=== PATIENT | male | born 1970 | race Caucasian/White ===

== ENCOUNTER 2020-03-28 20:44 | Inpatient (IN) | payer OTHER ==
--- OUTSIDE RECORDS SUMMARY | 2020-03-28 21:00 | XMS REPORT | Continuity of Care Document ---
:1970 Author Organization [facility] t Address [address] [place] [address] Care Team Providers Name Role Phone UNKNOWN Primary Care Physician Unavailable Advance Directives Directive Decision Effective Date Termination Date Comments Sour ce Yes N/A [facility] - [place] Problems Condition Condition Condition Status Onset Resolution Last Treating Co mments Source Name Details Category Date Date Treatment Clinician Date Type 1 Problem [facility]U diabetes S - St. mellitus Elizabe with th ketoacidos is Pyelonephr Problem VANNESA itis S - [facility] th Diabetic Problem CH[facility]STU ketoacidos S - St . is [place]abe th Uncontroll Problem VANNESA ed insulin S - St . dependent Elizabe diabetes th mellitus Hypomagnes Problem VANNESA emia S - [facility]. [place] th Hypophosph Problem VANNESA BRASHER atemia S - [facility] th Dehydratio Problem VANNESA BRASHER n S - [facility] [place] th Hepatitis Problem [facility] U C virus S - St. infection [place] th Tobacco Problem [facility] abuse S - [facility] [place] th Nausea and Problem VANNESA BRASHER vomiting S - [facility] [place] th Leukocytos Problem VANNESA BRASHER is S - [facility]. [place] th Chronic Problem [facility]RISTU pancreatit S - St . is Elizabe th History of Problem VANNESA BRASHER alcohol S - St. abuse [place] th Lesion of Problem [facility]AN U lip S - [facility]. [place] th Noncomplia Problem VANNESA BRASHER nce S - [facility] [place] th Peripheral Problem VANNESA BRASHER neuropathy S - St . [place] th Major Problem [facility] depressive S - St . disorder [place] th Cannabis Problem [facility]U abuse S - [facility] [place] th Cellulitis Problem VANNESA BRASHER S - [facility] [place] th Lip ulcer Problem [facility]AN U S - [facility] [place] th Hyperglyce Problem VANNESA BRASHER david S - [facility] [place] th Oral Problem [facility] lesion S - [facility] [place] th Gastropare Problem VANNESA BRASHER sis S - [facility] [place] th Essential Problem ADRIAN U hypertensi S - St . on Elizabe th Abdominal Problem [facility]AN U pain S - [facility]. [place] th Acute Problem [facility] kidney S - St. injury [place]abe th Abscess of Problem VANNESA BRASHER neck S - [facility] [place] th Septic Problem [facility] shock S - [facility] El[facility] th Acute Problem [facility]STU renal S - St. failure [place] th Bacteremia Problem VANNESA S - [facility]. [place] th Intravenou Problem VANNESA BRASHER s drug S - St. abuse [place] th Hypocapnia Problem VANNESA BRASHER S - [facility] [place] th Hyponatrem Problem VANNESA BRASHER ia S - [facility] [place] th Renal Problem [facility]RISTU insufficie S - St . ncy Elizabe th Bandemia Problem [facility]RISTU S - [facility]. [facility] th General Problem [facility] patient S - St. noncomplia Elizab e nce th Hypocalcem Problem VANNESA BRASHER ia S - [facility]. [place] th Demand Problem [facility]U ischemia S - St. of Elizabe myocardium th Colitis Problem CHRISTU due to S - St. Clostridio Elizab e ides th difficile Pressure Problem CHRISTU injury of S - St. skin of Elizabe sacral th region Anemia due Problem VANNESA BRASHER to acute S - St. blood loss Elizab e th Gastrointe Problem VANNESA BRASHER stinal S - St. hemorrhage Elizab e th Thrombocyt Problem VANNESA BRASHER openia S - [facility]. El[facility] th Non-ST Problem [facility]RISTU elevation S - St. myocardial Elizab e infarction th (NSTEMI) Hypotensio Problem VANNESA BRASHER n S - [facility]. [place] th Weakness Problem CHRISTU S - [facility]. 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 Type 1 Problem [facility] mellitus Elizabe with th ketoacidos is Severe Problem CHRISTCee anemia S - St. Elizabe th Uncontroll Problem VANNESA BRASHER ed S - St. hypertensi Elizab e on th Elevated Problem CHRISTCee alanine S - St. aminotrans Elizab e ferase th (ALT) level Elevated Problem JAMES aspartate S - St. aminotrans Elizab e ferase th level High Problem JAMES alkaline S - St. phosphatas Elizab e e th Atrophy of Problem VANNESA BRASHER pancreas S - St. Eliz[place] th Osteoarthr Problem VANNESA BRASHER itis of S - St. 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 substanc 00:00: Elizabe e 00 th Social History Social Habit Start Date Stop Date Quantity Comments Source Sex Assigned At [birth year] Male [facility] 00:00:00 00:00:00 [facility] Smoking Status Start Date Stop Date Source Smokes tobacco daily (finding) 2020-03-21 00:36:00 [facility] Medications Ordered Filled Start Stop Current Ordering Indication Dosage Frequency Signature Comments Components Source Medication Medication Date Date Medication? Clinician (SIG) Name Name Acetaminoph No 1 ADRIAN U en/Codeine 03-21 S - St. Phosphate 03:51: Elizabe (Tylenol 00 th #4) 1 Each TAB Dicyclomine 2020-0 No 10mg ADRIAN U Hcl 8-21 S - St. (Bentyl) 10 02:21: Elizab e Mg CAP 00 th Omeprazole 2020-0 No 20mg CHRISTU (Prilosec) 8-21 S - St. 20 Mg CPDR 02:21: Elizabe 00 th Ondansetron 2020-0 No 4mg ADRIAN U Hcl 8-21 S - St. (Zofran) 4 02:21: Elizabe Mg TAB 00 th Insulin 2020-0 No 20 CHRISTU Glargine 4-20 S - St. (Lantus 07:34: Elizabe U-100) 100 00 th Unit/1 Ml SOLN Pantoprazol 2020-0 No 40mg ADRIAN U e 4-20 S - St. (Protonix) 07:34: Elizabe 40 Mg TABEC 00 th Insulin 2020-0 No 20 CHRISTU Glargine 4-20 S - St. (Lantus 07:34: Elizabe U-100) 100 00 th Unit/1 Ml SOLN Pantoprazol 2020-0 No 40mg ADRIAN U e 4-20 S - St. (Protonix) 07:34: Elizabe 40 Mg TABEC 00 th Insulin 2020-0 No 20 [facility]U Glargine 4-20 S - St. (Lantus 07:34: Elizabe U-100) 100 00 th Unit/1 Ml SOLN Pantoprazol 2020-0 No 40mg ADRIAN U e 4-20 S - St. (Protonix) 07:34: Elizabe 40 Mg TABEC 00 th Acetaminoph 2020-0 No 1 ADRIAN U en/Hydrocod 4-04 S - St. one Bitart 09:57: Elizabe (Ocotillo ) 1 Tab TAB Acetaminoph 2020-0 No 1 ADRIAN U en/Hydrocod 4-04 S - St. one Bitart 09:57: Elizabe ([place] ) 1 Tab TAB Acetaminoph 2020-0 No 1 ADRIAN U en/Hydrocod 4-04 S - St. one Bitart 09:57: Elizabe ([place] ) 1 Tab TAB Acetaminoph 2020-0 No 1 AD[facility]AN U en/Hydrocod 4-04 S - St. one Bitart 09:57: Elizabe ([place] 00 th 5/325) 1 Tab TAB Aspirin 2020-0 No 81mg CHRISTU (Aspirin 4-04 S - St. Chewable) 09:56: Elizabe 81 Mg CHEW 00 th Clopidogrel 2020-0 No 75mg ADRIAN U Bisulfate 4-04 S - St. (Plavix) 75 09:56: Elizab e Mg TAB 00 th Metoprolol 2020-0 No 25mg CHRISTU Succinate 4-04 S - St. (Toprol Xl) 09:56: Elizab e 25 Mg TABSR 00 th Saccharomyc 2020-0 No 250mg VANNESA TU es 4-04 S - St. Boulardii 09:56: Elizabe (Florastor) 00 th 250 Mg CAPSULE Vancomycin 2020-0 No 125mg ADRIAN U Hcl 4-04 S - St. (Vancocin) 09:56: Elizabe 125 Mg 00 th CAPSULE Aspirin 2020-0 No 81mg CHRISTU (Aspirin 4-04 S - St. Chewable) 09:56: Elizabe 81 Mg CHEW 00 th Clopidogrel 2020-0 No 75mg ADRIAN U Bisulfate 4-04 S - St. (Plavix) 75 09:56: Elizab e Mg TAB 00 th Metoprolol 2020-0 No 25mg CH[facility]U Succinate 4-04 S - St. (Toprol Xl) 09:56: Elizab e 25 Mg TABSR 00 th Saccharomyc 2020-0 No 250mg VANNESA TU es 4-04 S - St. Boulardii 09:56: Elizabe (Florastor) 00 th 250 Mg CAPSULE Aspirin 2020-0 No 81mg CHRISTU (Aspirin 4-04 S - St. Chewable) 09:56: Elizabe 81 Mg CHEW 00 th Clopidogrel 2020-0 No 75mg ADRIAN U Bisulfate 4-04 S - St. (Plavix) 75 09:56: Elizab e Mg TAB 00 th Metoprolol 2020-0 No 25mg CH[facility]U Succinate 4-04 S - St. (Toprol Xl) 09:56: Elizab e 25 Mg TABSR 00 th Saccharomyc 2020-0 No 250mg VANNESA TU es 4-04 S - St. Boulardii 09:56: Elizabe (Florastor) 00 th 250 Mg CAPSULE Aspirin 2020-0 No 81mg CHRISTU (Aspirin -04 S - St. Chewable) 09:56: Elizabe 81 Mg CHEW 00 th Clopidogrel 2019-0 No 75mg ADRIAN U Bisulfate -04 S - St. (Plavix) 75 09:56: Elizab e Mg TAB 00 th Metoprolol 2019-0 No 25mg CHRI[facility]U Succinate 4-04 S - St. (Toprol Xl) 09:56: Elizab e 25 Mg TABSR th Saccharomyc 2019-0 No 250mg VANNESA TU es 4-04 S - St. Boulardii 09:56: Elizabe (Florastor) 250 Mg CAPSULE Acetaminoph 2019-0 No 1 ADRIAN U en/Codeine 2-05 S - St. Phosphate 10:40: Elizabe (Tylenol #3) 1 Tab TAB Fluoxetine 2019-0 No 40mg CHRISTU Hcl 1-17 S - St. (Prozac) 20 08:56: Elizab e Mg CAP 00 Fluoxetine 2019-0 No 40mg CH[facility]U Hcl 1-17 S - St. (Prozac) 20 08:56: Elizab e Mg CAP 00 Fluoxetine 2019-0 No 40mg CHRISTU Hcl 1-17 S - St. (Prozac) 20 08:56: Elizab e Mg CAP 00 th Fluoxetine 2019-0 No 40mg CHRISTU Hcl 1-17 S - St. (Prozac) 20 08:56: Elizab e Mg CAP Fluoxetine 2019-0 No 40mg CHRISTU Hcl 1-17 S - St. (Prozac) 20 08:56: Elizab e Mg CAP 00 Fluoxetine 2019-0 No 40mg CHRISTU Hcl 1-17 S - St. (Prozac) 20 08:56: Elizab e Mg CAP 00 Fluoxetine 2019-0 No 40mg CHRISTU Hcl 1-17 S - St. (Prozac) 20 08:56: Elizab e Mg CAP 00 th Amoxicillin 2018-08 No 875mg VANNESA TU /Clavulanat 2-02 S - St. e Potassium 11:29: Elizab e (Augmentin 875 Mg) 1 Each TABLET Insulin 2018-08 No 30 CHRI[facility]U Glargine 2-02 S - St. (Lantus 11:14: Elizabe U-100) 100 00 th Unit/1 Ml SOLN Insulin 2019- No 5 CHRISTU Human 2-02 S - St. Lispro 11:14: Elizabe (Humalog 00 th Inj (3ML Vial)) 100 Unit/1 Ml INJ Insulin 2019- No 30 CH[facility]U Glargine 2-02 S - St. (Lantus 11:14: Elizabe U-100) 100 00 th Unit/1 Ml SOLN Insulin 2019- No 5 CHRI[facility]U Human 2-02 S - St. Lispro 11:14: Elizabe (Humalog 00 th Inj (3ML Vial)) 100 Unit/1 Ml INJ Insulin 2019- No 30 CH[facility] Glargine 2-02 S - St. (Lantus 11:14: Elizabe U-100) 100 00 th Unit/1 Ml SOLN Insulin 2018- No 5 [facility] Human 2-02 S - St. Lispro 11:14: Elizabe (Humalog 00 th Inj (3ML Vial)) 100 Unit/1 Ml INJ Insulin 2019- No 30 CH[facility]U Glargine 2-02 S - St. (Lantus 11:14: Elizabe U-100) 100 00 th Unit/1 Ml SOLN Insulin 2019- No 5 CHRI[facility]U Human 2-02 S - St. Lispro 11:14: Elizabe (Humalog 00 th Inj (3ML Vial)) 100 Unit/1 Ml INJ Insulin 2018- No 30 CH[facility] Glargine 2-02 S - St. (Lantus 11:14: Elizabe U-100) 100 00 th Unit/1 Ml SOLN Insulin 2019- No 5 CHRI[facility] Human 2-02 S - St. Lispro 11:14: Elizabe (Humalog 00 th Inj (3ML Vial)) 100 Unit/1 Ml INJ Insulin 2019- No 5 CHRI[facility]U Human 2-02 S - St. Lispro 11:14: Elizabe (Humalog 00 th Inj (3ML Vial)) 100 Unit/1 Ml INJ Insulin 2018- No 5 CHRI[facility] Human 2-02 S - St. Lispro 11:14: Elizabe (Humalog 00 th Inj (3ML Vial)) 100 Unit/1 Ml INJ Insulin 2019- No 5 CHRI[facility] Human 2-02 S - St. Lispro 11:14: Elizabe (Humalog Inj (3ML Vial)) 100 Unit/1 Ml INJ Ondansetron 2013-0 No 4mg ADRIAN U Hcl 8-20 S - St. (Zofran) 4 19:17: Elizabe Mg TAB 00 th Ondansetron 2013-0 No 4mg ADRIAN U Hcl 8-20 S - St. (Zofran) 4 19:17: Elizabe Mg TAB th Ondansetron 2013-0 No 4mg ADRIAN U Hcl 8-20 S - St. (Zofran) 4 19:17: Elizabe Mg TAB Ondansetron 2013-0 No 4mg ADRIAN U Hcl 8-20 S - St. (Zofran) 4 19:17: Elizabe Mg TAB th Ondansetron 2013-0 No 4mg ADRIAN U Hcl 8-20 S - St. (Zofran) 4 19:17: Elizabe Mg TAB Ondansetron 2013-0 No 4mg ADRIAN U Hcl 8-20 S - St. (Zofran) 4 19:17: Elizabe Mg TAB Ondansetron 2013-0 No 4mg ADRIAN U Hcl 8-20 S - St. (Zofran) 4 19:17: Elizabe Mg TAB Ondansetron 2013-0 No 4mg ADRIAN U Hcl 8-20 S - St. (Zofran) 4 19:17: Elizabe Mg TAB Acetaminoph 2012-0 No 1 ADRIAN U en/Hydrocod 3-25 S - St. one Bitart 16:02: Elizabe ([place]cot[place] ) 1 Tab TAB Acetaminoph 2012-0 No 1 ADRIAN U en/Hydrocod 3-25 S - St. one Bitart 16:02: Elizabe ([place] ) 1 Tab TAB Acetaminoph 2012-0 No 1 ADRIAN U en/Hydrocod 3-25 S - St. one Bitart 16:02: Elizabe ([place] ) 1 Tab TAB Acetaminoph 2012-0 No 1 ADRIAN U en/Hydrocod 3-25 S - St. one Bitart 16:02: Elizabe ([place] ) 1 Tab TAB Amlodipine No 10mg [facility]U Besylate S - St. (Norvasc) Elizabe 10 Mg TAB th Fluoxetine No 20mg CH[facility]STU Hcl S - St. (Prozac) 20 Elizabe Mg CAP th Gabapentin No 600mg CHRISTU (Neurontin) S - St. 600 Mg TAB Elizabe th Hydroxychlo No 200mg [facility]U roquine S - St. Sulfate Elizabe (Plaquenil) th 200 Mg TAB Lisinopril No 40mg CHRISTU (Zestril) S - St. 40 Mg TAB Elizabe th Meloxicam No 15mg CH[facility]STU (Mobic) 15 S - St. Mg TAB Elizabe th Simvastatin No 40mg [facility]U (Zocor) 40 S - St. Mg TAB Elizabe th Trazodone No 50mg [facility]U Hcl S - St. (Desyrel) Elizabe 50 Mg TAB th Amlodipine No 10mg [facility]U Besylate S - St. (Norvasc) Elizabe 10 Mg TAB th Gabapentin No 600mg [facility]U (Neurontin) S - St. 600 Mg TAB Elizabe th Hydroxychlo No 200mg [facility]U roquine S - St. Sulfate Elizabe (Plaquenil) th 200 Mg TAB Lisinopril No 40mg [facility]U (Zestril) S - St. 40 Mg TAB Elizabe th Simvastatin No 40mg [facility]U (Zocor) 40 S - St. Mg TAB Elizabe th Trazodone No 50mg [facility]U Hcl S - St. (Desyrel) Elizabe 50 Mg TAB th Amlodipine No 10mg [facility]U Besylate S - St. (Norvasc) Elizabe 10 Mg TAB th Gabapentin No 600mg [facility]U (Neurontin) S - St. 600 Mg TAB Elizabe th Hydroxychlo No 200mg [facility]U roquine S - St. Sulfate Elizabe (Plaquenil) th 200 Mg TAB Lisinopril No 40mg [facility]U (Zestril) S - St. 40 Mg TAB Elizabe th Simvastatin No 40mg [facility] (Zocor) 40 S - St. Mg TAB Elizabe th Trazodone No 50mg [facility] Hcl S - St. (Desyrel) Elizabe 50 Mg TAB th Amlodipine No 10mg [facility] Besylate S - St. (Norvasc) Elizabe 10 Mg TAB th Gabapentin No 600mg [facility]U (Neurontin) S - St. 600 Mg TAB Elizabe th Hydroxychlo No 200mg [facility] roquine S - St. Sulfate Elizabe (Plaquenil) th 200 Mg TAB Lisinopril No 40mg [facility]U (Zestril) S - St. 40 Mg TAB Elizabe th Simvastatin No 40mg [facility] (Zocor) 40 S - St. Mg TAB Elizabe th Trazodone No 50mg [facility] Hcl S - St. (Desyrel) Elizabe 50 Mg TAB th Amlodipine No 10mg [facility] Besylate S - St. (Norvasc) Elizabe 10 Mg TAB th Gabapentin No 600mg [facility] (Neurontin) S - St. 600 Mg TAB Elizabe th Hydroxychlo No 200mg [facility]U roquine S - St. Sulfate Elizabe (Plaquenil) th 200 Mg TAB Simvastatin No 40mg [facility]U (Zocor) 40 S - St. Mg TAB Elizabe th Trazodone No 50mg [facility] Hcl S - St. (Desyrel) Elizabe 50 Mg TAB th Amlodipine No 10mg [facility]U Besylate S - St. (Norvasc) Elizabe 10 Mg TAB th Gabapentin No 600mg [facility] (Neurontin) S - St. 600 Mg TAB Elizabe th Hydroxychlo No 200mg [facility] roquine S - St. Sulfate Elizabe (Plaquenil) th 200 Mg TAB Simvastatin No 40mg [facility] (Zocor) 40 S - St. Mg TAB Elizabe th Trazodone No 50mg [facility] Hcl S - St. (Desyrel) Elizabe 50 Mg TAB th Amlodipine No 10mg [facility] Besylate S - St. (Norvasc) Elizabe 10 Mg TAB th Gabapentin No 600mg [facility] (Neurontin) S - St. 600 Mg TAB Elizabe th Hydroxychlo No 200mg [facility]U roquine S - St. Sulfate Elizabe (Plaquenil) th 200 Mg TAB Meloxicam No 15mg [facility] (Mobic) 15 S - St. Mg TAB Elizabe th Simvastatin No 40mg [facility] (Zocor) 40 S - St. Mg TAB Elizabe th Trazodone No 50mg [facility] Hcl S - St. (Desyrel) Elizabe 50 Mg TAB th Vancomycin No 125mg [facility] Hcl S - St. (Vancocin) Elizabe 125 Mg th CAPSULE Amlodipine No 10mg [facility]U Besylate S - St. (Norvasc) Elizabe 10 Mg TAB th Gabapentin No 600mg [facility] (Neurontin) S - St. 600 Mg TAB Elizabe th Hydroxychlo No 200mg [facility] roquine S - St. Sulfate Elizabe (Plaquenil) th 200 Mg TAB Meloxicam No 15mg [facility] (Mobic) 15 S - St. Mg TAB Elizabe th Simvastatin No 40mg [facility] (Zocor) 40 S - St. Mg TAB Elizabe th Trazodone No 50mg [facility] Hcl S - St. (Desyrel) Elizabe 50 Mg TAB th Vancomycin No 125mg [facility] Hcl S - St. (Vancocin) Elizabe 125 Mg th CAPSULE Vital Signs Vital Name Observation Time Observation Value Comments Source Body Temperature 2020-03-21 04:54:00 98.1 [degF] [facility] - [place] Heart Rate 2020-03-21 04:54:00 76 /min [facility] [place] Respiratory rate 2020-03-21 04:54:00 19 /min [facility] - [place] Weight 2020-03-20 22:12:00 107.25 [lb_av] [facility] BMI (Body Mass 2020-03-20 22:12:00 17.8 kg/m2 [facility] Index) [facility] Heart Rate 2020-03-20 21:53:00 68 /min [facility] - [place] Respiratory rate 2020-03-20 21:36:00 14 /min [facility] - [place] Body Temperature 2019-12-01 16:00:00 98.5 [degF] [facility] - [place] Heart Rate 2019-12-01 16:00:00 80 /min [facility] - [place] Respiratory rate 2019-12-01 16:00:00 19 /min [facility] - [place] BP Systolic 2019-12-01 16:00:00 147 mm[Hg] [facility] - [place] BP Diastolic 2019-12-01 16:00:00 88 mm[Hg] [facility] - [place] Respiratory rate 2019-11-29 03:00:00 18 /min [facility] - [place] Weight 2019-11-28 04:00:00 112.50 [lb_av] [facility] - [place] BMI (Body Mass 2019-11-28 04:00:00 18.7 kg/m2 [facility] - St. Index) [facility] BP Systolic 2019-11-27 08:52:00 118 mm[Hg] [facility] - [place] BP Diastolic 2019-11-27 08:52:00 71 mm[Hg] [facility] - [place] Heart Rate 2019-11-26 01:32:00 76 /min [facility] - [place] BP Systolic 2019-11-26 01:32:00 105 mm[Hg] [facility] - [place] BP Diastolic 2019-11-26 01:32:00 64 mm[Hg] [facility] - [place] Body Temperature 2019-11-19 07:45:00 98.4 [degF] [facility] - [place] Heart Rate 2019-11-19 07:45:00 90 /min [facility] - [place] Respiratory rate 2019-11-19 07:45:00 18 /min [facility] - [place] BP Systolic 2019-11-19 07:45:00 123 mm[Hg] [facility] - [place] BP Diastolic 2019-11-19 07:45:00 81 mm[Hg] [facility] - [place] Respiratory rate 2019-11-17 14:00:00 18 /min [facility] - [place] Weight 2019-11-17 04:00:00 122 [lb_av] [facility] - [place] BMI (Body Mass 2019-11-17 04:00:00 20.3 kg/m2 [facility] St. Index) [facility] Heart Rate 2019-11-15 01:57:00 81 /min [facility] - [place] BP Systolic 2019-11-15 01:57:00 144 mm[Hg] [facility] - [place] BP Diastolic 2019-11-15 01:57:00 75 mm[Hg] [facility] - [place] Body Temperature 2019-11-03 08:00:00 97.4 [degF] [facility] - [place] Heart Rate 2019-11-03 08:00:00 70 /min [facility] - [place] Respiratory rate 2019-11-03 08:00:00 18 /min [facility] - [place] BP Systolic 2019-11-03 08:00:00 95 mm[Hg] [facility] [place] BP Diastolic 2019-11-03 08:00:00 58 mm[Hg] [facility] [place] Respiratory rate 2019-11-01 22:00:00 15 /min [facility] - [place] Weight 2019-11-01 04:00:00 110.31 [lb_av] [facility] - [place] BMI (Body Mass 2019-11-01 04:00:00 18.4 kg/m2 [facility] - St. Index) [facility] Heart Rate 2019-10-29 00:05:00 98 /min [facility] - [place] BP Systolic 2019-10-29 00:05:00 103 mm[Hg] [facility] [place] BP Diastolic 2019-10-29 00:05:00 60 mm[Hg] [facility] [place] Body Temperature 2019-10-17 15:17:00 99.2 [degF] [facility] - [place] Heart Rate 2019-10-17 15:17:00 92 /min [facility] - [place] BP Systolic 2019-10-17 15:17:00 132 mm[Hg] [facility] [place] BP Diastolic 2019-10-17 15:17:00 66 mm[Hg] [facility] - [place] Respiratory rate 2019-10-17 00:00:00 18 /min [facility] - [place] Respiratory rate 2019-10-07 16:00:00 16 /min [facility] - [place] Weight 2019-10-07 04:00:00 125.56 [lb_av] [facility] - [place] BMI (Body Mass 2019-10-07 04:00:00 20.3 kg/m2 [facility] - St. Index) [facility] Heart Rate 2019-10-05 21:35:00 67 /min [facility] - [place] BP Systolic 2019-10-05 21:35:00 108 mm[Hg] [facility] [place] BP Diastolic 2019-10-05 21:35:00 79 mm[Hg] [facility] [place] Body Temperature 2019-09-05 07:58:00 98.1 [degF] [facility] - [place] Heart Rate 2019-09-05 07:58:00 68 /min [facility] - [place] Respiratory rate 2019-09-05 07:58:00 18 /min [facility] - [place] BP Systolic 2019-09-05 07:58:00 181 mm[Hg] [facility] [place] BP Diastolic 2019-09-05 07:58:00 98 mm[Hg] [facility] [place] Respiratory rate 2019-08-31 20:00:00 13 /min [facility] - [place] BMI (Body Mass 2019-08-31 04:00:00 19.2 kg/m2 [facility] - St. Index) [facility] Weight 2019-08-31 00:35:00 115.31 [lb_av] [facility] - [place] Heart Rate 2019-08-31 00:01:00 108 /min [facility] - [place] BP Systolic 2019-08-31 00:01:00 188 mm[Hg] [facility] [place] BP Diastolic 2019-08-31 00:01:00 84 mm[Hg] [facility] [place] Heart Rate 2019-08-17 10:13:00 86 /min [facility] - [place] Respiratory rate 2019-08-17 10:13:00 18 /min [facility] - [place] BP Systolic 2019-08-17 10:13:00 157 mm[Hg] [facility] [place] BP Diastolic 2019-08-17 10:13:00 89 mm[Hg] [facility] [place] Body Temperature 2019-08-17 08:21:00 97.5 [degF] [facility] - [place] Respiratory rate 2019-08-15 15:00:00 13 /min [facility] - [place] BMI (Body Mass 2019-08-15 04:00:00 20.2 kg/m2 [facility] US - St. Index) [facility] Weight 2019-08-14 22:30:00 121.25 [lb_av] [facility] - [place] Heart Rate 2019-08-14 22:16:00 90 /min [facility] [place] BP Systolic 2019-08-14 22:16:00 142 mm[Hg] [facility] [place] BP Diastolic 2019-08-14 22:16:00 92 mm[Hg] [facility] [place] Body Temperature 2019-07-02 08:00:00 98.7 [degF] [facility] - [place] Heart Rate 2019-07-02 08:00:00 64 /min [facility] - [place] Respiratory rate 2019-07-02 08:00:00 16 /min [facility] - [place] BP Systolic 2019-07-02 08:00:00 111 mm[Hg] [facility] [place] BP Diastolic 2019-07-02 08:00:00 73 mm[Hg] [facility] [place] Respiratory rate 2019-06-28 14:00:00 17 /min [facility] - [place] BMI (Body Mass 2019-06-28 04:00:00 21.6 kg/m2 [facility] - St. Index) [facility] Weight 2019-06-26 20:15:00 130 [lb_av] [facility] [place] Heart Rate 2019-06-26 20:00:00 83 /min [facility] [place] BP Systolic 2019-06-26 20:00:00 141 mm[Hg] [facility] [place] BP Diastolic 2019-06-26 20:00:00 94 mm[Hg] [facility] [place] Procedures Procedure Date / Time Performing Source Performed Clinician Computed tomography of abdomen and 2020-03-21 [facility] pelvis with contrast 00:00:00 [facility] V[facility] access with ultrasound 2019-12-01 [facility] guidance 00:00:00 [facility] Venipuncture requiring physician 2019-12-01 [facility] or skilled healthcare provider in 00:00:00 [facility] patient 3 years of age or older Vascular access with ultrasound 2019-11-30 [facility] guidance 00:00:00 [facility] Venipuncture requiring physician 2019-11-30 [facility] or skilled healthcare provider in 00:00:00 [facility] patient 3 years of age or older Venipuncture requiring physician 2019-11-29 [facility] or skilled healthcare provider in 00:00:00 [facility] patient 3 years of age or older Vascular access with ultrasound 2019-11-29 [facility] guidance 00:00:00 [facility] Colonoscopy with biopsy 2019-11-27 [facility] 00:00:00 [facility] Esophagogastroduodenoscopy with 2019-11-27 [facility] closed biopsy 00:00:00 [facility] Diagnostic 2019-11-27 [facility] esophagogastroduodenoscopy (EGD) 00:00:00 [facility] with specimen collection Colonoscopy, diagnostic 2019-11-27 [facility] 00:00:00 [facility] Blood transfusion 2019-11-26 [facility] 00:[facility]:00 [facility] ECG (electrocardiogram) 2019-11-25 [facility] 00:[facility]:00 [facility] X-ray of chest, single view 2019-11-25 [facility] 00:00:00 [facility] Vascular access with ultrasound 2019-11-19 [facility] guidance 00:00:00 [facility] Venipuncture requiring physician 2019-11-19 [facility] or skilled healthcare provider in 00:00:00 Princess patient 3 years of age or older Computed tomography of abdomen and 2019-11-14 [facility] pelvis with contrast 00:00:00 [facility] Physical therapy evaluation and 2019-11-01 [facility] treatment 00:00:00 [facility] X-ray of chest, single view 2019-10-31 [facility] 00:[facility]:00 [facility] Diagnostic 2019-10-29 [facility] esophagogastroduodenoscopy (EGD) 00:00:00 [facility] with specimen collection INSPECTION OF UPPER INTESTINAL 2019-10-29 [facility] TRACT, ENDO 00:00:00 [facility] ECG (electrocardiogram) 2019-10-28 [facility] 00:[facility]:00 [facility] X-ray of chest, single view 2019-10-28 [facility] 00:00:00 [facility] Computed tomography of head or 2019-10-28 [facility] brain without contrast 00:00:00 [facility] Computed tomography of cervical 2019-10-28 [facility] spine without contrast 00:00:00 [facility] TRANSFUSE NONAUT FROZEN PLASMA IN 2019-10-28 [facility] PERIPH VEIN, PERC 00:00:00 [facility] TRANSFUSE NONAUT RED BLOOD CELLS 2019-10-28 [facility] IN PERIPH VEIN, PERC 00:00:00 [facility] TRANSFUSE NONAUT PLATELETS IN 2019-10-28 [facility] PERIPH VEIN, PERC 00:00:00 [facility] INSERTION OF INFUSION DEV INTO SUP 2019-10-28 [facility] VENA CAVA, PERC APPROACH 00:00:00 Elizabe th Mod sed same phys/qhp initial 15 2019-10-15 [facility] mins 5/> yrs 00:00:00 [facility] Echo transesophag r-t 2d w/PRB img 2019-10-15 [facility] acquisj i&r 00:00:00 [facility] Doppler echocard pulse wave 2019-10-15 [facility] w/spectral display 00:00:00 [facility] Doppler color flow mapping 2019-10-15 [facility] 00:00:00 [facility] Request For Service 2019-10-15 [facility]. 00:00:00 Princess No Charge Celestino 2019-10-15 [facility] 00:00:00 Princess Dup-scan xtr veins complete 2019-10-12 [facility] bilateral study 00:00:00 Princess Assessment of wound 2019-10-11 [facility]. 00:00:00 Princess Transthoracic two dimensional 2019-10-09 [facility] echocardiography with color 00:00:00 Shahla sanchez Doppler imaging and contrast Assessment of wound 2019-10-08 [facility]. 00:00:00 Princess Encounter Stat Only Clinic 2019-10-08 [facility] - [facility]. 00:00:00 Princess Incision and drainage, extremity 2019-10-06 [facility] 00:00:00 Princess ECG (electrocardiogram) 2019-10-06 [facility] 00:00:00 Princess Ultrasound of kidney and bladder 2019-10-06 [facility] 00:00:00 Princess X-ray of chest, single view 2019-10-05 [facility] 00:00:00 Princess ECG (electrocardiogram) 2019-10-05 [facility] 00:00:00 Princess Computed tomography of soft 2019-10-05 [facility] tissues of [facility] of abdomen and 2019-09-04 [facility] pelvis without contrast 00:00:00 Catherine h ECG (electrocardiogram) 2019-08-30 [facility] 00:00:00 Princess X-ray of chest, single view 2019-08-30 [facility] 00:00:00 Princess Encounter Stat Only Clinic 2019-08-16 [facility] - [facility] 00:00:00 Princess ECG (electrocardiogram) 2019-08-14 [facility] 00:00:00 Princess Assessment of wound 2019-07-01 [facility]. 00:00:00 Princess Encounter Stat Only Clinic 2019-06-27 [facility] 00:00:00 Princess Plan of Care Planned Activity Planned Date Details Comments Source Future Scheduled Test Venous blood hemoglobin [facility] (mass[facility] [code = 13257-6] Future Scheduled Test Venous blood hemoglobin [facility] measurement (mass/volume) [place] [code = 43830-4] Future Scheduled Test Venous blood hemoglobin [facility] measurement (mass/volume) [place] [code = 30556-1] Future Scheduled Test Venous blood hemoglobin [facility] measurement (mass/volume) [place] [code = 18352-3] Future Scheduled Test Venous blood hemoglobin [facility] measurement (mass/volume) [place] [code = 51100-9] Future Scheduled Test Venous blood hemoglobin [facility] measurement (mass/volume) [place] [code = 46831-7] Future Scheduled Test Venous blood hemoglobin [facility] measurement (mass/volume) [place] [code = 48651-8] Future Scheduled Test Venous blood hemoglobin [facility] measurement (mass/volume) [place] [code = 77467-6] Goal Patient referral [code = [facility] - [facility]. [id number] ] Princess Goal Patient referral [code = [facility] [id number] ] Princess Goal Patient referral [code = [facility]. [id number] ] Princess Goal Patient referral [code = [facility] [id number] ] Princess Goal Patient referral [code = [facility] - [facility] [id number] ] Princess Goal Patient referral [code = [facility] - [facility] [id number] ] Princess Instructions Diabetes Type 2 (DC) [facility] - [place] Instructions Diabetic Ketoacidosis [facility] US - St. (DC) Princess Instructions Diabetes and Infections [facility] - [place] Instructions Diabetic Ketoacidosis [facility] US - [place] Instructions Acute Pain, Adult (DC) [facility] - [place] Instructions Abscess Incision and [facility] - St. Drainage Princess Instructions Diabetic Ketoacidosis [facility] US - St. (DC) Princess Instructions Gastrointestinal Bleeding [facility] - St. (DC) Princess Instructions Diabetes Type 2 (DC) [facility] - [place] Instructions Clostridioides difficile [facility] - St. (DC) Princess Instructions Acute Abdomen (Belly [facility] S - St[facility] Pain), Adult (DC) Princess Instructions Gastroparesis (Delayed [facility] Gastric Emptying) (DC) Flaca cyndee Instructions Diabetes Exchange Diet [facility] [place] Instructions Diabetes and Infections [facility] [place] Instructions Pancreatitis [facility] Instructions Dehydration, Adult (DC) [facility] Instructions High Blood Pressure (DC) [facility] [place] Instructions Severe Abdominal Pain, [facility] Adult (DC) Princess Instructions Nausea and Vomiting, [facility] Adult (MI) Princess Instructions Degenerative Disc Disease [facility] ([place]) Princess Instructions Alkaline Phosphatase Test [facility] Instructions Diabetic Meal Planning [facility] Encounters Start End Encounter Admission Attending Care Care Encounter Source Date/Time Date/Time Type Type Clinicians Facility Department ID 2020-03-20 2020-03-21 Departed LUANN WALKER [id number] [facility] 21:39:00 04:55:[address] [facility] e 2019-11-26 2019-12-01 Discharged LUANN CAMPBELLUS AE00 [id number] [facility] 01:08:00 18:47:[address] [facility] St[facility] 86 [facility] e 2019-11-15 2019-11-19 Discharged LUANN CAMPBELLUS AE00 [id number] [facility] 00:29:00 11:09:[address] [facility] St 99 [facility] e 2019-10-28 2019-11-03 Discharged CHRISTSONYA [facility] AE00 [id number] [facility] 22:33:00 15:09:[address] [facility] St[facility] 40 [facility] e 2019-10-05 2019-10-17 Discharged CHRISTSONYA [facility] AE00 [id number] [facility] 18:03:00 17:05:[address] [facility] e 2019-08-30 2019-09-05 Discharged CHRISTSONYA [facility] AE00 [id number] [facility] 22:11:00 17:42:[address] [facility] S - [place] Elizab e 2019-08-14 2019-08-17 Discharged LUANN WALKER AE00 [id number] [facility] 20:30:00 14:34:[address] S - [place] Elizab e 2019-06-26 2019-07-02 Discharged LUANN WALKER AE00 [id number] [facility] 16:18:00 13:06:[address] S - [place] Elizab e 2017-08-18 2017-08-18 Emergency E [facility] [id number] Medical 11:14:00 11:14:00 [facility] Results Test Description Test Time Test Comments Results Result Comments Source Capillary whole blood glucose measurement by glucometer 2019 02:58:00 (mass/volume) Test Item Value Reference Range Interpretation Comme [facility] Bedside Glucose (test code = 85657-3) 289 mg/dL [facility] ElizabethUrinalysis specimen collection [id number] 23:15:00 Test Item Value Reference Range Interpretation Comments Urine Source (test code = 46486-8) URINE [facility] - [facility] ElizabethColor of Urine by [id number] 23:15:00 Test Item Value Reference Range Interpretation Comments Urine Color (test code = 05303-1) Colorless [facility] ElizabethUrine clarity [id number] 23:15:00 Test Item Value Reference Range Interpretation Comments Urine Appearance (test code = 15661-3) Clear [facility] ElizabethUrine pH measurement by automated test [id number] 23:15:00 Test Item Value Reference Range Interpretation Comments Urine pH (test code = 72970-3) 6.5 [facility] ElizabethSpecific gravity of Urine by Automated test strip 2020-03-20 23:15:00 Test Item Value Reference Range Interpretation Comments Urine Specific [place] (test code = 1.027 52744-2) [facility] ElizabethUrine protein measurement by automated test strip (mass/volume)2020-03-20 23:15:00 Test Item Value Reference Range Interpretation Comments Urine Protein (test code = Negative mg/dL 68519-8) [facility] glucose measurement by automated test strip (mass/volume)2020-03-20 23:15:00 Test Item Value Reference Range Interpretation Comments Urine Glucose (UA) (test code = >1000 mg/dL 50129-0) [facility] ketones measurement by automated test strip (mass/volume)2020-03-20 23:15:00 Test Item Value Reference Range Interpretation Comments Urine Ketones (test code = 70392-4) 20 mg/dL [facility] erythrocytes count by automated test strip (number/volume)2020-03-20 23:15:00 Test Item Value Reference Range Interpretation Comments Urine Occult Blood (test code = 1+ 86646-0) [facility] nitrite detection by automated test strip 2020-03-20 23:15:00 Test Item Value Reference Range Interpretation Comments Urine Nitrite (test code = 38609-5) Negative [facility] total bilirubin measurement by automated test strip (mass/volume)2020-03-20 23:15:00 Test Item Value Reference Range Interpretation Comments Urine Bilirubin (test code = Negative mg/dL 48175-4) [facility] urobilinogen measurement by automated test strip (mass/volume)2020-03-20 23:15:00 Test Item Value Reference Range Interpretation Comments Urine Urobilinogen (test code Negative mg/dL = 43757-9) [facility] leukocytes count by automated test strip (number/volume)2020-03-20 23:15:00 Test Item Value Reference Range Interpretation Comments Urine Leukocyte Esterase Negative {Oliver}/uL (test code = 07962-0) [facility] [id number] 23:15:00 Test Item Value Reference Range Interpretation Comments Microscopic Urinalysis (T) (test code = ----- 18007-3) [facility] sediment erythrocyte count by microscopy (number/high power field)2020-03-20 23:15:00 Test Item Value Reference Range Interpretation Comments Urine RBC (test code = 74200-1) 3-10 /[HPF] [facility] ElizabethUrine sediment leukocyte count by microscopy (number/high power field)2020-03-20 23:15:00 Test Item Value Reference Range Interpretation Comments Urine WBC (test code = 5821-4) 0-5 /[HPF] [facility] ElizabethUrine sediment epithelial cell count by microscopy (number/high power field)2020-03-20 23:15:00 Test Item Value Reference Range Interpretation Comments Urine Epithelial Cells (test None Seen /[HPF] code = 5787-7) [facility] ElizabethUrine sediment crystal count by microscopy (number/high power field)2020-03-20 23:15:00 Test Item Value Reference Range Interpretation Comments Urine Crystals (test code = None Seen /[HPF] 84770-0) [facility] ElizabeUrine sediment bacteria count by microscopy (number/high power field)2020-03-20 23:15:00 Test Item Value Reference Range Interpretation Comments Urine Bacteria (test code = None Seen /[HPF] 5769-5) [facility] ElizabeUrine sediment casts count by microscopy (number/low power field)2020-03-20 23:15:00 Test Item Value Reference Range Interpretation Comments Urine Casts (test code = None Seen /[LPF] 9842-6) [facility] ElizabeUrine sediment hyaline cast count by microscopy (number/low power field)2020-03-20 23:15:00 Test Item Value Reference Range Interpretation Comments Urine Hyaline Casts (test None Seen /[LPF] code = 5796-8) [facility] - [facility] ElizabethYeast detection in urine sediment by light microscopy 2020-03-20 23:15:00 Test Item Value Reference Range Interpretation Comments Urine Yeast (test code = None Seen /[HPF] 41165-3) [facility] ElizabethService comment 23:15:00 Test Item Value Reference Range Interpretation Comments Urinalysis Comment (test code = 8262-8) * [facility] ElizabethService comment 23:15:00 Test Item Value Reference Range Interpretation Comments Urine Culture Indicated (test code = Not Ind 8264-4) [facility] ElizabethVenous whole blood sodium measurement (moles/volume) 2020-03-20 21:56:00 Test Item Value Reference Range Interpretation Comments Bedside Sodium (test code = 133 mmol/L 64710-3) [facility] blood potassium measurement (moles/volume) 2020-03-20 21:56:00 Test Item Value Reference Range Interpretation Comments Bedside Potassium (test code = 5.0 mmol/L 66330-3) [facility] ElizabeVenous whole blood chloride measurement (moles/volume) 2020-03-20 21:56:00 Test Item Value Reference Range Interpretation Comments Bedside Chloride (test code = 92 mmol/L 30155-9) [facility] blood total carbon dioxide measurement (moles/volume)2020-03-20 21:56:00 Test Item Value Reference Range Interpretation Comments Bedside Total CO2 (test code = 25.0 mmol/L 2026-1) [facility] LakebeVenous whole blood urea nitrogen (BUN) measurement (mass/volume)2020-03-20 21:56:00 Test Item Value Reference Range Interpretation Comments Bedside Blood Urea Nitrogen (test 11 mg/dL code = 13681-9) [facility]beBlood creatinine measurement (mass/volume)2020-03-20 21:56:00 Test Item Value Reference Range Interpretation Comments Bedside Creatinine (test code = 0.7 mg/dL 08940-4) [facility] LakebeVenous whole blood glucose measurement (mass/volume) 2020-03-20 21:56:00 Test Item Value Reference Range Interpretation Comments Bedside Glucose (test code = 490 mg/dL 96293-0) [facility] ElibeWhole blood ionized calcium measurement (moles/volume) 2020-03-20 21:56:00 Test Item Value Reference Range Interpretation Comments Bedside Whole Blood Ionized 1.19 mmol/L Calcium (test code = 1994-3) [facility] LakebeBlood anion [id number] 21:56:00 Test Item Value Reference Range Interpretation Comments Bedside Anion Gap (test code = 06787-9) 22 [facility] LakebeGFR estimate [id number] 21:56:00 Test Item Value Reference Range Interpretation Comments Estimat Glomerular Filtration Rate 127 (test code = 95221-5) [facility]. ElizabethVenous blood hemoglobin measurement (mass/volume) 2020-03-20 21:56:00 Test Item Value Reference Range Interpretation Comments Bedside Hemoglobin (test code = 12.2 g/dL 13685-1) [facility] ElizabethVenous blood hematocrit (volume fraction)2020-03-20 21:56:00 Test Item Value Reference Range Interpretation Comments Bedside Hematocrit (test code = 36.0 % 45062-9) [facility] - [facility] ElizabethAutomated blood leukocyte count (number/volume) 2020-03-20 21:55:00 Test Item Value Reference Range Interpretation Comments White Blood Count (test code = 4.9 10*3/uL 6690-2) [facility] - [facility] ElizabethBlood erythrocytes automated count (number/volume) 2020-03-20 21:55:00 Test Item Value Reference Range Interpretation Comments Red Blood Count (test code = 3.92 10*6/uL 789-8) [facility] - [facility] ElizabethBlood hemoglobin measurement (mass/volume)2020-03-20 21:55:00 Test Item Value Reference Range Interpretation Comments Hemoglobin (test code = 718-7) 12.0 g/dL [facility]. ElizabethAutomated blood hematocrit (volume fraction)2020-03-20 21:55:00 Test Item Value Reference Range Interpretation Comments Hematocrit (test code = 4544-3) 35.0 % [facility] ElizabethAutomated erythrocyte mean corpuscular volume (MCV) [id number] 21:55:00 Test Item Value Reference Range Interpretation Comments Mean Corpuscular Volume (test code = 89 fL 787-2) [facility] ElizabethAutomated erythrocyte mean corpuscular hemoglobin (mass per erythrocyte)2020-03-20 21:55:00 Test Item Value Reference Range Interpretation Comments Mean Corpuscular Hemoglobin (test 30.6 pg code = 785-6) [facility] ElizabethAutomated erythrocyte mean corpuscular hemoglobin concentration measurement (mass/[id number] 21:55:00 Test Item Value Reference Range Interpretation Comments Mean Corpuscular Hemoglobin Concent 34.3 g/dL (test code = 786-4) [facility]. ElizabethAutomated erythrocyte distribution width [id number] 21:55:00 Test Item Value Reference Range Interpretation Comments Red Cell Distribution Width (test code 14.7 % = 788-0) [facility]. ElizabethAutomated blood platelet count (count/volume)2020-03-20 21:55:00 Test Item Value Reference Range Interpretation Comments Platelet Count (test code = 278 10*3/uL 777-3) [facility]. ElizabethAutomated blood platelet mean volume measurement 2020-03-20 21:55:00 Test Item Value Reference Range Interpretation Comments Mean Platelet Volume (test code = 9.7 77500-0) [facility]. ElizabethAutomated blood neutrophil count as percentage of total [id number] 21:55:00 Test Item Value Reference Range Interpretation Comments Neutrophils (%) (Auto) (test code = 75 % 770-8) [facility]. ElizabethAutomated blood immature granulocyte count as percentage of total [id number] 21:55:00 Test Item Value Reference Range Interpretation Comments Immature Granulocyte % (Auto) (test 0 % code = 64491-5) [facility]. ElizabethAutomated blood lymphocyte count as percentage of total [id number] 21:55:00 Test Item Value Reference Range Interpretation Comments Lymphocytes (%) (Auto) (test code = 19 % 736-9) [facility]. ElizabethAutomated blood monocyte count as percentage of total [id number] 21:55:00 Test Item Value Reference Range Interpretation Comments Monocytes (%) (Auto) (test code = 6 % 5905-5) [facility]. ElizabethAutomated blood eosinophil count as percentage of total [id number] 21:55:00 Test Item Value Reference Range Interpretation Comments Eosinophils (%) (Auto) (test code = 0 % 713-8) [facility]. ElizabethAutomated blood basophil count as percentage of total [id number] 21:55:00 Test Item Value Reference Range Interpretation Comments Basophils (%) (Auto) (test code = 0 % 706-2) [facility] ElibethAutomated blood nucleated erythrocyte count as percentage of total [id number] 21:55:00 Test Item Value Reference Range Interpretation Comments Nucleated Red Blood Cells % (test code 0.0 % = 00555-0) [facility] ElibethAutomated blood neutrophil count (number/volume) 2020-03-20 21:55:00 Test Item Value Reference Range Interpretation Comments Neutrophils # (Auto) (test code = 3.7 10*3/uL 751-8) [facility] ElibethAutomated blood immature granulocyte count as percentage of total [id number] 21:55:00 Test Item Value Reference Range Interpretation Comments Immature Granulocyte # (Auto) 0.0 10*3/uL (test code = 12956-0) [facility] ElibethAutomated blood lymphocyte count (number/volume) 2020-03-20 21:55:00 Test Item Value Reference Range Interpretation Comments Lymphocytes # (Auto) (test code = 0.9 10*3/uL 731-0) [facility] monocytes automated count (number/volume) 2020-03-20 21:55:00 Test Item Value Reference Range Interpretation Comments Monocytes # (Auto) (test code = 0.3 10*3/uL 742-7) [facility] eosinophil [id number] 21:55:00 Test Item Value Reference Range Interpretation Comments Eosinophils # (Auto) (test code = 0.0 10*3/uL 711-2) [facility] basophil count (number/volume)2020-03-20 21:55:00 Test Item Value Reference Range Interpretation Comments Basophils # (Auto) (test code = 0.0 10*3/uL 704-7) [facility] ElizabethAutomated blood nucleated erythrocyte count (count/volume)2020-03-20 21:55:00 Test Item Value Reference Range Interpretation Comments Nucleated Red Blood Cells # 0.00 10*3/uL (test code = 771-6) [facility]. [facility] [id number] 21:55:00 Test Item Value Reference Range Interpretation Comments Manual Differential (test code = Not Ind 8265-1) [facility] ElizabethSerum or plasma sodium measurement (moles/volume) 2020-03-20 21:55:00 Test Item Value Reference Range Interpretation Comments Sodium Level (test code = 2951-2) 133 mmol/L [facility] ElizabethSerum or plasma potassium measurement (moles/volume) 2020-03-20 21:55:00 Test Item Value Reference Range Interpretation Comments Potassium Level (test code = 5.0 mmol/L 2823-3) [facility] ElizabethSerum or plasma chloride measurement (moles/volume) 2020-03-20 21:55:00 Test Item Value Reference Range Interpretation Comments Chloride Level (test code = 2075-0) 96 mmol/L [facility] ElizabethSerum or plasma total carbon dioxide measurement (moles/volume)2020-03-20 21:55:00 Test Item Value Reference Range Interpretation Comments Carbon Dioxide Level (test code = 22 mmol/L 2027-9) [facility] ElizabethSerum or plasma anion gap determination (moles/volume) 2020-03-20 21:55:00 Test Item Value Reference Range Interpretation Comments Anion Gap (test code = 34085-1) 20 [facility] ElizabethSerum or plasma urea nitrogen measurement (mass/volume) 2020-03-20 21:55:00 Test Item Value Reference Range Interpretation Comments Blood Urea Nitrogen (test code = 11 mg/dL 3094-0) [facility] ElizabethSerum or plasma creatinine measurement (mass/volume) 2020-03-20 21:55:00 Test Item Value Reference Range Interpretation Comments Creatinine (test code = 2160-0) 1.0 mg/dL [facility] - [facility]. ElizabethGFR estimate [id number] 21:55:00 Test Item Value Reference Range Interpretation Comments Estimat Glomerular Filtration Rate 84 (test code = 61373-0) [facility] ElizabethSerum or plasma glucose measurement (mass/volume) 2020-03-20 21:55:00 Test Item Value Reference Range Interpretation Comments Glucose Level (test code = 2345-7) 545 mg/dL [facility] ElizabethSerum or plasma calcium measurement (mass/volume) 2020-03-20 21:55:00 Test Item Value Reference Range Interpretation Comments Calcium Level (test code = 76613-2) 8.2 mg/dL [facility]. ElizabethSerum or plasma total bilirubin measurement (mass/volume)2020-03-20 21:55:00 Test Item Value Reference Range Interpretation Comments Total Bilirubin (test code = 0.5 mg/dL 1975-2) [facility]. [facility]abeNaval Hospitalerum or plasma aspartate aminotransferase measurement (enzymatic activity/volume)2020-03-20 21:55:00 Test Item Value Reference Range Interpretation Comments Aspartate Amino Transf (AST/SGOT) 47 U/L (test code = 1920-8) [facility]. [facility]abeNaval Hospitalerum or plasma alanine aminotransferase measurement (enzymatic activity/volume)2020-03-20 21:55:00 Test Item Value Reference Range Interpretation Comments Alanine Aminotransferase (ALT/SGPT) 66 U/L (test code = 1742-6) [facility]. [facility]ibeNaval Hospitalerum or plasma protein measurement (mass/volume) 2020-03-20 21:55:00 Test Item Value Reference Range Interpretation Comments Total Protein (test code = 2885-2) 5.7 g/dL [facility]. [facility]ibeNaval Hospitalerum or plasma albumin measurement (mass/volume) 2020-03-20 21:55:00 Test Item Value Reference Range Interpretation Comments Albumin (test code = 1751-7) 3.3 g/dL [facility]. [facility] or plasma alkaline phosphatase measurement (enzymatic activity/volume)2020-03-20 21:55:00 Test Item Value Reference Range Interpretation Comments Alkaline Phosphatase (test code = 548 U/L 6768-6) [facility] blood glucose measurement by glucometer (mass/volume)2019-12-01 17:06:00 Test Item Value Reference Range Interpretation Comments Bedside Glucose (test code = 139 mg/dL 90092-6) [facility]Autom[facility] leukocyte count (number/volume) 2019-12-01 10:20:00 Test Item Value Reference Range Interpretation Comments White Blood Count (test code = 4.4 10*3/uL 6690-2) [facility] HospitalBlood erythrocytes automated count (number/volume) 2019-12-01 10:20:00 Test Item Value Reference Range Interpretation Comments Red Blood Count (test code = 2.72 10*6/uL 789-8) [facility] ElizabethBlood hemoglobin measurement (mass/volume)2019-12-01 10:20:00 Test Item Value Reference Range Interpretation Comments Hemoglobin (test code = 718-7) 8.7 g/dL [facility] ElizabethAutomated blood hematocrit (volume fraction)2019-12-01 10:20:00 Test Item Value Reference Range Interpretation Comments Hematocrit (test code = 4544-3) 27.4 % [facility] ElizabethAutomated erythrocyte mean corpuscular volume (MCV) [id number] 10:20:00 Test Item Value Reference Range Interpretation Comments Mean Corpuscular Volume (test code = 101 fL 787-2) [facility] ElizabethAutomated erythrocyte mean corpuscular hemoglobin (mass per erythrocyte)2019-12-01 10:20:00 Test Item Value Reference Range Interpretation Comments Mean Corpuscular Hemoglobin (test 32.0 pg code = 785-6) [facility] ElizabethAutomated erythrocyte mean corpuscular hemoglobin concentration measurement (mass/goe8555-26-36 10:20:00 Test Item Value Reference Range Interpretation Comments Mean Corpuscular Hemoglobin Concent 31.8 g/dL (test code = 786-4) [facility] ElizabethAutomated erythrocyte distribution width [id number] 10:20:00 Test Item Value Reference Range Interpretation Comments Red Cell Distribution Width (test code 18.1 % = 788-0) [facility] ElizabethAutomated blood platelet count (count/volume)2019-12-01 10:20:00 Test Item Value Reference Range Interpretation Comments Platelet Count (test code = 221 10*3/uL 777-3) [facility] ElizabethAutomated blood platelet mean volume measurement 2019-12-01 10:20:00 Test Item Value Reference Range Interpretation Comments Mean Platelet Volume (test code = 9.5 36627-7) [facility] ElizabethAutomated blood neutrophil count as percentage of total glygvyfobu3388-11-66 10:20:00 Test Item Value Reference Range Interpretation Comments Neutrophils (%) (Auto) (test code = 60 % 770-8) [facility]. ElizabethAutomated blood immature granulocyte count as percentage of total nmdaybzvel3032-10-07 10:20:00 Test Item Value Reference Range Interpretation Comments Immature Granulocyte % (Auto) (test 1 % code = 74211-1) [facility]. ElizabethAutomated blood lymphocyte count as percentage of total hnpzpyhzto2988-54-61 10:20:00 Test Item Value Reference Range Interpretation Comments Lymphocytes (%) (Auto) (test code = 25 % 736-9) [facility]. ElizabethAutomated blood monocyte count as percentage of total cqlawrbnwl3993-47-66 10:20:00 Test Item Value Reference Range Interpretation Comments Monocytes (%) (Auto) (test code = 13 % 5905-5) [facility]. ElizabethAutomated blood eosinophil count as percentage of total wycycsdagr8435-62-44 10:20:00 Test Item Value Reference Range Interpretation Comments Eosinophils (%) (Auto) (test code = 1 % 713-8) [facility]. ElizabethAutomated blood basophil count as percentage of total yzhdgzddeu1458-92-66 10:20:00 Test Item Value Reference Range Interpretation Comments Basophils (%) (Auto) (test code = 1 % 706-2) [facility]. ElizabethAutomated blood nucleated erythrocyte count as percentage of total wggbhesquj4617-72-15 10:20:00 Test Item Value Reference Range Interpretation Comments Nucleated Red Blood Cells % (test code 0.0 % = 97063-4) [facility]. ElizabethAutomated blood neutrophil count (number/volume) 2019-12-01 10:20:00 Test Item Value Reference Range Interpretation Comments Neutrophils # (Auto) (test code = 2.6 10*3/uL 751-8) [facility]. ElizabethAutomated blood immature granulocyte count as percentage of total qdpodgakwt3567-12-14 10:20:00 Test Item Value Reference Range Interpretation Comments Immature Granulocyte # (Auto) 0.0 10*3/uL (test code = 32258-5) [facility] . ElizabethAutomated blood lymphocyte count (number/volume) 2019-12-01 10:20:00 Test Item Value Reference Range Interpretation Comments Lymphocytes # (Auto) (test code = 1.1 10*3/uL 731-0) [facility] ElizabethBlood monocytes automated count (number/volume) 2019-12-01 10:20:00 Test Item Value Reference Range Interpretation Comments Monocytes # (Auto) (test code = 0.6 10*3/uL 742-7) [facility] ElizabethAutomated blood eosinophil bqkss8510-40-89 10:20:00 Test Item Value Reference Range Interpretation Comments Eosinophils # (Auto) (test code = 0.0 10*3/uL 711-2) [facility] ElizabethAutomated blood basophil count (number/volume)2019-12-01 10:20:00 Test Item Value Reference Range Interpretation Comments Basophils # (Auto) (test code = 0.0 10*3/uL 704-7) [facility] ElizabethAutomated blood nucleated erythrocyte count (count/volume)2019-12-01 10:20:00 Test Item Value Reference Range Interpretation Comments Nucleated Red Blood Cells # 0.00 10*3/uL (test code = 771-6) [facility]. ElizabethService comment 10:20:00 Test Item Value Reference Range Interpretation Comments Manual Differential (test code = Not Ind 8265-1) [facility]. ElizabethSerum or plasma sodium measurement (moles/volume) 2019-12-01 10:20:00 Test Item Value Reference Range Interpretation Comments Sodium Level (test code = 2951-2) 136 mmol/L [facility]. ElizabethSerum or plasma potassium measurement (moles/volume) 2019-12-01 10:20:00 Test Item Value Reference Range Interpretation Comments Potassium Level (test code = 4.1 mmol/L 2823-3) [facility] ElizabethSerum or plasma chloride measurement (moles/volume) 2019-12-01 10:20:00 Test Item Value Reference Range Interpretation Comments Chloride Level (test code = 108 mmol/L 2075-0) [facility]. ElizabethSerum or plasma total carbon dioxide measurement (moles/volume)2019-12-01 10:20:00 Test Item Value Reference Range Interpretation Comments Carbon Dioxide Level (test code = 21 mmol/L 2028-04) [facility] ElizabethSerum or plasma anion gap determination (moles/volume) 2019-12-01 10:20:00 Test Item Value Reference Range Interpretation Comments Anion Gap (test code = 65135-8) 11 [facility] ElizabethSerum or plasma urea nitrogen measurement (mass/volume) 2019-12-01 10:20:00 Test Item Value Reference Range Interpretation Comments Blood Urea Nitrogen (test code = 11 mg/dL 3094-0) [facility] ElizabethSerum or plasma creatinine measurement (mass/volume) 2019-12-01 10:20:00 Test Item Value Reference Range Interpretation Comments Creatinine (test code = 2160-0) 0.8 mg/dL [facility] - . ElizabethGFR estimate [id number] 10:20:00 Test Item Value Reference Range Interpretation Comments Estimat Glomerular Filtration Rate 109 (test code = 05717-9) [facility] ElizabethSerum or plasma glucose measurement (mass/volume) 2019-12-01 10:20:00 Test Item Value Reference Range Interpretation Comments Glucose Level (test code = 2345-7) 236 mg/dL [facility] ElizabethSerum or plasma calcium measurement (mass/volume) 2019-12-01 10:20:00 Test Item Value Reference Range Interpretation Comments Calcium Level (test code = 40378-7) 7.5 mg/dL [facility] blood segmented neutrophils/100 leukocytes 2019-11-27 05:08:00 Test Item Value Reference Range Interpretation Comments Neutrophils % (Manual) (test code = 83 % 769-0) [facility]. ElizabethManual blood lymphocytes/100 ryaskfkkin9266-34-67 05:08:00 Test Item Value Reference Range Interpretation Comments Lymphocytes % (Manual) (test code = 16 % 737-7) [facility]. ElizabethManual blood monocytes/100 yoskqivqmi8546-37-15 05:08:00 Test Item Value Reference Range Interpretation Comments Monocytes % (Manual) (test code = 1 % 744-3) [facility] ElizabethBlood platelet detection by light dytmhwyfms6379-38-70 05:08:00 Test Item Value Reference Range Interpretation Comments Platelet Estimate (test code = Adequate 9317-9) [facility] ElizabethBlood erythrocyte morphology finding identification 2019-11-27 05:08:00 Test Item Value Reference Range Interpretation Comments Red Blood Cell Morphology (test code = Normal 6742-1) [facility] ElizabethManual blood eosinophil count as percentage of total yjdaupbpjp8871-39-13 09:09:00 Test Item Value Reference Range Interpretation Comments Eosinophils % (Manual) (test code = 1 % 714-6) [facility] ElizabethBlood anisocytosis detection by light microscopy 2019-11-26 09:09:00 Test Item Value Reference Range Interpretation Comments Anisocytosis (test code = 702-1) 1+ [facility] ElizabethBlood basophilic stippling detection by light microscopy 2019-11-26 09:09:00 Test Item Value Reference Range Interpretation Comments Basophilic Stippling (test code = 1+ 703-9) [facility] ElizabethDetermination of inhaled oxygen concentration (volume fraction)2019-11-26 04:17:00 Test Item Value Reference Range Interpretation Comments FiO2 (test code = 3150-0) 100 % [facility] ElizabethArterial blood pH fjyikslpoyv2302-03-63 04:17:00 Test Item Value Reference Range Interpretation Comments Arterial Blood pH (test code = 2744-1) 7.338 [facility] ElizabethArterial blood partial pressure of carbon dioxide 2019-11-26 04:17:00 Test Item Value Reference Range Interpretation Comments Arterial Blood Partial Pressure 30.6 mm[Hg] CO2 (test code = 2019-8) [facility] ElizabethArterial blood partial pressure of oxygen measurement 2019-11-26 04:17:00 Test Item Value Reference Range Interpretation Comments Arterial Blood Partial Pressure 102.2 mm[Hg] O2 (test code = 2703-7) [facility] ElizabethArterial blood bicarbonate measurement (moles/volume) 2019-11-26 04:17:00 Test Item Value Reference Range Interpretation Comments Arterial Blood HCO3 (test code = 16.1 mmol/L 1959-10) [facility] excess determination by calculation (moles/volume)2019-11-26 04:17:00 Test Item Value Reference Range Interpretation Comments Arterial Blood Base Excess (test -8.9 mmol/L code = 1925-7) [facility] ElibeArterial blood hemoglobin measurement by oximetry (mass/volume)2019-11-26 04:17:00 Test Item Value Reference Range Interpretation Comments Arterial Blood Hemoglobin (test code 5.8 g/dL = 27922-4) [facility] saturation puhzlltqvdn2735-71-37 04:17:00 Test Item Value Reference Range Interpretation Comments Arterial Blood Oxygen Saturation (test 96.7 % code = 2708-6) [facility]Ar[facility] blood carboxyhemoglobin/total hemoglobin ratio (mass fraction)2019-11-26 04:17:00 Test Item Value Reference Range Interpretation Comments Arterial Blood Carboxyhemoglobin (test 1.6 % code = 2030-5) [facility] methemoglobin/total hemoglobin ratio (mass fraction)2019-11-26 04:17:00 Test Item Value Reference Range Interpretation Comments Arterial Blood Methemoglobin (test code 0.3 % = 2615-3) [facility] oxyhemoglobin/total hemoglobin ratio (mass fraction)2019-11-26 04:17:00 Test Item Value Reference Range Interpretation Comments Arterial Blood Oxyhemoglobin (test 94.9 % code = 2714-4) [facility] deoxyhemoglobin/total hemoglobin mass [id number] 04:17:00 Test Item Value Reference Range Interpretation Comments Reduced Hemoglobin (test code = 3.2 % 00945-9) [facility] content by ghadtcjzgpi2832-35-05 04:17:00 Test Item Value Reference Range Interpretation Comments Arterial Blood Oxygen Content (test 8.0 mL/dL code = 84711-1) [facility] deliv source Upazawwvjuq3306-05-76 04:17:00 Test Item Value Reference Range Interpretation Comments Oxygen Delivery Device (test code = ROOM AIR 61243-5) [facility] ElizabethSpecimen drawn from Mzkpkyu9304-09-36 04:17:00 Test Item Value Reference Range Interpretation Comments Blood Gas Puncture Site (test Left Radial code = 51931-6) [facility] ElizabethAssessment of wrist artery patency prior to arterial [id number] 04:17:00 Test Item Value Reference Range Interpretation Comments Luther Test (test code = 40845-3) Pass [facility] ElizabethUrinalysis specimen collection [id number] 01:13:00 Test Item Value Reference Range Interpretation Comments Urine Source (test code = 89351-9) URINE [facility] ElizabeColor of Urine by [id number] 01:13:00 Test Item Value Reference Range Interpretation Comments Urine Color (test code = 59537-3) Colorless [facility] ElizabethUrine clarity alrgaxxgdcyoy1072-60-38 01:13:00 Test Item Value Reference Range Interpretation Comments Urine Appearance (test code = 20415-9) Clear [facility] ElizabethUrine pH measurement by automated test [id number] 01:13:00 Test Item Value Reference Range Interpretation Comments Urine pH (test code = 50717-0) 5.5 [facility] ElizabethSpecific gravity of Urine by Automated test strip 2019-11-26 01:13:00 Test Item Value Reference Range Interpretation Comments Urine Specific [place] (test code = 1.023 02311-8) [facility] ElizabethUrine protein measurement by automated test strip (mass/volume)2019-11-26 01:13:00 Test Item Value Reference Range Interpretation Comments Urine Protein (test code = Negative mg/dL 44923-2) [facility] ElizabethUrine glucose measurement by automated test strip (mass/volume)2019-11-26 01:13:00 Test Item Value Reference Range Interpretation Comments Urine Glucose (UA) (test code = >1000 mg/dL 48983-4) [facility] ElizabethUrine ketones measurement by automated test strip (mass/volume)2019-11-26 01:13:00 Test Item Value Reference Range Interpretation Comments Urine Ketones (test code = 66735-6) 20 mg/dL [facility] ElizabethUrine erythrocytes count by automated test strip (number/volume)2019-11-26 01:13:00 Test Item Value Reference Range Interpretation Comments Urine Occult Blood (test code = 1+ 40628-1) [facility] ElizabethUrine nitrite detection by automated test strip 2019-11-26 01:13:00 Test Item Value Reference Range Interpretation Comments Urine Nitrite (test code = 37242-4) Negative [facility] ElizabethUrine total bilirubin measurement by automated test strip (mass/volume)2019-11-26 01:13:00 Test Item Value Reference Range Interpretation Comments Urine Bilirubin (test code = Negative mg/dL 26624-9) [facility] ElizabethUrine urobilinogen measurement by automated test strip (mass/volume)2019-11-26 01:13:00 Test Item Value Reference Range Interpretation Comments Urine Urobilinogen (test code Negative mg/dL = 26109-8) [facility]. ElizabethUrine leukocytes count by automated test strip (number/volume)2019-11-26 01:13:00 Test Item Value Reference Range Interpretation Comments Urine Leukocyte Esterase Negative {Oliver}/uL (test code = 36682-8) [facility]. ElizabethMicroscopic examination of [id number] 01:13:00 Test Item Value Reference Range Interpretation Comments Microscopic Urinalysis (T) (test code = ----- 75664-8) [facility] ElizabethUrine sediment erythrocyte count by microscopy (number/high power field)2019-11-26 01:13:00 Test Item Value Reference Range Interpretation Comments Urine RBC (test code = 35700-2) 3-10 /[HPF] [facility] ElizabethUrine sediment leukocyte count by microscopy (number/high power field)2019-11-26 01:13:00 Test Item Value Reference Range Interpretation Comments Urine WBC (test code = 5821-4) 0-5 /[HPF] [facility] ElizabethUrine sediment epithelial cell count by microscopy (number/high power field)2019-11-26 01:13:00 Test Item Value Reference Range Interpretation Comments Urine Epithelial Cells (test None Seen /[HPF] code = 5787-7) [facility] ElizabethUrine sediment crystal count by microscopy (number/high power field)2019-11-26 01:13:00 Test Item Value Reference Range Interpretation Comments Urine Crystals (test code = None Seen /[HPF] 08472-6) [facility] ElizabethUrine sediment bacteria count by microscopy (number/high power field)2019-11-26 01:13:00 Test Item Value Reference Range Interpretation Comments Urine Bacteria (test code = None Seen /[HPF] 5769-5) [facility] ElizabethUrine sediment casts count by microscopy (number/low power field)2019-11-26 01:13:00 Test Item Value Reference Range Interpretation Comments Urine Casts (test code = None Seen /[LPF] 9842-6) [facility] ElizabethUrine sediment hyaline cast count by microscopy (number/low power field)2019-11-26 01:13:00 Test Item Value Reference Range Interpretation Comments Urine Hyaline Casts (test None Seen /[LPF] code = 5796-8) [facility] ElizabethYeast detection in urine sediment by light microscopy 2019-11-26 01:13:00 Test Item Value Reference Range Interpretation Comments Urine Yeast (test code = None Seen /[HPF] 41810-0) [facility] ElizabethService comment 01:13:00 Test Item Value Reference Range Interpretation Comments Urinalysis Comment (test code = 8262-8) * [facility] ElizabethService comment 01:13:00 Test Item Value Reference Range Interpretation Comments Urine Culture Indicated (test code = Not Ind 8264-4) [facility] ElizabethOsmolality of [id number] 01:13:00 Test Item Value Reference Range Interpretation Comments Urine Osmolality (test code = 464 mosm/kg 2695-5) [facility] ElizabethManual blood band neutrophils form/100 leukocytes 2019-11-25 23:19:00 Test Item Value Reference Range Interpretation Comments Band Neutrophils % (Manual) (test code 2 % = 764-1) [facility] ElizabethBlood macrocytes detection by light [id number] 23:19:00 Test Item Value Reference Range Interpretation Comments Macrocytosis (test code = 738-5) 1+ [facility] ElizabethWhole blood hypochromia detection by light microscopy 2019-11-25 23:19:00 Test Item Value Reference Range Interpretation Comments Hypochromasia (test code = 728-6) 1+ [facility] ElizabethSerum or plasma phosphate measurement (mass/volume) 2019-11-25 23:19:00 Test Item Value Reference Range Interpretation Comments Phosphorus Level (test code = 6.9 mg/dL 2777-1) [facility] ElizabethSerum or plasma magnesium measurement (mass/volume) 2019-11-25 23:19:00 Test Item Value Reference Range Interpretation Comments Magnesium Level (test code = 1.97 mg/dL 50029-6) [facility]. ElizabeVenous whole blood pH [id number] 23:15:00 Test Item Value Reference Range Interpretation Comments Venous Blood pH (test code = 2746-6) 7.149 [facility] ElizabeMadison Healthous blood partial pressure of carbon dioxide mzlyxcvsmat3545-04-62 23:15:00 Test Item Value Reference Range Interpretation Comments Blood Gas PCO2 (test code = 28.7 mm[Hg] 2020-4) [facility] ElizabeMadison Healthous blood partial pressure of oxygen measurement 2019-11-25 23:15:00 Test Item Value Reference Range Interpretation Comments Blood Gas PO2 (test code = 36.1 mm[Hg] 2705-2) [facility] ElibeMadison Healthous blood bicarbonate measurement (moles/volume) 2019-11-25 23:15:00 Test Item Value Reference Range Interpretation Comments Venous Blood HCO3 (test code = 9.8 mmol/L 63489-4) [facility] ElizabeMadison Healthous whole blood base excess determination by calculation (moles/volume)2019-11-25 23:15:00 Test Item Value Reference Range Interpretation Comments Venous Blood Base Excess (test -17.5 mmol/L code = 1927-3) [facility]. [place]onybeBlood hemoglobin measurement by oximetry (mass/volume) 2019-11-25 23:15:00 Test Item Value Reference Range Interpretation Comments Venous Blood Hemoglobin (test code = 5.0 g/dL 39886-6) [facility] Healthous blood oxygen saturation (mass fraction)2019-11-25 23:15:00 Test Item Value Reference Range Interpretation Comments Venous Blood Oxygen Saturation (test 45.1 % code = 2711-0) [facility]total hemoglobin ratio 2019-11-25 23:15:00 Test Item Value Reference Range Interpretation Comments Venous Blood Carboxyhemoglobin (test 0.3 % code = 2032-1) [facility] whole blood methemoglobin/total hemoglobin (mass fraction)2019-11-25 23:15:00 Test Item Value Reference Range Interpretation Comments Venous Blood Methemoglobin (test code = 0.3 % 2617-9) [facility] carboxyhemoglobin/total hemoglobin ratio 2019-11-25 23:15:00 Test Item Value Reference Range Interpretation Comments Venous Blood Oxyhemoglobin (test code 44.8 % = 2032-1) [facility] blood deoxyhemoglobin/total hemoglobin mass ratio 2019-11-25 23:15:00 Test Item Value Reference Range Interpretation Comments Reduced Hemoglobin (test code = 54.6 % 88556-9) [facility] blood oxygen content by [id number] 23:15:00 Test Item Value Reference Range Interpretation Comments Venous Blood Oxygen Content (test 3.2 mL/dL code = 61955-9) [facility] deliv source [id number] 23:15:00 Test Item Value Reference Range Interpretation Comments Oxygen Delivery Device (test code = ROOM AIR 94180-1) [facility] [id number] 23:15:00 Test Item Value Reference Range Interpretation Comments Blood Gas Puncture Site (test code = Venous 36278-3) [facility] pat[facility] prior to arterial qwptpgvg5453-05-60 23:15:00 Test Item Value Reference Range Interpretation Comments Luther Test (test code = Not Applicable 71395-7) [facility] QNA-[id number] 23:15:00 Test Item Value Reference Range Interpretation Comments Blood Gas Critical Value Called Clement KOWALSKI MD To (test code = 8264-4) [facility] 04 [id number] 23:15:00 Test Item Value Reference Range Interpretation Comments Blood Gas Notified Time (test [id number] code = 8265-1) [facility] ElizabethWhole blood cardiac troponin I measurement (mass/volume) 2019-11-25 23:14:00 Test Item Value Reference Range Interpretation Comments Bedside Troponin I (test code = 0.01 ng/mL 87963-4) [facility]. ElizabethVenous whole blood sodium measurement (moles/volume) 2019-11-25 23:11:00 Test Item Value Reference Range Interpretation Comments Bedside Sodium (test code = 125 mmol/L 19922-6) [facility] ElizabethVenous whole blood potassium measurement (moles/volume) 2019-11-25 23:11:00 Test Item Value Reference Range Interpretation Comments Bedside Potassium (test code = 5.7 mmol/L 47840-9) [facility]. ElizabeVenous whole blood chloride measurement (moles/volume) 2019-11-25 23:11:00 Test Item Value Reference Range Interpretation Comments Bedside Chloride (test code = 93 mmol/L 18014-2) [facility] ElizabethVenous whole blood total carbon dioxide measurement (moles/volume)2019-11-25 23:11:00 Test Item Value Reference Range Interpretation Comments Bedside Total CO2 (test code = 13.0 mmol/L 7-1) [facility]. ElizabethVenous whole blood urea nitrogen (BUN) measurement (mass/volume)2019-11-25 23:11:00 Test Item Value Reference Range Interpretation Comments Bedside Blood Urea Nitrogen (test 39 mg/dL code = 51154-7) [facility]. ElizabethBlood creatinine measurement (mass/volume)2019-11-25 23:11:00 Test Item Value Reference Range Interpretation Comments Bedside Creatinine (test code = 0.9 mg/dL 76199-5) [facility] ElizabethVenous whole blood glucose measurement (mass/volume) 2019-11-25 23:11:00 Test Item Value Reference Range Interpretation Comments Bedside Glucose (test code = > 600 mg/dL 08174-8) [facility]. ElizabeWhole blood ionized calcium measurement (moles/volume) 2019-11-25 23:11:00 Test Item Value Reference Range Interpretation Comments Bedside Whole Blood Ionized 1.12 mmol/L Calcium (test code = 1994-3) [facility]. ElizabeBlood anion [id number] 23:11:00 Test Item Value Reference Range Interpretation Comments Bedside Anion Gap (test code = 69025-5) 26 [facility]. ElibethGFR estimate [id number] 23:11:00 Test Item Value Reference Range Interpretation Comments Estimat Glomerular Filtration Rate 95 (test code = 86270-9) [facility] ElibeVenous blood hematocrit (volume fraction)2019-11-25 23:11:00 Test Item Value Reference Range Interpretation Comments Bedside Hematocrit (test code = < 15.0 % 33783-9) [facility] ElibeCapillary whole blood glucose measurement by glucometer (mass/volume)2019-11-19 05:33:00 Test Item Value Reference Range Interpretation Comments Bedside Glucose (test code = 152 mg/dL 24289-0) [facility] lafayetteAutomated blood leukocyte count (number/volume) 2019-11-19 03:55:00 Test Item Value Reference Range Interpretation Comments White Blood Count (test code = 4.0 10*3/uL 6690-2) [facility] (number/volume) 2019-11-19 03:55:00 Test Item Value Reference Range Interpretation Comments Red Blood Count (test code = 3.07 10*6/uL 789-8) [facility]. ElizabeBlood hemoglobin measurement (mass/volume)2019-11-19 03:55:00 Test Item Value Reference Range Interpretation Comments Hemoglobin (test code = 718-7) 9.5 g/dL [facility] Lake[facility]Autom[facility] blood hematocrit (volume fraction)2019-11-19 03:55:00 Test Item Value Reference Range Interpretation Comments Hematocrit (test code = 4544-3) 29.2 % [facility] ElizabeAutomated erythrocyte mean corpuscular volume (MCV) [id number] 03:55:00 Test Item Value Reference Range Interpretation Comments Mean Corpuscular Volume (test code = 95 fL 787-2) [facility] - . ElizabethAutomated erythrocyte mean corpuscular hemoglobin (mass per erythrocyte)2019-11-19 03:55:00 Test Item Value Reference Range Interpretation Comments Mean Corpuscular Hemoglobin (test 30.9 pg code = 785-6) [facility] ElizabethAutomated erythrocyte mean corpuscular hemoglobin concentration measurement (mass/[id number] 03:55:00 Test Item Value Reference Range Interpretation Comments Mean Corpuscular Hemoglobin Concent 32.5 g/dL (test code = 786-4) [facility]. ElizabethAutomated erythrocyte distribution width [id number] 03:55:00 Test Item Value Reference Range Interpretation Comments Red Cell Distribution Width (test code 14.1 % = 788-0) [facility]. ElizabethAutomated blood platelet count (count/volume)2019-11-19 03:55:00 Test Item Value Reference Range Interpretation Comments Platelet Count (test code = 346 10*3/uL 777-3) [facility]. ElizabethAutomated blood platelet mean volume measurement 2019-11-19 03:55:00 Test Item Value Reference Range Interpretation Comments Mean Platelet Volume (test code = 9.1 66161-6) [facility]. ElizabethAutomated blood neutrophil count as percentage of total [id number] 03:55:00 Test Item Value Reference Range Interpretation Comments Neutrophils (%) (Auto) (test code = 38 % 770-8) [facility]. ElizabethAutomated blood immature granulocyte count as percentage of total pqgbmuiwja5485-29-80 03:55:00 Test Item Value Reference Range Interpretation Comments Immature Granulocyte % (Auto) (test 3 % code = 60355-0) [facility] - . ElizabethAutomated blood lymphocyte count as percentage of total aihtcskjch7613-96-83 03:55:00 Test Item Value Reference Range Interpretation Comments Lymphocytes (%) (Auto) (test code = 34 % 736-9) [facility]. ElizabethAutomated blood monocyte count as percentage of total utyoptwbqi1507-22-72 03:55:00 Test Item Value Reference Range Interpretation Comments Monocytes (%) (Auto) (test code = 23 % 5905-5) [facility]. ElizabethAutomated blood eosinophil count as percentage of total nsvmnrrzhl6848-81-82 03:55:00 Test Item Value Reference Range Interpretation Comments Eosinophils (%) (Auto) (test code = 2 % 713-8) [facility]. ElizabethAutomated blood basophil count as percentage of total gjzphgsjjp8597-20-88 03:55:00 Test Item Value Reference Range Interpretation Comments Basophils (%) (Auto) (test code = 1 % 706-2) [facility]. ElizabethAutomated blood nucleated erythrocyte count as percentage of total dftwrrylbg3260-68-89 03:55:00 Test Item Value Reference Range Interpretation Comments Nucleated Red Blood Cells % (test code 0.0 % = 32662-9) [facility]. ElizabethAutomated blood neutrophil count (number/volume) 2019-11-19 03:55:00 Test Item Value Reference Range Interpretation Comments Neutrophils # (Auto) (test code = 1.5 10*3/uL 751-8) [facility]. ElizabethAutomated blood immature granulocyte count as percentage of total nlolymohdr6295-49-25 03:55:00 Test Item Value Reference Range Interpretation Comments Immature Granulocyte # (Auto) 0.1 10*3/uL (test code = 65717-3) [facility]. ElizabethAutomated blood lymphocyte count (number/volume) 2019-11-19 03:55:00 Test Item Value Reference Range Interpretation Comments Lymphocytes # (Auto) (test code = 1.3 10*3/uL 731-0) [facility]. ElizabethBlood monocytes automated count (number/volume) 2019-11-19 03:55:00 Test Item Value Reference Range Interpretation Comments Monocytes # (Auto) (test code = 0.9 10*3/uL 742-7) [facility]. ElizabethAutomated blood eosinophil [id number] 03:55:00 Test Item Value Reference Range Interpretation Comments Eosinophils # (Auto) (test code = 0.1 10*3/uL 711-2) [facility]. ElizabethAutomated blood basophil count (number/volume)2019-11-19 03:55:00 Test Item Value Reference Range Interpretation Comments Basophils # (Auto) (test code = 0.0 10*3/uL 704-7) [facility]. ElizabethAutomated blood nucleated erythrocyte count (count/volume)2019-11-19 03:55:00 Test Item Value Reference Range Interpretation Comments Nucleated Red Blood Cells # 0.00 10*3/uL (test code = 771-6) [facility] ElizabethService comment [id number] 03:55:00 Test Item Value Reference Range Interpretation Comments Manual Differential (test code = Not Ind 8265-1) [facility] ElizabethSerum or plasma sodium measurement (moles/volume) 2019-11-19 03:55:00 Test Item Value Reference Range Interpretation Comments Sodium Level (test code = 2951-2) 133 mmol/L [facility] ElizabethSerum or plasma potassium measurement (moles/volume) 2019-11-19 03:55:00 Test Item Value Reference Range Interpretation Comments Potassium Level (test code = 4.8 mmol/L 2823-3) [facility] ElizabethSerum or plasma chloride measurement (moles/volume) 2019-11-19 03:55:00 Test Item Value Reference Range Interpretation Comments Chloride Level (test code = 105 mmol/L 5-0) [facility] ElizabethSerum or plasma total carbon dioxide measurement (moles/volume)2019-11-19 03:55:00 Test Item Value Reference Range Interpretation Comments Carbon Dioxide Level (test code = 21 mmol/L 2027-9) [facility] ElizabethSerum or plasma anion gap determination (moles/volume) 2019-11-19 03:55:00 Test Item Value Reference Range Interpretation Comments Anion Gap (test code = 48789-5) 12 [facility] ElizabethSerum or plasma urea nitrogen measurement (mass/volume) 2019-11-19 03:55:00 Test Item Value Reference Range Interpretation Comments Blood Urea Nitrogen (test code = 5 mg/dL 3094-0) [facility] ElizabethSerum or plasma creatinine measurement (mass/volume) 2019-11-19 03:55:00 Test Item Value Reference Range Interpretation Comments Creatinine (test code = 2160-0) 0.6 mg/dL [facility]. [facility] HospitalzabethGFR estimate [id number] 03:55:00 Test Item Value Reference Range Interpretation Comments Estimat Glomerular Filtration Rate 152 (test code = 39719-0) [facility] ElizabethSerum or plasma glucose measurement (mass/volume) 2019-11-19 03:55:00 Test Item Value Reference Range Interpretation Comments Glucose Level (test code = 2345-7) 189 mg/dL [facility] ElizabethSerum or plasma calcium measurement (mass/volume) 2019-11-19 03:55:00 Test Item Value Reference Range Interpretation Comments Calcium Level (test code = 56135-8) 7.8 mg/dL [facility] - [facility] ElizabethSerum or plasma phosphate measurement (mass/volume) 2019-11-19 03:55:00 Test Item Value Reference Range Interpretation Comments Phosphorus Level (test code = 3.4 mg/dL 2777-1) [facility] ElizabethSerum or plasma magnesium measurement (mass/volume) 2019-11-19 03:55:00 Test Item Value Reference Range Interpretation Comments Magnesium Level (test code = 1.24 mg/dL 59905-2) [facility] ElizabethSerum or plasma total bilirubin measurement (mass/volume)2019-11-19 03:55:00 Test Item Value Reference Range Interpretation Comments Total Bilirubin (test code = 0.2 mg/dL 1975-2) [facility] ElizabethSerum or plasma aspartate aminotransferase measurement (enzymatic activity/volume)2019-11-19 03:55:00 Test Item Value Reference Range Interpretation Comments Aspartate Amino Transf (AST/SGOT) 24 U/L (test code = 1920-8) [facility] ElizabethSerum or plasma alanine aminotransferase measurement (enzymatic activity/volume)2019-11-19 03:55:00 Test Item Value Reference Range Interpretation Comments Alanine Aminotransferase (ALT/SGPT) 18 U/L (test code = 1742-6) [facility] ElizabethSerum or plasma protein measurement (mass/volume) 2019-11-19 03:55:00 Test Item Value Reference Range Interpretation Comments Total Protein (test code = 2885-2) 5.1 g/dL [facility] ElizabethSerum or plasma albumin measurement (mass/volume) 2019-11-19 03:55:00 Test Item Value Reference Range Interpretation Comments Albumin (test code = 1751-7) 2.4 g/dL [facility]. ElizabethSerum or plasma alkaline phosphatase measurement (enzymatic activity/volume)2019-11-19 03:55:00 Test Item Value Reference Range Interpretation Comments Alkaline Phosphatase (test code = 271 U/L 6768-6) [facility]. ElizabeNaval Hospitalerum or plasma total bilirubin measurement (mass/volume)2019-11-19 03:55:00 Test Item Value Reference Range Interpretation Comments Total Bilirubin (test code = 0.2 mg/dL 1974-) [facility]. ElizabeNaval Hospitalerum or plasma aspartate aminotransferase measurement (enzymatic activity/volume)2019-11-19 03:55:00 Test Item Value Reference Range Interpretation Comments Aspartate Amino Transf (AST/SGOT) 24 U/L (test code = 1920-8) [facility]. ElizabeNaval Hospitalerum or plasma alanine aminotransferase measurement (enzymatic activity/volume)2019-11-19 03:55:00 Test Item Value Reference Range Interpretation Comments Alanine Aminotransferase (ALT/SGPT) 18 U/L (test code = 1742-6) [facility]. ElizabethSerum or plasma protein measurement (mass/volume) 2019-11-19 03:55:00 Test Item Value Reference Range Interpretation Comments Total Protein (test code = 2885-2) 5.1 g/dL [facility]. ElibeNaval Hospitalerum or plasma albumin measurement (mass/volume) 2019-11-19 03:55:00 Test Item Value Reference Range Interpretation Comments Albumin (test code = 1751-7) 2.4 g/dL [facility]. ElizabethSerum or plasma alkaline phosphatase measurement (enzymatic activity/volume)2019-11-19 03:55:00 Test Item Value Reference Range Interpretation Comments Alkaline Phosphatase (test code = 271 U/L 6768-6) [facility]. [facility] ColonybeNaval Hospitalpecimen source [id number] 13:49:00 Test Item Value Reference Range Interpretation Comments Respiratory Virus Source Nasopharyngeal Swab (test code = 52823-5) [facility]-CoV-2 RNA Resp Ql FRANCISCA+[id number] 13:49:00 Test Item Value Reference Range Interpretation Comments Coronavirus (COVID-19)(PCR) (test NEGATIVE code = 92900-7) [facility] [id number] 13:49:00 Test Item Value Reference Range Interpretation Comments Respiratory Virus Source Nasopharyngeal Swab (test code = 83768-1) [facility] EbdtlpvvfUQTC-TnM-5 RNA Resp Ql FRANCISCA+ljsav5212-13-34 13:49:00 Test Item Value Reference Range Interpretation Comments Coronavirus (COVID-19)(PCR) (test NEGATIVE code = 22727-8) [facility]. ElizabethSerum or plasma beta hydroxybutyrate measurement (moles/volume)2019-11-16 15:38:00 Test Item Value Reference Range Interpretation Comments Beta-Hydroxybutyric Acid (test 0.04 mmol/L code = 6873-4) [facility] ElizabethSerum or plasma beta hydroxybutyrate measurement (moles/volume)2019-11-16 15:38:00 Test Item Value Reference Range Interpretation Comments Beta-Hydroxybutyric Acid (test 0.04 mmol/L code = 6873-4) [facility] oxygen concentration (volume fraction)2019-11-15 03:36:00 Test Item Value Reference Range Interpretation Comments FiO2 (test code = 3150-0) 21 % [facility] HospitalAr[facility]ial blood pH [id number] 03:36:00 Test Item Value Reference Range Interpretation Comments Arterial Blood pH (test code = 2744-1) 7.365 [facility] LakebeArterial blood partial pressure of carbon dioxide 2019-11-15 03:36:00 Test Item Value Reference Range Interpretation Comments Arterial Blood Partial Pressure 28.3 mm[Hg] CO2 (test code = 2019-8) [facility]Ar[facility] partial pressure of oxygen measurement 2019-11-15 03:36:00 Test Item Value Reference Range Interpretation Comments Arterial Blood Partial Pressure 93.7 mm[Hg] O2 (test code = 2703-7) [facility] HospitalAr[facility] blood bicarbonate measurement (moles/volume) 2019-11-15 03:36:00 Test Item Value Reference Range Interpretation Comments Arterial Blood HCO3 (test code = 15.8 mmol/L 1959-4) [facility] HospitalAr[facility] blood base excess determination by calculation (moles/volume)2019-11-15 03:36:00 Test Item Value Reference Range Interpretation Comments Arterial Blood Base Excess (test -8.4 mmol/L code = 1925-7) [facility] HospitalAr[facility] blood hemoglobin measurement by oximetry (mass/volume)2019-11-15 03:36:00 Test Item Value Reference Range Interpretation Comments Arterial Blood Hemoglobin (test 10.4 g/dL code = 65167-2) [facility] [id number] 03:36:00 Test Item Value Reference Range Interpretation Comments Arterial Blood Oxygen Saturation (test 96.7 % code = 2708-6) [facility] Centerial blood carboxyhemoglobin/total hemoglobin ratio (mass fraction)2019-11-15 03:36:00 Test Item Value Reference Range Interpretation Comments Arterial Blood Carboxyhemoglobin (test 0.3 % code = 2030-5) [facility] Centerial [facility] methemoglobin/total hemoglobin ratio (mass fraction)2019-11-15 03:36:00 Test Item Value Reference Range Interpretation Comments Arterial Blood Methemoglobin (test code 0.3 % = 2615-3) [facility]Ar[facility] blood oxyhemoglobin/total hemoglobin ratio (mass fraction)2019-11-15 03:36:00 Test Item Value Reference Range Interpretation Comments Arterial Blood Oxyhemoglobin (test 96.1 % code = 2714-4) [facility] Center[facility] deoxyhemoglobin/total hemoglobin mass [id number] 03:36:00 Test Item Value Reference Range Interpretation Comments Reduced Hemoglobin (test code = 3.3 % 75938-2) [facility] Center[facility] oxygen content by gmiaqapuwqn1708-99-81 03:36:00 Test Item Value Reference Range Interpretation Comments Arterial Blood Oxygen Content 14.2 mL/dL (test code = 62041-4) [facility] HospitalGas deliv source [id number] 03:36:00 Test Item Value Reference Range Interpretation Comments Oxygen Delivery Device (test code = ROOM AIR 81570-1) [facility]. [facility] Centerpecimen drawn from [id number] 03:36:00 Test Item Value Reference Range Interpretation Comments Blood Gas Puncture Site (test Right Brachial code = 04032-4) [facility] HospitalAssessment of wrist artery patency prior to arterial woraknzo1949-68-52 03:36:00 Test Item Value Reference Range Interpretation Comments Luther Test (test code = Not Applicable 59675-3) [facility] HospitalAr[facility]ial blood oxygen saturation measurement by pulse [id number] 03:36:00 Test Item Value Reference Range Interpretation Comments Oxygen Saturation (Pulse Oximetry) 100 % (test code = 37272-4) [facility]thResp [id number] 03:36:00 Test Item Value Reference Range Interpretation Comments Blood Gas Respiration Rate (test code 12 /min = 9279-1) [facility] 06 [id number] 03:36:00 Test Item Value Reference Range Interpretation Comments Blood Gas Comments (test code = 8267-7) HR79 [facility] HospitalArterial blood oxygen saturation measurement by pulse aqyobrjc7184-41-91 03:36:00 Test Item Value Reference Range Interpretation Comments Oxygen Saturation (Pulse Oximetry) 100 % (test code = 66581-4) [facility] CenterthResp [id number] 03:36:00 Test Item Value Reference Range Interpretation Comments Blood Gas Respiration Rate (test code 12 /min = 9279-1) [facility] 06 [id number] 03:36:00 Test Item Value Reference Range Interpretation Comments Blood Gas Comments (test code = 8267-7) HR79 [facility] HospitalUrinalysis specimen collection [id number] 23:15:00 Test Item Value Reference Range Interpretation Comments Urine Source (test code = 60750-3) URINE [facility] HospitalColor of Urine by [id number] 23:15:00 Test Item Value Reference Range Interpretation Comments Urine Color (test code = 06866-2) Colorless [facility] ElizabethUrine clarity [id number] 23:15:00 Test Item Value Reference Range Interpretation Comments Urine Appearance (test code = 46047-1) Clear [facility] ElizabethUrine pH measurement by automated test [id number] 23:15:00 Test Item Value Reference Range Interpretation Comments Urine pH (test code = 55237-5) 5.5 [facility] ElizabethSpecific gravity of Urine by Automated test strip 2019-11-14 23:15:00 Test Item Value Reference Range Interpretation Comments Urine Specific [place] (test code = 1.023 18459-7) [facility] ElizabethUrine protein measurement by automated test strip (mass/volume)2019-11-14 23:15:00 Test Item Value Reference Range Interpretation Comments Urine Protein (test code = 11647-7) 10 mg/dL [facility] - . ElizabeUrine glucose measurement by automated test strip (mass/volume)2019-11-14 23:15:00 Test Item Value Reference Range Interpretation Comments Urine Glucose (UA) (test code = >1000 mg/dL 98854-9) [facility] ElizabethUrine ketones measurement by automated test strip (mass/volume)2019-11-14 23:15:00 Test Item Value Reference Range Interpretation Comments Urine Ketones (test code = >150 mg/dL 90174-8) [facility] - . ElizabethUrine erythrocytes count by automated test strip (number/volume)2019-11-14 23:15:00 Test Item Value Reference Range Interpretation Comments Urine Occult Blood (test code = 2+ 97327-9) [facility] ElizabethUrine nitrite detection by automated test strip 2019-11-14 23:15:00 Test Item Value Reference Range Interpretation Comments Urine Nitrite (test code = 88100-2) Negative [facility] ElizabethUrine total bilirubin measurement by automated test strip (mass/volume)2019-11-14 23:15:00 Test Item Value Reference Range Interpretation Comments Urine Bilirubin (test code = Negative mg/dL 31093-2) [facility] - . ElizabethUrine urobilinogen measurement by automated test strip (mass/volume)2019-11-14 23:15:00 Test Item Value Reference Range Interpretation Comments Urine Urobilinogen (test code Negative mg/dL = 56482-5) [facility] ElizabethUrine leukocytes count by automated test strip (number/volume)2019-11-14 23:15:00 Test Item Value Reference Range Interpretation Comments Urine Leukocyte Esterase Negative {Oliver}/uL (test code = 60008-4) [facility] ElizabethMicroscopic examination of [id number] 23:15:00 Test Item Value Reference Range Interpretation Comments Microscopic Urinalysis (T) (test code = ----- 23434-9) [facility] ElizabethUrine sediment erythrocyte count by microscopy (number/high power field)2019-11-14 23:15:00 Test Item Value Reference Range Interpretation Comments Urine RBC (test code = 17188-5) 11-30 /[HPF] [facility] ElizabethUrine sediment leukocyte count by microscopy (number/high power field)2019-11-14 23:15:00 Test Item Value Reference Range Interpretation Comments Urine WBC (test code = 5821-4) 0-5 /[HPF] [facility] ElizabethUrine sediment epithelial cell count by microscopy (number/high power field)2019-11-14 23:15:00 Test Item Value Reference Range Interpretation Comments Urine Epithelial Cells (test None Seen /[HPF] code = 5787-7) [facility] ElizabethUrine sediment crystal count by microscopy (number/high power field)2019-11-14 23:15:00 Test Item Value Reference Range Interpretation Comments Urine Crystals (test code = None Seen /[HPF] 75462-7) [facility] ElizabethUrine sediment bacteria count by microscopy (number/high power field)2019-11-14 23:15:00 Test Item Value Reference Range Interpretation Comments Urine Bacteria (test code = None Seen /[HPF] 5769-5) [facility] ElizabethUrine sediment casts count by microscopy (number/low power field)2019-11-14 23:15:00 Test Item Value Reference Range Interpretation Comments Urine Casts (test code = None Seen /[LPF] 9842-6) [facility] ElizabethUrine sediment hyaline cast count by microscopy (number/low power field)2019-11-14 23:15:00 Test Item Value Reference Range Interpretation Comments Urine Hyaline Casts (test None Seen /[LPF] code = 5796-8) [facility] ElizabethYeast detection in urine sediment by light microscopy 2019-11-14 23:15:00 Test Item Value Reference Range Interpretation Comments Urine Yeast (test code = None Seen /[HPF] 01198-3) [facility] ElizabethService comment 23:15:00 Test Item Value Reference Range Interpretation Comments Urinalysis Comment (test code = 8262-8) * [facility] ElizabethService comment 23:15:00 Test Item Value Reference Range Interpretation Comments Urine Culture Indicated (test code = Not Ind 8264-4) [facility] ElizabethUrine methamphetamine [id number] 23:15:00 Test Item Value Reference Range Interpretation Comments Urine Methamphetamines Screen Negative ng/mL (test code = 67069-8) [facility] ElizabethUrine propoxyphene screening [id number] 23:15:00 Test Item Value Reference Range Interpretation Comments Urine Propoxyphene Screen Negative ng/mL (test code = 44824-4) [facility] amphetamines detection by screening method 2019-11-14 23:15:00 Test Item Value Reference Range Interpretation Comments Urine Amphetamines Screen Negative ng/mL (test code = 21659-0) [facility] buprenorphine screen with reflex confirmation 2019-11-14 23:15:00 Test Item Value Reference Range Interpretation Comments Urine Buprenorphine (test code Negative ng/mL = 3414-0) [facility] barbiturates detection by screening method 2019-11-14 23:15:00 Test Item Value Reference Range Interpretation Comments Urine Barbiturates Screen Negative ng/mL (test code = 58353-4) [facility] benzodiazepines detection by screening method 2019-11-14 23:15:00 Test Item Value Reference Range Interpretation Comments Urine Benzodiazepines Screen Negative ng/mL (test code = 87981-5) [facility] benzoylecgonine detection by screening method 2019-11-14 23:15:00 Test Item Value Reference Range Interpretation Comments Urine Cocaine Screen (test Negative ng/mL code = 42942-6) [facility]Urine methadone [id number] 23:15:00 Test Item Value Reference Range Interpretation Comments Urine Methadone, Qualitative Negative ng/mL (test code = 28443-2) [facility] ElizabethUrine opiates screening [id number] 23:15:00 Test Item Value Reference Range Interpretation Comments Urine Opiates Screen (test Negative ng/mL code = 01642-5) [facility] - . ElizabethUrine phencyclidine detection by screening method 2019-11-14 23:15:00 Test Item Value Reference Range Interpretation Comments Urine Phencyclidine Screen Negative ng/mL (test code = 16726-6) [facility] - . ElizabethUrine cannabinoids detection by screening method 2019-11-14 23:15:00 Test Item Value Reference Range Interpretation Comments Urine Cannabinoids (test code Negative ng/mL = 32202-4) [facility] ElizabethScreening urine tricyclic antidepressants detection 2019-11-14 23:15:00 Test Item Value Reference Range Interpretation Comments Ur Tricyclic Antidepressants Negative ng/mL Screen (test code = 64828-2) [facility] - . ElizabethUrine oxycodone detection by screening [id number] 23:15:00 Test Item Value Reference Range Interpretation Comments Urine Oxycodone Screen (test Negative ng/mL code = 04632-1) [facility] ElizabethSpecific gravity of Urine by Automated test strip 2019-11-14 23:15:00 Test Item Value Reference Range Interpretation Comments Urine Specific [place] (test code = 1.023 61354-6) [facility] ElizabethUrine pH measurement by automated test [id number] 23:15:00 Test Item Value Reference Range Interpretation Comments Urine pH (test code = 38410-2) 5.5 [facility] ElizabethUrine drug screen comment [id number] 23:15:00 Test Item Value Reference Range Interpretation Comments Urine Drug Screen Comment (test code See Note = 84656-8) [facility] methamphetamine [id number] 23:15:00 Test Item Value Reference Range Interpretation Comments Urine Methamphetamines Screen Negative ng/mL (test code = 86008-3) [facility] ElizabethUrine propoxyphene screening [id number] 23:15:00 Test Item Value Reference Range Interpretation Comments Urine Propoxyphene Screen Negative ng/mL (test code = 53240-3) [facility] ElizabethUrine amphetamines detection by screening method 2019-11-14 23:15:00 Test Item Value Reference Range Interpretation Comments Urine Amphetamines Screen Negative ng/mL (test code = 03808-3) [facility] ElizabethUrine buprenorphine screen with reflex confirmation 2019-11-14 23:15:00 Test Item Value Reference Range Interpretation Comments Urine Buprenorphine (test code Negative ng/mL = 3414-0) [facility] ElizabethUrine barbiturates detection by screening method 2019-11-14 23:15:00 Test Item Value Reference Range Interpretation Comments Urine Barbiturates Screen Negative ng/mL (test code = 03317-1) [facility] ElizabethUrine benzodiazepines detection by screening method 2019-11-14 23:15:00 Test Item Value Reference Range Interpretation Comments Urine Benzodiazepines Screen Negative ng/mL (test code = 82074-0) [facility] ElizabethUrine benzoylecgonine detection by screening method 2019-11-14 23:15:00 Test Item Value Reference Range Interpretation Comments Urine Cocaine Screen (test Negative ng/mL code = 86745-0) [facility] ElizabethUrine methadone [id number] 23:15:00 Test Item Value Reference Range Interpretation Comments Urine Methadone, Qualitative Negative ng/mL (test code = 08351-0) [facility] ElizabethUrine opiates screening [id number] 23:15:00 Test Item Value Reference Range Interpretation Comments Urine Opiates Screen (test Negative ng/mL code = 62186-9) [facility] ElizabethUrine phencyclidine detection by screening method 2019-11-14 23:15:00 Test Item Value Reference Range Interpretation Comments Urine Phencyclidine Screen Negative ng/mL (test code = 49816-2) [facility] ElizabethUrine cannabinoids detection by screening method 2019-11-14 23:15:00 Test Item Value Reference Range Interpretation Comments Urine Cannabinoids (test code Negative ng/mL = 41620-4) [facility] ElizabethScreening urine tricyclic antidepressants detection 2019-11-14 23:15:00 Test Item Value Reference Range Interpretation Comments Ur Tricyclic Antidepressants Negative ng/mL Screen (test code = 23021-3) [facility] ElizabethUrine oxycodone detection by screening [id number] 23:15:00 Test Item Value Reference Range Interpretation Comments Urine Oxycodone Screen (test Negative ng/mL code = 60435-8) [facility] ElizabethSpecific gravity of Urine by Automated test strip 2019-11-14 23:15:00 Test Item Value Reference Range Interpretation Comments Urine Specific [place] (test code = 1.023 34175-7) [facility] test [id number] 23:15:00 Test Item Value Reference Range Interpretation Comments Urine pH (test code = 51264-1) 5.5 [facility] ElizabethUrine drug screen comment [id number] 23:15:00 Test Item Value Reference Range Interpretation Comments Urine Drug Screen Comment (test code See Note = 03416-3) [facility] pH [id number] 20:36:00 Test Item Value Reference Range Interpretation Comments Venous Blood pH (test code = 2746-6) 7.204 [facility]zabeMad[facility] Healthous blood partial pressure of carbon dioxide [id number] 20:36:00 Test Item Value Reference Range Interpretation Comments Blood Gas PCO2 (test code = 20.7 mm[Hg] 1-4) [facility]ous [facility] partial pressure of oxygen measurement 2019-11-14 20:36:00 Test Item Value Reference Range Interpretation Comments Blood Gas PO2 (test code = 37.1 mm[Hg] 5-2) [facility] b[facility]ate [facility] (moles/volume) 2019-11-14 20:36:00 Test Item Value Reference Range Interpretation Comments Venous Blood HCO3 (test code = 8.0 mmol/L 90068-9) [facility] whole blood base excess determination by calculation (moles/volume)2019-11-14 20:36:00 Test Item Value Reference Range Interpretation Comments Venous Blood Base Excess (test -18.0 mmol/L code = 1927-3) [facility] FlacabeBlood hemoglobin measurement by oximetry (mass/volume) 2019-11-14 20:36:00 Test Item Value Reference Range Interpretation Comments Venous Blood Hemoglobin (test code 12.2 g/dL = 69073-3) [facility] blood oxygen saturation (mass fraction)2019-11-14 20:36:00 Test Item Value Reference Range Interpretation Comments Venous Blood Oxygen Saturation (test 67.8 % code = 2711-0) [facility] blood carboxyhemoglobin/total hemoglobin ratio 2019-11-14 20:36:00 Test Item Value Reference Range Interpretation Comments Venous Blood Carboxyhemoglobin (test 0.7 % code = 2032-1) [facility] whole blood methemoglobin/total hemoglobin (mass fraction)2019-11-14 20:36:00 Test Item Value Reference Range Interpretation Comments Venous Blood Methemoglobin (test code = 0.3 % 2617-9) [facility] blood carboxyhemoglobin/total hemoglobin ratio 2019-11-14 20:36:00 Test Item Value Reference Range Interpretation Comments Venous Blood Oxyhemoglobin (test code 67.1 % = 2032-1) [facility] blood deoxyhemoglobin/total hemoglobin mass ratio 2019-11-14 20:36:00 Test Item Value Reference Range Interpretation Comments Reduced Hemoglobin (test code = 31.9 % 79908-5) [facility] content by [id number] 20:36:00 Test Item Value Reference Range Interpretation Comments Venous Blood Oxygen Content (test 11.5 mL/dL code = 23085-6) [facility] PrincessNes deliv source [id number] 20:36:00 Test Item Value Reference Range Interpretation Comments Oxygen Delivery Device (test code = NA 18851-4) [facility] ElizabethSpecimen drawn from [id number] 20:36:00 Test Item Value Reference Range Interpretation Comments Blood Gas Puncture Site (test code = Venous 39744-7) [facility] lafayetteAssessment of wrist artery patency prior to arterial [id number] 20:36:00 Test Item Value Reference Range Interpretation Comments Luther Test (test code = Not Applicable 44501-9) [facility] [id number] 20:36:00 Test Item Value Reference Range Interpretation Comments Blood Gas Critical Value Called Dr. Haider MD To (test code = 8264-4) [facility] [id number] 20:36:00 Test Item Value Reference Range Interpretation Comments Blood Gas Notified Time (test [id number] code = 8265-1) [facility] ElizabethSerum or plasma lipase measurement (enzymatic activity/volume)2019-11-14 20:34:00 Test Item Value Reference Range Interpretation Comments Lipase (test code = 3040-3) 17 U/L [facility] ElibethOsmolality ser/[id number] 20:34:00 Test Item Value Reference Range Interpretation Comments Serum Osmolality (test code = 324 mosm/kg 2692-2) [facility] ElizabethSerum or plasma lipase measurement (enzymatic activity/volume)2019-11-14 20:34:00 Test Item Value Reference Range Interpretation Comments Lipase (test code = 3040-3) 17 U/L [facility] ElizabethOsmolality ser/[id number] 20:34:00 Test Item Value Reference Range Interpretation Comments Serum Osmolality (test code = 324 mosm/kg 2692-2) [facility]. ElibeCapillary whole blood glucose measurement by glucometer (mass/volume)2019-11-03 11:25:00 Test Item Value Reference Range Interpretation Comments Bedside Glucose (test code = 198 mg/dL 83008-4) [facility] leukocyte count (number/volume) 2019-11-03 06:08:00 Test Item Value Reference Range Interpretation Comments White Blood Count (test code = 7.6 10*3/uL 6690-2) [facility] ElizabethBlood erythrocytes automated count (number/volume) 2019-11-03 06:08:00 Test Item Value Reference Range Interpretation Comments Red Blood Count (test code = 3.32 10*6/uL 789-8) [facility] ElizabethBlood hemoglobin measurement (mass/volume)2019-11-03 06:08:00 Test Item Value Reference Range Interpretation Comments Hemoglobin (test code = 718-7) 10.2 g/dL [facility] ElizabethAutomated blood hematocrit (volume fraction)2019-11-03 06:08:00 Test Item Value Reference Range Interpretation Comments Hematocrit (test code = 4544-3) 33.6 % [facility] ElizabethAutomated erythrocyte mean corpuscular volume (MCV) [id number] 06:08:00 Test Item Value Reference Range Interpretation Comments Mean Corpuscular Volume (test code = 101 fL 787-2) [facility] ElizabethAutomated erythrocyte mean corpuscular hemoglobin (mass per erythrocyte)2019-11-03 06:08:00 Test Item Value Reference Range Interpretation Comments Mean Corpuscular Hemoglobin (test 30.7 pg code = 785-6) [facility] ElizabethAutomated erythrocyte mean corpuscular hemoglobin concentration measurement (mass/[id number] 06:08:00 Test Item Value Reference Range Interpretation Comments Mean Corpuscular Hemoglobin Concent 30.4 g/dL (test code = 786-4) [facility] ElizabethAutomated erythrocyte distribution width [id number] 06:08:00 Test Item Value Reference Range Interpretation Comments Red Cell Distribution Width (test code 13.6 % = 788-0) [facility] ElizabethAutomated blood platelet count (count/volume)2019-11-03 06:08:00 Test Item Value Reference Range Interpretation Comments Platelet Count (test code = 125 10*3/uL 777-3) [facility] ElizabethAutomated blood platelet mean volume measurement 2019-11-03 06:08:00 Test Item Value Reference Range Interpretation Comments Mean Platelet Volume (test code = 11.8 30685-5) [facility] ElizabethAutomated blood neutrophil count as percentage of total qzzvailike8551-94-03 06:08:00 Test Item Value Reference Range Interpretation Comments Neutrophils (%) (Auto) (test code = 70 % 770-8) [facility] ElizabethAutomated blood immature granulocyte count as percentage of total [id number] 06:08:00 Test Item Value Reference Range Interpretation Comments Immature Granulocyte % (Auto) (test 2 % code = 50222-9) [facility] ElizabethAutomated blood lymphocyte count as percentage of total xjpilxrynv5467-35-95 06:08:00 Test Item Value Reference Range Interpretation Comments Lymphocytes (%) (Auto) (test code = 16 % 736-9) [facility] ElizabethAutomated blood monocyte count as percentage of total lnhqfgykxi2518-14-84 06:08:00 Test Item Value Reference Range Interpretation Comments Monocytes (%) (Auto) (test code = 12 % 5905-5) [facility] ElizabethAutomated blood eosinophil count as percentage of total hgxpmfgqam4533-33-06 06:08:00 Test Item Value Reference Range Interpretation Comments Eosinophils (%) (Auto) (test code = 0 % 713-8) [facility] ElizabethAutomated blood basophil count as percentage of total dncobbitav1236-10-99 06:08:00 Test Item Value Reference Range Interpretation Comments Basophils (%) (Auto) (test code = 0 % 706-2) [facility] ElizabethAutomated blood nucleated erythrocyte count as percentage of total rjyzfdtmzd9321-25-46 06:08:00 Test Item Value Reference Range Interpretation Comments Nucleated Red Blood Cells % (test code 0.0 % = 43619-8) [facility] ElizabethAutomated blood neutrophil count (number/volume) 2019-11-03 06:08:00 Test Item Value Reference Range Interpretation Comments Neutrophils # (Auto) (test code = 5.4 10*3/uL 751-8) [facility] ElizabethAutomated blood immature granulocyte count as percentage of total epeckuqfqp8441-34-41 06:08:00 Test Item Value Reference Range Interpretation Comments Immature Granulocyte # (Auto) 0.1 10*3/uL (test code = 79002-5) [facility] ElizabethAutomated blood lymphocyte count (number/volume) 2019-11-03 06:08:00 Test Item Value Reference Range Interpretation Comments Lymphocytes # (Auto) (test code = 1.2 10*3/uL 731-0) [facility] ElizabethBlood monocytes automated count (number/volume) 2019-11-03 06:08:00 Test Item Value Reference Range Interpretation Comments Monocytes # (Auto) (test code = 0.9 10*3/uL 742-7) [facility] ElizabethAutomated blood eosinophil [id number] 06:08:00 Test Item Value Reference Range Interpretation Comments Eosinophils # (Auto) (test code = 0.0 10*3/uL 711-2) [facility] ElizabethAutomated blood basophil count (number/volume)2019-11-03 06:08:00 Test Item Value Reference Range Interpretation Comments Basophils # (Auto) (test code = 0.0 10*3/uL 704-7) [facility] ElizabethAutomated blood nucleated erythrocyte count (count/volume)2019-11-03 06:08:00 Test Item Value Reference Range Interpretation Comments Nucleated Red Blood Cells # 0.00 10*3/uL (test code = 771-6) [facility] ElizabethService comment [id number] 06:08:00 Test Item Value Reference Range Interpretation Comments Manual Differential (test code = Not Ind 8265-1) [facility] ElizabethSerum or plasma sodium measurement (moles/volume) 2019-11-03 06:08:00 Test Item Value Reference Range Interpretation Comments Sodium Level (test code = 2951-2) 136 mmol/L [facility] ElizabethSerum or plasma potassium measurement (moles/volume) 2019-11-03 06:08:00 Test Item Value Reference Range Interpretation Comments Potassium Level (test code = 4.6 mmol/L 2823-3) [facility] ElizabethSerum or plasma chloride measurement (moles/volume) 2019-11-03 06:08:00 Test Item Value Reference Range Interpretation Comments Chloride Level (test code = 116 mmol/L 5-0) [facility] ElizabethSerum or plasma total carbon dioxide measurement (moles/volume)2019-11-03 06:08:00 Test Item Value Reference Range Interpretation Comments Carbon Dioxide Level (test code = 13 mmol/L 2028-04) [facility] ElizabethSerum or plasma anion gap determination (moles/volume) 2019-11-03 06:08:00 Test Item Value Reference Range Interpretation Comments Anion Gap (test code = 54496-3) 12 [facility] ElizabethSerum or plasma urea nitrogen measurement (mass/volume) 2019-11-03 06:08:00 Test Item Value Reference Range Interpretation Comments Blood Urea Nitrogen (test code = 26 mg/dL 3094-0) [facility] ElizabeNaval Hospitalerum or plasma creatinine measurement (mass/volume) 2019-11-03 06:08:00 Test Item Value Reference Range Interpretation Comments Creatinine (test code = 2160-0) 1.7 mg/dL [facility] [id number] 06:08:00 Test Item Value Reference Range Interpretation Comments Estimat Glomerular Filtration Rate 46 (test code = 25867-3) [facility] ElizabethSerum or plasma glucose measurement (mass/volume) 2019-11-03 06:08:00 Test Item Value Reference Range Interpretation Comments Glucose Level (test code = 2345-7) 353 mg/dL [facility] Hospitalerum or plasma calcium measurement (mass/volume) 2019-11-03 06:08:00 Test Item Value Reference Range Interpretation Comments Calcium Level (test code = 42700-0) 6.7 mg/dL [facility] LakebeBlood Sdkiqzf8536-34-12 18:01:48No growth at 5 days. Immature platelet hupysouu8609-70-08 05:15:00 Test Item Value Reference Range Interpretation Comments Immature Platelet Fraction (test code = 6.9 % 39648-4) [facility] blood segmented neutrophils/100 leukocytes 2019-11-01 05:15:00 Test Item Value Reference Range Interpretation Comments Neutrophils % (Manual) (test code = 56 % 769-0) [facility] ElizabethManual blood band neutrophils form/100 leukocytes 2019-11-01 05:15:00 Test Item Value Reference Range Interpretation Comments Band Neutrophils % (Manual) (test code 4 % = 764-1) [facility] ElizabethManual blood lymphocytes/100 [id number] 05:15:00 Test Item Value Reference Range Interpretation Comments Lymphocytes % (Manual) (test code = 18 % 737-7) [facility] ElizabethManual blood monocytes/100 [id number] 05:15:00 Test Item Value Reference Range Interpretation Comments Monocytes % (Manual) (test code = 20 % 744-3) [facility] ElizabethManual blood eosinophil count as percentage of total wovxunqtkp5807-46-43 05:15:00 Test Item Value Reference Range Interpretation Comments Eosinophils % (Manual) (test code = 2 % 714-6) [facility] ElizabethBlood platelet detection by light kgkauvshsd1273-88-01 05:15:00 Test Item Value Reference Range Interpretation Comments Platelet Estimate (test code = Decreased 9317-9) [facility] ElizabethBlood anisocytosis detection by light microscopy 2019-11-01 05:15:00 Test Item Value Reference Range Interpretation Comments Anisocytosis (test code = 702-1) 1+ [facility] ElizabethWhole blood hypochromia detection by light microscopy 2019-11-01 05:15:00 Test Item Value Reference Range Interpretation Comments Hypochromasia (test code = 728-6) 1+ [facility] ElizabethSerum or plasma phosphate measurement (mass/volume) 2019-11-01 05:15:00 Test Item Value Reference Range Interpretation Comments Phosphorus Level (test code = 2.3 mg/dL 2777-1) [facility] ElizabethSerum or plasma total bilirubin measurement (mass/volume)2019-11-01 05:15:00 Test Item Value Reference Range Interpretation Comments Total Bilirubin (test code = 0.4 mg/dL 1974-2) [facility] ElizabethSerum or plasma aspartate aminotransferase measurement (enzymatic activity/volume)2019-11-01 05:15:00 Test Item Value Reference Range Interpretation Comments Aspartate Amino Transf (AST/SGOT) 10 U/L (test code = 1920-8) [facility] ElizabethSerum or plasma alanine aminotransferase measurement (enzymatic activity/volume)2019-11-01 05:15:00 Test Item Value Reference Range Interpretation Comments Alanine Aminotransferase (ALT/SGPT) 21 U/L (test code = 1742-6) [facility] ElizabethSerum or plasma protein measurement (mass/volume) 2019-11-01 05:15:00 Test Item Value Reference Range Interpretation Comments Total Protein (test code = 2885-2) 4.4 g/dL [facility] ElizabethSerum or plasma albumin measurement (mass/volume) 2019-11-01 05:15:00 Test Item Value Reference Range Interpretation Comments Albumin (test code = 1751-7) 2.3 g/dL [facility] ElizabethSerum or plasma alkaline phosphatase measurement (enzymatic activity/volume)2019-11-01 05:15:00 Test Item Value Reference Range Interpretation Comments Alkaline Phosphatase (test code = 77 U/L 6768-6) [facility] ElizabethImmature platelet [id number] 05:15:00 Test Item Value Reference Range Interpretation Comments Immature Platelet Fraction (test code = 6.9 % 79669-6) [facility] neutrophils/100 leukocytes 2019-11-01 05:15:00 Test Item Value Reference Range Interpretation Comments Neutrophils % (Manual) (test code = 56 % 769-0) [facility] blood band neutrophils form/100 leukocytes 2019-11-01 05:15:00 Test Item Value Reference Range Interpretation Comments Band Neutrophils % (Manual) (test code 4 % = 764-1) [facility] ElizabethManual blood lymphocytes/100 injmswqurp6951-14-82 05:15:00 Test Item Value Reference Range Interpretation Comments Lymphocytes % (Manual) (test code = 18 % 737-7) [facility] ElizabethManual blood monocytes/100 qgutuyotlh1424-12-55 05:15:00 Test Item Value Reference Range Interpretation Comments Monocytes % (Manual) (test code = 20 % 744-3) [facility]. ElizabethManual blood eosinophil count as percentage of total [id number] 05:15:00 Test Item Value Reference Range Interpretation Comments Eosinophils % (Manual) (test code = 2 % 714-6) [facility] ElijairobethBlood platelet detection by light [id number] 05:15:00 Test Item Value Reference Range Interpretation Comments Platelet Estimate (test code = Decreased 9317-9) [facility] ElizabethBlood anisocytosis detection by light microscopy 2019-11-01 05:15:00 Test Item Value Reference Range Interpretation Comments Anisocytosis (test code = 702-1) 1+ [facility]. ElijairobethWhole blood hypochromia detection by light microscopy 2019-11-01 05:15:00 Test Item Value Reference Range Interpretation Comments Hypochromasia (test code = 728-6) 1+ [facility] CenterMarbin Hayespecimen source [id number] 17:30:00 Test Item Value Reference Range Interpretation Comments Respiratory Virus Source Nasopharyngeal Swab (test code = 39955-8) [facility] OmziprgksKGZM-ObQ-8 RNA Resp Ql FRANCISCA+[id number] 17:30:00 Test Item Value Reference Range Interpretation Comments Coronavirus (COVID-19)(PCR) (test NEGATIVE code = 69397-6) [facility] Nancynfluenza virus A RNA detection by probe and target amplification [id number] 15:30:00 Test Item Value Reference Range Interpretation Comments Influenza Virus Type A (PCR) (test NEGATIVE code = 74188-5) [facility] Nancynfluenza virus B RNA detection by probe and target amplification [id number] 15:30:00 Test Item Value Reference Range Interpretation Comments Influenza Virus Type B (PCR) (test NEGATIVE code = 98415-0) [facility] Abigailtreptococcus pyogenes throat [id number] 15:30:00 Test Item Value Reference Range Interpretation Comments Group A Streptococcus No Group A Strep Culture (test code = isolated 95962-2) [facility] Nancynfluenza virus A RNA detection by probe and target amplification [id number] 15:30:00 Test Item Value Reference Range Interpretation Comments Influenza Virus Type A (PCR) (test NEGATIVE code = 56153-9) [facility] Center[facility] Cruznfluenza virus B RNA detection by probe and target amplification [id number] 15:30:00 Test Item Value Reference Range Interpretation Comments Influenza Virus Type B (PCR) (test NEGATIVE code = 24219-2) [facility] Hayestreptococcus pyogenes throat [id number] 15:30:00 Test Item Value Reference Range Interpretation Comments Group A Streptococcus No Group A Strep Culture (test code = isolated 64984-6) [facility] CenterMarbin SánchezCrenated erythrocyte detection by light microscopy 2019-10-31 04:10:00 Test Item Value Reference Range Interpretation Comments Laura Cells/Echinocytes (test code = 1+ 7790-9) [facility]. ElizabethCrenated erythrocyte detection by light microscopy 2019-10-31 04:10:00 Test Item Value Reference Range Interpretation Comments [place] Cells/Echinocytes (test code = 1+ 7790-9) [facility] PrincessManual blood metamyelocytes/100 [id number] 05:20:00 Test Item Value Reference Range Interpretation Comments Metamyelocytes % (test code = 740-1) 1 % [facility]. ElijairobethBlood erythrocyte morphology finding identification 2019-10-30 05:20:00 Test Item Value Reference Range Interpretation Comments Red Blood Cell Morphology (test code = Normal 6742-1) [facility]airobealmaManket[facility] blood metamyelocytes/100 [id number] 05:20:00 Test Item Value Reference Range Interpretation Comments Metamyelocytes % (test code = 740-1) 1 % [facility]. ElijairobethBlood erythrocyte morphology finding identification 2019-10-30 05:20:00 Test Item Value Reference Range Interpretation Comments Red Blood Cell Morphology (test code = Normal 6742-1) [facility]. ElizabethVenous whole blood potassium measurement (moles/volume) 2019-10-29 20:00:00 Test Item Value Reference Range Interpretation Comments Bedside Potassium (test code = 3.5 mmol/L 90230-4) [facility]. ElizabethVenous whole blood potassium measurement (moles/volume) 2019-10-29 20:00:00 Test Item Value Reference Range Interpretation Comments Bedside Potassium (test code = 3.5 mmol/L 61355-5) [facility] [id number] 11:48:08 Test Item Value Reference Range Interpretation Comments Glucose POC (test >600 mg/dL 74-106 Result Not ConfirmedPOC code = Glucose POC) Glucose used on critically ill patients is considered " off-label use" and has no t been cleared or appr susan by the FDA. Altern ative testing methods should be considered i f the patient is crit ically ill. POC [id number] 11:48:07 Test Item Value Reference Range Interpretation Comments Glucose POC (test >600 mg/dL 74-106 Ordered La b DrawMD code = Glucose POC) Notified POC Glucose used on critica lly ill patients is con sidered "off-label use" and has not been cleare d or approved by the FDA. Alternative adwoa ting methods should be considered if t he patient is crit ically ill. POC [id number] 11:48:06 Test Item Value Reference Range Interpretation Comments Glucose POC (test >600 mg/dL 74-106 Ordered La b DrawPOC code = Glucose POC) Glucose used on critically ill patients is considered "off-label use" and has not been cleare d or approved by the FDA. Alternative adwoa ting methods should be considered if t he patient is crit ically ill. POC [id number] 11:48:05 Test Item Value Reference Range Interpretation Comments Glucose POC (test >600 mg/dL 74-106 Result Not ConfirmedPOC code = Glucose POC) Glucose used on critically ill patients is considered " off-label use" and has no t been cleared or appr susan by the FDA. Altern ative testing methods should be considered i f the patient is crit ically ill. POC [id number] 11:48:03 Test Item Value Reference Range Interpretation Comments Glucose POC (test >600 mg/dL 74-106 MD Notifie dPOC Glucose code = Glucose POC) used on critically ill patients is con sidered "off-label use" and has not been cleare d or approved by the FDA. Alternative adwoa ting methods should be considered if t he patient is crit ically ill. POC [id number] 11:48:03 Test Item Value Reference Range Interpretation Comments Glucose POC (test >600 mg/dL 74-106 MD Beal dPEDUARDO Glucose code = Glucose POC) used on critically ill patients is con sidered "off-label use" and has not been cleare d or approved by the FDA. Alternative adwoa ting methods should be considered if t he patient is crit ically ill. Serum or plasma magnesium measurement (mass/volume)2019-10-29 03:15:00 Test Item Value Reference Range Interpretation Comments Magnesium Level (test code = 2.03 mg/dL 28326-7) [facility] (moles/volume) 2019-10-29 01:47:00 Test Item Value Reference Range Interpretation Comments Bedside Lactic Acid Venous (test 1.50 mmol/L code = 2519-7) [facility]. ElizabethVenous blood lactic acid measurement (moles/volume) 2019-10-29 01:47:00 Test Item Value Reference Range Interpretation Comments Bedside Lactic Acid Venous (test 1.50 mmol/L code = 2519-7) [facility]. ElibeNaval Hospitalerum or plasma ethanol measurement (mass/volume) 2019-10-29 01:40:00 Test Item Value Reference Range Interpretation Comments Ethyl Alcohol Level (test code = < 10 mg/dL 5643-2) [facility]. ElizabethSerum or plasma ethanol measurement (mass/volume) 2019-10-29 01:40:00 Test Item Value Reference Range Interpretation Comments Ethyl Alcohol Level (test code = < 10 mg/dL 5643-2) [facility]as qual by [id number] 21:33:00 Test Item Value Reference Range Interpretation Comments Lactic Acid Comment (test code Reprint/Called = Lactic Acid Comment) [facility]/plas qual by [id number] 21:33:00 Test Item Value Reference Range Interpretation Comments Lactic Acid Comment (test code Reprint/Called = Lactic Acid Comment) [facility] [id number] 20:42:26 Test Item Value Reference Range Interpretation Comments Glucose POC (test 88 mg/dL 74-106 POC Glucos e used on code = Glucose POC) critical ly ill patients is considered " off-label use" and has no t been cleared or appr susan by the FDA. Altern ative testing methods should be considered i f the patient is crit ically ill. Venous whole blood pH [id number] 20:24:00 Test Item Value Reference Range Interpretation Comments Venous Blood pH (test code = 2746-6) 7.305 [facility] ElizabethBeverly Hospitalous blood partial pressure of carbon dioxide [id number] 20:24:00 Test Item Value Reference Range Interpretation Comments Blood Gas PCO2 (test code = 29.6 mm[Hg] 2020-4) [facility]. ElizabethVenous blood partial pressure of oxygen measurement 2019-10-28 20:24:00 Test Item Value Reference Range Interpretation Comments Blood Gas PO2 (test code = 32.9 mm[Hg] 5-2) [facility]. ElizabeMadison Healthous blood bicarbonate measurement (moles/volume) 2019-10-28 20:24:00 Test Item Value Reference Range Interpretation Comments Venous Blood HCO3 (test code = 14.4 mmol/L 60711-5) [facility] ElizabeMadison Healthous whole blood base excess determination by calculation (moles/volume)2019-10-28 20:24:00 Test Item Value Reference Range Interpretation Comments Venous Blood Base Excess (test -10.6 mmol/L code = 1927-3) [facility]. ElibethBlood hemoglobin measurement by oximetry (mass/volume) 2019-10-28 20:24:00 Test Item Value Reference Range Interpretation Comments Venous Blood Hemoglobin (test code 12.2 g/dL = 00996-2) [facility]. ElizabethVenous blood oxygen saturation (mass fraction)2019-10-28 20:24:00 Test Item Value Reference Range Interpretation Comments Venous Blood Oxygen Saturation (test 55.1 % code = 2711-0) [facility]. ElizabethVenous blood carboxyhemoglobin/total hemoglobin ratio 2019-10-28 20:24:00 Test Item Value Reference Range Interpretation Comments Venous Blood Carboxyhemoglobin (test 0.3 % code = 2032-1) [facility] ElizabethVenous whole blood methemoglobin/total hemoglobin (mass fraction)2019-10-28 20:24:00 Test Item Value Reference Range Interpretation Comments Venous Blood Methemoglobin (test code = 0.3 % 2617-9) [facility] blood carboxyhemoglobin/total hemoglobin ratio 2019-10-28 20:24:00 Test Item Value Reference Range Interpretation Comments Venous Blood Oxyhemoglobin (test code 54.8 % = 2032-1) [facility] blood deoxyhemoglobin/total hemoglobin mass ratio 2019-10-28 20:24:00 Test Item Value Reference Range Interpretation Comments Reduced Hemoglobin (test code = 44.6 % 66197-3) [facility] blood oxygen content by [id number] 20:24:00 Test Item Value Reference Range Interpretation Comments Venous Blood Oxygen Content (test 9.4 mL/dL code = 47429-1) [facility] deliv source [id number] 20:24:00 Test Item Value Reference Range Interpretation Comments Oxygen Delivery Device (test code = ROOM AIR 73186-3) [facility] from [id number] 20:24:00 Test Item Value Reference Range Interpretation Comments Blood Gas Puncture Site (test code = Venous 54060-1) [facility] artery patency prior to arterial [id number] 20:24:00 Test Item Value Reference Range Interpretation Comments Luther Test (test code = Not Applicable 56592-5) [facility] [id number] 20:24:00 Test Item Value Reference Range Interpretation Comments Blood Gas Critical Value Called Hardy BANKS MD To (test code = 8264-4) [facility] [id number] 20:24:00 Test Item Value Reference Range Interpretation Comments Blood Gas Notified Time (test [id number] code = 8265-1) [facility] toxic granules detection by light microscopy 2019-10-28 20:15:00 Test Item Value Reference Range Interpretation Comments Toxic Granulation (test code = 803-7) 1+ [facility]Blood leukocyte toxic vacuoles detection by light [id number] 20:15:00 Test Item Value Reference Range Interpretation Comments Toxic Vacuolation (test code = 19873-0) 1+ [facility] ElizabethBlood dohle body detection by light [id number] 20:15:00 Test Item Value Reference Range Interpretation Comments Dohle Bodies (test code = 7792-5) 3+ [facility] ElizabethProthrombin time (PT) in platelet poor [id number] 20:15:00 Test Item Value Reference Range Interpretation Comments Prothrombin Time (test code = 5902-2) 15.4 s [facility] ElizabethINR in Platelet poor plasma by Coagulation assay 2019-10-28 20:15:00 Test Item Value Reference Range Interpretation Comments Prothromb Time International 1.6 {ratio} Ratio (test code = 6301-6) [facility] ElizabethPlasma partial thromboplastin time (PTT)2019-10-28 20:15:00 Test Item Value Reference Range Interpretation Comments Activated Partial Thromboplast Time 33.2 s (test code = 26980-9) [facility] ElizabethSerum or plasma lipase measurement (enzymatic activity/volume)2019-10-28 20:15:00 Test Item Value Reference Range Interpretation Comments Lipase (test code = 3040-3) 35 U/L [facility] ElizabethSerum or plasma beta hydroxybutyrate measurement (moles/volume)2019-10-28 20:15:00 Test Item Value Reference Range Interpretation Comments Beta-Hydroxybutyric Acid (test 7.58 mmol/L code = 6873-4) [facility] ElizabethSerum or plasma cardiac troponin I measurement (mass/volume)2019-10-28 20:15:00 Test Item Value Reference Range Interpretation Comments Troponin I (test code = 56732-7) 8.52 ng/mL [facility] ElizabethBacterial blood [id number] 20:15:00 Test Item Value Reference Range Interpretation Comments Blood Culture (test code No growth in 5 days = 600-7) [facility] ElizabethBlood toxic granules detection by light microscopy 2019-10-28 20:15:00 Test Item Value Reference Range Interpretation Comments Toxic Granulation (test code = 803-7) 1+ [facility] ElizabethBlood leukocyte toxic vacuoles detection by light [id number] 20:15:00 Test Item Value Reference Range Interpretation Comments Toxic Vacuolation (test code = 67383-9) 1+ [facility] ElizabethBlood dohle body detection by light [id number] 20:15:00 Test Item Value Reference Range Interpretation Comments Dohle Bodies (test code = 7792-5) 3+ [facility] ElizabethProthrombin time (PT) in platelet poor [id number] 20:15:00 Test Item Value Reference Range Interpretation Comments Prothrombin Time (test code = 5902-2) 15.4 s [facility] ElizabethINR in Platelet poor plasma by Coagulation assay 2019-10-28 20:15:00 Test Item Value Reference Range Interpretation Comments Prothromb Time International 1.6 {ratio} Ratio (test code = 6301-6) [facility] ElizabethPlasma partial thromboplastin time (PTT)2019-10-28 20:15:00 Test Item Value Reference Range Interpretation Comments Activated Partial Thromboplast Time 33.2 s (test code = 06315-9) [facility] ElizabethSerum or plasma cardiac troponin I measurement (mass/volume)2019-10-28 20:15:00 Test Item Value Reference Range Interpretation Comments Troponin I (test code = 66839-9) 8.52 ng/mL [facility] ElizabethBacterial blood [id number] 20:15:00 Test Item Value Reference Range Interpretation Comments Blood Culture (test code No growth in 5 days = 600-7) [facility] ElizabethUrinalysis specimen collection [id number] 19:47:00 Test Item Value Reference Range Interpretation Comments Urine Source (test code = 45893-7) URCATH [facility] ElizabethColor of Urine by [id number] 19:47:00 Test Item Value Reference Range Interpretation Comments Urine Color (test code = 70426-8) Lt Yellow [facility] ElizabethUrine clarity [id number] 19:47:00 Test Item Value Reference Range Interpretation Comments Urine Appearance (test code = 66251-1) Clear [facility]. MiraUrine pH measurement by automated test [id number] 19:47:00 Test Item Value Reference Range Interpretation Comments Urine pH (test code = 29099-3) 5.5 [facility] - . ElijairobethSpecific gravity of Urine by Automated test strip 2019-10-28 19:47:00 Test Item Value Reference Range Interpretation Comments Urine Specific [place] (test code = 1.014 19907-9) [facility] protein measurement by automated test strip (mass/volume)2019-10-28 19:47:00 Test Item Value Reference Range Interpretation Comments Urine Protein (test code = 54508-8) 70 mg/dL [facility] glucose measurement by automated test strip (mass/volume)2019-10-28 19:47:00 Test Item Value Reference Range Interpretation Comments Urine Glucose (UA) (test code = >1000 mg/dL 36108-5) [facility] ketones measurement by automated test strip (mass/volume)2019-10-28 19:47:00 Test Item Value Reference Range Interpretation Comments Urine Ketones (test code = 50469-3) 10 mg/dL [facility] erythrocytes count by automated test strip (number/volume)2019-10-28 19:47:00 Test Item Value Reference Range Interpretation Comments Urine Occult Blood (test code = 2+ 96732-5) [facility] [place] [facility] nitrite detection by automated test strip 2019-10-28 19:47:00 Test Item Value Reference Range Interpretation Comments Urine Nitrite (test code = 81843-6) Negative [facility]. [place] ColonybethUrine total bilirubin measurement by automated test strip (mass/volume)2019-10-28 19:47:00 Test Item Value Reference Range Interpretation Comments Urine Bilirubin (test code = Negative mg/dL 06200-0) [facility]. ElizabethUrine urobilinogen measurement by automated test strip (mass/volume)2019-10-28 19:47:00 Test Item Value Reference Range Interpretation Comments Urine Urobilinogen (test code Negative mg/dL = 33533-1) [facility] leukocytes count by automated test strip (number/volume)2019-10-28 19:47:00 Test Item Value Reference Range Interpretation Comments Urine Leukocyte Esterase Negative {Oliver}/uL (test code = 00635-5) [facility] CenterMarbin ThayerthMicroscopic examination of [id number] 19:47:00 Test Item Value Reference Range Interpretation Comments Microscopic Urinalysis (T) (test code = ----- 13131-1) [facility] sediment erythrocyte count by microscopy (number/high power field)2019-10-28 19:47:00 Test Item Value Reference Range Interpretation Comments Urine RBC (test code = 69703-2) 11-30 /[HPF] [facility] sediment leukocyte count by microscopy (number/high power field)2019-10-28 19:47:00 Test Item Value Reference Range Interpretation Comments Urine WBC (test code = 5821-4) 0-5 /[HPF] [facility] sediment epithelial cell count by microscopy (number/high power field)2019-10-28 19:47:00 Test Item Value Reference Range Interpretation Comments Urine Epithelial Cells (test None Seen /[HPF] code = 5787-7) [facility] sediment crystal count by microscopy (number/high power field)2019-10-28 19:47:00 Test Item Value Reference Range Interpretation Comments Urine Crystals (test code = None Seen /[HPF] 76822-1) [facility] sediment bacteria count by microscopy (number/high power field)2019-10-28 19:47:00 Test Item Value Reference Range Interpretation Comments Urine Bacteria (test code = None Seen /[HPF] 5769-5) [facility] sediment casts count by microscopy (number/low power field)2019-10-28 19:47:00 Test Item Value Reference Range Interpretation Comments Urine Casts (test code = Present /[LPF] 9842-6) [facility]. [facility] sediment hyaline cast count by microscopy (number/low power field)2019-10-28 19:47:00 Test Item Value Reference Range Interpretation Comments Urine Hyaline Casts (test code = 2-5 /[LPF] 5796-8) [facility] ElizabethYeast detection in urine sediment by light microscopy 2019-10-28 19:47:00 Test Item Value Reference Range Interpretation Comments Urine Yeast (test code = None Seen /[HPF] 05913-7) [facility] ElizabethService comment 19:47:00 Test Item Value Reference Range Interpretation Comments Urinalysis Comment (test code = 8262-8) * [facility] ElizabethService comment 19:47:00 Test Item Value Reference Range Interpretation Comments Urine Culture Indicated (test code = Not Ind 8264-4) [facility] ElizabethUrine methamphetamine [id number] 19:47:00 Test Item Value Reference Range Interpretation Comments Urine Methamphetamines Screen Positive ng/mL (test code = 31921-5) [facility] ElizabethUrine propoxyphene screening [id number] 19:47:00 Test Item Value Reference Range Interpretation Comments Urine Propoxyphene Screen Negative ng/mL (test code = 33022-3) [facility] ElizabethUrine amphetamines detection by screening method 2019-10-28 19:47:00 Test Item Value Reference Range Interpretation Comments Urine Amphetamines Screen Positive ng/mL (test code = 27477-2) [facility] ElizabethUrine buprenorphine screen with reflex confirmation 2019-10-28 19:47:00 Test Item Value Reference Range Interpretation Comments Urine Buprenorphine (test code Negative ng/mL = 3414-0) [facility] ElizabethUrine barbiturates detection by screening method 2019-10-28 19:47:00 Test Item Value Reference Range Interpretation Comments Urine Barbiturates Screen Negative ng/mL (test code = 32053-2) [facility] ElizabethUrine benzodiazepines detection by screening method 2019-10-28 19:47:00 Test Item Value Reference Range Interpretation Comments Urine Benzodiazepines Screen Negative ng/mL (test code = 34637-9) [facility] ElizabethUrine benzoylecgonine detection by screening method 2019-10-28 19:47:00 Test Item Value Reference Range Interpretation Comments Urine Cocaine Screen (test Negative ng/mL code = 67679-4) [facility] ElizabethUrine methadone [id number] 19:47:00 Test Item Value Reference Range Interpretation Comments Urine Methadone, Qualitative Negative ng/mL (test code = 48984-0) [facility]. ElizabethUrine opiates screening [id number] 19:47:00 Test Item Value Reference Range Interpretation Comments Urine Opiates Screen (test Negative ng/mL code = 45910-6) [facility]. ElizabethUrine phencyclidine detection by screening method 2019-10-28 19:47:00 Test Item Value Reference Range Interpretation Comments Urine Phencyclidine Screen Negative ng/mL (test code = 34412-9) [facility]. ElizabethUrine cannabinoids detection by screening method 2019-10-28 19:47:00 Test Item Value Reference Range Interpretation Comments Urine Cannabinoids (test code Negative ng/mL = 46821-5) [facility]. ElizabethScreening urine tricyclic antidepressants detection 2019-10-28 19:47:00 Test Item Value Reference Range Interpretation Comments Ur Tricyclic Antidepressants Negative ng/mL Screen (test code = 52939-0) [facility]. ElizabethUrine oxycodone detection by screening [id number] 19:47:00 Test Item Value Reference Range Interpretation Comments Urine Oxycodone Screen (test Negative ng/mL code = 93721-1) [facility]. ElizabethSpecific gravity of Urine by Automated test strip 2019-10-28 19:47:00 Test Item Value Reference Range Interpretation Comments Urine Specific [place] (test code = 1.014 83467-2) [facility]. ElizabethUrine pH measurement by automated test [id number] 19:47:00 Test Item Value Reference Range Interpretation Comments Urine pH (test code = 21926-1) 5.5 [facility] - . ElizabethUrine drug screen comment [id number] 19:47:00 Test Item Value Reference Range Interpretation Comments Urine Drug Screen Comment (test code See Note = 31385-4) [facility]. ElizabethUrine amphetamine measurement (mass/volume)2019-10-28 19:47:00 Test Item Value Reference Range Interpretation Comments Urine Amphetamine Level (test code 428 ng/mL = 45490-8) [facility] 2019-10-28 19:47:00 Test Item Value Reference Range Interpretation Comments Urine Methamphetamines Level (test 1412 ng/mL code = 3780-4) [facility] methylenedioxyamphetamine measurement (mass/volume)2019-10-28 19:47:00 Test Item Value Reference Range Interpretation Comments Ur Methylenedioxyamphetamine (MDA) <200 ng/mL (test code = 95861-1) [facility] methylenedioxymethamphetamine measurement (mass/volume)2019-10-28 19:47:00 Test Item Value Reference Range Interpretation Comments Urine Methylenedioxymethamphetamine <200 ng/mL (test code = 07008-6) [facility] methylenedioxyethylamphetamine measurement (mass/volume)2019-10-28 19:47:00 Test Item Value Reference Range Interpretation Comments Urine MDE-amphetamine (MDEA) (test <200 ng/mL code = 13319-5) [facility] phentermine measurement by confirmatory method (mass/volume)2019-10-28 19:47:00 Test Item Value Reference Range Interpretation Comments Urine Phentermine (LC/MS/MS) (test <200 ng/mL code = 43412-0) [facility] drug screen comment [id number] 19:47:00 Test Item Value Reference Range Interpretation Comments Urine Drug Screen Comment (test code See Note = 51335-9) [facility] (mass/volume)2019-10-28 19:47:00 Test Item Value Reference Range Interpretation Comments Urine Amphetamine Level (test code 428 ng/mL = 96678-8) [facility] (mass/volume) 2019-10-28 19:47:00 Test Item Value Reference Range Interpretation Comments Urine Methamphetamines Level (test 1412 ng/mL code = 3780-4) [facility] methylenedioxyamphetamine measurement (mass/volume)2019-10-28 19:47:00 Test Item Value Reference Range Interpretation Comments Ur Methylenedioxyamphetamine (MDA) <200 ng/mL (test code = 19737-6) [facility] MirathUrine methylenedioxymethamphetamine measurement (mass/volume)2019-10-28 19:47:00 Test Item Value Reference Range Interpretation Comments Urine Methylenedioxymethamphetamine <200 ng/mL (test code = 59198-7) [facility] FlacabethUrine methylenedioxyethylamphetamine measurement (mass/volume)2019-10-28 19:47:00 Test Item Value Reference Range Interpretation Comments Urine MDE-amphetamine (MDEA) (test <200 ng/mL code = 18952-8) [facility] MiraUrine phentermine measurement by confirmatory method (mass/volume)2019-10-28 19:47:00 Test Item Value Reference Range Interpretation Comments Urine Phentermine (LC/MS/MS) (test <200 ng/mL code = 18258-5) [facility] PrincessBlood [id number] 18:02:22No growth at 5 days. Magnesium [id number] 13:05:08 Test Item Value Reference Range Interpretation Comments Magnesium Level (test code = 2.4 mg/dL 1.6-2.6 Magnesium Level) Phosphorus [id number] 13:05:08 Test Item Value Reference Range Interpretation Comments Phosphorus Level (test code = 8.2 mg/dL 2.5-4.9 H Phosphorus Level) Clostridium difficile [id number] 11:57:01 Test Item Value Reference Range Interpretation Comments CDIFF PCR (test code POSITIVE Negative CTRB BR AND MCZZAGHEA = CDIFF PCR) RN10/28/2019 11: 56:48 CDT/PN Comprehensive Metabolic [id number] 07:22:35 Test Item Value Reference Range Interpretation Comments Sodium Level (test 133 mmol/L 136-145 L code = Sodium Level) Potassium Level (test 4.1 mmol/L 3.5-5.1 code = Potassium Level) Chloride Level (test 82 mmol/L 98-107 L code = Chloride Level) CO2 (test code = CO2) 35 mmol/L 21-32 H Anion Gap (test code 16 mmol/L 7-16 = Anion Gap) BUN (test code = BUN) 125 mg/dL 7-18 CTRB/S . CHIP RN 10/28/2019 07:22 :25 CDT/RSM Creatinine Level 5.3 mg/dL 0.7-1.3 H (test code = Creatinine Level) Glucose Level (test 207 mg/dL 74-106 H code = Glucose Level) Calcium Level (test 6.1 mg/dL 8.5-10.1 L code = Calcium Level) Alk Phos (test code = 120 IntlUnit/L 45-122 Alk Phos) Bilirubin Total (test 0.4 mg/dL 0.2-1.0 code = Bilirubin Total) Albumin Level (test 2.1 g/dL 3.4-5.0 L code = Albumin Level) Protein Total (test 5.3 g/dL 6.4-8.2 L code = Protein Total) ALT (test code = ALT) 43 IntlUnit/L 12-78 AST (test code = AST) 106 IntlUnit/L 10-34 H Comprehensive Metabolic [id number] 07:22:35 Test Item Value Reference Range Interpretation Comments Sodium Level (test 133 mmol/L 136-145 L code = Sodium Level) Potassium Level (test 4.1 mmol/L 3.5-5.1 code = Potassium Level) Chloride Level (test 82 mmol/L 98-107 L code = Chloride Level) CO2 (test code = CO2) 35 mmol/L 21-32 H Anion Gap (test code 16 mmol/L 7-16 = Anion Gap) BUN (test code = BUN) 125 mg/dL 7-18 CTRB/S Marbin SAUNDERS RN 10/28/2019 07:22 :25 CDT/RSM Creatinine Level 5.3 mg/dL 0.7-1.3 H (test code = Creatinine Level) Glucose Level (test 207 mg/dL 74-106 H code = Glucose Level) Calcium Level (test 6.1 mg/dL 8.5-10.1 L code = Calcium Level) Alk Phos (test code = 120 IntlUnit/L 45-122 Alk Phos) Bilirubin Total (test 0.4 mg/dL 0.2-1.0 code = Bilirubin Total) Albumin Level (test 2.1 g/dL 3.4-5.0 L code = Albumin Level) Protein Total (test 5.3 g/dL 6.4-8.2 L code = Protein Total) ALT (test code = ALT) 43 IntlUnit/L 12-78 AST (test code = AST) 106 IntlUnit/L 10-34 H eGFR AA (test code = 14 mL/min/1.73 N eGFR AA) m2 Comprehensive Metabolic [id number] 07:22:35 Test Item Value Reference Range Interpretation Comments Sodium Level (test 133 mmol/L 136-145 L code = Sodium Level) Potassium Level (test 4.1 mmol/L 3.5-5.1 code = Potassium Level) Chloride Level (test 82 mmol/L 98-107 L code = Chloride Level) CO2 (test code = CO2) 35 mmol/L 21-32 H Anion Gap (test code 16 mmol/L 7-16 = Anion Gap) BUN (test code = BUN) 125 mg/dL 7-18 CTRB/Jose SAUNDERS RN 10/28/2019 07:22 :25 CDT/RSM Creatinine Level 5.3 mg/dL 0.7-1.3 H (test code = Creatinine Level) Glucose Level (test 207 mg/dL 74-106 H code = Glucose Level) Calcium Level (test 6.1 mg/dL 8.5-10.1 L code = Calcium Level) Alk Phos (test code = 120 IntlUnit/L 45-122 Alk Phos) Bilirubin Total (test 0.4 mg/dL 0.2-1.0 code = Bilirubin Total) Albumin Level (test 2.1 g/dL 3.4-5.0 L code = Albumin Level) Protein Total (test 5.3 g/dL 6.4-8.2 L code = Protein Total) ALT (test code = ALT) 43 IntlUnit/L 12-78 AST (test code = AST) 106 IntlUnit/L 10-34 H eGFR AA (test code = 14 mL/min/1.73 N eGFR AA) m2 eGFR Non-AA (test 12 mL/min/1.73 N code = eGFR Non-AA) m2 Manual [id number] 07:12:36 Test Item Value Reference Range Interpretation Comments Segs Man (test code = Segs Man) 67 % N Band Man (test code = Band Man) 13 % N Lymph Man (test code = Lymph 15 % N Man) Monocyte Man (test code = 5 % N Monocyte Man) Eos Man (test code = Eos Man) 0 % N Basophil Man (test code = 0 % N Basophil Man) Neut Man Abs (test code = Neut 4.6 2.7-7.3 Man Abs) Lymph Man Abs (test code = Lymph 0.9 0.8-3.5 Man Abs) [place] Man Abs (test code = [place] 0.3 0.3-0.9 Man Abs) Eos Man Abs (test code = Eos Man 0.0 0.0-0.3 Abs) Baso Man Abs (test code = Baso 0.0 0.0-0.1 Man Abs) NRBC Man (test code = NRBC Man) 2 /100(WBCs) N RBC Morph (test code = RBC As Indicated Normal A Morph) Hypochromia (test code = 1+ A Hypochromia) Anisocyte (test code = 1+ A Anisocyte) Plt Estimation (test code = Plt Normal Normal Estimation) Complete Blood Count with [id number] 06:45:38 Test Item Value Reference Range Interpretation Comments WBC (test code = WBC) 5.8 x10 4.8-10.8 RBC (test code = RBC) 3.46 x10 4.60-6.20 L Hgb (test code = Hgb) 11.4 g/dL 14.0-18.0 L Hct (test code = Hct) 31.4 % 38.0-52.0 L MCV (test code = MCV) 90.6 fL 80.0-95.0 MCHC (test code = MCHC) 36.4 g/dL 31.0-36.0 H RDW (test code = RDW) 14.0 % 11.5-14.5 MCH (test code = MCH) 32.9 pg 26.0-32.0 H Platelets (test code = Platelets) 194 x10 140-440 MPV (test code = MPV) 9.3 fL 7.5-11.2 Slide Review (test code = Slide Manual Review) POC [id number] 06:21:36 Test Item Value Reference Range Interpretation Comments Glucose POC (test 197 mg/dL 74-106 H POC Glucos e used on code = Glucose POC) critical ly ill patients is considered " off-label use" and has no t been cleared or appr susan by the FDA. Altern ative testing methods should be considered i f the patient is crit ically ill. POC [id number] 06:21:35 Test Item Value Reference Range Interpretation Comments Glucose POC (test 225 mg/dL 74-106 H POC Glucos e used on code = Glucose POC) critical ly ill patients is considered " off-label use" and has no t been cleared or appr susan by the FDA. Altern ative testing methods should be considered i f the patient is crit ically ill. POC [id number] 04:25:05 Test Item Value Reference Range Interpretation Comments Glucose POC (test 190 mg/dL 74-106 H POC Glucos e used on code = Glucose POC) critical ly ill patients is considered " off-label use" and has no t been cleared or appr susan by the FDA. Altern ative testing methods should be considered i f the patient is crit ically ill. POC [id number] 02:40:25 Test Item Value Reference Range Interpretation Comments Glucose POC (test 279 mg/dL 74-106 H POC Glucos e used on code = Glucose POC) critical ly ill patients is considered " off-label use" and has no t been cleared or appr susan by the FDA. Altern ative testing methods should be considered i f the patient is crit ically ill. POC [id number] 01:47:13 Test Item Value Reference Range Interpretation Comments Glucose POC (test 384 mg/dL 74-106 H POC Glucos e used on code = Glucose POC) critical ly ill patients is considered " off-label use" and has no t been cleared or appr susan by the FDA. Altern ative testing methods should be considered i f the patient is crit ically ill. Basic Metabolic [id number] 01:47:00 Test Item Value Reference Range Interpretation Comments Sodium Level (test 131 mmol/L 136-145 L code = Sodium Level) Potassium Level (test 5.2 mmol/L 3.5-5.1 H code = Potassium Level) Chloride Level (test 80 mmol/L 98-107 L code = Chloride Level) CO2 (test code = CO2) 33 mmol/L 21-32 H Anion Gap (test code 18 mmol/L 7-16 H = Anion Gap) BUN (test code = BUN) 123 mg/dL 7-18 ctrb/ d bellettiere / rn / li 10/28/19 01:46:56 CDT Creatinine Level 5.6 mg/dL 0.7-1.3 H (test code = Creatinine Level) Glucose Level (test 337 mg/dL 74-106 H code = Glucose Level) Calcium Level (test 6.7 mg/dL 8.5-10.1 L code = Calcium Level) Basic Metabolic [id number] 01:47:00 Test Item Value Reference Range Interpretation Comments Sodium Level (test 131 mmol/L 136-145 L code = Sodium Level) Potassium Level 5.2 mmol/L 3.5-5.1 H (test code = Potassium Level) Chloride Level (test 80 mmol/L 98-107 L code = Chloride Level) CO2 (test code = 33 mmol/L 21-32 H CO2) Anion Gap (test code 18 mmol/L 7-16 H = Anion Gap) BUN (test code = 123 mg/dL 7-18 ctrb/ d bel lettiere BUN) / rn / li 2019 01:46:56 CDT Creatinine Level 5.6 mg/dL 0.7-1.3 H (test code = Creatinine Level) Glucose Level (test 337 mg/dL 74-106 H code = Glucose Level) Calcium Level (test 6.7 mg/dL 8.5-10.1 L code = Calcium Level) eGFR AA (test code = 13 mL/min/1.73 N eGFR AA) m2 Basic Metabolic [id number] 01:47:00 Test Item Value Reference Range Interpretation Comments Sodium Level (test 131 mmol/L 136-145 L code = Sodium Level) Potassium Level 5.2 mmol/L 3.5-5.1 H (test code = Potassium Level) Chloride Level (test 80 mmol/L 98-107 L code = Chloride Level) CO2 (test code = 33 mmol/L 21-32 H CO2) Anion Gap (test code 18 mmol/L 7-16 H = Anion Gap) BUN (test code = 123 mg/dL 7-18 ctrb/ d bel lettiere BUN) / rn / li 2019 01:46:56 CDT Creatinine Level 5.6 mg/dL 0.7-1.3 H (test code = Creatinine Level) Glucose Level (test 337 mg/dL 74-106 H code = Glucose Level) Calcium Level (test 6.7 mg/dL 8.5-10.1 L code = Calcium Level) eGFR AA (test code = 13 mL/min/1.73 N eGFR AA) m2 eGFR Non-AA (test 11 mL/min/1.73 N code = eGFR Non-AA) m2 [id number] 01:39:52 Test Item Value Reference Range Interpretation Comments Acetone (Ketones) (test code = Negative Negative Acetone (Ketones)) POC [id number] 00:50:55 Test Item Value Reference Range Interpretation Comments Glucose POC (test 423 mg/dL 74-106 Ordered La b DrawPOC code = Glucose POC) Glucose used on critically ill patients is considered " off-label use" and has no t been cleared or appr susan by the FDA. Altern ative testing methods should be considered i f the patient is crit ically ill. POC [id number] 22:52:44 Test Item Value Reference Range Interpretation Comments Glucose POC (test 574 mg/dL 74-106 MD Lian Starkey Glucose code = Glucose POC) used on critically ill patients is con sidered "off-label use" and has not been cleare d or approved by the FDA. Alternative adwoa ting methods should be considered if t he patient is crit ically ill. Glucose [id number] 21:22:30 Test Item Value Reference Range Interpretation Comments Glucose Level (test 593 mg/dL 74-106 ctrb/ clement donaldson / carrol / code = Glucose Level) 09/30 21:22:26 CDT Basic Metabolic [id number] 20:42:16 Test Item Value Reference Range Interpretation Comments Sodium Level (test code 125 mmol/L 136-145 L = Sodium Level) Potassium Level (test 5.0 mmol/L 3.5-5.1 code = Potassium Level) Chloride Level (test 70 mmol/L 98-107 clarice branham 10/27/2019 code = Chloride Level) 20:41 :54 CDT pbh CO2 (test code = CO2) 36 mmol/L 21-32 H Anion Gap (test code = 19 mmol/L 7-16 H Anion Gap) BUN (test code = BUN) 121 mg/dL 7-18 clarice nails 10/27/2019 20:41:08 CDT pb h Creatinine Level (test 5.7 mg/dL 0.7-1.3 H code = Creatinine Level) Glucose Level (test 625 mg/dL 74-106 ctrb sherice t rn code = Glucose Level) 20:40:51 CDT pbh Calcium Level (test 6.3 mg/dL 8.5-10.1 L code = Calcium Level) Basic Metabolic [id number] 20:42:16 Test Item Value Reference Range Interpretation Comments Sodium Level (test 125 mmol/L 136-145 L code = Sodium Level) Potassium Level (test 5.0 mmol/L 3.5-5.1 code = Potassium Level) Chloride Level (test 70 mmol/L 98-107 oneil rn 10/27/2019 code = Chloride 20:41:54 CDT pbh Level) CO2 (test code = CO2) 36 mmol/L 21-32 H Anion Gap (test code 19 mmol/L 7-16 H = Anion Gap) BUN (test code = BUN) 121 mg/dL 7-18 oneil r n 10/27/2019 20:41:08 CDT pb h Creatinine Level 5.7 mg/dL 0.7-1.3 H (test code = Creatinine Level) Glucose Level (test 625 mg/dL 74-106 ctrb sherice t rn code = Glucose Level) 20:40:51 CDT pbh Calcium Level (test 6.3 mg/dL 8.5-10.1 L code = Calcium Level) eGFR AA (test code = 13 mL/min/1.73 N eGFR AA) m2 eGFR Non-AA (test 11 mL/min/1.73 N code = eGFR Non-AA) m2 Basic Metabolic [id number] 20:42:16 Test Item Value Reference Range Interpretation Comments Sodium Level (test 125 mmol/L 136-145 L code = Sodium Level) Potassium Level (test 5.0 mmol/L 3.5-5.1 code = Potassium Level) Chloride Level (test 70 mmol/L 98-107 oniel rn 10/27/2019 code = Chloride 20:41:54 CDT pbh Level) CO2 (test code = CO2) 36 mmol/L 21-32 H Anion Gap (test code 19 mmol/L 7-16 H = Anion Gap) BUN (test code = BUN) 121 mg/dL 7-18 oneil r n 10/27/2019 20:41:08 CDT pb h Creatinine Level 5.7 mg/dL 0.7-1.3 H (test code = Creatinine Level) Glucose Level (test 625 mg/dL 74-106 ctrb sherice shalonda rn code = Glucose Level) 20:40:51 CDT pbh Calcium Level (test 6.3 mg/dL 8.5-10.1 L code = Calcium Level) eGFR AA (test code = 13 mL/min/1.73 N eGFR AA) m2 eGFR Non-AA (test 11 mL/min/1.73 N code = eGFR Non-AA) m2 Glucose [id number] 20:21:04 Test Item Value Reference Range Interpretation Comments Glucose Level (test 650 mg/dL 74-106 ctrb 09/30 code = Glucose Level) 20:20: 49 CDT wilder alonso rn pb Troponin [id number] 18:21:22 Test Item Value Reference Range Interpretation Comments Troponin-I (test 18.600 ng/mL 0.010-0.040 ctrb code = Troponin-I) 18:20:24 CDT Phuc rn pbh Glucose [id number] 17:36:22 Test Item Value Reference Range Interpretation Comments Glucose Level (test 811 mg/dL 74-106 ctrb C F ord 10/27/2019 code = Glucose Level) 17:35: 31 CDT pbh Lactic Acid, Plasma (Venous)2019-10-27 17:34:28 Test Item Value Reference Range Interpretation Comments Lactic Acid, Plasma 4.1 mmol/L 0.4-2.0 ctrb C F ord 10/27/2019 (Venous) (test code = 17:34: 08 CDT pbh Lactic Acid, Plasma (Venous)) Basic Metabolic [id number] 17:01:48 Test Item Value Reference Range Interpretation Comments Sodium Level (test 123 mmol/L 136-145 L code = Sodium Level) Potassium Level (test 4.5 mmol/L 3.5-5.1 code = Potassium Level) Chloride Level (test 66 mmol/L 98-107 ctrb Ni volodymyr Givens code = Chloride RN 10/27/2019 Level) 16:57:54 CDT PB H CO2 (test code = CO2) 34 mmol/L 21-32 H Anion Gap (test code 23 mmol/L 7-16 H = Anion Gap) BUN (test code = BUN) 119 mg/dL 7-18 ctrb n daniel givens 10/27/2019 17:01 :25 CDT pbh Creatinine Level 5.4 mg/dL 0.7-1.3 H (test code = Creatinine Level) Glucose Level (test 913 mg/dL 74-106 CTRB ENE MCCABE code = Glucose Level) RN10/26 16:32:09 CDT/PN Calcium Level (test 6.0 mg/dL 8.5-10.1 L code = Calcium Level) eGFR AA (test code = 14 mL/min/1.73 N eGFR AA) m2 eGFR Non-AA (test 11 mL/min/1.73 N code = eGFR Non-AA) m2 CT Abdomen and Pelvis w/o [id number] 16:27:27Patient: STEPHANIE CAMPO Date/Time10/27/2019 16:06 CDTReason for ExamAbdominal painReportCT ABDOMEN AND CT PELVIS WITHOUT CONTRAST: MULTIPLANAR REFORMATSREASON FOR STUDY: Hepatitis C. Diabetes. Hypertension. Tobacco use. Pancreatitis.Radiation dose lowering techniques were used with automated exposure control, adjusting the mA according to patient's size.COMPARISON: June 27, 2017.Multiple transverse images were obtained through the upper abdomen and the pelvis. Images were reconstructed in coronal and in sagittal planes. No intravenous ororal contrast material was administered, as ordered. Infiltrates are present within the medial aspect of the left lower lobe. Lungs are mildly hyperexpanded suspect for degree of COPD. Hiatal hernia isnoted. Reflux of fluid is seen into the distal esophagus. The right lobe the liver within the mid axillary line measures 20 cm. Spleen measures 6.1 cm in length. No calcified gallstones are identified.Numerous calcifications are seen within the body and head of the pancreas consistent with chronic pancreatitis. There is poor separation of soft tissue planes without the use of IV or oral contrast. There is also a paucity of intra-abdominal fat. The pancreas is poorly from unopacified loopsof small bowel. There is no hydronephrosis. A tiny 1 mm calculus is seen within superior pole of theleft kidney. There is also an additional 1 to 2 mm calculus within the inferior pole of the right kidney. Abdominal aorta is normal in caliber. No focal adrenal nodules are identified. Images were extended inferiorly below the pubic symphysis. Almeida catheter balloon is seen within the urinary bladder.No focal masses or adenopathy is identified however examination quality is compromised without the use of oral contrast. Patient has abnormal renal functions and no IV contrast could be utilized. A degenerative vacuum disc with disc space narrowing is seen at the L5-S1 level with broad-based disc protrusion at L5-S1. Spondyloarthritic changes are seen throughout the lumbar spine and partially visualized lower dorsal spine.IMPRESSION:1. Infiltrates within the medial aspect of the left lower lobe suspect for pneumonia. COPD.2. Hiatal hernia with reflux of fluid into the distal esophagus.3. Hepatomegaly with liver measuring 20 cm in length.4. Chronic pancreatitis.5. Small bilateral intrarenal calculi.Exam quality is compromised and limited. Patient has abnormal renal functions and no IV contrast canbe utilized. No oral contrast was administered as per order. There is poor separation of the pancreas from adjacent nonopacified bowel loops without oral opacification and also secondary to paucity of intra-abdominal fat. Final Dictated by: MD Marte Arthur LDictated DT/TM: 10/27/2019 4:19 pmSigned by: MD Marte Arthur LSigned (Electronic Signature): 10/27/2019 4:27 pmCT Brain/Head w/o [id number] 16:18:50Patient: STEPHANIE CAMPO Date/Time10/27/2019 16:06 CDTReason for ExamConfusionReportCT BRAIN WITHOUT CONTRAST: MULTIPLANAR REFORMATSCOMPARISON: NoneCLINICAL INFORMATION: Confusion. Altered mental status. Hepatitis C. Hypertension. Tobacco use.Radiation dose lowering techniques were used according to ALARA principal.Serial axial images were madewithout IV contrast media. Images are reconstructed in coronal and in sagittal planes. No mass lesion is detected. Ventricular system is in the midline. There is no evidence of effacement of the ventricular system. No areas of abnormal attenuation are detected. Bony structures appear normal where adequately visualized. The visualized paranasal sinuses are clear. There is symmetric pneumatizationof mastoid air cells.IMPRESSION:1. No acute intracranial abnormality. Final Dictated by: MD Marte Arthur LDictated DT/TM: 10/27/2019 4:17 pmSigned by: MD Marte Arthur LSigned (Electronic Signature): 10/27/2019 4:18 pmTroponin [id number] 16:16:30 Test Item Value Reference Range Interpretation Comments Troponin-I (test 10.900 ng/mL 0.010-0.040 CTRB JORGE LAMA code = Troponin-I) RN10/27/19 20 16:16:24 CDT/PN [id number] 16:14:58 Test Item Value Reference Range Interpretation Comments Acetone (Ketones) (test code = Positive Negative A Acetone (Ketones)) Glucose [id number] 15:43:21 Test Item Value Reference Range Interpretation Comments Glucose Level (test 913 mg/dL 74-106 CTRB ENE MCCABE code = Glucose Level) RN10/26 15:43:14 CDT/PN Phosphorus [id number] 13:57:47 Test Item Value Reference Range Interpretation Comments Phosphorus Level (test 12.8 mg/dL 2.5-4.9 ctrb Wilder Davis RN code = Phosphorus 10/27/2019 13:57:40 Level) CDT Magnesium [id number] 13:51:13 Test Item Value Reference Range Interpretation Comments Magnesium Level (test code = 3.2 mg/dL 1.6-2.6 H Magnesium Level) XR Chest 1 View [id number] 13:42:48Patient: STEPHANIE CAMPO Date/Time10/27/2019 13:19 CDTReason for Exampost CVC [;acement;Other (please specify)ReportPORTABLE AP CHEST: 1319 HOURS.CLINICAL HISTORY: Central line placement.COMPARISON: October 27 2019 examination timed at 1120 hours.Since the previous examination there has been the insertion of a right IJ catheter with catheter tip at the junction of superior vena cava and right atrium. There is no pneumothorax. Lung sharma are clear of focal infiltrates and there are no pleural effusions. There is bibasilar atelectasis. Cardiomediastinal silhouette and pulmonary vasculature are normal. Arthritic changes are seen within both shoulders.IMPRESSION:1. Interval placement of a right IJ catheter with catheter tip within the expected location of the junction of superior vena cava and right atrium. Final Dictated by: MD Marte Arthur LDictated DT/TM: 10/27/2019 1:40 pmSigned by: MD Marte Arthur LSigned (Electronic Signature): 10/27/2019 1:42 pm Lactic Acid, Plasma (Venous)2019-10-27 12:53:08 Test Item Value Reference Range Interpretation Comments Lactic Acid, Plasma 5.7 mmol/L 0.4-2.0 SONIA/Nilo MCCABE RN (Venous) (test code = 12:52:52 Lactic Acid, Plasma CDT/RSM (Venous)) Comprehensive Metabolic [id number] 12:28:51 Test Item Value Reference Range Interpretation Comments Sodium Level (test 118 mmol/L 136-145 SONIA/Nilo PIRES RN code = Sodium Level) 10/27/19 12:28:39 CDT/RSM Potassium Level (test 5.0 mmol/L 3.5-5.1 code = Potassium Level) Chloride Level (test 54 mmol/L 98-107 SONIA/Nilo MCCABE RN code = Chloride 10/27/2019 12 :28:39 Level) CDT/RSM CO2 (test code = CO2) 32 mmol/L 21-32 Anion Gap (test code 32 mmol/L 7-16 H = Anion Gap) BUN (test code = BUN) 119 mg/dL 7-18 SONIA/James MCCABE RN 10/27/2019 12:28 :39 CDT/RSM Creatinine Level 5.9 mg/dL 0.7-1.3 H (test code = Creatinine Level) Glucose Level (test 1085 mg/dL 74-106 SONIA/Nilo MCCABE RN code = Glucose Level) 12:28:39 CDT/RSM Calcium Level (test 6.9 mg/dL 8.5-10.1 L code = Calcium Level) Alk Phos (test code = 179 IntlUnit/L 45-122 H Alk Phos) Bilirubin Total (test 0.6 mg/dL 0.2-1.0 code = Bilirubin Total) Albumin Level (test 2.7 g/dL 3.4-5.0 L code = Albumin Level) Protein Total (test 6.2 g/dL 6.4-8.2 L code = Protein Total) ALT (test code = ALT) 51 IntlUnit/L 12-78 AST (test code = AST) 81 IntlUnit/L 10-34 H Troponin [id number] 12:28:51 Test Item Value Reference Range Interpretation Comments Troponin-I (test 5.490 ng/mL 0.010-0.040 SONIA/Nilo MONTES RN code = Troponin-I) 10/27/2019 12:28:39 CDT/RSM Comprehensive Metabolic [id number] 12:28:51 Test Item Value Reference Range Interpretation Comments Sodium Level (test 118 mmol/L 136-145 SONIA/Nilo PIRES RN code = Sodium Level) 10/27/19 20 12:28:39 CDT/RSM Potassium Level (test 5.0 mmol/L 3.5-5.1 code = Potassium Level) Chloride Level (test 54 mmol/L 98-107 SONIA/Nilo MCCABE RN code = Chloride 10/27/2019 12 :28:39 Level) CDT/RSM CO2 (test code = CO2) 32 mmol/L 21-32 Anion Gap (test code 32 mmol/L 7-16 H = Anion Gap) BUN (test code = BUN) 119 mg/dL 7-18 SONIA/James MCCABE RN 10/27/2019 12:28 :39 CDT/RSM Creatinine Level 5.9 mg/dL 0.7-1.3 H (test code = Creatinine Level) Glucose Level (test 1085 mg/dL 74-106 SONIA/Nilo MCCABE RN code = Glucose Level) 020 12:28:39 CDT/RSM Calcium Level (test 6.9 mg/dL 8.5-10.1 L code = Calcium Level) Alk Phos (test code = 179 IntlUnit/L 45-122 H Alk Phos) Bilirubin Total (test 0.6 mg/dL 0.2-1.0 code = Bilirubin Total) Albumin Level (test 2.7 g/dL 3.4-5.0 L code = Albumin Level) Protein Total (test 6.2 g/dL 6.4-8.2 L code = Protein Total) ALT (test code = ALT) 51 IntlUnit/L 12-78 AST (test code = AST) 81 IntlUnit/L 10-34 H eGFR AA (test code = 12 mL/min/1.73 N eGFR AA) m2 Comprehensive Metabolic [id number] 12:28:51 Test Item Value Reference Range Interpretation Comments Sodium Level (test 118 mmol/L 136-145 CTRB/Nilo PIRES RN code = Sodium Level) 10/27/19 12:28:39 CDT/RSM Potassium Level (test 5.0 mmol/L 3.5-5.1 code = Potassium Level) Chloride Level (test 54 mmol/L 98-107 SONIA/Nilo MCCABE RN code = Chloride 10/27/2019 12 :28:39 Level) CDT/RSM CO2 (test code = CO2) 32 mmol/L 21-32 Anion Gap (test code 32 mmol/L 7-16 H = Anion Gap) BUN (test code = BUN) 119 mg/dL 7-18 SONIA/James MCCABE RN 10/27/2019 12:28 :39 CDT/RSM Creatinine Level 5.9 mg/dL 0.7-1.3 H (test code = Creatinine Level) Glucose Level (test 1085 mg/dL 74-106 SONIA/Nilo MCCABE RN code = Glucose Level) 020 12:28:39 CDT/RSM Calcium Level (test 6.9 mg/dL 8.5-10.1 L code = Calcium Level) Alk Phos (test code = 179 IntlUnit/L 45-122 H Alk Phos) Bilirubin Total (test 0.6 mg/dL 0.2-1.0 code = Bilirubin Total) Albumin Level (test 2.7 g/dL 3.4-5.0 L code = Albumin Level) Protein Total (test 6.2 g/dL 6.4-8.2 L code = Protein Total) ALT (test code = ALT) 51 IntlUnit/L 12-78 AST (test code = AST) 81 IntlUnit/L 10-34 H eGFR AA (test code = 12 mL/min/1.73 N eGFR AA) m2 eGFR Non-AA (test 10 mL/min/1.73 N code = eGFR Non-AA) m2 Creatine [id number] 12:23:18 Test Item Value Reference Range Interpretation Comments CK (test code = CK) 1231 IntlUnit/L 39-308 H Creatine Kinase MB [id number] 12:23:18 Test Item Value Reference Range Interpretation Comments CKMB (test code = CKMB) 51.0 ng/mL 0.5-3.6 H CKMB % (test code = CKMB %) 4.1 % 0.0-5.0 [id number] 12:07:05 Test Item Value Reference Range Interpretation Comments Acetone (Ketones) (test code = Positive Negative A Acetone (Ketones)) Drugs of Abuse Screen [id number] 12:03:06 Test Item Value Reference Range Interpretation Comments Amphetamine Screen Ur Positive Negative A (test code = Amphetamine Screen Ur) Barbiturate Screen Ur Negative Negative (test code = Barbiturate Screen Ur) Benzodiazepines Ur Negative Negative (test code = Benzodiazepines Ur) Cocaine Screen Ur Negative Negative (test code = Cocaine Screen Ur) Opiate Screen Ur (test Negative Negative code = Opiate Screen Ur) U PCP Scrn (test code Negative N = U PCP Scrn) Cannabinoid Screen Ur Negative Negative This a ssay provides a (test code = preliminary mindy lytical Cannabinoid Screen Ur) test result intended for medical purpose s only. Confirmation wi ll be sent to a Refer ence Lab only upon addit ional physician reque st.The cutoff levels u sed for this assay are as followsAmphetam ine 1000 ng/mlBarbi tuates 300 ng/mlBenzodiaze pine 300 ng.ml Cocaine 300 ng/mlOpia adwoa 300 ng/ mlPCP 25 ng/mlTHC 50 ng/ml pH Ur (test code = pH 5.0 5.0-9.0 Ur) Alcohol [id number] 12:02:17 Test Item Value Reference Range Interpretation Comments Ethanol Level (test code = Ethanol 4 mg/dL 0-13 Level) Ammonia [id number] 11:58:20 Test Item Value Reference Range Interpretation Comments Ammonia Level (test code = Ammonia <5 mmol/L 19-54 L Level) XR Chest 1 View [id number] 11:44:17Patient: ALBER, STEPHANIE Date/Time10/27/2019 11:28 CDTReason for Examams, septic workup;Other (please specify)ReportCHEST SINGLE VIEW: 1120 hours.COMPARISON: June 27, 2017.CLINICAL INFORMATION: Diabetes. Hepatitis C. Hypertension. Tobacco use.Cardiomediastinal structures are within normal limits. No pleural fluid or pulmonary infiltrates are identified. The bony architecture appears intact, where adequately seen.IMPRESSION: No active car diopulmonary process is identified. Final Dictated by: MD Marte Arthur LDictated DT/TM: 10/27/2019 11:43 amSigned by: MD Marte Arthur LSigned (Electronic Signature): 10/27/2019 11:04vnGteqxvaciw1746-77-63 11:44:05 Test Item Value Reference Range Interpretation Comments RBC Morph (test code = RBC As Indicated Normal A Morph) Anisocyte (test code = 2+ A Anisocyte) Hypochromia (test code = 1+ A Hypochromia) Microcyte (test code = 1+ A Microcyte) Differential Comment (test See Comment B ANDS: 10% code = Differential Comment) Plt Estimation (test code = Normal Normal Plt Estimation) Urinalysis [id number] 11:40:02 Test Item Value Reference Range Interpretation Comments UA WBC (test code = UA WBC) 0-5 /HPF 0-5 UA RBC (test code = UA RBC) 0-4 /HPF 0-4 UA Bacteria (test code = UA Negative /HPF Negative Bacteria) UA Squam Epithelial (test code 0-20 /LPF 0-20 = UA Squam Epithelial) UA Hyal Cast (test code = UA 1-6 /LPF 1-6 Hyal Cast) Urinalysis [id number] 11:40:02 Test Item Value Reference Range Interpretation Comments UA WBC (test code = UA WBC) 0-5 /HPF 0-5 UA RBC (test code = UA RBC) 0-4 /HPF 0-4 UA Bacteria (test code = UA Negative /HPF Negative Bacteria) UA Squam Epithelial (test code 0-20 /LPF 0-20 = UA Squam Epithelial) UA Hyal Cast (test code = UA 1-6 /LPF 1-6 Hyal Cast) UA Amorph Urate (test code = UA Moderate /HPF None A Amorph Urate) Urinalysis with Culture, if [id number] 11:40:01 Test Item Value Reference Range Interpretation Comments UA Color (test code = UA Yellow Yellow Color) UA Appear (test code = Cloudy Clear A UA Appear) UA pH (test code = UA 5.0 pH) UA Spec Grav (test code 1.023 SGU 1.005-1.030 = UA Spec Grav) UA Glucose (test code = 4+ Negative A UA Glucose) UA Bili (test code = UA Negative Negative Bili) UA Ketones (test code = 1+ Negative A UA Ketones) UA Blood (test code = UA 2+ Negative A Blood) UA Protein (test code = Trace Negative A UA Protein) UA Urobilinogen (test 0.2 EU/dL >0.2 code = UA Urobilinogen) UA Nitrite (test code = Negative Negative UA Nitrite) UA Leuk Est (test code = Negative Negative UA Leuk Est) UA Micro Ind? (test code Indicated Not Indicated A Re sult created by = UA Micro Ind?) rule [id number] _IND Prothrombin Time and [id number] 11:33:49 Test Item Value Reference Range Interpretation Comments Prothrombin Time (test code = 13.7 seconds 9.2-12.0 H Prothrombin Time) INR (test code = INR) 1.3 ratio 0.9-1.2 H Partial Thromboplastin [id number] 11:33:49 Test Item Value Reference Range Interpretation Comments Partial Thromboplastin 31.5 seconds 24.0-35.0 APTT Heparin Time (test code = Therapeuti c Range: Partial Thromboplastin 47.9- 80.4 seconds Time) Complete Blood Count with [id number] 11:28:57 Test Item Value Reference Range Interpretation Comments WBC (test code = WBC) 6.0 x10 4.8-10.8 RBC (test code = RBC) 3.60 x10 4.60-6.20 L Hgb (test code = Hgb) 11.8 g/dL 14.0-18.0 L MCV (test code = MCV) 94.3 fL 80.0-95.0 Hct (test code = Hct) 33.9 % 38.0-52.0 L RDW (test code = RDW) 14.1 % 11.5-14.5 MCHC (test code = MCHC) 34.7 g/dL 31.0-36.0 MCH (test code = MCH) 32.7 pg 26.0-32.0 H Platelets (test code = Platelets) 290 x10 140-440 MPV (test code = MPV) 9.2 fL 7.5-11.2 Slide Review (test code = Slide Smear Review) Automated [id number] 11:28:57 Test Item Value Reference Range Interpretation Comments Neutro Auto (test code = Neutro Auto) 89.0 % N Lymph Auto (test code = Lymph Auto) 4.7 % N [place] Auto (test code = [place] Auto) 5.8 % N Eos, Auto (test code = Eos, Auto) 0.2 % N Basophil Auto (test code = Basophil 0.3 % N Auto) Neutro Absolute (test code = Neutro 5.4 x10 2.7-7.3 Absolute) Lymph Absolute (test code = Lymph 0.3 x10 0.8-3.5 L Absolute) [place] Absolute (test code = [place] 0.3 x10 0.3-0.9 Absolute) Eos Absolute (test code = Eos 0.0 x10 0.0-0.3 Absolute) Baso Absolute (test code = Baso 0.0 x10 0.0-0.1 Absolute) POC G3+ [id number] 11:17:39 Test Item Value Reference Range Interpretation Comments pH Art (test code = pH Art) 7.48 pH units 7.35-7.45 H pCO2 Art (test code = pCO2 Art) 49.8 mmHg 35.0-45.0 H pO2 Art (test code = pO2 Art) 54.0 mmHg 85.0-100.0 O2 Sat Art (test code = O2 Sat 89.0 % 92.0-98.5 L Art) HCO3 Art (test code = HCO3 Art) 37.3 mmol/L 22.0-26.0 H FIO2% (test code = FIO2%) 21.0 % N Base Excess Arterial (test code 14 mmol/L -2-2 H = Base Excess Arterial) Luther's Test (test code = Pass Pass Luther's Test) Del Sys (test code = Del Sys) Room Air N Performing Site (test code = R Brachial N Performing Site) Capillary whole blood glucose measurement by glucometer (mass/volume)2019-10-17 11:33:00 Test Item Value Reference Range Interpretation Comments Bedside Glucose (test code = 173 mg/dL 47683-0) [facility] or plasma sodium measurement (moles/volume) 2019-10-17 05:00:00 Test Item Value Reference Range Interpretation Comments Sodium Level (test code = 2951-2) 136 mmol/L [facility] ElizabethSerum or plasma potassium measurement (moles/volume) 2019-10-17 05:00:00 Test Item Value Reference Range Interpretation Comments Potassium Level (test code = 4.8 mmol/L 2823-3) [facility] ElizabethSerum or plasma chloride measurement (moles/volume) 2019-10-17 05:00:00 Test Item Value Reference Range Interpretation Comments Chloride Level (test code = 105 mmol/L 5-0) [facility] ElizabethSerum or plasma total carbon dioxide measurement (moles/volume)2019-10-17 05:00:00 Test Item Value Reference Range Interpretation Comments Carbon Dioxide Level (test code = 22 mmol/L 8-9) [facility] ElizabethSerum or plasma anion gap determination (moles/volume) 2019-10-17 05:00:00 Test Item Value Reference Range Interpretation Comments Anion Gap (test code = 51398-0) 14 [facility] ElizabethSerum or plasma urea nitrogen measurement (mass/volume) 2019-10-17 05:00:00 Test Item Value Reference Range Interpretation Comments Blood Urea Nitrogen (test code = 17 mg/dL 3094-0) [facility] ElizabethSerum or plasma creatinine measurement (mass/volume) 2019-10-17 05:00:00 Test Item Value Reference Range Interpretation Comments Creatinine (test code = 2160-0) 1.2 mg/dL [facility] ElizabethGFR estimate [id number] 05:00:00 Test Item Value Reference Range Interpretation Comments Estimat Glomerular Filtration Rate 68 (test code = 43553-9) [facility] ElizabethSerum or plasma glucose measurement (mass/volume) 2019-10-17 05:00:00 Test Item Value Reference Range Interpretation Comments Glucose Level (test code = 2345-7) 149 mg/dL [facility] ElizabethSerum or plasma calcium measurement (mass/volume) 2019-10-17 05:00:00 Test Item Value Reference Range Interpretation Comments Calcium Level (test code = 25752-3) 8.2 mg/dL [facility] ElizabethAutomated blood leukocyte count (number/volume) 2019-10-16 05:00:00 Test Item Value Reference Range Interpretation Comments White Blood Count (test code = 10.4 10*3/uL 6690-2) [facility] ElizabethBlood erythrocytes automated count (number/volume) 2019-10-16 05:00:00 Test Item Value Reference Range Interpretation Comments Red Blood Count (test code = 3.11 10*6/uL 789-8) [facility] ElizabethBlood hemoglobin measurement (mass/volume)2019-10-16 05:00:00 Test Item Value Reference Range Interpretation Comments Hemoglobin (test code = 718-7) 9.9 g/dL [facility] ElizabethAutomated blood hematocrit (volume fraction)2019-10-16 05:00:00 Test Item Value Reference Range Interpretation Comments Hematocrit (test code = 4544-3) 30.2 % [facility] ElizabethAutomated erythrocyte mean corpuscular volume (MCV) [id number] 05:00:00 Test Item Value Reference Range Interpretation Comments Mean Corpuscular Volume (test code = 97 fL 787-2) [facility] ElizabethAutomated erythrocyte mean corpuscular hemoglobin (mass per erythrocyte)2019-10-16 05:00:00 Test Item Value Reference Range Interpretation Comments Mean Corpuscular Hemoglobin (test 31.8 pg code = 785-6) [facility] ElizabethAutomated erythrocyte mean corpuscular hemoglobin concentration measurement (mass/[id number] 05:00:00 Test Item Value Reference Range Interpretation Comments Mean Corpuscular Hemoglobin Concent 32.8 g/dL (test code = 786-4) [facility] ElizabethAutomated erythrocyte distribution width [id number] 05:00:00 Test Item Value Reference Range Interpretation Comments Red Cell Distribution Width (test code 13.2 % = 788-0) [facility] ElizabethAutomated blood platelet count (count/volume)2019-10-16 05:00:00 Test Item Value Reference Range Interpretation Comments Platelet Count (test code = 492 10*3/uL 777-3) [facility] ElizabethAutomated blood platelet mean volume measurement 2019-10-16 05:00:00 Test Item Value Reference Range Interpretation Comments Mean Platelet Volume (test code = 9.6 56358-2) [facility] ElizabethAutomated blood neutrophil count as percentage of total xbtcxclggi7274-09-94 05:00:00 Test Item Value Reference Range Interpretation Comments Neutrophils (%) (Auto) (test code = 71 % 770-8) [facility] ElizabethAutomated blood immature granulocyte count as percentage of total fpxdjakzlj0866-62-84 05:00:00 Test Item Value Reference Range Interpretation Comments Immature Granulocyte % (Auto) (test 1 % code = 17918-0) [facility] ElizabethAutomated blood lymphocyte count as percentage of total hawxnyhjte4993-60-04 05:00:00 Test Item Value Reference Range Interpretation Comments Lymphocytes (%) (Auto) (test code = 19 % 736-9) [facility] ElizabethAutomated blood monocyte count as percentage of total igaunjegxi2167-17-88 05:00:00 Test Item Value Reference Range Interpretation Comments Monocytes (%) (Auto) (test code = 8 % 5905-5) [facility] ElizabethAutomated blood eosinophil count as percentage of total [id number] 05:00:00 Test Item Value Reference Range Interpretation Comments Eosinophils (%) (Auto) (test code = 1 % 713-8) [facility] ElizabethAutomated blood basophil count as percentage of total bwfqcdvdpj0232-72-16 05:00:00 Test Item Value Reference Range Interpretation Comments Basophils (%) (Auto) (test code = 1 % 706-2) [facility] ElizabethAutomated blood nucleated erythrocyte count as percentage of total mizxvdrosx4907-56-85 05:00:00 Test Item Value Reference Range Interpretation Comments Nucleated Red Blood Cells % (test code 0.0 % = 40695-6) [facility] ElizabethAutomated blood neutrophil count (number/volume) 2019-10-16 05:00:00 Test Item Value Reference Range Interpretation Comments Neutrophils # (Auto) (test code = 7.4 10*3/uL 751-8) [facility] ElizabethAutomated blood immature granulocyte count as percentage of total mwqogjdmce3209-45-73 05:00:00 Test Item Value Reference Range Interpretation Comments Immature Granulocyte # (Auto) 0.1 10*3/uL (test code = 76403-2) [facility] ElizabethAutomated blood lymphocyte count (number/volume) 2019-10-16 05:00:00 Test Item Value Reference Range Interpretation Comments Lymphocytes # (Auto) (test code = 2.0 10*3/uL 731-0) [facility] monocytes automated count (number/volume) 2019-10-16 05:00:00 Test Item Value Reference Range Interpretation Comments Monocytes # (Auto) (test code = 0.8 10*3/uL 742-7) [facility] ElizabethAutomated blood eosinophil [id number] 05:00:00 Test Item Value Reference Range Interpretation Comments Eosinophils # (Auto) (test code = 0.1 10*3/uL 711-2) [facility] ElizabethAutomated blood basophil count (number/volume)2019-10-16 05:00:00 Test Item Value Reference Range Interpretation Comments Basophils # (Auto) (test code = 0.1 10*3/uL 704-7) [facility] ElizabethAutomated blood nucleated erythrocyte count (count/volume)2019-10-16 05:00:00 Test Item Value Reference Range Interpretation Comments Nucleated Red Blood Cells # 0.00 10*3/uL (test code = 771-6) [facility] ElizabethService comment [id number] 05:00:00 Test Item Value Reference Range Interpretation Comments Manual Differential (test code = Not Ind 8265-1) [facility] neutrophils/100 leukocytes 2019-10-14 05:30:00 Test Item Value Reference Range Interpretation Comments Neutrophils % (Manual) (test code = 54 % 769-0) [facility] ElizabethManual blood band neutrophils form/100 leukocytes 2019-10-14 05:30:00 Test Item Value Reference Range Interpretation Comments Band Neutrophils % (Manual) (test code 2 % = 764-1) [facility] ElizabethManual blood lymphocytes/100 [id number] 05:30:00 Test Item Value Reference Range Interpretation Comments Lymphocytes % (Manual) (test code = 34 % 737-7) [facility] ElizabethManual blood monocytes/100 [id number] 05:30:00 Test Item Value Reference Range Interpretation Comments Monocytes % (Manual) (test code = 7 % 744-3) [facility] ElizabethManual blood eosinophil count as percentage of total sqccenficf3459-93-57 05:30:00 Test Item Value Reference Range Interpretation Comments Eosinophils % (Manual) (test code = 1 % 714-6) [facility] ElizabethManual blood basophils/100 braeoevtry1060-04-78 05:30:00 Test Item Value Reference Range Interpretation Comments Basophils % (Manual) (test code = 1 % 707-0) [facility] ElizabethManual blood metamyelocytes/100 [id number] 05:30:00 Test Item Value Reference Range Interpretation Comments Metamyelocytes % (test code = 740-1) 1 % [facility] ElizabethBlood platelet detection by light ulmlyycfma7973-24-54 05:30:00 Test Item Value Reference Range Interpretation Comments Platelet Estimate (test code = Adequate 9317-9) [facility] ElizabethBlood erythrocyte morphology finding identification 2019-10-14 05:30:00 Test Item Value Reference Range Interpretation Comments Red Blood Cell Morphology (test code = Normal 6742-1) [facility] ElizabethSerum or plasma beta hydroxybutyrate measurement (moles/volume)2019-10-12 18:00:00 Test Item Value Reference Range Interpretation Comments Beta-Hydroxybutyric Acid (test 0.05 mmol/L code = 6873-4) [facility] ElizabethArterial blood pH [id number] 17:53:00 Test Item Value Reference Range Interpretation Comments Arterial Blood pH (test code = 2744-1) 7.455 [facility] ElizabethArterial blood partial pressure of carbon dioxide 2019-10-12 17:53:00 Test Item Value Reference Range Interpretation Comments Arterial Blood Partial Pressure 37.9 mm[Hg] CO2 (test code = 2019-8) [facility] ElizabethArterial blood partial pressure of oxygen measurement 2019-10-12 17:53:00 Test Item Value Reference Range Interpretation Comments Arterial Blood Partial Pressure 78.4 mm[Hg] O2 (test code = 2703-7) [facility] ElizabethArterial blood bicarbonate measurement (moles/volume) 2019-10-12 17:53:00 Test Item Value Reference Range Interpretation Comments Arterial Blood HCO3 (test code = 26.0 mmol/L 1959-4) [facility] ElizabethArterial blood base excess determination by calculation (moles/volume)2019-10-12 17:53:00 Test Item Value Reference Range Interpretation Comments Arterial Blood Base Excess (test 2.2 mmol/L code = 1925-7) [facility] ElizabeArterial blood hemoglobin measurement by oximetry (mass/volume)2019-10-12 17:53:00 Test Item Value Reference Range Interpretation Comments Arterial Blood Hemoglobin (test 11.6 g/dL code = 37077-4) [facility] ElizabethArterial blood oxygen saturation [id number] 17:53:00 Test Item Value Reference Range Interpretation Comments Arterial Blood Oxygen Saturation (test 96.0 % code = 2708-6) [facility] ElizabethArterial blood carboxyhemoglobin/total hemoglobin ratio (mass fraction)2019-10-12 17:53:00 Test Item Value Reference Range Interpretation Comments Arterial Blood Carboxyhemoglobin (test 1.9 % code = 2030-5) [facility] ElizabethArterial blood methemoglobin/total hemoglobin ratio (mass fraction)2019-10-12 17:53:00 Test Item Value Reference Range Interpretation Comments Arterial Blood Methemoglobin (test code 0.3 % = 2615-3) [facility] ElizabethArterial blood oxyhemoglobin/total hemoglobin ratio (mass fraction)2019-10-12 17:53:00 Test Item Value Reference Range Interpretation Comments Arterial Blood Oxyhemoglobin (test 93.9 % code = 2714-4) [facility]. ElizabeArterial blood deoxyhemoglobin/total hemoglobin mass [id number] 17:53:00 Test Item Value Reference Range Interpretation Comments Reduced Hemoglobin (test code = 3.9 % 75185-0) [facility] - . ElizabeArterial blood oxygen content by nhxuponauqz8461-66-83 17:53:00 Test Item Value Reference Range Interpretation Comments Arterial Blood Oxygen Content 15.4 mL/dL (test code = 39167-5) [facility] - . ElizabeGas deliv source [id number] 17:53:00 Test Item Value Reference Range Interpretation Comments Oxygen Delivery Device (test code = ROOM AIR 26559-6) [facility] ElibeNaval Hospitalpecimen drawn from Oejrgqi1935-32-29 17:53:00 Test Item Value Reference Range Interpretation Comments Blood Gas Puncture Site (test Left Radial code = 96959-6) [facility] ElizabeAssessment of wrist artery patency prior to arterial [id number] 17:53:00 Test Item Value Reference Range Interpretation Comments Luther Test (test code = 76038-5) Pass [facility] ElizabethSerum or plasma magnesium measurement (mass/volume) 2019-10-11 14:10:00 Test Item Value Reference Range Interpretation Comments Magnesium Level (test code = 1.67 mg/dL 14185-4) [facility] - . ElizabeVenous whole blood pH [id number] 14:04:00 Test Item Value Reference Range Interpretation Comments Venous Blood pH (test code = 2746-6) 7.448 [facility] - [facility] ElizabethVenous blood partial pressure of carbon dioxide [id number] 14:04:00 Test Item Value Reference Range Interpretation Comments Blood Gas PCO2 (test code = 31.4 mm[Hg] 2020-4) [facility] ElizabeMadison Healthous blood partial pressure of oxygen measurement 2019-10-11 14:04:00 Test Item Value Reference Range Interpretation Comments Blood Gas PO2 (test code = 37.2 mm[Hg] 5-2) [facility] - [facility] ElizabethVenous blood bicarbonate measurement (moles/volume) 2019-10-11 14:04:00 Test Item Value Reference Range Interpretation Comments Venous Blood HCO3 (test code = 21.2 mmol/L 75882-1) [facility] ElizabeVenous whole blood base excess determination by calculation (moles/volume)2019-10-11 14:04:00 Test Item Value Reference Range Interpretation Comments Venous Blood Base Excess (test -1.8 mmol/L code = 1927-3) [facility]. ElizabethBlood hemoglobin measurement by oximetry (mass/volume) 2019-10-11 14:04:00 Test Item Value Reference Range Interpretation Comments Venous Blood Hemoglobin (test code 13.9 g/dL = 91704-2) [facility]Sal[facility] Health Centerous blood oxygen saturation (mass fraction)2019-10-11 14:04:00 Test Item Value Reference Range Interpretation Comments Venous Blood Oxygen Saturation (test 76.3 % code = 2711-0) [facility] ElibeMadison Healthous blood carboxyhemoglobin/total hemoglobin ratio 2019-10-11 14:04:00 Test Item Value Reference Range Interpretation Comments Venous Blood Carboxyhemoglobin (test 3.8 % code = 2032-1) [facility] whole blood methemoglobin/total hemoglobin (mass fraction)2019-10-11 14:04:00 Test Item Value Reference Range Interpretation Comments Venous Blood Methemoglobin (test code = 0.3 % 2617-9) [facility] ElibeMadison Healthous blood carboxyhemoglobin/total hemoglobin ratio 2019-10-11 14:04:00 Test Item Value Reference Range Interpretation Comments Venous Blood Oxyhemoglobin (test code 73.2 % = 2032-1) [facility] ElibeMadison Healthous blood deoxyhemoglobin/total hemoglobin mass ratio 2019-10-11 14:04:00 Test Item Value Reference Range Interpretation Comments Reduced Hemoglobin (test code = 22.7 % 59098-7) [facility] ElizabeMadison Healthous blood oxygen content by [id number] 14:04:00 Test Item Value Reference Range Interpretation Comments Venous Blood Oxygen Content (test 14.3 mL/dL code = 36112-2) [facility] HospitalmeaganthGas deliv source [id number] 14:04:00 Test Item Value Reference Range Interpretation Comments Oxygen Delivery Device (test code = ROOM AIR 73169-3) [facility] FlacaDanyellepecimen drawn from [id number] 14:04:00 Test Item Value Reference Range Interpretation Comments Blood Gas Puncture Site (test code = Venous 38873-1) [facility] ElizabealmaAssessment of wrist artery patency prior to arterial [id number] 14:04:00 Test Item Value Reference Range Interpretation Comments Luther Test (test code = Not Applicable 57383-0) [facility] ElizabethSerum or plasma natriuretic peptide B measurement (mass/volume)2019-10-11 05:30:00 Test Item Value Reference Range Interpretation Comments B-Type Natriuretic Peptide (test 224 pg/mL code = 90032-1) [facility] ElizabethBacterial blood [id number] 17:10:00 Test Item Value Reference Range Interpretation Comments Blood Culture (test code No growth in 5 days = 600-7) [facility] ElizabethSerum or plasma vancomycin measurement (mass/volume) 2019-10-07 03:20:00 Test Item Value Reference Range Interpretation Comments Random Vancomycin Level (test code 26.4 ug/mL = 56493-3) [facility] ElizabethUrine sodium measurement (moles/volume)2019-10-06 14:50:00 Test Item Value Reference Range Interpretation Comments Urine Random Sodium (test code = 58 mmol/L 2955-3) [facility] ElizabealmaAerobic bacterial wound [id number] 09:35:00 Test Item Value Reference Range Interpretation Comments Wound Culture (test Streptococcus agalactiae code = 632-0) [facility] ElizabealmaBacterial anaerobic [id number] 09:35:00 Test Item Value Reference Range Interpretation Comments Anaerobic Culture (test No anaerobes isolated code = 635-3) in 48 hours [facility]ervice C[facility] 03 [id number] 06:05:00 Test Item Value Reference Range Interpretation Comments Blood Gas Critical Value RACHELLE DODSON RN Called To (test code = 8264-4) [facility] [id number] 06:05:00 Test Item Value Reference Range Interpretation Comments Blood Gas Notified Time (test [id number] code = 8265-1) [facility]healthsouth [facility] hospital of lafayetteUrinalysis specimen collection [id number] 03:45:00 Test Item Value Reference Range Interpretation Comments Urine Source (test code = 90541-1) [facility] CenterthColor of Urine by [id number] 03:45:00 Test Item Value Reference Range Interpretation Comments Urine Color (test code = 50141-4) Yellow [facility] abwbkjhejlzcn2206-71-74 03:45:00 Test Item Value Reference Range Interpretation Comments Urine Appearance (test code = Light Turbid 46466-2) [facility] pH measurement by automated test [id number] 03:45:00 Test Item Value Reference Range Interpretation Comments Urine pH (test code = 69665-1) 6.[address] [facility] [facility] Hospitalpecific gravity of Urine by Automated test strip 2019-10-06 03:45:00 Test Item Value Reference Range Interpretation Comments Urine Specific [place] (test code = 1.019 32993-7) [facility] protein measurement by automated test strip (mass/volume)2019-10-06 03:45:00 Test Item Value Reference Range Interpretation Comments Urine Protein (test code = 12647-8) 100 mg/dL [facility] glucose measurement by automated test strip (mass/volume)2019-10-06 03:45:00 Test Item Value Reference Range Interpretation Comments Urine Glucose (UA) (test code = >1000 mg/dL 39170-0) [facility] ketones measurement by automated test strip (mass/volume)2019-10-06 03:45:00 Test Item Value Reference Range Interpretation Comments Urine Ketones (test code = 01949-0) 80 mg/dL [facility] erythrocytes count by automated test strip (number/volume)2019-10-06 03:45:00 Test Item Value Reference Range Interpretation Comments Urine Occult Blood (test code = 2+ 43518-5) [facility] nitrite detection by automated test strip 2019-10-06 03:45:00 Test Item Value Reference Range Interpretation Comments Urine Nitrite (test code = 09263-5) Negative [facility] total bilirubin measurement by automated test strip (mass/volume)2019-10-06 03:45:00 Test Item Value Reference Range Interpretation Comments Urine Bilirubin (test code = Negative mg/dL 30712-4) [facility] urobilinogen measurement by automated test strip (mass/volume)2019-10-06 03:45:00 Test Item Value Reference Range Interpretation Comments Urine Urobilinogen (test code Negative mg/dL = 44938-2) [facility] leukocytes count by automated test strip (number/volume)2019-10-06 03:45:00 Test Item Value Reference Range Interpretation Comments Urine Leukocyte Esterase Negative {Oliver}/uL (test code = 05781-1) [facility] examination of [id number] 03:45:00 Test Item Value Reference Range Interpretation Comments Microscopic Urinalysis (T) (test code = ----- 48524-3) [facility] sediment erythrocyte count by microscopy (number/high power field)2019-10-06 03:45:00 Test Item Value Reference Range Interpretation Comments Urine RBC (test code = 17364-3) 3-10 /[HPF] [facility] sediment leukocyte count by microscopy (number/high power field)2019-10-06 03:45:00 Test Item Value Reference Range Interpretation Comments Urine WBC (test code = 5821-4) 6-20 /[HPF] [facility] sediment epithelial cell count by microscopy (number/high power field)2019-10-06 03:45:00 Test Item Value Reference Range Interpretation Comments Urine Epithelial Cells (test code Rare /[HPF] = 5787-7) [facility] sediment crystal count by microscopy (number/high power field)2019-10-06 03:45:00 Test Item Value Reference Range Interpretation Comments Urine Crystals (test code = None Seen /[HPF] 85808-6) [facility] EliedwinaUrine sediment bacteria count by microscopy (number/high power field)2019-10-06 03:45:00 Test Item Value Reference Range Interpretation Comments Urine Bacteria (test code = Few /[HPF] 5769-5) [facility] ElizabethUrine sediment casts count by microscopy (number/low power field)2019-10-06 03:45:00 Test Item Value Reference Range Interpretation Comments Urine Casts (test code = Present /[LPF] 9842-6) [facility] ElizabethUrine sediment hyaline cast count by microscopy (number/low power field)2019-10-06 03:45:00 Test Item Value Reference Range Interpretation Comments Urine Hyaline Casts (test code = 2-5 /[LPF] 5796-8) [facility] - . ElijairobethYeast detection in urine sediment by light microscopy 2019-10-06 03:45:00 Test Item Value Reference Range Interpretation Comments Urine Yeast (test code = None Seen /[HPF] 69513-9) [facility] MiklazabeDoyleervice comment 03:45:00 Test Item Value Reference Range Interpretation Comments Urinalysis Comment (test code = 8262-8) * [facility] ElizabeDoyleervice comment 03:45:00 Test Item Value Reference Range Interpretation Comments Urine Culture Indicated (test code To follow = 8264-4) [facility] ElizabethInfluenza virus A RNA detection by probe and target amplification [id number] 03:45:00 Test Item Value Reference Range Interpretation Comments Influenza Virus Type A (PCR) (test NEGATIVE code = 30171-8) [facility] ElizabethInfluenza virus B RNA detection by probe and target amplification [id number] 03:45:00 Test Item Value Reference Range Interpretation Comments Influenza Virus Type B (PCR) (test NEGATIVE code = 81653-5) [facility] ElizabethBacterial urine [id number] 03:45:00 Test Item Value Reference Range Interpretation Comments Urine Culture (test code = 630-4) No growth [facility] ElizabethSerum or plasma phosphate measurement (mass/volume) 2019-10-06 03:20:00 Test Item Value Reference Range Interpretation Comments Phosphorus Level (test code = 3.7 mg/dL 2777-1) [facility] HospitalAr[facility]ial blood oxygen saturation measurement by pulse [id number] 21:02:00 Test Item Value Reference Range Interpretation Comments Oxygen Saturation (Pulse Oximetry) 96 % (test code = 14095-1) [facility] CenterthResp [id number] 21:02:00 Test Item Value Reference Range Interpretation Comments Blood Gas Respiration Rate (test code 20 /min = 9279-1) [facility] [id number] 21:02:00 Test Item Value Reference Range Interpretation Comments N/A (test code = 8268-5) 1 [facility] ser/plas qual by [id number] 20:12:00 Test Item Value Reference Range Interpretation Comments Lactic Acid Comment (test code Reprint/Called = Lactic Acid Comment) [facility] HospitalDetermination of inhaled oxygen concentration (volume fraction)2019-10-05 18:28:00 Test Item Value Reference Range Interpretation Comments FiO2 (test code = 3150-0) 21 % [facility] methamphetamine [id number] 18:05:00 Test Item Value Reference Range Interpretation Comments Urine Methamphetamines Screen Positive ng/mL (test code = 09383-7) [facility] propoxyphene screening [id number] 18:05:00 Test Item Value Reference Range Interpretation Comments Urine Propoxyphene Screen Negative ng/mL (test code = 53309-1) [facility] HospitalU[facility] amphetamines detection by screening method 2019-10-05 18:05:00 Test Item Value Reference Range Interpretation Comments Urine Amphetamines Screen Positive ng/mL (test code = 94244-2) [facility] buprenorphine screen with reflex confirmation 2019-10-05 18:05:00 Test Item Value Reference Range Interpretation Comments Urine Buprenorphine (test code Negative ng/mL = 3414-0) [facility] barbiturates detection by screening method 2019-10-05 18:05:00 Test Item Value Reference Range Interpretation Comments Urine Barbiturates Screen Negative ng/mL (test code = 89571-0) [facility] ElizabethUrine benzodiazepines detection by screening method 2019-10-05 18:05:00 Test Item Value Reference Range Interpretation Comments Urine Benzodiazepines Screen Negative ng/mL (test code = 52477-1) [facility] - [facility] ElizabethUrine benzoylecgonine detection by screening method 2019-10-05 18:05:00 Test Item Value Reference Range Interpretation Comments Urine Cocaine Screen (test Negative ng/mL code = 27566-3) [facility] ElizabethUrine methadone [id number] 18:05:00 Test Item Value Reference Range Interpretation Comments Urine Methadone, Qualitative Negative ng/mL (test code = 46906-8) [facility] ElizabethUrine opiates screening [id number] 18:05:00 Test Item Value Reference Range Interpretation Comments Urine Opiates Screen (test Negative ng/mL code = 23719-6) [facility]. ElizabethUrine phencyclidine detection by screening method 2019-10-05 18:05:00 Test Item Value Reference Range Interpretation Comments Urine Phencyclidine Screen Negative ng/mL (test code = 34824-7) [facility]. ElizabethUrine cannabinoids detection by screening method 2019-10-05 18:05:00 Test Item Value Reference Range Interpretation Comments Urine Cannabinoids (test code Negative ng/mL = 04776-9) [facility] - . ElizabethScreening urine tricyclic antidepressants detection 2019-10-05 18:05:00 Test Item Value Reference Range Interpretation Comments Ur Tricyclic Antidepressants Negative ng/mL Screen (test code = 30900-9) [facility] - . ElizabethUrine oxycodone detection by screening [id number] 18:05:00 Test Item Value Reference Range Interpretation Comments Urine Oxycodone Screen (test Negative ng/mL code = 64574-7) [facility]. ElizabethSpecific gravity of Urine by Automated test strip 2019-10-05 18:05:00 Test Item Value Reference Range Interpretation Comments Urine Specific [place] (test code = 1.019 17270-0) [facility]. ElizabethUrine pH measurement by automated test [id number] 18:05:00 Test Item Value Reference Range Interpretation Comments Urine pH (test code = 93887-1) 5.5 [facility]. ElizabethUrine drug screen comment [id number] 18:05:00 Test Item Value Reference Range Interpretation Comments Urine Drug Screen Comment (test code See Note = 87160-0) [facility] ElizabethSerum or plasma lipase measurement (enzymatic activity/volume)2019-10-05 17:48:00 Test Item Value Reference Range Interpretation Comments Lipase (test code = 3040-3) 62 U/L [facility]. ElizabethOsmolality ser/[id number] 17:48:00 Test Item Value Reference Range Interpretation Comments Serum Osmolality (test code = 359 mosm/kg 2692-2) [facility] St[facility] ElizabethSerum or plasma acetaminophen measurement (mass/volume) 2019-10-05 17:48:00 Test Item Value Reference Range Interpretation Comments Acetaminophen Level (test code = < 0.6 ug/mL 3298-7) [facility]. ElizabethSalicylate ser/saia5931-15-02 17:48:00 Test Item Value Reference Range Interpretation Comments Salicylates Level (test code = < 5.0 mg/dL 4024-6) [facility] ElizabethSerum or plasma ethanol measurement (mass/volume) 2019-10-05 17:48:00 Test Item Value Reference Range Interpretation Comments Ethyl Alcohol Level (test code = 112 mg/dL 5643-2) [facility]. ElizabethWhole blood cardiac troponin I measurement (mass/volume) 2019-10-05 17:10:00 Test Item Value Reference Range Interpretation Comments Bedside Troponin I (test code = 0.01 ng/mL 62487-5) [facility]. ElizabethVenous whole blood glucose measurement (mass/volume) 2019-10-05 17:09:00 Test Item Value Reference Range Interpretation Comments Bedside Glucose (test code = 520 mg/dL 90087-7) [facility]. ElizabethVenous blood lactic acid measurement (moles/volume) 2019-10-05 17:05:00 Test Item Value Reference Range Interpretation Comments Bedside Lactic Acid Venous (test 12.08 mmol/L code = 2519-7) [facility] Elihealthsouth rehabilitation hospital of lafayetteProthrombin time (PT) in platelet poor [id number] 17:00:00 Test Item Value Reference Range Interpretation Comments Prothrombin Time (test code = 5902-2) 12.5 s [facility]. ElibethINR in Platelet poor plasma by Coagulation assay 2019-10-05 17:00:00 Test Item Value Reference Range Interpretation Comments Prothromb Time International 1.3 {ratio} Ratio (test code = 6301-6) [facility] ElizabeNaval Hospitalerum or plasma total bilirubin measurement (mass/volume)2019-10-05 16:05:00 Test Item Value Reference Range Interpretation Comments Total Bilirubin (test code = 0.3 mg/dL 1974-2) [facility] or plasma aspartate aminotransferase measurement (enzymatic activity/volume)2019-10-05 16:05:00 Test Item Value Reference Range Interpretation Comments Aspartate Amino Transf (AST/SGOT) 40 U/L (test code = 1920-8) [facility] or plasma alanine aminotransferase measurement (enzymatic activity/volume)2019-10-05 16:05:00 Test Item Value Reference Range Interpretation Comments Alanine Aminotransferase (ALT/SGPT) 52 U/L (test code = 1742-6) [facility] or plasma protein measurement (mass/volume) 2019-10-05 16:05:00 Test Item Value Reference Range Interpretation Comments Total Protein (test code = 2885-2) 6.7 g/dL [facility] or plasma albumin measurement (mass/volume) 2019-10-05 16:05:00 Test Item Value Reference Range Interpretation Comments Albumin (test code = 1751-7) 4.0 g/dL [facility] or plasma alkaline phosphatase measurement (enzymatic activity/volume)2019-10-05 16:05:00 Test Item Value Reference Range Interpretation Comments Alkaline Phosphatase (test code = 275 U/L 6768-6) [facility] HospitalDeterm[facility] inhaled oxygen concentration (volume fraction)2019-10-05 16:00:00 Test Item Value Reference Range Interpretation Comments FiO2 (test code = 3150-0) 21 % [facility] [id number] 16:00:00 Test Item Value Reference Range Interpretation Comments Blood Gas Critical Value Called Rhonda PERRY RN To (test code = 8264-4) [facility] [id number] 16:00:00 Test Item Value Reference Range Interpretation Comments Blood Gas Notified Time (test [id number] code = 8265-1) [facility] [id number] 16:00:00 Test Item Value Reference Range Interpretation Comments Blood Gas Comments (test PH,HCO3 OUT OF PRR code = 8267-7) [facility] whole blood sodium measurement (moles/volume) 2019-10-05 15:53:00 Test Item Value Reference Range Interpretation Comments Bedside Sodium (test code = 127 mmol/L 77897-5) [facility] whole blood potassium measurement (moles/volume) 2019-10-05 15:53:00 Test Item Value Reference Range Interpretation Comments Bedside Potassium (test code = 4.3 mmol/L 96878-3) [facility] whole blood chloride measurement (moles/volume) 2019-10-05 15:53:00 Test Item Value Reference Range Interpretation Comments Bedside Chloride (test code = 92 mmol/L 34044-5) [facility] whole blood total carbon dioxide measurement (moles/volume)2019-10-05 15:53:00 Test Item Value Reference Range Interpretation Comments Bedside Total CO2 (test code = 6.0 mmol/L 7-1) [facility] whole blood urea nitrogen (BUN) measurement (mass/volume)2019-10-05 15:53:00 Test Item Value Reference Range Interpretation Comments Bedside Blood Urea Nitrogen (test 36 mg/dL code = 17555-0) [facility] creatinine measurement (mass/volume)2019-10-05 15:53:00 Test Item Value Reference Range Interpretation Comments Bedside Creatinine (test code = 2.5 mg/dL 13049-6) [facility] ionized calcium measurement (moles/volume) 2019-10-05 15:53:00 Test Item Value Reference Range Interpretation Comments Bedside Whole Blood Ionized 1.07 mmol/L Calcium (test code = 1994-3) [facility] anion [id number] 15:53:00 Test Item Value Reference Range Interpretation Comments Bedside Anion Gap (test code = 83730-4) 34 [facility] CenterthGFR estimate [id number] 15:53:00 Test Item Value Reference Range Interpretation Comments Estimat Glomerular Filtration Rate 29 (test code = 31465-2) [facility] (mass/volume) 2019-10-05 15:53:00 Test Item Value Reference Range Interpretation Comments Bedside Hemoglobin (test code = 17.0 g/dL 10179-7) [facility] blood hematocrit (volume fraction)2019-10-05 15:53:00 Test Item Value Reference Range Interpretation Comments Bedside Hematocrit (test code = 50.0 % 96717-7) [facility] blood myelocyte count as percentage of leukocytes (number fraction)2019-10-05 15:50:00 Test Item Value Reference Range Interpretation Comments Myelocytes % (test code = 749-2) 7 % [facility]Hgb [facility] MFr [id number] 15:50:00 Test Item Value Reference Range Interpretation Comments Hemoglobin A1c (test code = 4548-4) 12.9 % [facility] whole blood glucose measurement by glucometer (mass/volume)2019-09-05 11:12:00 Test Item Value Reference Range Interpretation Comments Bedside Glucose (test code = 307 mg/dL 81743-7) [facility]Autom[facility] leukocyte count (number/volume) 2019-09-05 04:30:00 Test Item Value Reference Range Interpretation Comments White Blood Count (test code = 7.4 10*3/uL 6690-2) [facility] erythrocytes automated count (number/volume) 2019-09-05 04:30:00 Test Item Value Reference Range Interpretation Comments Red Blood Count (test code = 3.69 10*6/uL 789-8) [facility] - . ElizabethBlood hemoglobin measurement (mass/volume)2019-09-05 04:30:00 Test Item Value Reference Range Interpretation Comments Hemoglobin (test code = 718-7) 11.9 g/dL [facility]. ElizabethAutomated blood hematocrit (volume fraction)2019-09-05 04:30:00 Test Item Value Reference Range Interpretation Comments Hematocrit (test code = 4544-3) 36.5 % [facility] ElizabethAutomated erythrocyte mean corpuscular volume (MCV) [id number] 04:30:00 Test Item Value Reference Range Interpretation Comments Mean Corpuscular Volume (test code = 99 fL 787-2) [facility]. ElizabethAutomated erythrocyte mean corpuscular hemoglobin (mass per erythrocyte)2019-09-05 04:30:00 Test Item Value Reference Range Interpretation Comments Mean Corpuscular Hemoglobin (test 32.2 pg code = 785-6) [facility]. ElizabethAutomated erythrocyte mean corpuscular hemoglobin concentration measurement (mass/sxy2747-71-63 04:30:00 Test Item Value Reference Range Interpretation Comments Mean Corpuscular Hemoglobin Concent 32.6 g/dL (test code = 786-4) [facility] ElizabethAutomated erythrocyte distribution width [id number] 04:30:00 Test Item Value Reference Range Interpretation Comments Red Cell Distribution Width (test code 13.6 % = 788-0) [facility]. ElizabethAutomated blood platelet count (count/volume)2019-09-05 04:30:00 Test Item Value Reference Range Interpretation Comments Platelet Count (test code = 283 10*3/uL 777-3) [facility]. ElizabethAutomated blood platelet mean volume measurement 2019-09-05 04:30:00 Test Item Value Reference Range Interpretation Comments Mean Platelet Volume (test code = 10.4 28106-2) [facility]. ElizabethAutomated blood neutrophil count as percentage of total ilciykekqw4850-70-13 04:30:00 Test Item Value Reference Range Interpretation Comments Neutrophils (%) (Auto) (test code = 60 % 770-8) [facility]. ElizabethAutomated blood immature granulocyte count as percentage of total fnegzuakol1299-11-70 04:30:00 Test Item Value Reference Range Interpretation Comments Immature Granulocyte % (Auto) (test 1 % code = 61544-8) [facility] ElizabethAutomated blood lymphocyte count as percentage of total mkapzkmawu4223-14-13 04:30:00 Test Item Value Reference Range Interpretation Comments Lymphocytes (%) (Auto) (test code = 29 % 736-9) [facility]. ElizabethAutomated blood monocyte count as percentage of total uyserdgtzv3556-53-44 04:30:00 Test Item Value Reference Range Interpretation Comments Monocytes (%) (Auto) (test code = 9 % 5905-5) [facility]. ElizabethAutomated blood eosinophil count as percentage of total qtaimjoqkx7098-73-53 04:30:00 Test Item Value Reference Range Interpretation Comments Eosinophils (%) (Auto) (test code = 1 % 713-8) [facility]. ElizabethAutomated blood basophil count as percentage of total djxlvrdvgc0341-86-51 04:30:00 Test Item Value Reference Range Interpretation Comments Basophils (%) (Auto) (test code = 1 % 706-2) [facility]. ElizabethAutomated blood nucleated erythrocyte count as percentage of total igyorytnen0090-52-57 04:30:00 Test Item Value Reference Range Interpretation Comments Nucleated Red Blood Cells % (test code 0.0 % = 61161-3) [facility] ElizabethAutomated blood neutrophil count (number/volume) 2019-09-05 04:30:00 Test Item Value Reference Range Interpretation Comments Neutrophils # (Auto) (test code = 4.4 10*3/uL 751-8) [facility] ElizabethAutomated blood immature granulocyte count as percentage of total depanagatz0889-37-39 04:30:00 Test Item Value Reference Range Interpretation Comments Immature Granulocyte # (Auto) 0.1 10*3/uL (test code = 26380-4) [facility] ElizabethAutomated blood lymphocyte count (number/volume) 2019-09-05 04:30:00 Test Item Value Reference Range Interpretation Comments Lymphocytes # (Auto) (test code = 2.1 10*3/uL 731-0) [facility] ElizabethBlood monocytes automated count (number/volume) 2019-09-05 04:30:00 Test Item Value Reference Range Interpretation Comments Monocytes # (Auto) (test code = 0.6 10*3/uL 742-7) [facility]. ElizabethAutomated blood eosinophil [id number] 04:30:00 Test Item Value Reference Range Interpretation Comments Eosinophils # (Auto) (test code = 0.1 10*3/uL 711-2) [facility]. ElizabethAutomated blood basophil count (number/volume)2019-09-05 04:30:00 Test Item Value Reference Range Interpretation Comments Basophils # (Auto) (test code = 0.1 10*3/uL 704-7) [facility] ElizabethAutomated blood nucleated erythrocyte count (count/volume)2019-09-05 04:30:00 Test Item Value Reference Range Interpretation Comments Nucleated Red Blood Cells # 0.00 10*3/uL (test code = 771-6) [facility]. ElizabethService comment [id number] 04:30:00 Test Item Value Reference Range Interpretation Comments Manual Differential (test code = Not Ind 8265-1) [facility] ElizabethSerum or plasma sodium measurement (moles/volume) 2019-09-05 04:30:00 Test Item Value Reference Range Interpretation Comments Sodium Level (test code = 2951-2) 133 mmol/L [facility] ElizabethSerum or plasma potassium measurement (moles/volume) 2019-09-05 04:30:00 Test Item Value Reference Range Interpretation Comments Potassium Level (test code = 4.9 mmol/L 2823-3) [facility] ElizabethSerum or plasma chloride measurement (moles/volume) 2019-09-05 04:30:00 Test Item Value Reference Range Interpretation Comments Chloride Level (test code = 101 mmol/L 2075-0) [facility] ElizabethSerum or plasma total carbon dioxide measurement (moles/volume)2019-09-05 04:30:00 Test Item Value Reference Range Interpretation Comments Carbon Dioxide Level (test code = 24 mmol/L 2028-04) [facility]. ElizabethSerum or plasma anion gap determination (moles/volume) 2019-09-05 04:30:00 Test Item Value Reference Range Interpretation Comments Anion Gap (test code = 67783-3) 13 [facility] ElizabethSerum or plasma urea nitrogen measurement (mass/volume) 2019-09-05 04:30:00 Test Item Value Reference Range Interpretation Comments Blood Urea Nitrogen (test code = 10 mg/dL 3094-0) [facility] ElibeNaval Hospitalerum or plasma creatinine measurement (mass/volume) 2019-09-05 04:30:00 Test Item Value Reference Range Interpretation Comments Creatinine (test code = 2160-0) 0.8 mg/dL [facility] [id number] 04:30:00 Test Item Value Reference Range Interpretation Comments Estimat Glomerular Filtration Rate 109 (test code = 25692-7) [facility]. ElizabethSerum or plasma glucose measurement (mass/volume) 2019-09-05 04:30:00 Test Item Value Reference Range Interpretation Comments Glucose Level (test code = 2345-7) 349 mg/dL [facility] Hospitalerum or plasma calcium measurement (mass/volume) 2019-09-05 04:30:00 Test Item Value Reference Range Interpretation Comments Calcium Level (test code = 49401-8) 8.2 mg/dL [facility] ElibethSerum or plasma beta hydroxybutyrate measurement (moles/volume)2019-09-01 04:00:00 Test Item Value Reference Range Interpretation Comments Beta-Hydroxybutyric Acid (test 0.40 mmol/L code = 6873-4) [facility] HospitalDetermination of inhaled oxygen concentration (volume fraction)2019-08-31 04:03:00 Test Item Value Reference Range Interpretation Comments FiO2 (test code = 3150-0) 21 % [facility] HospitalArterial blood pH [id number] 04:03:00 Test Item Value Reference Range Interpretation Comments Arterial Blood pH (test code = 2744-1) 7.379 [facility] HospitalAr[facility]ial blood partial pressure of carbon dioxide 2019-08-31 04:03:00 Test Item Value Reference Range Interpretation Comments Arterial Blood Partial Pressure 32.1 mm[Hg] CO2 (test code = 2019-8) [facility] ElizabethArterial blood partial pressure of oxygen measurement 2019-08-31 04:03:00 Test Item Value Reference Range Interpretation Comments Arterial Blood Partial Pressure 86.6 mm[Hg] O2 (test code = 2703-7) [facility] ElizabethArterial blood bicarbonate measurement (moles/volume) 2019-08-31 04:03:00 Test Item Value Reference Range Interpretation Comments Arterial Blood HCO3 (test code = 18.5 mmol/L 1959-) [facility] ElizabethArterial blood base excess determination by calculation (moles/volume)2019-08-31 04:03:00 Test Item Value Reference Range Interpretation Comments Arterial Blood Base Excess (test -5.6 mmol/L code = 1925-7) [facility]health[facility] lafayetteArterial blood hemoglobin measurement by oximetry (mass/volume)2019-08-31 04:03:00 Test Item Value Reference Range Interpretation Comments Arterial Blood Hemoglobin (test 12.7 g/dL code = 84960-2) [facility] ElibethArterial blood oxygen saturation [id number] 04:03:00 Test Item Value Reference Range Interpretation Comments Arterial Blood Oxygen Saturation (test 96.5 % code = 2708-6) [facility] ElizabethArterial blood carboxyhemoglobin/total hemoglobin ratio (mass fraction)2019-08-31 04:03:00 Test Item Value Reference Range Interpretation Comments Arterial Blood Carboxyhemoglobin (test 1.2 % code = 2030-5) [facility] ElizabethArterial blood methemoglobin/total hemoglobin ratio (mass fraction)2019-08-31 04:03:00 Test Item Value Reference Range Interpretation Comments Arterial Blood Methemoglobin (test code 0.3 % = 2615-3) [facility] ElizabethArterial blood oxyhemoglobin/total hemoglobin ratio (mass fraction)2019-08-31 04:03:00 Test Item Value Reference Range Interpretation Comments Arterial Blood Oxyhemoglobin (test 95.1 % code = 2714-4) [facility] ElibethArterial blood deoxyhemoglobin/total hemoglobin mass [id number] 04:03:00 Test Item Value Reference Range Interpretation Comments Reduced Hemoglobin (test code = 3.4 % 01666-0) [facility] HospitalArterial blood oxygen content by kpzjangrxvl8063-80-32 04:03:00 Test Item Value Reference Range Interpretation Comments Arterial Blood Oxygen Content 17.1 mL/dL (test code = 36531-3) [facility] HospitalGas deliv source [id number] 04:03:00 Test Item Value Reference Range Interpretation Comments Oxygen Delivery Device (test code = ROOM AIR 48124-4) [facility] [id number] 04:03:00 Test Item Value Reference Range Interpretation Comments Blood Gas Puncture Site (test Right Radial code = 70256-9) [facility] HospitalAssessment of wrist artery patency prior to arterial samdeygc9108-47-24 04:03:00 Test Item Value Reference Range Interpretation Comments Luther Test (test code = 41374-7) Pass [facility] Hospitalerum or plasma magnesium measurement (mass/volume) 2019-08-31 03:31:00 Test Item Value Reference Range Interpretation Comments Magnesium Level (test code = 1.71 mg/dL 74203-7) [facility] HospitalHgb A1c r [id number] 03:30:00 Test Item Value Reference Range Interpretation Comments Hemoglobin A1c (test code = 4548-4) 12.3 % [facility] HospitalOsmolality ser/tvwy8994-30-25 00:23:00 Test Item Value Reference Range Interpretation Comments Serum Osmolality (test code = 313 mosm/kg 2692-2) [facility] l[facility] acid measurement (moles/volume) 2019-08-30 23:32:00 Test Item Value Reference Range Interpretation Comments Bedside Lactic Acid Venous (test 1.95 mmol/L code = 2519-7) [facility] HospitalUrinalysis specimen collection [id number] 21:50:00 Test Item Value Reference Range Interpretation Comments Urine Source (test code = 70822-9) URINE [facility] HospitalColor of Urine by [id number] 21:50:00 Test Item Value Reference Range Interpretation Comments Urine Color (test code = 18878-6) Colorless [facility] ElizabethUrine clarity [id number] 21:50:00 Test Item Value Reference Range Interpretation Comments Urine Appearance (test code = 60984-8) Clear [facility] ElizabethUrine pH measurement by automated test [id number] 21:50:00 Test Item Value Reference Range Interpretation Comments Urine pH (test code = 83024-6) 6.0 [facility] ElizabethSpecific gravity of Urine by Automated test strip 2019-08-30 21:50:00 Test Item Value Reference Range Interpretation Comments Urine Specific [place] (test code = 1.030 77417-0) [facility] ElizabethUrine protein measurement by automated test strip (mass/volume)2019-08-30 21:50:00 Test Item Value Reference Range Interpretation Comments Urine Protein (test code = 33918-4) 30 mg/dL [facility] glucose measurement by automated test strip (mass/volume)2019-08-30 21:50:00 Test Item Value Reference Range Interpretation Comments Urine Glucose (UA) (test code = >1000 mg/dL 81420-1) [facility] ketones measurement by automated test strip (mass/volume)2019-08-30 21:50:00 Test Item Value Reference Range Interpretation Comments Urine Ketones (test code = 91697-5) 60 mg/dL [facility] . [facility] erythrocytes count by automated test strip (number/volume)2019-08-30 21:50:00 Test Item Value Reference Range Interpretation Comments Urine Occult Blood (test code = 1+ 86668-7) [facility] ElizabethUrine nitrite detection by automated test strip 2019-08-30 21:50:00 Test Item Value Reference Range Interpretation Comments Urine Nitrite (test code = 82504-5) Negative [facility] ElizabethUrine total bilirubin measurement by automated test strip (mass/volume)2019-08-30 21:50:00 Test Item Value Reference Range Interpretation Comments Urine Bilirubin (test code = Negative mg/dL 06856-4) [facility] ElizabethUrine urobilinogen measurement by automated test strip (mass/volume)2019-08-30 21:50:00 Test Item Value Reference Range Interpretation Comments Urine Urobilinogen (test code Negative mg/dL = 71966-9) [facility]. ElimeaganUrine leukocytes count by automated test strip (number/volume)2019-08-30 21:50:00 Test Item Value Reference Range Interpretation Comments Urine Leukocyte Esterase Negative {Oliver}/uL (test code = 17214-3) [facility] - . ElibethMicroscopic examination of [id number] 21:50:00 Test Item Value Reference Range Interpretation Comments Microscopic Urinalysis (T) (test code = ----- 64441-1) [facility] sediment erythrocyte count by microscopy (number/high power field)2019-08-30 21:50:00 Test Item Value Reference Range Interpretation Comments Urine RBC (test code = 53520-9) 11-30 /[HPF] [facility] sediment leukocyte count by microscopy (number/high power field)2019-08-30 21:50:00 Test Item Value Reference Range Interpretation Comments Urine WBC (test code = 5821-4) 0-5 /[HPF] [facility] . [facility] sediment epithelial cell count by microscopy (number/high power field)2019-08-30 21:50:00 Test Item Value Reference Range Interpretation Comments Urine Epithelial Cells (test None Seen /[HPF] code = 5787-7) [facility] . [facility] sediment crystal count by microscopy (number/high power field)2019-08-30 21:50:00 Test Item Value Reference Range Interpretation Comments Urine Crystals (test code = None Seen /[HPF] 57038-8) [facility] . [facility] sediment bacteria count by microscopy (number/high power field)2019-08-30 21:50:00 Test Item Value Reference Range Interpretation Comments Urine Bacteria (test code = None Seen /[HPF] 5769-5) [facility] sediment casts count by microscopy (number/low power field)2019-08-30 21:50:00 Test Item Value Reference Range Interpretation Comments Urine Casts (test code = Present /[LPF] 9842-6) [facility] ElizabethUrine sediment hyaline cast count by microscopy (number/low power field)2019-08-30 21:50:00 Test Item Value Reference Range Interpretation Comments Urine Hyaline Casts (test code = 0-1 /[LPF] 5796-8) [facility] ElizabethYeast detection in urine sediment by light microscopy 2019-08-30 21:50:00 Test Item Value Reference Range Interpretation Comments Urine Yeast (test code = None Seen /[HPF] 23843-4) [facility] ElizabethService comment 21:50:00 Test Item Value Reference Range Interpretation Comments Urinalysis Comment (test code = 8262-8) * [facility] ElizabeDoyleervice comment 21:50:00 Test Item Value Reference Range Interpretation Comments Urine Culture Indicated (test code = Not Ind 8264-4) [facility] ElizabeMadison Healthous whole blood pH [id number] 21:31:00 Test Item Value Reference Range Interpretation Comments Venous Blood pH (test code = 2746-6) 7.326 [facility] ElizabeVenous blood partial pressure of carbon dioxide [id number] 21:31:00 Test Item Value Reference Range Interpretation Comments Blood Gas PCO2 (test code = 36.9 mm[Hg] 2020-4) [facility] ElizabeMadison Healthous blood partial pressure of oxygen measurement 2019-08-30 21:31:00 Test Item Value Reference Range Interpretation Comments Blood Gas PO2 (test code = 25.1 mm[Hg] 2705-2) [facility] ElizabeMadison Healthous blood bicarbonate measurement (moles/volume) 2019-08-30 21:31:00 Test Item Value Reference Range Interpretation Comments Venous Blood HCO3 (test code = 18.8 mmol/L 64772-4) [facility] ElizabeMadison Healthous whole blood base excess determination by calculation (moles/volume)2019-08-30 21:31:00 Test Item Value Reference Range Interpretation Comments Venous Blood Base Excess (test -6.4 mmol/L code = 1927-3) [facility]. [facility]abeM[facility] Hospitalood hemoglobin measurement by oximetry (mass/volume) 2019-08-30 21:31:00 Test Item Value Reference Range Interpretation Comments Venous Blood Hemoglobin (test code 14.6 g/dL = 59352-5) [facility] saturation (mass fraction)2019-08-30 21:31:00 Test Item Value Reference Range Interpretation Comments Venous Blood Oxygen Saturation (test 50.7 % code = 2711-0) [facility] blood carboxyhemoglobin/total hemoglobin ratio 2019-08-30 21:31:00 Test Item Value Reference Range Interpretation Comments Venous Blood Carboxyhemoglobin (test 2.5 % code = 2032-1) [facility] whole blood methemoglobin/total hemoglobin (mass fraction)2019-08-30 21:31:00 Test Item Value Reference Range Interpretation Comments Venous Blood Methemoglobin (test code = 0.3 % 2617-9) [facility] blood carboxyhemoglobin/total hemoglobin ratio 2019-08-30 21:31:00 Test Item Value Reference Range Interpretation Comments Venous Blood Oxyhemoglobin (test code 49.3 % = 2-1) [facility] blood deoxyhemoglobin/total hemoglobin mass ratio 2019-08-30 21:31:00 Test Item Value Reference Range Interpretation Comments Reduced Hemoglobin (test code = 47.9 % 73050-5) [facility] blood oxygen content by [id number] 21:31:00 Test Item Value Reference Range Interpretation Comments Venous Blood Oxygen Content (test 10.1 mL/dL code = 13891-5) [facility] deliv source [id number] 21:31:00 Test Item Value Reference Range Interpretation Comments Oxygen Delivery Device (test code = ROOM AIR 43184-7) [facility] [id number] 21:31:00 Test Item Value Reference Range Interpretation Comments Blood Gas Puncture Site (test code = Venous 93972-8) [facility]Ass[facility] artery patency prior to arterial [id number] 21:31:00 Test Item Value Reference Range Interpretation Comments Luther Test (test code = Not Applicable 65803-6) [facility] 03 [id number] 21:31:00 Test Item Value Reference Range Interpretation Comments Blood Gas Critical Value Called To dr murray (test code = 8264-4) [facility] 04 [id number] 21:31:00 Test Item Value Reference Range Interpretation Comments Blood Gas Notified Time (test [id number] code = 8265-1) [facility]. ElizabethSerum or plasma total bilirubin measurement (mass/volume)2019-08-30 20:35:00 Test Item Value Reference Range Interpretation Comments Total Bilirubin (test code = 0.5 mg/dL 1974-2) [facility] ElizabeNaval Hospitalerum or plasma aspartate aminotransferase measurement (enzymatic activity/volume)2019-08-30 20:35:00 Test Item Value Reference Range Interpretation Comments Aspartate Amino Transf (AST/SGOT) 14 U/L (test code = 1920-8) [facility] or plasma alanine aminotransferase measurement (enzymatic activity/volume)2019-08-30 20:35:00 Test Item Value Reference Range Interpretation Comments Alanine Aminotransferase (ALT/SGPT) 55 U/L (test code = 1742-6) [facility]. ElizabethSerum or plasma protein measurement (mass/volume) 2019-08-30 20:35:00 Test Item Value Reference Range Interpretation Comments Total Protein (test code = 2885-2) 6.6 g/dL [facility]. [facility] or plasma albumin measurement (mass/volume) 2019-08-30 20:35:00 Test Item Value Reference Range Interpretation Comments Albumin (test code = 1751-7) 4.0 g/dL [facility] or plasma alkaline phosphatase measurement (enzymatic activity/volume)2019-08-30 20:35:00 Test Item Value Reference Range Interpretation Comments Alkaline Phosphatase (test code = 257 U/L 6768-6) [facility] glucose measurement by glucometer (mass/volume)2019-08-17 11:40:00 Test Item Value Reference Range Interpretation Comments Bedside Glucose (test code = 368 mg/dL 79213-9) [facility] ElizabethSerum or plasma sodium measurement (moles/volume) 2019-08-16 05:00:00 Test Item Value Reference Range Interpretation Comments Sodium Level (test code = 2951-2) 127 mmol/L [facility] ElizabethSerum or plasma potassium measurement (moles/volume) 2019-08-16 05:00:00 Test Item Value Reference Range Interpretation Comments Potassium Level (test code = 4.2 mmol/L 2823-3) [facility] ElizabethSerum or plasma chloride measurement (moles/volume) 2019-08-16 05:00:00 Test Item Value Reference Range Interpretation Comments Chloride Level (test code = 2075-0) 98 mmol/L [facility] ElizabethSerum or plasma total carbon dioxide measurement (moles/volume)2019-08-16 05:00:00 Test Item Value Reference Range Interpretation Comments Carbon Dioxide Level (test code = 20 mmol/L 2027-9) [facility] ElizabethSerum or plasma anion gap determination (moles/volume) 2019-08-16 05:00:00 Test Item Value Reference Range Interpretation Comments Anion Gap (test code = 25133-2) 13 [facility] ElizabethSerum or plasma urea nitrogen measurement (mass/volume) 2019-08-16 05:00:00 Test Item Value Reference Range Interpretation Comments Blood Urea Nitrogen (test code = 9 mg/dL 3094-0) [facility] ElizabethSerum or plasma creatinine measurement (mass/volume) 2019-08-16 05:00:00 Test Item Value Reference Range Interpretation Comments Creatinine (test code = 2160-0) 0.7 mg/dL [facility]. ElizabethGFR estimate [id number] 05:00:00 Test Item Value Reference Range Interpretation Comments Estimat Glomerular Filtration Rate 127 (test code = 89134-8) [facility] ElizabethSerum or plasma glucose measurement (mass/volume) 2019-08-16 05:00:00 Test Item Value Reference Range Interpretation Comments Glucose Level (test code = 2345-7) 415 mg/dL [facility] ElizabethSerum or plasma calcium measurement (mass/volume) 2019-08-16 05:00:00 Test Item Value Reference Range Interpretation Comments Calcium Level (test code = 61322-6) 7.9 mg/dL [facility] ElizabethUrine methamphetamine [id number] 05:00:00 Test Item Value Reference Range Interpretation Comments Urine Methamphetamines Screen Negative ng/mL (test code = 66698-7) [facility]. ElizabethUrine propoxyphene screening [id number] 05:00:00 Test Item Value Reference Range Interpretation Comments Urine Propoxyphene Screen Negative ng/mL (test code = 44090-5) [facility]. ElizabethUrine amphetamines detection by screening method 2019-08-15 05:00:00 Test Item Value Reference Range Interpretation Comments Urine Amphetamines Screen Negative ng/mL (test code = 47632-4) [facility]. ElizabethUrine buprenorphine screen with reflex confirmation 2019-08-15 05:00:00 Test Item Value Reference Range Interpretation Comments Urine Buprenorphine (test code Negative ng/mL = 3414-0) [facility] ElizabethUrine barbiturates detection by screening method 2019-08-15 05:00:00 Test Item Value Reference Range Interpretation Comments Urine Barbiturates Screen Negative ng/mL (test code = 77447-9) [facility]. ElizabethUrine benzodiazepines detection by screening method 2019-08-15 05:00:00 Test Item Value Reference Range Interpretation Comments Urine Benzodiazepines Screen Negative ng/mL (test code = 80038-4) [facility] ElizabethUrine benzoylecgonine detection by screening method 2019-08-15 05:00:00 Test Item Value Reference Range Interpretation Comments Urine Cocaine Screen (test Negative ng/mL code = 06000-0) [facility]. ElizabethUrine methadone [id number] 05:00:00 Test Item Value Reference Range Interpretation Comments Urine Methadone, Qualitative Negative ng/mL (test code = 69421-1) [facility]. ElizabethUrine opiates screening [id number] 05:00:00 Test Item Value Reference Range Interpretation Comments Urine Opiates Screen (test Positive ng/mL code = 34864-7) [facility]. ElizabethUrine phencyclidine detection by screening method 2019-08-15 05:00:00 Test Item Value Reference Range Interpretation Comments Urine Phencyclidine Screen Negative ng/mL (test code = 41930-4) [facility] ElizabethUrine cannabinoids detection by screening method 2019-08-15 05:00:00 Test Item Value Reference Range Interpretation Comments Urine Cannabinoids (test code Positive ng/mL = 49237-7) [facility] ElizabethScreening urine tricyclic antidepressants detection 2019-08-15 05:00:00 Test Item Value Reference Range Interpretation Comments Ur Tricyclic Antidepressants Negative ng/mL Screen (test code = 31963-0) [facility] ElizabethUrine oxycodone detection by screening [id number] 05:00:00 Test Item Value Reference Range Interpretation Comments Urine Oxycodone Screen (test Negative ng/mL code = 93527-4) [facility] ElizabethSpecific gravity of Urine by Automated test strip 2019-08-15 05:00:00 Test Item Value Reference Range Interpretation Comments Urine Specific [place] (test code = 1.015 94515-6) [facility] ElizabethUrine pH measurement by automated test [id number] 05:00:00 Test Item Value Reference Range Interpretation Comments Urine pH (test code = 46678-3) 6.0 [facility] ElizabethUrine drug screen comment [id number] 05:00:00 Test Item Value Reference Range Interpretation Comments Urine Drug Screen Comment (test code See Note = 79254-4) [facility] ElizabethBacterial urine [id number] 05:00:00 Test Item Value Reference Range Interpretation Comments Urine Culture (test Enterococcus faecalis code = 630-4) [facility] ElizabethUrine methamphetamine [id number] 05:00:00 Test Item Value Reference Range Interpretation Comments Urine Methamphetamines Screen Negative ng/mL (test code = 00108-6) [facility] ElizabethUrine propoxyphene screening [id number] 05:00:00 Test Item Value Reference Range Interpretation Comments Urine Propoxyphene Screen Negative ng/mL (test code = 62641-3) [facility] ElizabethUrine amphetamines detection by screening method 2019-08-15 05:00:00 Test Item Value Reference Range Interpretation Comments Urine Amphetamines Screen Negative ng/mL (test code = 96492-5) [facility] buprenorphine screen with reflex confirmation 2019-08-15 05:00:00 Test Item Value Reference Range Interpretation Comments Urine Buprenorphine (test code Negative ng/mL = 3414-0) [facility]. ElizabeUrine barbiturates detection by screening method 2019-08-15 05:00:00 Test Item Value Reference Range Interpretation Comments Urine Barbiturates Screen Negative ng/mL (test code = 06796-3) [facility]. ElizabethUrine benzodiazepines detection by screening method 2019-08-15 05:00:00 Test Item Value Reference Range Interpretation Comments Urine Benzodiazepines Screen Negative ng/mL (test code = 78050-1) [facility] method 2019-08-15 05:00:00 Test Item Value Reference Range Interpretation Comments Urine Cocaine Screen (test Negative ng/mL code = 35445-4) [facility] methadone [id number] 05:00:00 Test Item Value Reference Range Interpretation Comments Urine Methadone, Qualitative Negative ng/mL (test code = 78891-1) [facility] [id number] 05:00:00 Test Item Value Reference Range Interpretation Comments Urine Opiates Screen (test Positive ng/mL code = 42180-6) [facility] by screening method 2019-08-15 05:00:00 Test Item Value Reference Range Interpretation Comments Urine Phencyclidine Screen Negative ng/mL (test code = 41192-8) [facility] cannabinoids detection by screening method 2019-08-15 05:00:00 Test Item Value Reference Range Interpretation Comments Urine Cannabinoids (test code Positive ng/mL = 62436-4) [facility]. ElizabethScreening urine tricyclic antidepressants detection 2019-08-15 05:00:00 Test Item Value Reference Range Interpretation Comments Ur Tricyclic Antidepressants Negative ng/mL Screen (test code = 96446-3) [facility]. ElizabethUrine oxycodone detection by screening [id number] 05:00:00 Test Item Value Reference Range Interpretation Comments Urine Oxycodone Screen (test Negative ng/mL code = 39806-1) [facility] ElizabethSpecific gravity of Urine by Automated test strip 2019-08-15 05:00:00 Test Item Value Reference Range Interpretation Comments Urine Specific [place] (test code = 1.015 59520-0) [facility] ElizabethUrine pH measurement by automated test [id number] 05:00:00 Test Item Value Reference Range Interpretation Comments Urine pH (test code = 55831-3) 6.0 [facility] ElizabethUrine drug screen comment [id number] 05:00:00 Test Item Value Reference Range Interpretation Comments Urine Drug Screen Comment (test code See Note = 77183-2) [facility] ElizabethBacterial urine [id number] 05:00:00 Test Item Value Reference Range Interpretation Comments Urine Culture (test Enterococcus faecalis code = 630-4) [facility]. ElizabethHgb A1c MFr [id number] 04:00:00 Test Item Value Reference Range Interpretation Comments Hemoglobin A1c (test code = 4548-4) 12.6 % [facility] ElizabethVenous blood lactic acid measurement (moles/volume) 2019-08-14 23:54:00 Test Item Value Reference Range Interpretation Comments Bedside Lactic Acid Venous (test 1.01 mmol/L code = 2519-7) [facility] ElizabethSerum or plasma phosphate measurement (mass/volume) 2019-08-14 22:24:00 Test Item Value Reference Range Interpretation Comments Phosphorus Level (test code = 2.1 mg/dL 2777-1) [facility] ElizabethSerum or plasma magnesium measurement (mass/volume) 2019-08-14 22:24:00 Test Item Value Reference Range Interpretation Comments Magnesium Level (test code = 1.59 mg/dL 38588-5) [facility] ElizabethSerum or plasma thyrotropin measurement with detection limit of 0.005 mIU/L or less (units/volume)2019-08-14 22:24:00 Test Item Value Reference Range Interpretation Comments Thyroid Stimulating Hormone 0.81 u[iU]/mL (TSH) (test code = 85697-8) [facility] ElizabethSerum or plasma phosphate measurement (mass/volume) 2019-08-14 22:24:00 Test Item Value Reference Range Interpretation Comments Phosphorus Level (test code = 2.1 mg/dL 2777-1) [facility]. ElizabethSerum or plasma thyrotropin measurement with detection limit of 0.005 mIU/L or less (units/volume)2019-08-14 22:24:00 Test Item Value Reference Range Interpretation Comments Thyroid Stimulating Hormone 0.81 u[iU]/mL (TSH) (test code = 77759-6) [facility]. FlacabeHepatitis B e ab ser/plas qual by [id number] 21:44:00 Test Item Value Reference Range Interpretation Comments Lactic Acid Comment (test code Reprint/Called = Lactic Acid Comment) [facility]. FlacabeHepatitis B e ab ser/plas qual by [id number] 21:44:00 Test Item Value Reference Range Interpretation Comments Lactic Acid Comment (test code Reprint/Called = Lactic Acid Comment) [facility] FlacabeAutomated blood leukocyte count (number/volume) 2019-08-14 19:34:00 Test Item Value Reference Range Interpretation Comments White Blood Count (test code = 6.0 10*3/uL 6690-2) [facility]. FlacabeBlood erythrocytes automated count (number/volume) 2019-08-14 19:34:00 Test Item Value Reference Range Interpretation Comments Red Blood Count (test code = 3.62 10*6/uL 789-8) [facility]. ElizabethBlood hemoglobin measurement (mass/volume)2019-08-14 19:34:00 Test Item Value Reference Range Interpretation Comments Hemoglobin (test code = 718-7) 11.7 g/dL [facility]. ElizabethAutomated blood hematocrit (volume fraction)2019-08-14 19:34:00 Test Item Value Reference Range Interpretation Comments Hematocrit (test code = 4544-3) 33.9 % [facility] - . ElizabethAutomated erythrocyte mean corpuscular volume (MCV) [id number] 19:34:00 Test Item Value Reference Range Interpretation Comments Mean Corpuscular Volume (test code = 94 fL 787-2) [facility] ElizabethAutomated erythrocyte mean corpuscular hemoglobin (mass per erythrocyte)2019-08-14 19:34:00 Test Item Value Reference Range Interpretation Comments Mean Corpuscular Hemoglobin (test 32.3 pg code = 785-6) [facility] ElizabethAutomated erythrocyte mean corpuscular hemoglobin concentration measurement (mass/[id number] 19:34:00 Test Item Value Reference Range Interpretation Comments Mean Corpuscular Hemoglobin Concent 34.5 g/dL (test code = 786-4) [facility] ElizabethAutomated erythrocyte distribution width [id number] 19:34:00 Test Item Value Reference Range Interpretation Comments Red Cell Distribution Width (test code 12.5 % = 788-0) [facility] ElizabethAutomated blood platelet count (count/volume)2019-08-14 19:34:00 Test Item Value Reference Range Interpretation Comments Platelet Count (test code = 298 10*3/uL 777-3) [facility]. ElizabethAutomated blood platelet mean volume measurement 2019-08-14 19:34:00 Test Item Value Reference Range Interpretation Comments Mean Platelet Volume (test code = 9.0 87580-4) [facility] ElizabethSerum or plasma total bilirubin measurement (mass/volume)2019-08-14 19:34:00 Test Item Value Reference Range Interpretation Comments Total Bilirubin (test code = 0.4 mg/dL 1975-2) [facility] ElizabethSerum or plasma aspartate aminotransferase measurement (enzymatic activity/volume)2019-08-14 19:34:00 Test Item Value Reference Range Interpretation Comments Aspartate Amino Transf (AST/SGOT) 33 U/L (test code = 1920-8) [facility] ElizabethSerum or plasma alanine aminotransferase measurement (enzymatic activity/volume)2019-08-14 19:34:00 Test Item Value Reference Range Interpretation Comments Alanine Aminotransferase (ALT/SGPT) 37 U/L (test code = 1742-6) [facility] ElizabethSerum or plasma protein measurement (mass/volume) 2019-08-14 19:34:00 Test Item Value Reference Range Interpretation Comments Total Protein (test code = 2885-2) 5.4 g/dL [facility] ElizabethSerum or plasma albumin measurement (mass/volume) 2019-08-14 19:34:00 Test Item Value Reference Range Interpretation Comments Albumin (test code = 1751-7) 3.2 g/dL [facility] ElizabethSerum or plasma alkaline phosphatase measurement (enzymatic activity/volume)2019-08-14 19:34:00 Test Item Value Reference Range Interpretation Comments Alkaline Phosphatase (test code = 124 U/L 6768-6) [facility] ElizabethSerum or plasma lipase measurement (enzymatic activity/volume)2019-08-14 19:34:00 Test Item Value Reference Range Interpretation Comments Lipase (test code = 3040-3) 19 U/L [facility] ElizabethSerum or plasma beta hydroxybutyrate measurement (moles/volume)2019-08-14 19:34:00 Test Item Value Reference Range Interpretation Comments Beta-Hydroxybutyric Acid (test 6.79 mmol/L code = 6873-4) [facility] ElizabethSerum or plasma ethanol measurement (mass/volume) 2019-08-14 19:34:00 Test Item Value Reference Range Interpretation Comments Ethyl Alcohol Level (test code = 111 mg/dL 5643-2) [facility] ElizabethSerum or plasma lipase measurement (enzymatic activity/volume)2019-08-14 19:34:00 Test Item Value Reference Range Interpretation Comments Lipase (test code = 3040-3) 19 U/L [facility]. ElizabethSerum or plasma ethanol measurement (mass/volume) 2019-08-14 19:34:00 Test Item Value Reference Range Interpretation Comments Ethyl Alcohol Level (test code = 111 mg/dL 5643-2) [facility]. [facility] blood cardiac troponin I measurement (mass/volume) 2019-08-14 19:30:00 Test Item Value Reference Range Interpretation Comments Bedside Troponin I (test code = 0.01 ng/mL 22532-4) [facility]burgole blood cardiac troponin I measurement (mass/volume) 2019-08-14 19:30:00 Test Item Value Reference Range Interpretation Comments Bedside Troponin I (test code = 0.01 ng/mL 61177-8) [facility] [id number] 19:24:00 Test Item Value Reference Range Interpretation Comments Venous Blood pH (test code = 2746-6) 7.295 [facility] ElizabethVenous blood partial pressure of carbon dioxide [id number] 19:24:00 Test Item Value Reference Range Interpretation Comments Blood Gas PCO2 (test code = 37.0 mm[Hg] 2020-4) [facility] ElizabethVenous blood partial pressure of oxygen measurement 2019-08-14 19:24:00 Test Item Value Reference Range Interpretation Comments Blood Gas PO2 (test code = 32.6 mm[Hg] 2705-2) [facility] ElizabethVenous blood bicarbonate measurement (moles/volume) 2019-08-14 19:24:00 Test Item Value Reference Range Interpretation Comments Venous Blood HCO3 (test code = 17.6 mmol/L 05944-3) [facility] - . ElizabethVenous whole blood base excess determination by calculation (moles/volume)2019-08-14 19:24:00 Test Item Value Reference Range Interpretation Comments Venous Blood Base Excess (test -8.2 mmol/L code = 1927-3) [facility]. ElizabethBlood hemoglobin measurement by oximetry (mass/volume) 2019-08-14 19:24:00 Test Item Value Reference Range Interpretation Comments Venous Blood Hemoglobin (test code 12.4 g/dL = 63431-2) [facility]. ElizabethVenous blood oxygen saturation (mass fraction)2019-08-14 19:24:00 Test Item Value Reference Range Interpretation Comments Venous Blood Oxygen Saturation (test 62.0 % code = 2711-0) [facility] ElizabethVenous blood carboxyhemoglobin/total hemoglobin ratio 2019-08-14 19:24:00 Test Item Value Reference Range Interpretation Comments Venous Blood Carboxyhemoglobin (test 3.3 % code = 2032-1) [facility] - . ElizabethVenous whole blood methemoglobin/total hemoglobin (mass fraction)2019-08-14 19:24:00 Test Item Value Reference Range Interpretation Comments Venous Blood Methemoglobin (test code = 0.3 % 2617-9) [facility]. ElizabethVenous blood carboxyhemoglobin/total hemoglobin ratio 2019-08-14 19:24:00 Test Item Value Reference Range Interpretation Comments Venous Blood Oxyhemoglobin (test code 59.8 % = 2-1) [facility] blood deoxyhemoglobin/total hemoglobin mass ratio 2019-08-14 19:24:00 Test Item Value Reference Range Interpretation Comments Reduced Hemoglobin (test code = 36.6 % 06891-6) [facility] blood oxygen content by [id number] 19:24:00 Test Item Value Reference Range Interpretation Comments Venous Blood Oxygen Content (test 10.4 mL/dL code = 70921-3) [facility] deliv source [id number] 19:24:00 Test Item Value Reference Range Interpretation Comments Oxygen Delivery Device (test code = ROOM AIR 14054-5) [facility] [id number] 19:24:00 Test Item Value Reference Range Interpretation Comments Blood Gas Puncture Site (test code = Venous 06946-3) [facility] patency prior to arterial [id number] 19:24:00 Test Item Value Reference Range Interpretation Comments Luther Test (test code = Not Applicable 62574-1) [facility] [id number] 19:24:00 Test Item Value Reference Range Interpretation Comments Blood Gas Critical Value Called To MD CHACHO (test code = 8264-4) [facility] 04 [id number] 19:24:00 Test Item Value Reference Range Interpretation Comments Blood Gas Notified Time (test [id number] code = 8265-1) [facility] [id number] 19:24:00 Test Item Value Reference Range Interpretation Comments N/A (test code = 8268-5) 1 [facility] [id number] 19:24:00 Test Item Value Reference Range Interpretation Comments N/A (test code = 8268-5) 1 [facility] ElizabethUrinalysis specimen collection [id number] 05:00:00 Test Item Value Reference Range Interpretation Comments Urine Source (test code = 28958-4) URINE [facility] ElizabethColor of Urine by [id number] 05:00:00 Test Item Value Reference Range Interpretation Comments Urine Color (test code = 01743-9) Lt Yellow [facility] ElizabethUrine clarity [id number] 05:00:00 Test Item Value Reference Range Interpretation Comments Urine Appearance (test code = 44821-0) Clear [facility] ElizabethUrine pH measurement by automated test [id number] 05:00:00 Test Item Value Reference Range Interpretation Comments Urine pH (test code = 66534-0) 6.0 [facility] ElizabethSpecific gravity of Urine by Automated test strip 2019-08-14 05:00:00 Test Item Value Reference Range Interpretation Comments Urine Specific [place] (test code = > 1.030 46331-9) [facility] ElizabethUrine protein measurement by automated test strip (mass/volume)2019-08-14 05:00:00 Test Item Value Reference Range Interpretation Comments Urine Protein (test code = 37091-6) 100 mg/dL [facility] - . ElizabethUrine glucose measurement by automated test strip (mass/volume)2019-08-14 05:00:00 Test Item Value Reference Range Interpretation Comments Urine Glucose (UA) (test code = >1000 mg/dL 04324-4) [facility] ElizabethUrine ketones measurement by automated test strip (mass/volume)2019-08-14 05:00:00 Test Item Value Reference Range Interpretation Comments Urine Ketones (test code = 92557-6) 60 mg/dL [facility] ElizabethUrine erythrocytes count by automated test strip (number/volume)2019-08-14 05:00:00 Test Item Value Reference Range Interpretation Comments Urine Occult Blood (test code = 2+ 88329-9) [facility] ElizabethUrine nitrite detection by automated test strip 2019-08-14 05:00:00 Test Item Value Reference Range Interpretation Comments Urine Nitrite (test code = 28279-4) Negative [facility] ElizabethUrine total bilirubin measurement by automated test strip (mass/volume)2019-08-14 05:00:00 Test Item Value Reference Range Interpretation Comments Urine Bilirubin (test code = Negative mg/dL 91273-5) [facility]health[facility] lafayetteUrine urobilinogen measurement by automated test strip (mass/volume)2019-08-14 05:00:00 Test Item Value Reference Range Interpretation Comments Urine Urobilinogen (test code Negative mg/dL = 37299-9) [facility]. ElibeUrine leukocytes count by automated test strip (number/volume)2019-08-14 05:00:00 Test Item Value Reference Range Interpretation Comments Urine Leukocyte Esterase Negative {Oliver}/uL (test code = 30299-7) [facility]health[facility] lafayetteMicroscopic examination of [id number] 05:00:00 Test Item Value Reference Range Interpretation Comments Microscopic Urinalysis (T) (test code = ----- 97470-7) [facility] erythrocyte count by microscopy (number/high power field)2019-08-14 05:00:00 Test Item Value Reference Range Interpretation Comments Urine RBC (test code = 10958-2) 11-30 /[HPF] [facility] sediment leukocyte count by microscopy (number/high power field)2019-08-14 05:00:00 Test Item Value Reference Range Interpretation Comments Urine WBC (test code = 5821-4) 0-5 /[HPF] [facility] sediment epithelial cell count by microscopy (number/high power field)2019-08-14 05:00:00 Test Item Value Reference Range Interpretation Comments Urine Epithelial Cells (test None Seen /[HPF] code = 5787-7) [facility] sediment crystal count by microscopy (number/high power field)2019-08-14 05:00:00 Test Item Value Reference Range Interpretation Comments Urine Crystals (test code = None Seen /[HPF] 15079-4) [facility] sediment bacteria count by microscopy (number/high power field)2019-08-14 05:00:00 Test Item Value Reference Range Interpretation Comments Urine Bacteria (test code = None Seen /[HPF] 5769-5) [facility]. ElizabethUrine sediment casts count by microscopy (number/low power field)2019-08-14 05:00:00 Test Item Value Reference Range Interpretation Comments Urine Casts (test code = None Seen /[LPF] 9842-6) [facility] ElizabethUrine sediment hyaline cast count by microscopy (number/low power field)2019-08-14 05:00:00 Test Item Value Reference Range Interpretation Comments Urine Hyaline Casts (test None Seen /[LPF] code = 5796-8) [facility] - . ElizabethYeast detection in urine sediment by light microscopy 2019-08-14 05:00:00 Test Item Value Reference Range Interpretation Comments Urine Yeast (test code = None Seen /[HPF] 87356-3) [facility] comment [facility]:00 Test Item Value Reference Range Interpretation Comments Urinalysis Comment (test code = 8262-8) * [facility]00 Test Item Value Reference Range Interpretation Comments Urine Culture Indicated (test code = Not Ind 8264-4) [facility]Capillary whole blood glucose measurement by glucometer (mass/volume)2019-07-02 11:50:00 Test Item Value Reference Range Interpretation Comments Bedside Glucose (test code = 131 mg/dL 12911-3) [facility] or plasma sodium measurement (moles/volume) 2019-07-01 04:26:00 Test Item Value Reference Range Interpretation Comments Sodium Level (test code = 2951-2) 134 mmol/L [facility] or plasma potassium measurement (moles/volume) 2019-07-01 04:26:00 Test Item Value Reference Range Interpretation Comments Potassium Level (test code = 4.0 mmol/L 2823-3) [facility] or plasma chloride measurement (moles/volume) 2019-07-01 04:26:00 Test Item Value Reference Range Interpretation Comments Chloride Level (test code = 103 mmol/L 2075-0) [facility] or plasma total carbon dioxide measurement (moles/volume)2019-07-01 04:26:00 Test Item Value Reference Range Interpretation Comments Carbon Dioxide Level (test code = 25 mmol/L 2027-) [facility] ElizabethSerum or plasma anion gap determination (moles/volume) 2019-07-01 04:26:00 Test Item Value Reference Range Interpretation Comments Anion Gap (test code = 05161-8) 10 [facility]Serum or plasma urea nitrogen measurement (mass/volume) 2019-07-01 04:26:00 Test Item Value Reference Range Interpretation Comments Blood Urea Nitrogen (test code = 8 mg/dL 3094-0) [facility]Serum or plasma creatinine measurement (mass/volume) 2019-07-01 04:26:00 Test Item Value Reference Range Interpretation Comments Creatinine (test code = 2160-0) 0.8 mg/dL [facility] - . ElizabethGFR estimate [id number] 04:26:00 Test Item Value Reference Range Interpretation Comments Estimat Glomerular Filtration Rate 109 (test code = 15735-1) [facility] - [facility] ElizabethSerum or plasma glucose measurement (mass/volume) 2019-07-01 04:26:00 Test Item Value Reference Range Interpretation Comments Glucose Level (test code = 2345-7) 116 mg/dL [facility] - [facility] ElizabethSerum or plasma calcium measurement (mass/volume) 2019-07-01 04:26:00 Test Item Value Reference Range Interpretation Comments Calcium Level (test code = 62700-7) 9.2 mg/dL [facility]. ElizabethAerobic bacterial wound [id number] 12:40:00 Test Item Value Reference Range Interpretation Comments Wound Culture (test Streptococcus agalactiae code = 632-0) [facility]Serum or plasma beta hydroxybutyrate measurement (moles/volume)2019-06-27 05:00:00 Test Item Value Reference Range Interpretation Comments Beta-Hydroxybutyric Acid (test 7.72 mmol/L code = 6873-4) [facility]Serum or plasma thyrotropin measurement with detection limit of 0.005 mIU/L or less (units/volume)2019-06-27 05:00:00 Test Item Value Reference Range Interpretation Comments Thyroid Stimulating Hormone 1.19 u[iU]/mL (TSH) (test code = 46259-4) [facility] [id number] 18:22:00 Test Item Value Reference Range Interpretation Comments Hemoglobin A1c (test code = 4548-4) > 14.0 % [facility] [id number] 16:05:00 Test Item Value Reference Range Interpretation Comments Venous Blood pH (test code = 2746-6) 7.287 [facility] blood partial pressure of carbon dioxide [id number] 16:05:00 Test Item Value Reference Range Interpretation Comments Blood Gas PCO2 (test code = 30.8 mm[Hg] 2020-4) [facility] blood partial pressure of oxygen measurement 2019-06-26 16:05:00 Test Item Value Reference Range Interpretation Comments Blood Gas PO2 (test code = 29.0 mm[Hg] 5-2) [facility] blood bicarbonate measurement (moles/volume) 2019-06-26 16:05:00 Test Item Value Reference Range Interpretation Comments Venous Blood HCO3 (test code = 14.4 mmol/L 68901-0) [facility] whole blood base excess determination by calculation (moles/volume)2019-06-26 16:05:00 Test Item Value Reference Range Interpretation Comments Venous Blood Base Excess (test -10.8 mmol/L code = 1927-3) [facility] deliv source [id number] 16:05:00 Test Item Value Reference Range Interpretation Comments Oxygen Delivery Device (test code = ROOM AIR 35330-5) [facility] [id number] 16:05:00 Test Item Value Reference Range Interpretation Comments Blood Gas Puncture Site (test code = Venous 93352-9) [facility] artery patency prior to arterial [id number] 16:05:00 Test Item Value Reference Range Interpretation Comments Luther Test (test code = Not Applicable 48457-2) [facility] [id number] 16:05:00 Test Item Value Reference Range Interpretation Comments Blood Gas Critical Value Called To DR GARCIA (test code = 8264-4) [facility] [id number] 16:05:00 Test Item Value Reference Range Interpretation Comments Blood Gas Notified Time (test [id number] code = 8265-1) [facility] whole blood sodium measurement (moles/volume) 2019-06-26 15:31:00 Test Item Value Reference Range Interpretation Comments Bedside Sodium (test code = 135 mmol/L 59419-7) [facility]. ElizabeVenous whole blood potassium measurement (moles/volume) 2019-06-26 15:31:00 Test Item Value Reference Range Interpretation Comments Bedside Potassium (test code = 3.6 mmol/L 22200-6) [facility] whole blood chloride measurement (moles/volume) 2019-06-26 15:31:00 Test Item Value Reference Range Interpretation Comments Bedside Chloride (test code = 105 mmol/L 61425-7) [facility] whole blood total carbon dioxide measurement (moles/volume)2019-06-26 15:31:00 Test Item Value Reference Range Interpretation Comments Bedside Total CO2 (test code = 16.0 mmol/L 7-1) [facility] whole blood urea nitrogen (BUN) measurement (mass/volume)2019-06-26 15:31:00 Test Item Value Reference Range Interpretation Comments Bedside Blood Urea Nitrogen (test 11 mg/dL code = 80807-5) [facility] (mass/volume)2019-06-26 15:31:00 Test Item Value Reference Range Interpretation Comments Bedside Creatinine (test code = 0.5 mg/dL 45728-8) [facility]. ElizabeVenous whole blood glucose measurement (mass/volume) 2019-06-26 15:31:00 Test Item Value Reference Range Interpretation Comments Bedside Glucose (test code = 215 mg/dL 09543-6) [facility] ionized calcium measurement (moles/volume) 2019-06-26 15:31:00 Test Item Value Reference Range Interpretation Comments Bedside Whole Blood Ionized 1.12 mmol/L Calcium (test code = 1994-3) [facility]. PrincessBlood anion [id number] 15:31:00 Test Item Value Reference Range Interpretation Comments Bedside Anion Gap (test code = 02876-9) 19 [facility]. ElijairobethGFR estimate [id number] 15:31:00 Test Item Value Reference Range Interpretation Comments Estimat Glomerular Filtration Rate 188 (test code = 86124-5) [facility] measurement (mass/volume) 2019-06-26 15:31:00 Test Item Value Reference Range Interpretation Comments Bedside Hemoglobin (test code = 11.2 g/dL 27286-3) [facility] blood hematocrit (volume fraction)2019-06-26 15:31:00 Test Item Value Reference Range Interpretation Comments Bedside Hematocrit (test code = 33.0 % 12632-5) [facility] SystemO[facility] [id number] 14:58:00 Test Item Value Reference Range Interpretation Comments WHOLE BLOOD GLUCOSE 239 MG/DL 70-99 H Fastin g glucose (test code = POC GLU) normal <100 MG/DL- [employer] recommend ation PATHOLOGY [id number] 16:00:00TISSUE CONSULTATION REPORTBAPTIST TEXOMA MEDICAL CENTERDEPARTMENT OF PATHOLOGYP.O. [address], [place] [address] MATEO ALVAREZ M.D.STORM YOUSSEF M.D.CHARLES E. BURNS, M.D. ____Patient: STEPHANIE CAMPO 1970 48 MRoom:[facility]#: [id number] Ordering Physician: UZMA DODSON Rec.: 03/28/2019Date of Proc.: 03/28/2019Lab No.: [id number] Clinical History:Vomiting and abdominal pain.FINAL ANATOMIC DIAGNOSIS:RANDOM GASTRIC BIOPSIES:ANTRAL AND FUNDIC MUCOSA DEMONSTRATING MILD CHRONIC NON-ACTIVEGASTRITIS WITH SLIGHT SURFACE REACTIVE CHANGES AND MILD EROSION.NEGATIVE FOR MALIGNANCY OR DYSPLASIA.NO GOBLET CELLS SEEN ONALCIAN BLUE/PAS STAIN.NO HELICOBACTER ORGANISMS SEEN ON KENRICK STAIN.FOCAL LYMPHANGIECTASIA NOTED.MICROSCOPIC EXAMINATION:Performed.GROSS APPEARANCE:The specimen is received in formalin labeled "random gastricbiopsies." It is four fragments of villegas-pink soft tissues rangingfrom 0.2-0.4 cm. TE in onecassette.PATHOLOGIST: Feliberto Melo Electronically Signed: 03/29/2019WHOLE BLOOD [id number] 10:05:00 Test Item Value Reference Range Interpretation Comments WHOLE BLOOD GLUCOSE 401 MG/DL 70-99 Fastin g glucose (test code = POC GLU) normal <100 MG/DL- [employer] recommend ation WHOLE BLOOD [id number] 10:05:00 Test Item Value Reference Range Interpretation Comments WHOLE BLOOD GLUCOSE 344 MG/DL 70-99 Fastin g glucose (test code = POC GLU) normal <100 MG/DL- [employer] recommend ation WHOLE BLOOD [id number] 02:15:00 Test Item Value Reference Range Interpretation Comments WHOLE BLOOD GLUCOSE 336 MG/DL 70-99 H Fastin g glucose (test code = POC GLU) normal <100 MG/DL- [employer] recommend ation WHOLE BLOOD [id number] 17:35:00 Test Item Value Reference Range Interpretation Comments WHOLE BLOOD GLUCOSE 265 MG/DL 70-99 H Fastin g glucose (test code = POC GLU) normal <100 MG/DL- [employer] recommend ation WHOLE BLOOD [id number] 13:10:00 Test Item Value Reference Range Interpretation Comments WHOLE BLOOD GLUCOSE 260 MG/DL 70-99 H Fastin g glucose (test code = POC GLU) normal <100 MG/DL- [employer] recommend ation % HEMOGLOBIN A1C (GLYCATED)2019-03-28 08:16:00 Test Item Value Reference Range Interpretation Comments HEMOGLOBIN A1C (test 11.6 % 0-6 H TH ERAPEUTIC TARGET code = GLYCO-) FOR THE TREAT MENT OF DIABETES M RANDY PATIENTS IS < 7 % HBA1C. [facility] [employer]. DIABETES CARE 2002;25:S33-S49 [id number] 07:59:00HEART RATE: 93 bpmRR Interval: 645 msAtrial Rate: 93 msP-R Interval: 89 msP Duration: 76 msP Horizontal [place]: 159 degP Front [place]: 267 degQ Onset: 499 msQRSD Interval: 94 msQT Interval: 410 msQTcB: 511msQTcF: 475 msQRS Horizontal [place]: 244 degQRS [place]: 96 degI-40 Horizontal [place]: -3 degI-40 Front [place]: 67 degT-40 Horizontal [place]: 235 degT-40 Front [place]: 117 degT Horizontal [place]: degT Wave [place]: 71 degS-T Horizontal [place]: 88 degS-T Front [place]: -33 degECG Severity: - ABNORMAL ECG -ECG Impression: Ectopic atrial rhythmECG Impression: Prolonged QT intervalWHOLE BLOOD [id number] 05:35:00 Test Item Value Reference Range Interpretation Comments WHOLE BLOOD GLUCOSE 137 MG/DL 70-99 H Fastin g glucose (test code = POC GLU) normal <100 MG/DL- [employer] recommend ation WHOLE BLOOD [id number] 20:55:00 Test Item Value Reference Range Interpretation Comments WHOLE BLOOD GLUCOSE 270 MG/DL 70-99 H Fastin g glucose (test code = POC GLU) normal <100 MG/DL- [employer] recommend ation WHOLE BLOOD [id number] 16:10:00 Test Item Value Reference Range Interpretation Comments WHOLE BLOOD GLUCOSE 105 MG/DL 70-99 Fastin g glucose (test code = POC GLU) normal <100 MG/DL- [employer] recommend ation [id number] 15:42:00 Test Item Value Reference Range Interpretation Comments K+ (test code = 4.3 MMOL/L 3.5-5.1 PLEASE NOTE NEW KSERUM) REFERENCE RANGE (S) IN EFFECT EFF ECTIVE 03/05/2010 - [facility] [id number] 15:42:00 Test Item Value Reference Range Interpretation Comments MG (test code = MG) 2.0 mg/dL 1.6-2.3 [id number] 15:42:00 Test Item Value Reference Range Interpretation Comments PHOSPHOR (test code = PHOSPHOR) 2.5 MG/DL 2.5-4.5 WHOLE BLOOD [id number] 11:45:00 Test Item Value Reference Range Interpretation Comments WHOLE BLOOD GLUCOSE 439 MG/DL 70-99 H Fastin g glucose (test code = POC GLU) normal <100 MG/DL- [employer] recommend ation WHOLE BLOOD [id number] 09:10:00 Test Item Value Reference Range Interpretation Comments WHOLE BLOOD GLUCOSE 162 MG/DL 70-99 H Fastin g glucose (test code = POC GLU) normal <100 MG/DL- [employer] recommend ation WHOLE BLOOD [id number] 08:30:00 Test Item Value Reference Range Interpretation Comments WHOLE BLOOD GLUCOSE 116 MG/DL 70-99 H Fastin g glucose (test code = POC GLU) normal <100 MG/DL- [employer] recommend ation WHOLE BLOOD [id number] 08:30:00 Test Item Value Reference Range Interpretation Comments WHOLE BLOOD GLUCOSE 106 MG/DL 70-99 Fastin g glucose (test code = POC GLU) normal <100 MG/DL- [employer] recommend ation WHOLE BLOOD [id number] 08:30:00 Test Item Value Reference Range Interpretation Comments WHOLE BLOOD GLUCOSE 108 MG/DL 70-99 Fastin g glucose (test code = POC GLU) normal <100 MG/DL- [employer] recommend ation WHOLE BLOOD [id number] 08:30:00 Test Item Value Reference Range Interpretation Comments WHOLE BLOOD GLUCOSE 152 MG/DL 70-99 H Fastin g glucose (test code = POC GLU) normal <100 MG/DL- [employer] recommend ation WHOLE BLOOD [id number] 08:30:00 Test Item Value Reference Range Interpretation Comments WHOLE BLOOD GLUCOSE 172 MG/DL 70-99 H Fastin g glucose (test code = POC GLU) normal <100 MG/DL- [employer] recommend ation WHOLE BLOOD [id number] 07:40:00 Test Item Value Reference Range Interpretation Comments WHOLE BLOOD GLUCOSE 187 MG/DL 70-99 H Fastin g glucose (test code = POC GLU) normal <100 MG/DL- [employer] recommend ation US LIMITED ABD [id number] 07:35:[address] [address]UEKVAPQOED IMAGING REPORTPatient Name: STEPHANIE CAMPO RDate of Service: [id number]: 48 Sex: M Order #: [id number] Room: [facility] 2SDOB: 1970 X-Ray Number: [id number] Record Number: [id number] Hospital Number: [id number] Physician: CLARIBEL ARIAS -Ordering Physician: Jemal MORALES upper quadrant ultrasound.History: Pain.Technique: Transabdominal ultrasound images of the right upper quadrantwere reviewed.Findings:Ultrasound images demonstrate no abnormalities involving the liver. Thegallbladder is unremarkable. CBD measures 6.5 mm. Portal vein abdominalaorta IVC and pancreas appear normal. The right kidney is normal at 10.7 x5.5 x 5.1 cm.ImpressionUnremarkable right upper quadrant ultrasound.Electronically Signed By: Tanner Verdugo M.D., 03/27/2019 7:33 AMLegally authenticated by ABBI Dash 2019-03-27 07:33:34BMP, BASIC METABOLIC [id number] 02:34:00 Test Item Value Reference Range Interpretation Comments SODIUM (test code = 132 MMOL/L 137-145 L NA) K+ (test code = 3.8 MMOL/L 3.5-5.1 PLEASE NOTE NEW KSERUM) REFERENCE RANGE (S) IN EFFECT EFFECTIVE 010 - NEW ANALYZER (V ITROS 5600) CHLORIDE (test code 109 MMOL/L 98-107 H = CL) CO2 (test code = 17 MMOL/L 22-30 L CO2) BUN (test code = 19 MG/DL 9-20 BUN) CREA (test code = 0.6 MG/DL 0.8-1.5 L CREA) GLUCOSE (test code 279 MG/DL 70-99 H Fasting glucose = GLUCOSE) normal <100 MG/ DL- [employer] recommendation* * CALCIUM (test code 7.9 MG/DL 8.4-10.2 L = CABLOOD) GFR (test code = 152 A GFR of >9 0 GFR) mL/min/1.73m2 mL/min/1.73m2 is considered norm al. [id number] 02:34:00 Test Item Value Reference Range Interpretation Comments MG (test code = MG) 1.7 mg/dL 1.6-2.3 [id number] 02:34:00 Test Item Value Reference Range Interpretation Comments PHOSPHOR (test code = PHOSPHOR) 1.3 MG/DL 2.5-4.5 L BLOOD GAS PH [id number] 02:15:00 Test Item Value Reference Range Interpretation Comments BGPHVEN (test code = BGPHVEN) 7.33 WHOLE BLOOD [id number] 01:30:00 Test Item Value Reference Range Interpretation Comments WHOLE BLOOD GLUCOSE 189 MG/DL 70-99 H Fastin g glucose (test code = POC GLU) normal <100 MG/DL- [employer] recommend ation [id number] 23:45:00 Test Item Value Reference Range Interpretation Comments PHOSPHOR (test code = PHOSPHOR) 1.9 MG/DL 2.5-4.5 L BMP, BASIC METABOLIC [id number] 23:44:00 Test Item Value Reference Range Interpretation Comments SODIUM (test code = 138 MMOL/L 137-145 NA) K+ (test code = 4.3 MMOL/L 3.5-5.1 PLEASE NOTE NEW KSERUM) REFERENCE RANGE (S) IN EFFECT EFFECTIVE 010 - NEW ANALYZER (V I[facility] 5600) CHLORIDE (test code 112 MMOL/L 98-107 H = CL) CO2 (test code = 14 MMOL/L 22-30 L CO2) BUN (test code = 21 MG/DL 9-20 H BUN) CREA (test code = 0.8 MG/DL 0.8-1.5 CREA) GLUCOSE (test code 202 MG/DL 70-99 H Fasting glucose = GLUCOSE) normal <100 MG/ DL- [employer] recommendation* * CALCIUM (test code 8.2 MG/DL 8.4-10.2 L = CABLOOD) GFR (test code = 109 A GFR of >9 0 GFR) mL/min/1.73m2 mL/min/1.73m2 is considered norm al. [id number] 23:44:00 Test Item Value Reference Range Interpretation Comments MG (test code = MG) 1.8 mg/dL 1.6-2.3 WHOLE BLOOD [id number] 23:25:00 Test Item Value Reference Range Interpretation Comments WHOLE BLOOD GLUCOSE 186 MG/DL 70-99 H Fastin g glucose (test code = POC GLU) normal <100 MG/DL- [employer] recommend ation BLOOD GAS PH [id number] 22:35:00 Test Item Value Reference Range Interpretation Comments BGPHVEN (test code = BGPHVEN) 7.24 [id number] 21:50:00 Test Item Value Reference Range Interpretation Comments CALCIUM (test code = CABLOOD) 9.9 MG/DL 8.4-10.2 WHOLE BLOOD [id number] 21:15:00 Test Item Value Reference Range Interpretation Comments WHOLE BLOOD GLUCOSE 264 MG/DL 70-99 H Fastin g glucose (test code = POC GLU) normal <100 MG/DL- [employer] recommend ation SCRN [id number] 20:27:00 Test Item Value Reference Range Interpretation Comments SCRN ALT (test code = SCRN ALT) 33 U/L 13-69 WHOLE BLOOD [id number] 20:25:00 Test Item Value Reference Range Interpretation Comments WHOLE BLOOD GLUCOSE 297 MG/DL 70-99 H Fastin g glucose (test code = POC GLU) normal <100 MG/DL- [employer] recommend ation HEPATITIS C ANTIBODY [id number] 19:54:00 Test Item Value Reference Range Interpretation Comments SCRN HCV (test code REACTIVE NEGATIVE Hepatiti s C Antibody test = SCRN HCV) is for screenin g purposes only. All react leida will be confirmed by additional test ing. ER SCREEN FOR HIV 19:54:00 Test Item Value Reference Range Interpretation Comments HIV 1/2 AB (test NEGATIVE NEGATIVE This test i s used for code = SCRN HIV) SCREENING p urposes only. All reactive re sults are prelimenary and confirmation re sults will follow. BG LAB ARTERIAL [id number] 19:29:00 Test Item Value Reference Range Interpretation Comments SITE (test code = SITE) LRAD SITE ALLENS (test code = ALLENS) POS BGLAC (test code = BGLAC) 15 mg/dL 5.0-18.0 [id number] 19:26:00 Test Item Value Reference Range Interpretation Comments MG (test code = MG) 2.4 mg/dL 1.6-2.3 H [id number] 19:26:00 Test Item Value Reference Range Interpretation Comments PHOSPHOR (test code = PHOSPHOR) 4.5 MG/DL 2.5-4.5 [id number] 19:12:00 Test Item Value Reference Range Interpretation Comments GLUCOSE (test code = URGLU) >=1000 MG/DL NEG-100 BILIRUBN (test code = URBILI) NEGATIVE NEGATIVE KETONE (test code = URKET) >1=160 MG/DL NEGATIVE BLOOD (test code = URBLD) MODERATE UR PH (test code = URPH) 5.0 5.0-7.5 PROTEIN (test code = URPRO) 100 MG/DL NEGATIVE NITRITES (test code = URNIT) NEGATIVE NEGATIVE UROBILINGEN (test code = URURO) 0.2 EU/DL 0.2-1.0 LEUKOCYT (test code = URLEU) NEGATIVE NEGATIVE UA COLOR (test code = UA COLOR) YELLOW YELLOW CLARITY (test code = CLARITY) CLEAR CLEAR SP GRAV (test code = URSPGRAV) 1.029 1.000-1.025 H UAMICRO (test code = UAMICRO) YES WBC (test code = URWBC) 2 /HPF 0-5 RBC (test code = URRBC) 13 /HPF 0-2 H CASTS (test code = CAST) 5 /LPF 0-3 H UR EPI (test code = EPI) 14 /LPF BACTERIA (test code = BACTERIA) NEGATIVE NONE BLOOD GAS [id number] 18:31:00 Test Item Value Reference Range Interpretation Comments SITE (test code = SITE) LR SITE ALLENS (test code = ALLENS) POS O2 EQUIP (test code = O2 EQUIP) ROOM AIR O2-DEVICE PH (test code = BGPH) 7.26 7.35-7.45 L PCO2 (test code = PCO2) 18 MMHG 34.0-45.0 LL PO2 (test code = PO2) 105 MMHG 88-96 H HCO3 (test code = HCO3) 8.1 mmol/L 22.0-26.0 L BE (test code = BE) -16.3 mmol/L -2.0-2.0 L THB (test code = THB) 16.0 G/DL 13.5-18 % 02 HB (test code = ABGSAT) 95.8 % 96.0-100.0 L %COHB (test code = BGCO) 1.2 % <1.5 % MET HB (test code = %MET HB) 0.3 % 0.4-1.5 L CAO2 (test code = CAO2) 21.6 VOL% 17.6-24.3 PF/RATIO (test code = PF/RATIO) 500.[address] STANLEY AT 1820 BY FELIBERTO CRAVEN [employer] ON 03/26/[id number] 18:24:00 Test Item Value Reference Range Interpretation Comments LIPASE (test code = LIPA) 38 U/L 23-300 LIVER [id number] 18:24:00 Test Item Value Reference Range Interpretation Comments TOTPROT (test code = TOTPROT) 8.4 G/DL 6.3-8.2 H ALBUMIN (test code = ALBSERUM) 5.3 G/DL 3.5-5.0 H BILITOT (test code = BILITOT) 1.1 MG/DL 0.2-1.3 BILIDIR (test code = BILIDIR) 0.5 MG/DL 0.0-0.4 H AST (test code = AST) 33 U/L 15-46 PHOSALK (test code = PHOSALK) 103 U/L 38-126 ALT (test code = ALT) 31 U/L 13-69 [id number] 17:42:00 Test Item Value Reference Range Interpretation Comments WBC (test code = 10.3 K/UL 3.5-10.9 WBC) RBC (test code = 5.36 M/UL 4.3-5.7 RBC) HGB (test code = 17.5 G/DL 13.0-17.9 HGB) HCT (test code = 52.5 % 38-52 H HCT) MCV (test code = 97.9 FL 80-98 MCV) MCH (test code = 32.6 PG 28-32 H MCH) MCHC (test code = 33.3 G/DL 32.5-36.5 MCHC) RDW (test code = 12.4 % 11.5-14.5 RDW) PLT (test code = 418 K/UL 150-450 PLT) MPV (test code = 9.9 FL 7.4-10.4 MPV) MANDIFF (test code = NO MANDIFF) SCAN (test code = NO SCAN) NEUT% (test code = 80.1 % 40-75 H NEUT%) LYMPH% (test code = 10.4 % 24-44 L LYMPH%) MONO% (test code = 8.0 % 0-13 MONO%) EOS% (test code = 0.0 % 0-4 EOS%) BASO % (test code = 0.3 % 0-2 BASO%) IG (test code = IG) 0 % 0-1 IG% (test code = 1.2 % 0-1 H IG% = Metam yelocytes, IG%) Myelocytes, and Promyelocytes. (Immature neutr ophils not including " bands".) > 3% IG indic ates risk of sepsis NRBC% (test code = 0 /100 WBC NRBC%) ABS NEUT (test code 8.3 K/UL 1.2-7.2 H = NEUT) ISTAT CHEM [id number] 17:20:00 Test Item Value Reference Range Interpretation Comments ISTATNA (test code = 134 MMOL/L 137-145 L ISTATNA) ISTATK (test code = 5.4 MMOL/L 3.6-5.0 H ISTATK) ISTATCL (test code = 103 MMOL/L 98-107 ISTATCL) ISTIONCA (test code = 1.06 MMOL/L 1.12-1.32 L ISTIONCA) ISTCO2 (test code = 9 MMOL/L 22-30 LL ISTCO2) ISTATGLU (test code = 441 MG/DL 65-110 H ISTATGLU) ISTATBUN (test code = 32.0 MG/DL 7.0-20.0 H ISTATBUN) ISTCREA (test code = 1.1 MG/DL 0.7-1.5 ISTCREA) ISTATHCT (test code = 56 %PCV 37.0-52.0 H ISTATHCT) ISTATHGB (test code = 19.0 G/DL 12.0-18.0 H Notifi ed Nurse/MD of ISTATHGB) results outside of Reference Range s ISTANGAP (test code = 28 MMOL/L Notifi ed Nurse/MD of ISTANGAP) results outside of Reference Range s [id number] 21:44:00 Test Item Value Reference Range Interpretation Comments GLUCOSE (test code = URGLU) >=1000 MG/DL NEG-100 BILIRUBN (test code = URBILI) NEGATIVE NEGATIVE KETONE (test code = URKET) 80 MG/DL NEGATIVE BLOOD (test code = URBLD) MODERATE UR PH (test code = URPH) 5.5 5.0-7.5 PROTEIN (test code = URPRO) 300 MG/DL NEGATIVE NITRITES (test code = URNIT) NEGATIVE NEGATIVE UROBILINGEN (test code = URURO) 0.2 EU/DL 0.2-1.0 LEUKOCYT (test code = URLEU) NEGATIVE NEGATIVE UA COLOR (test code = UA COLOR) YELLOW YELLOW CLARITY (test code = CLARITY) CLEAR CLEAR SP GRAV (test code = URSPGRAV) 1.025 1.000-1.025 UAMICRO (test code = UAMICRO) YES WBC (test code = URWBC) 1 /HPF 0-5 RBC (test code = URRBC) 10 /HPF 0-2 H CASTS (test code = CAST) 8 /LPF 0-3 H UR EPI (test code = EPI) 24 /LPF BACTERIA (test code = BACTERIA) NEGATIVE NONE [id number] 20:49:00 Test Item Value Reference Range Interpretation Comments LIPASE (test code = LIPA) 37 U/L 23-300 LIVER [id number] 20:49:00 Test Item Value Reference Range Interpretation Comments TOTPROT (test code = TOTPROT) 6.9 G/DL 6.3-8.2 ALBUMIN (test code = ALBSERUM) 4.5 G/DL 3.5-5.0 BILITOT (test code = BILITOT) 0.6 MG/DL 0.2-1.3 BILIDIR (test code = BILIDIR) 0.4 MG/DL 0.0-0.4 AST (test code = AST) 30 U/L 15-46 PHOSALK (test code = PHOSALK) 106 U/L 38-126 ALT (test code = ALT) 29 U/L 13-69 ISTAT [id number] [id number] 20:45:00 Test Item Value Reference Range Interpretation Comments ISTATNA (test code = 133 MMOL/L 137-145 L ISTATNA) ISTATK (test code = 4.8 MMOL/L 3.6-5.0 ISTATK) ISTATCL (test code = 99 MMOL/L 98-107 ISTATCL) ISTIONCA (test code = 1.17 MMOL/L 1.12-1.32 ISTIONCA) ISTCO2 (test code = 14 MMOL/L 22-30 L ISTCO2) ISTATGLU (test code = 275 MG/DL 65-110 H ISTATGLU) ISTATBUN (test code = 19.0 MG/DL 7.0-20.0 ISTATBUN) ISTCREA (test code = 1.1 MG/DL 0.7-1.5 ISTCREA) ISTATHCT (test code = 45 %PCV 37.0-52.0 ISTATHCT) ISTATHGB (test code = 15.3 G/DL 12.0-18.0 Notifi ed Nurse/MD of [facility]) results outside of Reference Range s ISTANGAP (test code = 26 MMOL/L Notifi ed Nurse/MD of [facility] [place]) results outside of Reference Range s [id number] 20:26:00 Test Item Value Reference Range Interpretation Comments WBC (test code = 8.7 K/UL 3.5-10.9 WBC) RBC (test code = 4.52 M/UL 4.3-5.7 RBC) HGB (test code = 14.9 G/DL 13.0-17.9 HGB) HCT (test code = 43.3 % 38-52 HCT) MCV (test code = 95.8 FL 80-98 MCV) MCH (test code = 33.0 PG 28-32 H MCH) MCHC (test code = 34.4 G/DL 32.5-36.5 MCHC) RDW (test code = 12.3 % 11.5-14.5 RDW) PLT (test code = 361 K/UL 150-450 PLT) MPV (test code = 9.3 FL 7.4-10.4 MPV) MANDIFF (test code = NO MANDIFF) SCAN (test code = NO SCAN) NEUT% (test code = 74.7 % 40-75 NEUT%) LYMPH% (test code = 16.5 % 24-44 L LYMPH%) MONO% (test code = 7.0 % 0-13 MONO%) EOS% (test code = 0.1 % 0-4 EOS%) BASO % (test code = 0.5 % 0-2 BASO%) IG (test code = IG) 0 % 0-1 IG% (test code = 1.2 % 0-1 H IG% = Metam yelocytes, IG%) Myelocytes, and Promyelocytes. (Immature neutr ophils not including " bands".) > 3% IG indic ates risk of sepsis NRBC% (test code = 0 /100 WBC NRBC%) ABS NEUT (test code 6.5 K/UL 1.2-7.2 = NEUT) ISTAT CHEM [id number] 12:17:00 Test Item Value Reference Range Interpretation Comments ISTATNA (test code = 132 MMOL/L 137-145 L ISTATNA) ISTATK (test code = 4.7 MMOL/L 3.6-5.0 ISTATK) ISTATCL (test code = 92 MMOL/L 98-107 L ISTATCL) ISTIONCA (test code = 1.10 MMOL/L 1.12-1.32 L ISTIONCA) ISTCO2 (test code = 12 MMOL/L 22-30 L ISTCO2) ISTATGLU (test code = 549 MG/DL 65-110 HH ISTATGLU) ISTATBUN (test code = 26.0 MG/DL 7.0-20.0 H ISTATBUN) ISTCREA (test code = 1.5 MG/DL 0.7-1.5 ISTCREA) ISTATHCT (test code = 48 %PCV 37.0-52.0 ISTATHCT) ISTATHGB (test code = 16.3 G/DL 12.0-18.0 Notifi ed Nurse/MD of [facility]) results outside of Reference Range s ISTANGAP (test code = 34 MMOL/L Notifi ed Nurse/MD of ISTANGAP) results outside of Reference Range s WHOLE BLOOD [id number] 16:40:00 Test Item Value Reference Range Interpretation Comments WHOLE BLOOD GLUCOSE 144 MG/DL 70-99 H Fastin g glucose (test code = POC GLU) normal <100 MG/DL- [employer] recommend ation WHOLE BLOOD [id number] 11:35:00 Test Item Value Reference Range Interpretation Comments WHOLE BLOOD GLUCOSE 118 MG/DL 70-99 H Fastin g glucose (test code = POC GLU) normal <100 MG/DL- [employer] recommend ation WHOLE BLOOD [id number] 08:20:00 Test Item Value Reference Range Interpretation Comments WHOLE BLOOD GLUCOSE 133 MG/DL 70-99 H Fastin g glucose (test code = POC GLU) normal <100 MG/DL- [employer] recommend ation [id number] 08:17:00 Test Item Value Reference Range Interpretation Comments SODIUM (test code = 135 MMOL/L 137-145 L NA) K+ (test code = 3.7 MMOL/L 3.5-5.1 PLEASE NOTE NEW KSERUM) REFERENCE RANGE (S) IN EFFECT EFFECTIVE 010 - NEW ANALYZER (V ITROS 5600) CHLORIDE (test code 101 MMOL/L 98-107 = CL) CO2 (test code = 25 MMOL/L 22-30 CO2) BUN (test code = 7 MG/DL 9-20 L BUN) CREA (test code = 0.6 MG/DL 0.8-1.5 L CREA) GLUCOSE (test code 91 MG/DL 70-99 Fasting glucose = GLUCOSE) normal <100 MG/ DL- [employer] recommendation* * CALCIUM (test code 8.7 MG/DL 8.4-10.2 = CABLOOD) TOTPROT (test code 6.0 G/DL 6.3-8.2 L = TOTPROT) ALBUMIN (test code 3.8 G/DL 3.5-5.0 = ALBSERUM) BILITOT (test code 0.4 MG/DL 0.2-1.3 = BILITOT) AST (test code = 30 U/L 15-46 AST) PHOSALK (test code 74 U/L 38-126 = PHOSALK) ALT (test code = 47 U/L 13-69 ALT) GFR (test code = 152 A GFR of >9 0 GFR) mL/min/1.73m2 mL/min/1.73m2 is considered norm al. [id number] 08:17:00 Test Item Value Reference Range Interpretation Comments LIPASE (test code = LIPA) 22 U/L 23-[address] ABDOMEN/PELVIS [id number] 08:13:00[address] [id number] IMAGING REPORTPatient Name: STEPHANIE CAMPO RDate of Service: [id number]: 48 Sex: M Order #: [id number] Room: [address] [place] [address] T3DOB: 1970 X-Ray Number: [id number] Record Number: [id number] Hospital Number: [id number] Physician: CLARIBEL ARIAS -Ordering Physician: CLARIBEL ARIAS -CT ABDOMEN/PELVISWITH 02/16/2019 6:51 PMHistory: n/v/abd painComparisons: 12/04/2015Contrast administered for this study per protocol: Isovue 300 - 100 mLIV. 15 mL Gastrografin by mouth per protocol.This CT exam was performed using one or more of the following dosereduction techniques: Automated exposure control, adjustment of the MAand/or KV according to patient size or use of iterative reconstructiontechnique.FIND INGS:There are pancreatic calcifications and minimal surrounding fat stranding.This is consistent with chronic pancreatitis. Acute on chronic pancreatitiscannot absolutely be excluded. Correlate with amylase and lipase levels.The liver, spleen and adrenal glands are unremarkable.Both kidneys enhance symmetrically. There is no hydronephrosis. There is atiny nonobstructing LEFT midpole 5 mm calculus.There is no free air.There is trace free fluid.There are no abnormal fluid collections to suggest abscess or hematoma.There is no CT evidence for appendicitis, diverticulitis or pancreatitis.There is no small bowel obstruction detected.There is no obvious enlarged adenopathy.IMPRESSION:Chronic pancreatitis. Correlate with amylase and lipase levels to excludesuperimposed acute pancreatitis.Nonobstructing5 mm LEFT renal calculus.Colonic fecal loading.Electronically Signed By: Stan Laughlin M.D., 02/17/2019 8:11 AMLegally authenticated by JERARDO REBOLLEDO 2019-02-17 08:11:41[facility] 2019-02-17 07:15:00 Test Item Value Reference Range Interpretation Comments WBC (test code = 7.7 K/UL 3.5-10.9 WBC) RBC (test code = 4.21 M/UL 4.3-5.7 L RBC) HGB (test code = 13.8 G/DL 13.0-17.9 HGB) HCT (test code = 40.6 % 38-52 HCT) MCV (test code = 96.4 FL 80-98 MCV) MCH (test code = 32.8 PG 28-32 H MCH) MCHC (test code = 34.0 G/DL 32.5-36.5 MCHC) RDW (test code = 12.7 % 11.5-14.5 RDW) PLT (test code = 241 K/UL 150-450 PLT) MPV (test code = 10.5 FL 7.4-10.4 H MPV) MANDIFF (test code = NO MANDIFF) SCAN (test code = NO SCAN) NEUT% (test code = 66.4 % 40-75 NEUT%) LYMPH% (test code = 21.4 % 24-44 L LYMPH%) MONO% (test code = 11.1 % 0-13 MONO%) EOS% (test code = 0.4 % 0-4 EOS%) BASO % (test code = 0.3 % 0-2 BASO%) IG (test code = IG) 0 % 0-1 IG% (test code = 0.4 % 0-1 IG% = Metam yelocytes, IG%) Myelocytes, and Promyelocytes. (Immature neutr ophils not including " bands".) > 3% IG indic ates risk of sepsis NRBC% (test code = 0 /100 WBC NRBC%) ABS NEUT (test code 5.1 K/UL 1.2-7.2 = NEUT) WHOLE BLOOD [id number] 21:30:00 Test Item Value Reference Range Interpretation Comments WHOLE BLOOD GLUCOSE 100 MG/DL 70-99 Fastin g glucose (test code = POC GLU) normal <100 MG/DL- [employer] recommend ation WHOLE BLOOD [id number] 16:25:00 Test Item Value Reference Range Interpretation Comments WHOLE BLOOD GLUCOSE 96 MG/DL 70-99 Fastin g glucose (test code = POC GLU) normal <100 MG/DL- [employer] recommendation* * WHOLE BLOOD [id number] 11:50:00 Test Item Value Reference Range Interpretation Comments WHOLE BLOOD GLUCOSE 216 MG/DL 70-99 H Fastin g glucose (test code = POC GLU) normal <100 MG/DL- [employer] recommend ation WHOLE BLOOD [id number] 07:45:00 Test Item Value Reference Range Interpretation Comments WHOLE BLOOD GLUCOSE 276 MG/DL 70-99 H Fastin g glucose (test code = POC GLU) normal <100 MG/DL- [employer] recommend ation [id number] 03:36:00 Test Item Value Reference Range Interpretation Comments SODIUM (test code = 129 MMOL/L 137-145 L NA) K+ (test code = 3.7 MMOL/L 3.5-5.1 PLEASE NOTE NEW KSERUM) REFERENCE RANGE (S) IN EFFECT EFFECTIVE 010 - NEW ANALYZER (V ITROS 5600) CHLORIDE (test code 104 MMOL/L 98-107 = CL) CO2 (test code = 21 MMOL/L 22-30 L CO2) BUN (test code = 11 MG/DL 9-20 BUN) CREA (test code = 0.5 MG/DL 0.8-1.5 L CREA) GLUCOSE (test code 251 MG/DL 70-99 H Fasting glucose = GLUCOSE) normal <100 MG/ DL- [employer] recommendation* * CALCIUM (test code 8.1 MG/DL 8.4-10.2 L = CABLOOD) TOTPROT (test code 5.2 G/DL 6.3-8.2 L = TOTPROT) ALBUMIN (test code 3.1 G/DL 3.5-5.0 L = ALBSERUM) BILITOT (test code 0.3 MG/DL 0.2-1.3 = BILITOT) AST (test code = 33 U/L 15-46 AST) PHOSALK (test code 76 U/L 38-126 = PHOSALK) ALT (test code = 49 U/L 13-69 ALT) GFR (test code = 188 A GFR of >9 0 GFR) mL/min/1.73m2 mL/min/1.73m2 is considered norm al. [id number] 03:36:00 Test Item Value Reference Range Interpretation Comments MG (test code = MG) 1.7 mg/dL 1.6-2.3 [id number] 03:14:00 Test Item Value Reference Range Interpretation Comments WBC (test code = 10.1 K/UL 3.5-10.9 WBC) RBC (test code = 3.92 M/UL 4.3-5.7 L RBC) HGB (test code = 13.4 G/DL 13.0-17.9 HGB) HCT (test code = 37.4 % 38-52 L HCT) MCV (test code = 95.4 FL 80-98 MCV) MCH (test code = 34.2 PG 28-32 H MCH) MCHC (test code = 35.8 G/DL 32.5-36.5 MCHC) RDW (test code = 12.7 % 11.5-14.5 RDW) PLT (test code = 223 K/UL 150-450 PLT) MPV (test code = 10.4 FL 7.4-10.4 MPV) MANDIFF (test code = NO MANDIFF) SCAN (test code = NO SCAN) NEUT% (test code = 72.0 % 40-75 NEUT%) LYMPH% (test code = 17.6 % 24-44 L LYMPH%) MONO% (test code = 9.6 % 0-13 MONO%) EOS% (test code = 0.2 % 0-4 EOS%) BASO % (test code = 0.2 % 0-2 BASO%) IG (test code = IG) 0 % 0-1 IG% (test code = 0.4 % 0-1 IG% = Metam yelocytes, IG%) Myelocytes, and Promyelocytes. (Immature neutr ophils not including " bands".) > 3% IG indic ates risk of sepsis NRBC% (test code = 0 /100 WBC NRBC%) ABS NEUT (test code 7.2 K/UL 1.2-7.2 = NEUT) WHOLE BLOOD [id number] 21:20:00 Test Item Value Reference Range Interpretation Comments WHOLE BLOOD GLUCOSE 168 MG/DL 70-99 Fastin g glucose (test code = POC GLU) normal <100 MG/DL- [employer] recommend ation WHOLE BLOOD [id number] 17:50:00 Test Item Value Reference Range Interpretation Comments WHOLE BLOOD GLUCOSE 136 MG/DL 70-99 H Fastin g glucose (test code = POC GLU) normal <100 MG/DL- [employer] recommend ation WHOLE BLOOD [id number] 16:20:00 Test Item Value Reference Range Interpretation Comments WHOLE BLOOD GLUCOSE 216 MG/DL 70-99 H Fastin g glucose (test code = POC GLU) normal <100 MG/DL- [employer] recommend ation WHOLE BLOOD [id number] 12:30:00 Test Item Value Reference Range Interpretation Comments WHOLE BLOOD GLUCOSE 177 MG/DL 70-99 H Fastin g glucose (test code = POC GLU) normal <100 MG/DL- [employer] recommend ation WHOLE BLOOD [id number] 12:30:00 Test Item Value Reference Range Interpretation Comments WHOLE BLOOD GLUCOSE 209 MG/DL 70-99 H Fastin g glucose (test code = POC GLU) normal <100 MG/DL- [employer] recommend ation WHOLE BLOOD [id number] 12:30:00 Test Item Value Reference Range Interpretation Comments WHOLE BLOOD GLUCOSE 196 MG/DL 70-99 H Fastin g glucose (test code = POC GLU) normal <100 MG/DL- [employer] recommend ation WHOLE BLOOD [id number] 12:25:00 Test Item Value Reference Range Interpretation Comments WHOLE BLOOD GLUCOSE 185 MG/DL 70-99 H Fastin g glucose (test code = POC GLU) normal <100 MG/DL- [employer] recommend ation BMP, BASIC METABOLIC [id number] 10:33:00 Test Item Value Reference Range Interpretation Comments SODIUM (test code = 138 MMOL/L 137-145 NA) K+ (test code = 4.3 MMOL/L 3.5-5.1 PLEASE NOTE NEW KSERUM) REFERENCE RANGE (S) IN EFFECT EFFECTIVE 010 - NEW ANALYZER (V ITROS 5600) CHLORIDE (test code 106 MMOL/L 98-107 = CL) CO2 (test code = 25 MMOL/L 22-30 CO2) BUN (test code = 25 MG/DL 9-20 H BUN) CREA (test code = 0.9 MG/DL 0.8-1.5 CREA) GLUCOSE (test code 165 MG/DL 70-99 H Fasting glucose = GLUCOSE) normal <100 MG/ DL- [employer] recommendation* * CALCIUM (test code 8.0 MG/DL 8.4-10.2 L = CABLOOD) GFR (test code = 95 A GFR of >9 0 GFR) mL/min/1.73m2 mL/min/1.73m2 is considered norm al. RESULT VERIFIED BY REPEAT ANALYSIS ON ALTERNATE INSTRUMENT.[id number] 10:33:00 Test Item Value Reference Range Interpretation Comments MG (test code = MG) 1.8 mg/dL 1.6-2.3 [id number] 10:33:00 Test Item Value Reference Range Interpretation Comments PHOSPHOR (test code = PHOSPHOR) 2.6 MG/DL 2.5-4.5 BLOOD GAS PH [id number] 08:23:00 Test Item Value Reference Range Interpretation Comments BGPHVEN (test code = BGPHVEN) 7.39 WHOLE BLOOD [id number] 08:10:00 Test Item Value Reference Range Interpretation Comments WHOLE BLOOD GLUCOSE 191 MG/DL 70-99 H Fastin g glucose (test code = POC GLU) normal <100 MG/DL- [employer] recommend ation ABDOMEN 2 [id number] 07:26:[address] [id number] IMAGING REPORTPatient Name: STEPHANIE CAMPO RDate of Service: [id number]: 48 Sex: M Order #: [id number] Room: [facility]: 1970 X-Ray Number: [id number] Record Number: [id number] Hospital Number: [id number] Physician: Loni STANLEY Physician: JULI RESTREPO 2 VIEWS, 02/14/2019 10:28 PM:History: epigastric pain. . Epigastric abdominal pain. Nausea andvomiting.Comparison: None.Technique: 2 view abdomenFindings:The bowel gas pattern is nonobstructive. There is a moderate colonic stoolburden. Calcifications over the central abdomen are likely due to chronicpancreatitis. There is no evidence of free intra-abdominal air. There is noevidence of organomegaly.Impression:1. Probable chronic pancreatitis.2. Nonobstructive bowel gas pattern without evidence of free air.Electronically Signed By: Mateo Mayen M.D., 02/15/2019 7:24 AMLegally authenticated by COURTNEY GALINDO 2019-02-15 07:24:04WHOLE BLOOD GLUCOSE 2019-02-15 06:40:00 Test Item Value Reference Range Interpretation Comments WHOLE BLOOD GLUCOSE 247 MG/DL 70-99 H Fastin g glucose (test code = POC GLU) normal <100 MG/DL- [employer] recommend ation WHOLE BLOOD [id number] 06:40:00 Test Item Value Reference Range Interpretation Comments WHOLE BLOOD GLUCOSE 254 MG/DL 70-99 H Fastin g glucose (test code = POC GLU) normal <100 MG/DL- [employer] recommend ation WHOLE BLOOD [id number] 06:40:00 Test Item Value Reference Range Interpretation Comments WHOLE BLOOD GLUCOSE 311 MG/DL 70-99 H Fastin g glucose (test code = POC GLU) normal <100 MG/DL- [employer] recommend ation WHOLE BLOOD [id number] 06:40:00 Test Item Value Reference Range Interpretation Comments WHOLE BLOOD GLUCOSE 392 MG/DL 70-99 H Fastin g glucose (test code = POC GLU) normal <100 MG/DL- [employer] recommend ation BLOOD GAS PH [id number] 04:24:00 Test Item Value Reference Range Interpretation Comments BGPHVEN (test code = BGPHVEN) 7.31 BMP, BASIC METABOLIC [id number] 04:18:00 Test Item Value Reference Range Interpretation Comments SODIUM (test code = 137 MMOL/L 137-145 NA) K+ (test code = 4.0 MMOL/L 3.5-5.1 PLEASE NOTE NEW KSERUM) REFERENCE RANGE (S) IN EFFECT EFFECTIVE 010 - NEW ANALYZER (V ITROS 5600) CHLORIDE (test code 99 MMOL/L 98-107 = CL) CO2 (test code = 20 MMOL/L 22-30 L CO2) BUN (test code = 28 MG/DL 9-20 H BUN) CREA (test code = 1.3 MG/DL 0.8-1.5 CREA) GLUCOSE (test code 359 MG/DL 70-99 H Fasting glucose = GLUCOSE) normal <100 MG/ DL- [employer] recommendation* * CALCIUM (test code 8.1 MG/DL 8.4-10.2 L = CABLOOD) GFR (test code = 62 A GFR of >9 0 GFR) mL/min/1.73m2 mL/min/1.73m2 is considered norm al. [id number] 04:18:00 Test Item Value Reference Range Interpretation Comments MG (test code = MG) 1.9 mg/dL 1.6-2.3 [id number] 04:18:00 Test Item Value Reference Range Interpretation Comments PHOSPHOR (test code = PHOSPHOR) 3.9 MG/DL 2.5-4.5 BMP, BASIC METABOLIC [id number] 03:36:00 Test Item Value Reference Range Interpretation Comments SODIUM (test code = 137 MMOL/L 137-145 NA) K+ (test code = 4.1 MMOL/L 3.5-5.1 PLEASE NOTE NEW KSERUM) REFERENCE RANGE (S) IN EFFECT EFFECTIVE 010 - NEW ANALYZER (V ITROS 5600) CHLORIDE (test code 97 MMOL/L 98-107 L = CL) CO2 (test code = 18 MMOL/L 22-30 L CO2) BUN (test code = 28 MG/DL 9-20 H BUN) CREA (test code = 1.4 MG/DL 0.8-1.5 CREA) GLUCOSE (test code 396 MG/DL 70-99 H Fasting glucose = GLUCOSE) normal <100 MG/ DL- [employer] recommendation* * CALCIUM (test code 8.4 MG/DL 8.4-10.2 = CABLOOD) GFR (test code = 57 A GFR of >9 0 GFR) mL/min/1.73m2 mL/min/1.73m2 is considered norm al. [id number] 03:15:00 Test Item Value Reference Range Interpretation Comments WBC (test code = 15.8 K/UL 3.5-10.9 H WBC) RBC (test code = 4.34 M/UL 4.3-5.7 RBC) HGB (test code = 14.5 G/DL 13.0-17.9 HGB) HCT (test code = 40.4 % 38-52 HCT) MCV (test code = 93.1 FL 80-98 MCV) MCH (test code = 33.4 PG 28-32 H MCH) MCHC (test code = 35.9 G/DL 32.5-36.5 MCHC) RDW (test code = 12.4 % 11.5-14.5 RDW) PLT (test code = 303 K/UL 150-450 PLT) MPV (test code = 10.1 FL 7.4-10.4 MPV) MANDIFF (test code = NO MANDIFF) SCAN (test code = NO SCAN) NEUT% (test code = 82.3 % 40-75 H NEUT%) LYMPH% (test code = 10.3 % 24-44 L LYMPH%) MONO% (test code = 6.3 % 0-13 MONO%) EOS% (test code = 0.0 % 0-4 EOS%) BASO % (test code = 0.2 % 0-2 BASO%) IG (test code = IG) 0 % 0-1 IG% (test code = 0.9 % 0-1 IG% = Metam yelocytes, IG%) Myelocytes, and Promyelocytes. (Immature neutr ophils not including " bands".) > 3% IG indic ates risk of sepsis NRBC% (test code = 0 /100 WBC NRBC%) ABS NEUT (test code 13.0 K/UL 1.2-7.2 H = NEUT) [id number] 03:06:00 Test Item Value Reference Range Interpretation Comments WBC (test code = 13.6 K/UL 3.5-10.9 H WBC) RBC (test code = 4.59 M/UL 4.3-5.7 RBC) HGB (test code = 15.3 G/DL 13.0-17.9 HGB) HCT (test code = 43.8 % 38-52 HCT) MCV (test code = 95.4 FL 80-98 MCV) MCH (test code = 33.3 PG 28-32 H MCH) MCHC (test code = 34.9 G/DL 32.5-36.5 MCHC) RDW (test code = 12.6 % 11.5-14.5 RDW) PLT (test code = 337 K/UL 150-450 PLT) MPV (test code = 10.5 FL 7.4-10.4 H MPV) MANDIFF (test code = NO MANDIFF) SCAN (test code = NO SCAN) NEUT% (test code = 82.1 % 40-75 H NEUT%) LYMPH% (test code = 9.9 % 24-44 L LYMPH%) MONO% (test code = 6.3 % 0-13 MONO%) EOS% (test code = 0.0 % 0-4 EOS%) BASO % (test code = 0.2 % 0-2 BASO%) IG (test code = IG) 0 % 0-1 IG% (test code = 1.5 % 0-1 H IG% = Metam yelocytes, IG%) Myelocytes, and Promyelocytes. (Immature neutr ophils not including " bands".) > 3% IG indic ates risk of sepsis NRBC% (test code = 0 /100 WBC NRBC%) ABS NEUT (test code 11.1 K/UL 1.2-7.2 H = NEUT) WHOLE BLOOD [id number] 02:40:00 Test Item Value Reference Range Interpretation Comments WHOLE BLOOD GLUCOSE 436 MG/DL 70-99 H Fastin g glucose (test code = POC GLU) normal <100 MG/DL- [employer] recommend ation WHOLE BLOOD [id number] 02:40:00 Test Item Value Reference Range Interpretation Comments WHOLE BLOOD GLUCOSE 518 MG/DL 70-99 HH Fastin g glucose (test code = POC GLU) normal <100 MG/DL- [employer] recommend ation WHOLE BLOOD [id number] 02:40:00 Test Item Value Reference Range Interpretation Comments WHOLE BLOOD GLUCOSE 545 MG/DL 70-99 HH Fastin g glucose (test code = POC GLU) normal <100 MG/DL- [employer] recommend ation WHOLE BLOOD [id number] 02:40:00 Test Item Value Reference Range Interpretation Comments WHOLE BLOOD GLUCOSE 540 MG/DL 70-99 HH Fastin g glucose (test code = POC GLU) normal <100 MG/DL- [employer] recommend ation WHOLE BLOOD [id number] 02:40:00 Test Item Value Reference Range Interpretation Comments WHOLE BLOOD GLUCOSE 573 MG/DL 70-99 Fastin g glucose (test code = POC GLU) normal <100 MG/DL- [employer] recommend ation % HEMOGLOBIN A1C (GLYCATED)2019-02-15 01:51:00 Test Item Value Reference Range Interpretation Comments HEMOGLOBIN A1C (test 11.1 % 0-6 H TH ERAPEUTIC TARGET code = GLYCO-) FOR THE TREAT MENT OF DIABETES M RANDY PATIENTS IS < 7 % HBA1C. [facility]. DIABETES CARE 2002;25:S33-S49 BMP, BASIC METABOLIC [id number] 01:47:00 Test Item Value Reference Range Interpretation Comments SODIUM (test code = 136 MMOL/L 137-145 L NA) K+ (test code = 4.4 MMOL/L 3.5-5.1 PLEASE NOTE NEW KSERUM) REFERENCE RANGE (S) IN EFFECT EFFECTIVE 010 - NEW ANALYZER (V ITROS 5600) CHLORIDE (test code 94 MMOL/L 98-107 L = CL) CO2 (test code = 14 MMOL/L 22-30 L CO2) BUN (test code = 26 MG/DL 9-20 H BUN) CREA (test code = 1.5 MG/DL 0.8-1.5 CREA) GLUCOSE (test code 497 MG/DL 70-99 HH Fasting glucose = GLUCOSE) normal <100 MG/ DL- [employer] recommendation* * CALCIUM (test code 8.3 MG/DL 8.4-10.2 L = CABLOOD) GFR (test code = 53 A GFR of >9 0 GFR) mL/min/1.73m2 mL/min/1.73m2 is considered norm al. RESULTS VERIFIED.C'd TO mat/ash/0146/[id number] 01:47:00 Test Item Value Reference Range Interpretation Comments MG (test code = MG) 2.0 mg/dL 1.6-2.3 [id number] 01:47:00 Test Item Value Reference Range Interpretation Comments PHOSPHOR (test code = PHOSPHOR) 5.0 MG/DL 2.5-4.5 H BLOOD GAS PH [id number] 00:54:00 Test Item Value Reference Range Interpretation Comments BGPHVEN (test code = BGPHVEN) 7.28 URINE DRUG [id number] 23:32:00 Test Item Value Reference Range Interpretation Comments AMPHET (test code = NEGATIVE NEGATIVE This is an unconfirmed BAMP) screening. Res ult are to be used for medical purposes (treat ment) only. Not inte nded for non-medical pur poses. Cut-off concent ration for a positive result for each drug: Amphetamine - 1 ,000 ng/ml Barbit[place] te - 200 ng/ml Benzodiaz epine - 200 ng/ml Canna binoids - 50 ng/ml Coca ine - 300 ng/ml Opiat es - 300 ng/ml PCP - 25 ng/ml BARBITURATES (test NEGATIVE NEGATIVE code = BBAR) BENZO (test code = NEGATIVE NEGATIVE BBENZ) CANNABS (test code = NEGATIVE NEGATIVE BCANN) COCAINE (test code = NEGATIVE NEGATIVE BCOC) OPIATES (test code = NEGATIVE NEGATIVE BOPI) PCP (test code = NEGATIVE NEGATIVE BMTPCP) [id number] 23:29:00 Test Item Value Reference Range Interpretation Comments BETA-HYDROXYBUTYRATE (test code 16.60 mmol/L 0.02-0.27 H = BETAHYD) [id number] 23:26:00 Test Item Value Reference Range Interpretation Comments GLUCOSE (test code = URGLU) >=1000 MG/DL NEG-100 BILIRUBN (test code = URBILI) NEGATIVE NEGATIVE KETONE (test code = URKET) >=160 MG/DL NEGATIVE BLOOD (test code = URBLD) SMALL UR PH (test code = URPH) 5.0 5.0-7.5 PROTEIN (test code = URPRO) 100 MG/DL NEGATIVE NITRITES (test code = URNIT) NEGATIVE NEGATIVE UROBILINGEN (test code = URURO) 0.2 EU/DL 0.2-1.0 LEUKOCYT (test code = URLEU) NEGATIVE NEGATIVE UA COLOR (test code = UA COLOR) YELLOW YELLOW CLARITY (test code = CLARITY) CLEAR CLEAR SP GRAV (test code = URSPGRAV) 1.025 1.000-1.025 UAMICRO (test code = UAMICRO) NO ISTAT [id number] [id number] 23:20:00 Test Item Value Reference Range Interpretation Comments ISTATNA (test code = 133 MMOL/L 137-145 L ISTATNA) ISTATK (test code = 4.5 MMOL/L 3.6-5.0 ISTATK) ISTATCL (test code = 92 MMOL/L 98-107 L ISTATCL) ISTIONCA (test code = 1.12 MMOL/L 1.12-1.32 ISTIONCA) ISTCO2 (test code = 13 MMOL/L 22-30 L ISTCO2) ISTATGLU (test code = 551 MG/DL 65-110 HH ISTATGLU) ISTATBUN (test code = 27.0 MG/DL 7.0-20.0 H ISTATBUN) ISTCREA (test code = 1.5 MG/DL 0.7-1.5 ISTCREA) ISTATHCT (test code = 57 %PCV 37.0-52.0 H ISTATHCT) ISTATHGB (test code = 19.4 G/DL 12.0-18.0 H Notifi ed Nurse/MD of ISTATHGB) results outside of Reference Range s ISTANGAP (test code = 34 MMOL/L Notifi ed Nurse/MD of ISTANGAP) results outside of Reference Range s LIVER [id number] 23:08:00 Test Item Value Reference Range Interpretation Comments TOTPROT (test code = TOTPROT) 6.7 G/DL 6.3-8.2 ALBUMIN (test code = ALBSERUM) 4.6 G/DL 3.5-5.0 BILITOT (test code = BILITOT) 0.8 MG/DL 0.2-1.3 BILIDIR (test code = BILIDIR) 0.5 MG/DL 0.0-0.4 H AST (test code = AST) 35 U/L 15-46 PHOSALK (test code = PHOSALK) 130 U/L 38-126 H ALT (test code = ALT) 82 U/L 13-69 H [id number] 23:08:00 Test Item Value Reference Range Interpretation Comments LIPASE (test code = LIPA) 127 U/L 23-300 VENOUS BLOOD [id number] 23:06:00 Test Item Value Reference Range Interpretation Comments SITE (test code = SITE) VENOUS SITE ALLENS (test code = ALLENS) N/A O2 EQUIP (test code = O2 EQUIP) RARE O2-DEVICE FIO2 (test code = FIO2) 21 % PT. RR (test code = PT. RR) 19 PH (test code = MVPH) 7.19 7.32-7.42 L PCO2 (test code = MVPCO2) 28 MMHG 41.0-51.0 L PO2 (test code = MVPO2) 37 MMHG MVHCO3 (test code = MVHCO3) 10.7 24.0-28.0 L BE (test code = MVBE) -16.0 -2.0-+2.0 L THB (test code = MVTHB) 15.4 G/DL 13.5-18 %O2 HB (test code = MV%O2 HB) 72.2 % 40.0-70.0 H %COHB (test code = MV%COHB) 3.1 % %MET HB (test code = MV%METHB) 0.4 % 0.4-1.5 BLOOD ALCOHOL (ETOH)[id number] 22:59:00 Test Item Value Reference Range Interpretation Comments ALCOHOL BLOOD LEVEL <10 MG/DL 0-10 Results are to be used (test code = ALC BLD) for me dical purposes (treatment) onl y. Not intended for no n medical purpose s. WHOLE BLOOD [id number] 21:10:00 Test Item Value Reference Range Interpretation Comments WHOLE BLOOD GLUCOSE (test code = 458 MG/DL 70-99 POC GLU) [id number] 16:45:00HEART RATE: 91 bpmRR Interval: 659 msAtrial Rate: 91 msP-R Interval: 94 msP Duration: 84 msP Horizontal [place]: 225 degP Front [place]: 264 degQ Onset: 499 msQRSD Interval: 91 msQT Interval: 409 msQTcB: 504msQTcF: 470 msQRS Horizontal [place]: -87 degQRS [place]: 100 degI-40 Horizontal [place]: 4 degI-40 Front [place]: 70 degT-40 Horizontal [place]: 262 degT-40 Front [place]: 108 degT Horizontal [place]: 94 degT Wave [place]: 97 degS-T Horizontal [place]: 100 degS-T Front [place]: 82 degECG Severity: - ABNORMAL ECG -ECG Impression: Ectopic atrial rhythmECG Impression: Right axis deviationECG Impression: Nonspecific T abnormalities,lateral leadsECG Impression: Prolonged QT intervalWHOLE BLOOD [id number] 14:30:00 Test Item Value Reference Range Interpretation Comments WHOLE BLOOD GLUCOSE (test code = 293 MG/DL 70-99 POC GLU) BMP, BASIC METABOLIC [id number] 06:41:00 Test Item Value Reference Range Interpretation Comments SODIUM (test code = 129 MMOL/L 137-145 L NA) K+ (test code = 4.2 MMOL/L 3.5-5.1 PLEASE NOTE NEW KSERUM) REFERENCE RANGE (S) IN EFFECT EFFECTIVE 010 - NEW ANALYZER (V ITROS 5600) CHLORIDE (test code 95 MMOL/L 98-107 L = CL) CO2 (test code = 21 MMOL/L 22-30 L CO2) BUN (test code = 7 MG/DL 9-20 L BUN) CREA (test code = 0.5 MG/DL 0.8-1.5 L CREA) GLUCOSE (test code 252 MG/DL 70-99 H Fasting glucose = GLUCOSE) normal <100 MG/ DL- [employer] recommendation* * CALCIUM (test code 8.1 MG/DL 8.4-10.2 L = CABLOOD) GFR (test code = 188 A GFR of >9 0 GFR) mL/min/1.73m2 mL/min/1.73m2 is considered norm al. [id number] 06:40:00 Test Item Value Reference Range Interpretation Comments BETA-HYDROXYBUTYRATE (test code = 6.06 mmol/L 0.02-0.27 H BETAHYD) [id number] 06:40:00 Test Item Value Reference Range Interpretation Comments MG (test code = MG) 1.7 mg/dL 1.6-2.3 [id number] 06:40:00 Test Item Value Reference Range Interpretation Comments PHOSPHOR (test code = PHOSPHOR) 2.5 MG/DL 2.5-4.5 [id number] 05:53:00 Test Item Value Reference Range Interpretation Comments WBC (test code = 5.6 K/UL 3.5-10.9 WBC) RBC (test code = 4.07 M/UL 4.3-5.7 L RBC) HGB (test code = 13.7 G/DL 13.0-17.9 HGB) HCT (test code = 40.6 % 38-52 HCT) MCV (test code = 99.8 FL 80-98 H MCV) MCH (test code = 33.7 PG 28-32 H MCH) MCHC (test code = 33.7 G/DL 32.5-36.5 MCHC) RDW (test code = 13.4 % 11.5-14.5 RDW) PLT (test code = 181 K/UL 150-450 PLT) MPV (test code = 11.4 FL 7.4-10.4 H MPV) MANDIFF (test code = NO MANDIFF) SCAN (test code = NO SCAN) NEUT% (test code = 59.2 % 40-75 NEUT%) LYMPH% (test code = 26.4 % 24-44 LYMPH%) MONO% (test code = 12.9 % 0-13 MONO%) EOS% (test code = 0.4 % 0-4 EOS%) BASO % (test code = 0.4 % 0-2 BASO%) IG (test code = IG) 0 % 0-1 IG% (test code = 0.7 % 0-1 IG% = Metam yelocytes, IG%) Myelocytes, and Promyelocytes. (Immature neutr ophils not including " bands".) > 3% IG indic ates risk of sepsis NRBC% (test code = 0 /100 WBC NRBC%) ABS NEUT (test code 3.3 K/UL 1.2-7.2 = NEUT) WHOLE BLOOD [id number] 21:20:00 Test Item Value Reference Range Interpretation Comments WHOLE BLOOD GLUCOSE (test code = 296 MG/DL 70-99 H POC GLU) WHOLE BLOOD [id number] 17:20:00 Test Item Value Reference Range Interpretation Comments WHOLE BLOOD GLUCOSE (test code = 206 MG/DL 70-99 POC GLU) WHOLE BLOOD [id number] 11:50:00 Test Item Value Reference Range Interpretation Comments WHOLE BLOOD GLUCOSE (test code = 220 MG/DL 70-99 POC GLU) WHOLE BLOOD [id number] 08:10:00 Test Item Value Reference Range Interpretation Comments WHOLE BLOOD GLUCOSE (test code = 281 MG/DL 70-99 POC GLU) [id number] 06:57:00 Test Item Value Reference Range Interpretation Comments WBC (test code = 9.9 K/UL 3.5-10.9 WBC) RBC (test code = 4.00 M/UL 4.3-5.7 L RBC) HGB (test code = 13.4 G/DL 13.0-17.9 HGB) HCT (test code = 38.6 % 38-52 HCT) MCV (test code = 96.5 FL 80-98 MCV) MCH (test code = 33.5 PG 28-32 H MCH) MCHC (test code = 34.7 G/DL 32.5-36.5 MCHC) RDW (test code = 13.3 % 11.5-14.5 RDW) PLT (test code = 269 K/UL 150-450 CHECKED x2 PLT) MPV (test code = 10.2 FL 7.4-10.4 MPV) MANDIFF (test code = NO MANDIFF) SCAN (test code = NO SCAN) NEUT% (test code = 74.1 % 40-75 NEUT%) LYMPH% (test code = 13.1 % 24-44 L LYMPH%) MONO% (test code = 12.0 % 0-13 MONO%) EOS% (test code = 0.1 % 0-4 EOS%) BASO % (test code = 0.3 % 0-2 BASO%) IG (test code = IG) 0 % 0-1 IG% (test code = 0.4 % 0-1 IG% = Metam yelocytes, IG%) Myelocytes, and Promyelocytes. (Immature neutr ophils not including " bands".) > 3% IG indic ates risk of sepsis NRBC% (test code = 0 /100 WBC NRBC%) ABS NEUT (test code 7.3 K/UL 1.2-7.2 H = NEUT) BMP, BASIC METABOLIC [id number] 06:29:00 Test Item Value Reference Range Interpretation Comments SODIUM (test code = 133 MMOL/L 137-145 L NA) K+ (test code = 4.3 MMOL/L 3.5-5.1 PLEASE NOTE NEW KSERUM) REFERENCE RANGE (S) IN EFFECT EFFECTIVE 010 - NEW ANALYZER (V ITROS 5600) CHLORIDE (test code 99 MMOL/L 98-107 = CL) CO2 (test code = 18 MMOL/L 22-30 L CO2) BUN (test code = 13 MG/DL 9-20 BUN) CREA (test code = 0.5 MG/DL 0.8-1.5 L CREA) GLUCOSE (test code 163 MG/DL 70-99 H Fasting glucose = GLUCOSE) normal <100 MG/ DL- [employer] recommendation* * CALCIUM (test code 7.7 MG/DL 8.4-10.2 L = CABLOOD) GFR (test code = 188 A GFR of >9 0 GFR) mL/min/1.73m2 mL/min/1.73m2 is considered norm al. [id number] 06:29:00 Test Item Value Reference Range Interpretation Comments PHOSPHOR (test code = PHOSPHOR) 2.2 MG/DL 2.5-4.5 L WHOLE BLOOD [id number] 21:40:00 Test Item Value Reference Range Interpretation Comments WHOLE BLOOD GLUCOSE (test code = 239 MG/DL 70-99 POC GLU) BMP, BASIC METABOLIC [id number] 20:32:00 Test Item Value Reference Range Interpretation Comments SODIUM (test code = 134 MMOL/L 137-145 L NA) K+ (test code = 4.4 MMOL/L 3.5-5.1 PLEASE NOTE NEW KSERUM) REFERENCE RANGE (S) IN EFFECT EFFECTIVE 010 - NEW ANALYZER (V ITROS 5600) CHLORIDE (test code 96 MMOL/L 98-107 L = CL) CO2 (test code = 16 MMOL/L 22-30 L CO2) BUN (test code = 16 MG/DL 9-20 BUN) CREA (test code = 0.7 MG/DL 0.8-1.5 L CREA) GLUCOSE (test code 268 MG/DL 70-99 H Fasting glucose = GLUCOSE) normal <100 MG/ DL- [employer] recommendation* * CALCIUM (test code 7.6 MG/DL 8.4-10.2 L = CABLOOD) GFR (test code = 127 A GFR of >9 0 GFR) mL/min/1.73m2 mL/min/1.73m2 is considered norm al. [id number] 20:32:00 Test Item Value Reference Range Interpretation Comments MG (test code = MG) 1.5 mg/dL 1.6-2.3 L [id number] 20:32:00 Test Item Value Reference Range Interpretation Comments PHOSPHOR (test code = PHOSPHOR) 3.1 MG/DL 2.5-4.5 BLOOD GAS PH [id number] 20:10:00 Test Item Value Reference Range Interpretation Comments BGPHVEN (test code = BGPHVEN) 7.40 WHOLE BLOOD [id number] 19:10:00 Test Item Value Reference Range Interpretation Comments WHOLE BLOOD GLUCOSE (test code = 279 MG/DL 70-99 H POC GLU) WHOLE BLOOD [id number] 18:30:00 Test Item Value Reference Range Interpretation Comments WHOLE BLOOD GLUCOSE (test code = 289 MG/DL 70-99 H POC GLU) [id number] 17:12:00 Test Item Value Reference Range Interpretation Comments BETA-HYDROXYBUTYRATE (test code 10.30 mmol/L 0.02-0.27 H = BETAHYD) ER SCREEN FOR HIV 16:48:00 Test Item Value Reference Range Interpretation Comments HIV 1/2 AB (test NEGATIVE NEGATIVE This test i s used for code = SCRN HIV) SCREENING p urposes only. All reactive re sults are prelimenary and confirmation re sults will follow. [id number] 15:32:00 Test Item Value Reference Range Interpretation Comments GLUCOSE (test code = URGLU) >=1000 MG/DL NEG-100 BILIRUBN (test code = URBILI) NEGATIVE NEGATIVE KETONE (test code = URKET) 80 MG/DL NEGATIVE BLOOD (test code = URBLD) MODERATE UR PH (test code = URPH) 5.5 5.0-7.5 PROTEIN (test code = URPRO) 30 MG/DL NEGATIVE NITRITES (test code = URNIT) NEGATIVE NEGATIVE UROBILINGEN (test code = URURO) 0.2 EU/DL 0.2-1.0 LEUKOCYT (test code = URLEU) NEGATIVE NEGATIVE UA COLOR (test code = UA COLOR) YELLOW YELLOW CLARITY (test code = CLARITY) CLEAR CLEAR SP GRAV (test code = URSPGRAV) 1.030 1.000-1.025 H UAMICRO (test code = UAMICRO) YES WBC (test code = URWBC) 1 /HPF 0-5 RBC (test code = URRBC) 5 /HPF 0-2 H CASTS (test code = CAST) 1 /LPF 0-3 UR EPI (test code = EPI) 4 /LPF BACTERIA (test code = BACTERIA) NEGATIVE NONE LIVER [id number] 14:29:00 Test Item Value Reference Range Interpretation Comments TOTPROT (test code = TOTPROT) 7.2 G/DL 6.3-8.2 ALBUMIN (test code = ALBSERUM) 4.8 G/DL 3.5-5.0 BILITOT (test code = BILITOT) 0.8 MG/DL 0.2-1.3 BILIDIR (test code = BILIDIR) 0.4 MG/DL 0.0-0.4 AST (test code = AST) 34 U/L 15-46 PHOSALK (test code = PHOSALK) 124 U/L 38-126 ALT (test code = ALT) 68 U/L 13-69 [id number] 14:28:00 Test Item Value Reference Range Interpretation Comments LIPASE (test code = LIPA) 48 U/L 23-300 ISTAT [id number] [id number] 14:20:00 Test Item Value Reference Range Interpretation Comments ISTATNA (test code = ISTATNA) 132 MMOL/L 137-145 L ISTATK (test code = ISTATK) 4.4 MMOL/L 3.6-5.0 ISTATCL (test code = ISTATCL) 95 MMOL/L 98-107 L ISTIONCA (test code = ISTIONCA) 1.00 MMOL/L 1.12-1.32 L ISTCO2 (test code = ISTCO2) 16 MMOL/L 22-30 L ISTATGLU (test code = ISTATGLU) 417 MG/DL 65-110 H ISTATBUN (test code = ISTATBUN) 20.0 MG/DL 7.0-20.0 ISTCREA (test code = ISTCREA) 0.9 MG/DL 0.7-1.5 ISTATHCT (test code = ISTATHCT) 49 %PCV 37.0-52.0 ISTATHGB (test code = ISTATHGB) 16.7 G/DL 12.0-18.0 ISTANGAP (test code = ISTANGAP) 26 MMOL/L [id number] 14:03:00 Test Item Value Reference Range Interpretation Comments WBC (test code = 6.4 K/UL 3.5-10.9 WBC) RBC (test code = 4.60 M/UL 4.3-5.7 RBC) HGB (test code = 15.5 G/DL 13.0-17.9 HGB) HCT (test code = 44.9 % 38-52 HCT) MCV (test code = 97.6 FL 80-98 MCV) MCH (test code = 33.7 PG 28-32 H MCH) MCHC (test code = 34.5 G/DL 32.5-36.5 MCHC) RDW (test code = 13.2 % 11.5-14.5 RDW) PLT (test code = 355 K/UL 150-450 PLT) MPV (test code = 9.6 FL 7.4-10.4 MPV) MANDIFF (test code = NO MANDIFF) SCAN (test code = NO SCAN) NEUT% (test code = 75.0 % 40-75 NEUT%) LYMPH% (test code = 17.0 % 24-44 L LYMPH%) MONO% (test code = 6.6 % 0-13 MONO%) EOS% (test code = 0.0 % 0-4 EOS%) BASO % (test code = 0.8 % 0-2 BASO%) IG (test code = IG) 0 % 0-1 IG% (test code = 0.6 % 0-1 IG% = Metam yelocytes, IG%) Myelocytes, and Promyelocytes. (Immature neutr ophils not including " bands".) > 3% IG indic ates risk of sepsis NRBC% (test code = 0 /100 WBC NRBC%) ABS NEUT (test code 4.8 K/UL 1.2-7.2 = NEUT) WHOLE BLOOD [id number] 12:05:00 Test Item Value Reference Range Interpretation Comments WHOLE BLOOD GLUCOSE (test code = 231 MG/DL 70-99 H POC GLU) BMP, BASIC METABOLIC [id number] 07:31:00 Test Item Value Reference Range Interpretation Comments SODIUM (test code = 131 MMOL/L 137-145 L NA) K+ (test code = 3.7 MMOL/L 3.5-5.1 PLEASE NOTE NEW KSERUM) REFERENCE RANGE (S) IN EFFECT EFFECTIVE 8/5/2 010 - NEW ANALYZER (V ITROS 5600) CHLORIDE (test code 97 MMOL/L 98-107 L = CL) CO2 (test code = 27 MMOL/L 22-30 CO2) BUN (test code = 5 MG/DL 9-20 L BUN) CREA (test code = 0.4 MG/DL 0.8-1.5 L CREA) GLUCOSE (test code 290 MG/DL 70-99 H Fasting glucose = GLUCOSE) normal <100 MG/ DL- [employer] recommendation* * CALCIUM (test code 8.5 MG/DL 8.4-10.2 = CABLOOD) GFR (test code = 243 A GFR of >9 0 GFR) mL/min/1.73m2 mL/min/1.73m2 is considered norm al. [id number] 07:13:00HEART RATE: 85 bpmRR Interval: 706 msAtrial Rate: 86 msP-R Interval: 134 msP Duration: 123 msP Horizontal [place]: -90 degP Front [place]: 64 degQ Onset: 502 msQRSD Interval: 88 msQT Interval: 426 msQTcB: 507 msQTcF: 478 msQRS Horizontal [place]: -90 degQRS [place]: 90 degI-40 Horizontal [place]: 5 degI-40 Front [place]: 79 degT-40 Horizontal [place]: 252 degT-40 Front [place]: 92 degT Horizontal [place]: 60 degT Wave [place]: 78degS-T Horizontal [place]: 101 degS-T Front [place]: 73 degECG Severity: - ABNORMAL ECG -ECG Impression: Sinus rhythmECG Impression: Consider left ventricular hypertrophyECG Impression: Prolonged QT [id number] 07:11:00 Test Item Value Reference Range Interpretation Comments WBC (test code = 4.5 K/UL 3.5-10.9 WBC) RBC (test code = 4.07 M/UL 4.3-5.7 L RBC) HGB (test code = 13.5 G/DL 13.0-17.9 HGB) HCT (test code = 39.5 % 38-52 HCT) MCV (test code = 97.1 FL 80-98 MCV) MCH (test code = 33.2 PG 28-32 H MCH) MCHC (test code = 34.2 G/DL 32.5-36.5 MCHC) RDW (test code = 12.5 % 11.5-14.5 RDW) PLT (test code = 167 K/UL 150-450 PLT) MPV (test code = 10.1 FL 7.4-10.4 MPV) MANDIFF (test code = NO MANDIFF) SCAN (test code = NO SCAN) NEUT% (test code = 58.7 % 40-75 NEUT%) LYMPH% (test code = 30.8 % 24-44 LYMPH%) MONO% (test code = 9.0 % 0-13 MONO%) EOS% (test code = 0.9 % 0-4 EOS%) BASO % (test code = 0.4 % 0-2 BASO%) IG (test code = IG) 0 % 0-1 IG% (test code = 0.2 % 0-1 IG% = Metam yelocytes, IG%) Myelocytes, and Promyelocytes. (Immature neutr ophils not including " bands".) > 3% IG indic ates risk of sepsis NRBC% (test code = 0 /100 WBC NRBC%) ABS NEUT (test code 2.7 K/UL 1.2-7.2 = NEUT) WHOLE BLOOD [id number] 06:30:00 Test Item Value Reference Range Interpretation Comments WHOLE BLOOD GLUCOSE (test code = 295 MG/DL 70-99 H POC GLU) WHOLE BLOOD [id number] 22:10:00 Test Item Value Reference Range Interpretation Comments WHOLE BLOOD GLUCOSE (test code = 215 MG/DL 70-99 H POC GLU) WHOLE BLOOD [id number] 17:25:00 Test Item Value Reference Range Interpretation Comments WHOLE BLOOD GLUCOSE (test code = 209 MG/DL 70-99 POC GLU) ABDOMEN 2 [id number] 17:12:[address] [id number] IMAGING REPORTPatient Name: STEPHANIE CAMPO RDate of Service: [id number]: 48 Sex: M Order #: [id number] Room: [facility] A 2NDOB: 1970 X-Ray Number: [id number] Record Number: [id number] Hospital Number: [id number] Physician: Erin PIEDRAing Physician: PIEDRA, VINCENTABDOMEN 2 VIEWS at 1644 hours October 31, 2018:CLINICAL HISTORY: Vomiting and diarrhea; right upper quadrant abdominalpainTECHNIQUE: Supine and erect views were obtainedFINDINGS: The gas pattern is unremarkable, however, there is moderate fecalresidue seen throughout the colon to the level the rectum consistent withobstipation.there is no evidence of an impaction at the present time.There is no evidence for radiopaque calculi.Electronically Signed By: Mil Hanna M.D., 10/31/2018 5:09 PMLegally authenticated by JOSÉ Nails 2018-10-31 17:09:57WHOLE BLOOD [id number] 12:25:00 Test Item Value Reference Range Interpretation Comments WHOLE BLOOD GLUCOSE (test code = 318 MG/DL 70-99 POC GLU) [id number] 07:32:00 Test Item Value Reference Range Interpretation Comments MG (test code = MG) 1.7 mg/dL 1.6-2.3 [id number] 07:32:00 Test Item Value Reference Range Interpretation Comments PHOSPHOR (test code = PHOSPHOR) 2.6 MG/DL 2.5-4.5 AMYLASE, [id number] 07:32:00 Test Item Value Reference Range Interpretation Comments AMYLASE (test code = AMYLBLD) <30 U/L 30-110 [id number] 07:32:00 Test Item Value Reference Range Interpretation Comments SODIUM (test code = 130 MMOL/L 137-145 L NA) K+ (test code = 4.1 MMOL/L 3.5-5.1 PLEASE NOTE NEW KSERUM) REFERENCE RANGE (S) IN EFFECT EFFECTIVE 010 - NEW ANALYZER (V ITROS 5600) CHLORIDE (test code 95 MMOL/L 98-107 L = CL) CO2 (test code = 26 MMOL/L 22-30 CO2) BUN (test code = 7 MG/DL 9-20 L BUN) CREA (test code = 0.4 MG/DL 0.8-1.5 L CREA) GLUCOSE (test code 282 MG/DL 70-99 H Fasting glucose = GLUCOSE) normal <100 MG/ DL- [employer] recommendation* * CALCIUM (test code 8.2 MG/DL 8.4-10.2 L = CABLOOD) TOTPROT (test code 5.2 G/DL 6.3-8.2 L = TOTPROT) ALBUMIN (test code 3.0 G/DL 3.5-5.0 L = ALBSERUM) BILITOT (test code 0.9 MG/DL 0.2-1.3 = BILITOT) AST (test code = 46 U/L 15-46 AST) PHOSALK (test code 99 U/L 38-126 = PHOSALK) ALT (test code = 59 U/L 13-69 ALT) GFR (test code = 243 A GFR of >9 0 GFR) mL/min/1.73m2 mL/min/1.73m2 is considered norm al. [id number] 07:32:00 Test Item Value Reference Range Interpretation Comments LIPASE (test code = LIPA) 16 U/L 23-300 L [id number] 06:52:00 Test Item Value Reference Range Interpretation Comments WBC (test code = 6.3 K/UL 3.5-10.9 WBC) RBC (test code = 4.49 M/UL 4.3-5.7 RBC) HGB (test code = 14.7 G/DL 13.0-17.9 HGB) HCT (test code = 43.8 % 38-52 HCT) MCV (test code = 97.6 FL 80-98 MCV) MCH (test code = 32.7 PG 28-32 H MCH) MCHC (test code = 33.6 G/DL 32.5-36.5 MCHC) RDW (test code = 12.6 % 11.5-14.5 RDW) PLT (test code = 176 K/UL 150-450 PLT) MPV (test code = 10.1 FL 7.4-10.4 MPV) MANDIFF (test code = NO MANDIFF) SCAN (test code = NO SCAN) NEUT% (test code = 61.8 % 40-75 NEUT%) LYMPH% (test code = 29.1 % 24-44 LYMPH%) MONO% (test code = 7.5 % 0-13 MONO%) EOS% (test code = 0.8 % 0-4 EOS%) BASO % (test code = 0.3 % 0-2 BASO%) IG (test code = IG) 0 % 0-1 IG% (test code = 0.5 % 0-1 IG% = Metam yelocytes, IG%) Myelocytes, and Promyelocytes. (Immature neutr ophils not including " bands".) > 3% IG indic ates risk of sepsis NRBC% (test code = 0 /100 WBC NRBC%) ABS NEUT (test code 3.9 K/UL 1.2-7.2 = NEUT) WHOLE BLOOD [id number] 06:00:00 Test Item Value Reference Range Interpretation Comments WHOLE BLOOD GLUCOSE (test code = 325 MG/DL 70-99 H POC GLU) [id number] 22:12:00 Test Item Value Reference Range Interpretation Comments PHOSPHOR (test code = PHOSPHOR) 2.5 MG/DL 2.5-4.5 WHOLE BLOOD [id number] 20:50:00 Test Item Value Reference Range Interpretation Comments WHOLE BLOOD GLUCOSE (test code = 123 MG/DL 70-99 H POC GLU) WHOLE BLOOD [id number] 17:00:00 Test Item Value Reference Range Interpretation Comments WHOLE BLOOD GLUCOSE (test code = 196 MG/DL 70-99 H POC GLU) WHOLE BLOOD [id number] 13:35:00 Test Item Value Reference Range Interpretation Comments WHOLE BLOOD GLUCOSE (test code = 142 MG/DL 70-99 H POC GLU) WHOLE BLOOD [id number] 08:25:00 Test Item Value Reference Range Interpretation Comments WHOLE BLOOD GLUCOSE (test code = 192 MG/DL 70-99 H POC GLU) WHOLE BLOOD [id number] 08:25:00 Test Item Value Reference Range Interpretation Comments WHOLE BLOOD GLUCOSE (test code = 198 MG/DL 70-99 POC GLU) US LIMITED ABD [id number] 07:14:[address] [id number] IMAGING REPORTPatient Name: STEPHANIE CAMPO RDate of Service: 30-25-5394Ywi: 48 Sex: M Order #: [id number] [facility] 1970 X[facility] Number: [id number] Record Number: [id number] Hospital Number: [id number] Physician: JORGITO NARVAEZ Physician: FISHER, LOC TANUS LIMITED ABD ULTRASOUND 10/29/2018 6:55 PMHistory: Abdominal pain with nausea and vomiting.. Right upper quadrantabdominal pain.C omparison: NoneTechnique: Transabdominal grayscale, color Doppler, and spectral Dopplerimaging of the right upper quadrant of the abdomen was performed.Findings:The liver is normal in size. The liver is diffusely echogenic reflectinghepatic steatosis. The main portal vein is patent with color Doppler signaldemonstrating normal directional flow. There is normal venous spectralDoppler phasicity.The gallbladder is distended and normal. The common bile duct measures 5mm.The pancreas is poorly visualized due to overlying bowel gas. There appearto be echogenic calcifications within the pancreas reflecting chronicpancreatitis.The right kidney is normal.Impression:1. Hepatic steatosis.2. Pancreatic calcifications reflecting chronic pancreatitis.Electronically Signed By: Mateo Mayen M.D., 10/30/2018 7:12 AMLegally authenticated by COURTNEY GALINDO 2018-10-30 07:12:30WHOLE BLOOD [id number] 06:10:00 Test Item Value Reference Range Interpretation Comments WHOLE BLOOD GLUCOSE (test code = 182 MG/DL 70-99 H POC GLU) BMP, BASIC METABOLIC [id number] 05:28:00 Test Item Value Reference Range Interpretation Comments SODIUM (test code = 135 MMOL/L 137-145 L NA) K+ (test code = 3.9 MMOL/L 3.5-5.1 PLEASE NOTE NEW KSERUM) REFERENCE RANGE (S) IN EFFECT EFFECTIVE 010 - NEW ANALYZER (V ITROS 5600) CHLORIDE (test code 100 MMOL/L 98-107 = CL) CO2 (test code = 26 MMOL/L 22-30 CO2) BUN (test code = 9 MG/DL 9-20 BUN) CREA (test code = 0.5 MG/DL 0.8-1.5 L CREA) GLUCOSE (test code 195 MG/DL 70-99 H Fasting glucose = GLUCOSE) normal <100 MG/ DL- [employer] recommendation* * CALCIUM (test code 8.3 MG/DL 8.4-10.2 L = CABLOOD) GFR (test code = 188 A GFR of >9 0 GFR) mL/min/1.73m2 mL/min/1.73m2 is considered norm al. [id number] 05:28:00 Test Item Value Reference Range Interpretation Comments MG (test code = MG) 1.7 mg/dL 1.6-2.3 [id number] 05:28:00 Test Item Value Reference Range Interpretation Comments PHOSPHOR (test code = PHOSPHOR) 1.6 MG/DL 2.5-4.5 L [id number] 05:22:00 Test Item Value Reference Range Interpretation Comments WBC (test code = 5.7 K/UL 3.5-10.9 WBC) RBC (test code = 4.25 M/UL 4.3-5.7 L RBC) HGB (test code = 14.2 G/DL 13.0-17.9 HGB) HCT (test code = 40.4 % 38-52 HCT) MCV (test code = 95.1 FL 80-98 MCV) MCH (test code = 33.4 PG 28-32 H MCH) MCHC (test code = 35.1 G/DL 32.5-36.5 MCHC) RDW (test code = 12.7 % 11.5-14.5 RDW) PLT (test code = 200 K/UL 150-450 PLT) MPV (test code = 9.5 FL 7.4-10.4 MPV) MANDIFF (test code = NO MANDIFF) SCAN (test code = NO SCAN) NEUT% (test code = 58.7 % 40-75 NEUT%) LYMPH% (test code = 28.5 % 24-44 LYMPH%) MONO% (test code = 11.8 % 0-13 MONO%) EOS% (test code = 0.2 % 0-4 EOS%) BASO % (test code = 0.4 % 0-2 BASO%) IG (test code = IG) 0 % 0-1 IG% (test code = 0.4 % 0-1 IG% = Metam yelocytes, IG%) Myelocytes, and Promyelocytes. (Immature neutr ophils not including " bands".) > 3% IG indic ates risk of sepsis NRBC% (test code = 0 /100 WBC NRBC%) ABS NEUT (test code 3.3 K/UL 1.2-7.2 = NEUT) BLOOD GAS PH [id number] 05:04:00 Test Item Value Reference Range Interpretation Comments BGPHVEN (test code = BGPHVEN) 7.43 BG LAB VENOUS [id number] 05:04:00 Test Item Value Reference Range Interpretation Comments SITE (test code = SITE) VENOUS SITE BGLACVEN (test code = BGLACVEN) 10.0 mg/dL 6.0-18.0 WHOLE BLOOD [id number] 04:15:00 Test Item Value Reference Range Interpretation Comments WHOLE BLOOD GLUCOSE (test code = 196 MG/DL 70-99 H POC GLU) WHOLE BLOOD [id number] 03:25:00 Test Item Value Reference Range Interpretation Comments WHOLE BLOOD GLUCOSE (test code = 187 MG/DL 70-99 H POC GLU) WHOLE BLOOD [id number] 02:00:00 Test Item Value Reference Range Interpretation Comments WHOLE BLOOD GLUCOSE (test code = 211 MG/DL 70-99 H POC GLU) [id number] 00:43:00 Test Item Value Reference Range Interpretation Comments SODIUM (test code = 135 MMOL/L 137-145 L NA) K+ (test code = 4.3 MMOL/L 3.5-5.1 PLEASE NOTE NEW KSERUM) REFERENCE RANGE (S) IN EFFECT EFFECTIVE 010 - NEW ANALYZER (V ITROS 5600) CHLORIDE (test code 97 MMOL/L 98-107 L = CL) CO2 (test code = 23 MMOL/L 22-30 CO2) BUN (test code = 10 MG/DL 9-20 BUN) CREA (test code = 0.6 MG/DL 0.8-1.5 L CREA) GLUCOSE (test code 220 MG/DL 70-99 H Fasting glucose = GLUCOSE) normal <100 MG/ DL- [employer] recommendation* * CALCIUM (test code 8.9 MG/DL 8.4-10.2 = CABLOOD) TOTPROT (test code 6.1 G/DL 6.3-8.2 L = TOTPROT) ALBUMIN (test code 4.0 G/DL 3.5-5.0 = ALBSERUM) BILITOT (test code 1.4 MG/DL 0.2-1.3 H = BILITOT) AST (test code = 55 U/L 15-46 H AST) PHOSALK (test code 122 U/L 38-126 = PHOSALK) ALT (test code = 61 U/L 13-69 ALT) GFR (test code = 152 A GFR of >9 0 GFR) mL/min/1.73m2 mL/min/1.73m2 is considered norm al. BLOOD GAS [id number] 00:25:00 Test Item Value Reference Range Interpretation Comments SITE (test code = SITE) RT RAD SITE ALLENS (test code = ALLENS) POS O2 EQUIP (test code = O2 EQUIP) RARE O2-DEVICE PH (test code = BGPH) 7.42 7.35-7.45 PCO2 (test code = PCO2) 32 MMHG 34.0-45.0 L PO2 (test code = PO2) 85 MMHG 88-96 L HCO3 (test code = HCO3) 20.8 mmol/L 22.0-26.0 L BE (test code = BE) -2.7 mmol/L -2.0-2.0 L THB (test code = THB) 14.5 G/DL 13.5-18 % 02 HB (test code = ABGSAT) 93.5 % 96.0-100.0 L %COHB (test code = BGCO) 2.3 % <1.5 H % MET HB (test code = %MET HB) 0.6 % 0.4-1.5 CAO2 (test code = CAO2) 19.1 VOL% 17.6-24.3 PF/RATIO (test code = PF/RATIO) 405.0 WHOLE BLOOD [id number] 22:25:00 Test Item Value Reference Range Interpretation Comments WHOLE BLOOD GLUCOSE (test code = 185 MG/DL 70-99 H POC GLU) WHOLE BLOOD [id number] 21:05:00 Test Item Value Reference Range Interpretation Comments WHOLE BLOOD GLUCOSE (test code = 229 MG/DL 70-99 H POC GLU) BLOOD GAS [id number] 19:40:00 Test Item Value Reference Range Interpretation Comments SITE (test code = SITE) RT RAD SITE ALLENS (test code = ALLENS) POS O2 EQUIP (test code = O2 EQUIP) ROOM AIR O2-DEVICE PH (test code = BGPH) 7.42 7.35-7.45 PCO2 (test code = PCO2) 35 MMHG 34.0-45.0 PO2 (test code = PO2) 90 MMHG 88-96 HCO3 (test code = HCO3) 22.7 mmol/L 22.0-26.0 BE (test code = BE) -1.2 mmol/L -2.0-2.0 THB (test code = THB) 14.5 G/DL 13.5-18 % 02 HB (test code = ABGSAT) 92.7 % 96.0-100.0 L %COHB (test code = BGCO) 3.3 % <1.5 H % MET HB (test code = %MET HB) 0.6 % 0.4-1.5 CAO2 (test code = CAO2) 19.0 VOL% 17.6-24.3 PF/RATIO (test code = PF/RATIO) 429.0 WHOLE BLOOD [id number] 19:30:00 Test Item Value Reference Range Interpretation Comments WHOLE BLOOD GLUCOSE (test code = 253 MG/DL 70-99 H POC GLU) [id number] 19:29:00 Test Item Value Reference Range Interpretation Comments MG (test code = MG) 1.9 mg/dL 1.6-2.3 [id number] 19:29:00 Test Item Value Reference Range Interpretation Comments PHOSPHOR (test code = PHOSPHOR) 2.5 MG/DL 2.5-4.5 [id number] 19:28:00 Test Item Value Reference Range Interpretation Comments BETA-HYDROXYBUTYRATE (test code = 5.31 mmol/L 0.02-0.27 H BETAHYD) [id number] 19:28:00 Test Item Value Reference Range Interpretation Comments LIPASE (test code = LIPA) 28 U/L 23-300 [id number] 19:28:00 Test Item Value Reference Range Interpretation Comments SODIUM (test code = 136 MMOL/L 137-145 L NA) K+ (test code = 4.2 MMOL/L 3.5-5.1 PLEASE NOTE NEW KSERUM) REFERENCE RANGE (S) IN EFFECT EFFECTIVE 010 - NEW ANALYZER (V ITROS 5600) CHLORIDE (test code 96 MMOL/L 98-107 L = CL) CO2 (test code = 22 MMOL/L 22-30 CO2) BUN (test code = 11 MG/DL 9-20 BUN) CREA (test code = 0.5 MG/DL 0.8-1.5 L CREA) GLUCOSE (test code 267 MG/DL 70-99 H Fasting glucose = GLUCOSE) normal <100 MG/ DL- [employer] recommendation* * CALCIUM (test code 8.9 MG/DL 8.4-10.2 = CABLOOD) TOTPROT (test code 6.8 G/DL 6.3-8.2 = TOTPROT) ALBUMIN (test code 4.3 G/DL 3.5-5.0 = ALBSERUM) BILITOT (test code 0.9 MG/DL 0.2-1.3 = BILITOT) AST (test code = 71 U/L 15-46 H AST) PHOSALK (test code 125 U/L 38-126 = PHOSALK) ALT (test code = 63 U/L 13-69 ALT) GFR (test code = 188 A GFR of >9 0 GFR) mL/min/1.73m2 mL/min/1.73m2 is considered norm al. [id number] 19:19:00 Test Item Value Reference Range Interpretation Comments WBC (test code = 8.2 K/UL 3.5-10.9 WBC) RBC (test code = 4.68 M/UL 4.3-5.7 RBC) HGB (test code = 15.4 G/DL 13.0-17.9 HGB) HCT (test code = 45.0 % 38-52 HCT) MCV (test code = 96.2 FL 80-98 MCV) MCH (test code = 32.9 PG 28-32 H MCH) MCHC (test code = 34.2 G/DL 32.5-36.5 MCHC) RDW (test code = 12.9 % 11.5-14.5 RDW) PLT (test code = 248 K/UL 150-450 PLT) MPV (test code = 9.5 FL 7.4-10.4 MPV) MANDIFF (test code = NO MANDIFF) SCAN (test code = NO SCAN) NEUT% (test code = 73.5 % 40-75 NEUT%) LYMPH% (test code = 16.0 % 24-44 L LYMPH%) MONO% (test code = 9.7 % 0-13 MONO%) EOS% (test code = 0.0 % 0-4 EOS%) BASO % (test code = 0.4 % 0-2 BASO%) IG (test code = IG) 0 % 0-1 IG% (test code = 0.4 % 0-1 IG% = Metam yelocytes, IG%) Myelocytes, and Promyelocytes. (Immature neutr ophils not including " bands".) > 3% IG indic ates risk of sepsis NRBC% (test code = 0 /100 WBC NRBC%) ABS NEUT (test code 6.0 K/UL 1.2-7.2 = NEUT) [id number] 19:00:00 Test Item Value Reference Range Interpretation Comments GLUCOSE (test code = URGLU) >=1000 MG/DL NEG-100 BILIRUBN (test code = URBILI) NEGATIVE NEGATIVE KETONE (test code = URKET) 80 MG/DL NEGATIVE BLOOD (test code = URBLD) LARGE UR PH (test code = URPH) 6.0 5.0-7.5 PROTEIN (test code = URPRO) 300 MG/DL NEGATIVE NITRITES (test code = URNIT) NEGATIVE NEGATIVE UROBILINGEN (test code = URURO) 0.2 EU/DL 0.2-1.0 LEUKOCYT (test code = URLEU) NEGATIVE NEGATIVE UA COLOR (test code = UA COLOR) YELLOW YELLOW CLARITY (test code = CLARITY) CLEAR CLEAR SP GRAV (test code = URSPGRAV) 1.043 1.000-1.025 H UAMICRO (test code = UAMICRO) YES WBC (test code = URWBC) 1 /HPF 0-5 RBC (test code = URRBC) 94 /HPF 0-2 H CASTS (test code = CAST) 2 /LPF 0-3 UR EPI (test code = EPI) 10 /LPF BACTERIA (test code = BACTERIA) NEGATIVE NONE CHEST 1 VIEW [id number] 17:40:[address] [id number] IMAGING REPORTPatient Name: STEPHANIE CAMPO RDate of Service: [id number]: 48 Sex: M Order #: [id number] Room: [facility]: 1970 X-Ray Number: [id number] Record Number: [id number] Hospital Number: [id number] Physician: JORGITO NARVAEZ Physician: THOMAS FISHER 2 views 10/29/2018History: Abdominal pain, shortness of breath, possible DKATechnique: AP upright and supine images were obt ained.Comparison: CT of 12/04/2015Findings:Bowel gas pattern is nonspecific with some stool scattered in the colon.There is no free air. Bones and soft tissues show no acute process.Numerous punctate calcifications are again scattered in the pancreas.Impression:Possible mild ileus without bowel obstruction. Mild fecal stasis.Chest 1 view 10/29/2018History: As aboveComparison: 09/09/2018Cardiac, hilar, andmediastinal structures are within normal limits forsize. Calcification is seen in the aorta. Lungs are well-aerated and clear.No acute bony or soft tissue abnormalities are identified.Impression:Clear c hest.Electronically Signed By: Phong Chino M.D., 10/29/2018 5:37 PMLegally authenticated by ARIA PACK 2018-10-29 17:37:50ABDOMEN 2 [id number] 17:40:[address] [id number] IMAGING REPORTPatient Name: STEPHANIE CAMPO RDate of Service: [id number]: 48 Sex: M Order #: [id number] Room: ERDOB: 1970 X-Ray Number: [id number] Record Number: [id number] Hospital Number: [id number] Physician: JORGITO NARVAEZ Physician: THOMAS FISHER 2 views 10/29/2018History: Abdominal pain, shortness of breath, possible DKATechnique: AP upright and supine images were obtained.Comparison: CT of 12/04/2015Findings:Bowel gas pattern is nonspecific with some stool scattered in the colon.There is no free air. Bones and soft tissues show no acute process.Numerous punctate calcifications are again scattered in the pancreas.Impression:Possible mild ileus without bowel obstruction. Mild fecal stasis.Chest 1 view 10/29/2018History: As aboveComparison: 09/09/2018Cardiac, hilar, andmediastinal structures are within normal limits forsize. Calcification is seen in the aorta. Lungs are well-aerated and clear.No acute bony or soft tissue abnormalities are identified.Impression:Clear chest.Electronically Signed By: Phong Chino M.D., 10/29/2018 5:37 PMLegally authenticated by ARIA PACK 2018-10-29 17:37:50CT HEAD W/O [id number] 12:27:[address] [id number] IMAGING REPORTPat ient Name: STEPHANIE CAMPO RDate of Service: 28-17-8079Qho: 48 Sex: M Order #: [id number] Room: [facility]: 1970 X-Ray Number: [id number] Record Number: [id number] Hospital Number: [id number] Physician: JORGITO NARVAEZ Physician: Ant STANLEY CT brain without contrast History: Fall on 10/27/2018 now with complaints of vomiting, blurred visionand laceration/swelling around the left eyeComparison: 11/23/2015This CT exam was performed using one or more of the following dosereduction techniques: Automated exposure control, adjustment of the mAand/or kV according to patient size, or use of iterative reconstructiontechnique.Axial images were obtained through the brain without contrast.Visualized portions of the orbits, sinuses, mastoids, scalp, and skull showno clearly suspicious acute process.There is no acute intracranial hemorrhage, infarct, mass, shift, edema, orhydrocephalus. A punctate, benign calcification in the left basal gangliais stable.Impression:No suspicious acute process or adverse change.Electronically Signed By: Phong Chino M.D., 10/28/2018 12:24 PMLegally authenticated by ARIA PACK 2018-10-28 12:24:43 WHOLE BLOOD [id number] 11:25:00 Test Item Value Reference Range Interpretation Comments WHOLE BLOOD GLUCOSE (test code = 157 MG/DL 70-99 H POC GLU) BMP, BASIC METABOLIC [id number] 09:22:00 Test Item Value Reference Range Interpretation Comments SODIUM (test code = 132 MMOL/L 137-145 L NA) K+ (test code = 4.1 MMOL/L 3.5-5.1 PLEASE NOTE NEW KSERUM) REFERENCE RANGE (S) IN EFFECT EFFECTIVE 010 - NEW ANALYZER (V ITROS 5600) CHLORIDE (test code 100 MMOL/L 98-107 = CL) CO2 (test code = 26 MMOL/L 22-30 CO2) BUN (test code = 9 MG/DL 9-20 BUN) CREA (test code = 0.4 MG/DL 0.8-1.5 L CREA) GLUCOSE (test code 227 MG/DL 70-99 H Fasting glucose = GLUCOSE) normal <100 MG/ DL- [employer] recommendation* * CALCIUM (test code 8.4 MG/DL 8.4-10.2 = CABLOOD) GFR (test code = 243 A GFR of >9 0 GFR) mL/min/1.73m2 mL/min/1.73m2 is considered norm al. WHOLE BLOOD [id number] 07:40:00 Test Item Value Reference Range Interpretation Comments WHOLE BLOOD GLUCOSE (test code = 227 MG/DL 70-99 H POC GLU) [id number] 06:58:00 Test Item Value Reference Range Interpretation Comments WBC (test code = 5.5 K/UL 3.5-10.9 WBC) RBC (test code = 3.94 M/UL 4.3-5.7 L RBC) HGB (test code = 13.2 G/DL 13.0-17.9 HGB) HCT (test code = 39.6 % 38-52 HCT) MCV (test code = 100.5 FL 80-98 H MCV) MCH (test code = 33.5 PG 28-32 H MCH) MCHC (test code = 33.3 G/DL 32.5-36.5 MCHC) RDW (test code = 13.1 % 11.5-14.5 RDW) PLT (test code = 205 K/UL 150-450 PLT) MPV (test code = 9.5 FL 7.4-10.4 MPV) MANDIFF (test code = NO MANDIFF) SCAN (test code = NO SCAN) NEUT% (test code = 58.8 % 40-75 NEUT%) LYMPH% (test code = 30.0 % 24-44 LYMPH%) MONO% (test code = 9.3 % 0-13 MONO%) EOS% (test code = 0.9 % 0-4 EOS%) BASO % (test code = 0.5 % 0-2 BASO%) IG (test code = IG) 0 % 0-1 IG% (test code = 0.5 % 0-1 IG% = Metam yelocytes, IG%) Myelocytes, and Promyelocytes. (Immature neutr ophils not including " bands".) > 3% IG indic ates risk of sepsis NRBC% (test code = 0 /100 WBC NRBC%) ABS NEUT (test code 3.2 K/UL 1.2-7.2 = NEUT) WHOLE BLOOD [id number] 21:10:00 Test Item Value Reference Range Interpretation Comments WHOLE BLOOD GLUCOSE (test code = 117 MG/DL 70-99 H POC GLU) WHOLE BLOOD [id number] 19:50:00 Test Item Value Reference Range Interpretation Comments WHOLE BLOOD GLUCOSE (test code = 182 MG/DL 70-99 H POC GLU) WHOLE BLOOD [id number] 19:50:00 Test Item Value Reference Range Interpretation Comments WHOLE BLOOD GLUCOSE (test code = 467 MG/DL 70-99 HH POC GLU) [id number] 18:13:00HEART RATE: 92 bpmRR Interval: 652 msAtrial Rate: 93 msP-R Interval: 92 msP Duration: 80 msP Horizontal [place]: 168 degP Front [place]: 267 degQ Onset: 499 msQRSD Interval: 90 msQT Interval: 392 msQTcB: 485msQTcF: 452 msQRS Horizontal [place]: -79 degQRS [place]: 99 degI-40 Horizontal [place]: -18 degI-40 Front [place]: 80 degT-40 Horizontal [place]: 255 degT-40 Front [place]: 96 degT Horizontal [place]: 22 degT Wave [place]: 81 degS-T Horizontal [place]: 58 degS-T Front [place]: 28 degECG Severity: - BORDERLINE ECG -ECG Impression:Ectopic atrial rhythm WHOLE BLOOD [id number] 06:50:00 Test Item Value Reference Range Interpretation Comments WHOLE BLOOD GLUCOSE (test code = 225 MG/DL 70-99 H POC GLU) WHOLE BLOOD [id number] 03:50:00 Test Item Value Reference Range Interpretation Comments WHOLE BLOOD GLUCOSE (test code = 211 MG/DL 70-99 H POC GLU) WHOLE BLOOD [id number] 23:45:00 Test Item Value Reference Range Interpretation Comments WHOLE BLOOD GLUCOSE (test code = 197 MG/DL 70-99 H POC GLU) BMP, BASIC METABOLIC [id number] 22:26:00 Test Item Value Reference Range Interpretation Comments SODIUM (test code = 132 MMOL/L 137-145 L NA) K+ (test code = 4.4 MMOL/L 3.5-5.1 PLEASE NOTE NEW KSERUM) REFERENCE RANGE (S) IN EFFECT EFFECTIVE 010 - NEW ANALYZER (V ITROS 5600) CHLORIDE (test code 103 MMOL/L 98-107 = CL) CO2 (test code = 24 MMOL/L 22-30 CO2) BUN (test code = 14 MG/DL 9-20 BUN) CREA (test code = 0.5 MG/DL 0.8-1.5 L CREA) GLUCOSE (test code 197 MG/DL 70-99 H Fasting glucose = GLUCOSE) normal <100 MG/ DL- [employer] recommendation* * CALCIUM (test code 7.7 MG/DL 8.4-10.2 L = CABLOOD) GFR (test code = 188 A GFR of >9 0 GFR) mL/min/1.73m2 mL/min/1.73m2 is considered norm al. [id number] 22:26:00 Test Item Value Reference Range Interpretation Comments MG (test code = MG) 2.1 mg/dL 1.6-2.3 [id number] 22:26:00 Test Item Value Reference Range Interpretation Comments PHOSPHOR (test code = PHOSPHOR) 2.3 MG/DL 2.5-4.5 L BLOOD GAS PH [id number] 21:19:00 Test Item Value Reference Range Interpretation Comments BGPHVEN (test code = BGPHVEN) 7.37 WHOLE BLOOD [id number] 20:55:00 Test Item Value Reference Range Interpretation Comments WHOLE BLOOD GLUCOSE (test code = 192 MG/DL 70-99 H POC GLU) WHOLE BLOOD [id number] 19:55:00 Test Item Value Reference Range Interpretation Comments WHOLE BLOOD GLUCOSE (test code = 191 MG/DL 70-99 H POC GLU) WHOLE BLOOD [id number] 17:55:00 Test Item Value Reference Range Interpretation Comments WHOLE BLOOD GLUCOSE (test code = 217 MG/DL 70-99 H POC GLU) BMP, BASIC METABOLIC [id number] 17:42:00 Test Item Value Reference Range Interpretation Comments SODIUM (test code = 136 MMOL/L 137-145 L NA) K+ (test code = 4.4 MMOL/L 3.5-5.1 PLEASE NOTE NEW KSERUM) REFERENCE RANGE (S) IN EFFECT EFFECTIVE 010 - NEW ANALYZER (V ITROS 5600) CHLORIDE (test code 102 MMOL/L 98-107 = CL) CO2 (test code = 19 MMOL/L 22-30 L CO2) BUN (test code = 17 MG/DL 9-20 BUN) CREA (test code = 0.7 MG/DL 0.8-1.5 L CREA) GLUCOSE (test code 262 MG/DL 70-99 H Fasting glucose = GLUCOSE) normal <100 MG/ DL- [employer] recommendation* * CALCIUM (test code 8.6 MG/DL 8.4-10.2 = CABLOOD) GFR (test code = 127 A GFR of >9 0 GFR) mL/min/1.73m2 mL/min/1.73m2 is considered norm al. [id number] 17:42:00 Test Item Value Reference Range Interpretation Comments MG (test code = MG) 1.6 mg/dL 1.6-2.3 [id number] 17:42:00 Test Item Value Reference Range Interpretation Comments PHOSPHOR (test code = PHOSPHOR) 2.5 MG/DL 2.5-4.5 WHOLE BLOOD [id number] 16:50:00 Test Item Value Reference Range Interpretation Comments WHOLE BLOOD GLUCOSE (test code = 245 MG/DL 70-99 H POC GLU) WHOLE BLOOD [id number] 16:50:00 Test Item Value Reference Range Interpretation Comments WHOLE BLOOD GLUCOSE (test code = 273 MG/DL 70-99 H POC GLU) WHOLE BLOOD [id number] 16:50:00 Test Item Value Reference Range Interpretation Comments WHOLE BLOOD GLUCOSE (test code = 283 MG/DL 70-99 H POC GLU) WHOLE BLOOD [id number] 16:50:00 Test Item Value Reference Range Interpretation Comments WHOLE BLOOD GLUCOSE (test code = 300 MG/DL 70-99 H POC GLU) WHOLE BLOOD [id number] 16:50:00 Test Item Value Reference Range Interpretation Comments WHOLE BLOOD GLUCOSE (test code = 351 MG/DL 70-99 H POC GLU) WHOLE BLOOD [id number] 16:50:00 Test Item Value Reference Range Interpretation Comments WHOLE BLOOD GLUCOSE (test code = 469 MG/DL 70-99 POC GLU) VENOUS BLOOD [id number] 16:29:00 Test Item Value Reference Range Interpretation Comments SITE (test code = SITE) VENOUS SITE ALLENS (test code = ALLENS) N/A O2 EQUIP (test code = O2 EQUIP) N/A O2-DEVICE PH (test code = MVPH) 7.35 7.32-7.42 PCO2 (test code = MVPCO2) 37 MMHG 41.0-51.0 L PO2 (test code = MVPO2) 31 MMHG MVHCO3 (test code = MVHCO3) 20.4 24.0-28.0 L BE (test code = MVBE) -4.6 -2.0-+2.0 L THB (test code = MVTHB) 14.2 G/DL 13.5-18 %O2 HB (test code = MV%O2 HB) 64.3 % 40.0-70.0 %COHB (test code = MV%COHB) 2.0 % %MET HB (test code = MV%METHB) 0.6 % 0.4-1.5 [id number] 12:04:00 Test Item Value Reference Range Interpretation Comments GLUCOSE (test code = URGLU) >=1000 MG/DL NEG-100 BILIRUBN (test code = URBILI) NEGATIVE NEGATIVE KETONE (test code = URKET) >1=160 MG/DL NEGATIVE BLOOD (test code = URBLD) MODERATE UR PH (test code = URPH) 5.0 5.0-7.5 PROTEIN (test code = URPRO) 100 MG/DL NEGATIVE NITRITES (test code = URNIT) NEGATIVE NEGATIVE UROBILINGEN (test code = URURO) 0.2 EU/DL 0.2-1.0 LEUKOCYT (test code = URLEU) NEGATIVE NEGATIVE UA COLOR (test code = UA COLOR) YELLOW YELLOW CLARITY (test code = CLARITY) CLEAR CLEAR SP GRAV (test code = URSPGRAV) 1.025 1.000-1.025 UAMICRO (test code = UAMICRO) YES WBC (test code = URWBC) 1 /HPF 0-5 RBC (test code = URRBC) 2 /HPF 0-2 CASTS (test code = CAST) 0 /LPF 0-3 UR EPI (test code = EPI) 4 /LPF BACTERIA (test code = BACTERIA) NEGATIVE NONE [id number] 11:41:00 Test Item Value Reference Range Interpretation Comments BETA-HYDROXYBUTYRATE (test code >18.0 mmol/L 0.02-0.27 H = BETAHYD) [id number] 11:13:00 Test Item Value Reference Range Interpretation Comments WBC (test code = 8.7 K/UL 3.5-10.9 WBC) RBC (test code = 4.76 M/UL 4.3-5.7 RBC) HGB (test code = 16.0 G/DL 13.0-17.9 HGB) HCT (test code = 47.7 % 38-52 HCT) MCV (test code = 100.2 FL 80-98 H MCV) MCH (test code = 33.6 PG 28-32 H MCH) MCHC (test code = 33.5 G/DL 32.5-36.5 MCHC) RDW (test code = 13.4 % 11.5-14.5 RDW) PLT (test code = 351 K/UL 150-450 PLT) MPV (test code = 10.6 FL 7.4-10.4 H MPV) MANDIFF (test code = NO MANDIFF) SCAN (test code = NO SCAN) NEUT% (test code = 83.4 % 40-75 H NEUT%) LYMPH% (test code = 9.4 % 24-44 L LYMPH%) MONO% (test code = 4.5 % 0-13 MONO%) EOS% (test code = 0.1 % 0-4 EOS%) BASO % (test code = 0.5 % 0-2 BASO%) IG (test code = IG) 0 % 0-1 IG% (test code = 2.1 % 0-1 H IG% = Metam yelocytes, IG%) Myelocytes, and Promyelocytes. (Immature neutr ophils not including " bands".) > 3% IG indic ates risk of sepsis NRBC% (test code = 0 /100 WBC NRBC%) ABS NEUT (test code 7.2 K/UL 1.2-7.2 = NEUT) [id number] 11:10:00 Test Item Value Reference Range Interpretation Comments LIPASE (test code = LIPA) 100 U/L 23-300 LIVER [id number] 11:10:00 Test Item Value Reference Range Interpretation Comments TOTPROT (test code = TOTPROT) 8.1 G/DL 6.3-8.2 ALBUMIN (test code = ALBSERUM) 5.5 G/DL 3.5-5.0 H BILITOT (test code = BILITOT) 0.9 MG/DL 0.2-1.3 BILIDIR (test code = BILIDIR) 0.5 MG/DL 0.0-0.4 H AST (test code = AST) 45 U/L 15-46 PHOSALK (test code = PHOSALK) 285 U/L 38-126 H ALT (test code = ALT) 290 U/L 13-69 H ISTAT [id number] 10:40:00 Test Item Value Reference Range Interpretation Comments ISTATNA (test code = ISTATNA) 130 MMOL/L 137-145 L ISTATK (test code = ISTATK) 5.1 MMOL/L 3.6-5.0 H ISTATCL (test code = ISTATCL) 93 MMOL/L 98-107 L ISTIONCA (test code = ISTIONCA) 1.09 MMOL/L 1.12-1.32 L ISTCO2 (test code = ISTCO2) 10 MMOL/L 22-30 LL ISTATGLU (test code = ISTATGLU) 584 MG/DL 65-110 HH ISTATBUN (test code = ISTATBUN) 23.0 MG/DL 7.0-20.0 H ISTCREA (test code = ISTCREA) 0.8 MG/DL 0.7-1.5 ISTATHCT (test code = ISTATHCT) 52 %PCV 37.0-52.0 ISTATHGB (test code = ISTATHGB) 17.7 G/DL 12.0-18.0 ISTANGAP (test code = ISTANGAP) 33 MMOL/L BLOOD GAS [id number] 10:17:00 Test Item Value Reference Range Interpretation Comments SITE (test code = SITE) RTBRACH SITE ALLENS (test code = ALLENS) POS O2 EQUIP (test code = O2 EQUIP) N/A O2-DEVICE FIO2 (test code = FIO2) 21 % PH (test code = BGPH) 7.21 7.35-7.45 LL PCO2 (test code = PCO2) 14 MMHG 34.0-45.0 LL PO2 (test code = PO2) 124 MMHG 88-96 H HCO3 (test code = HCO3) 5.6 mmol/L 22.0-26.0 L BE (test code = BE) -19.6 mmol/L -2.0-2.0 L THB (test code = THB) 14.4 G/DL 13.5-18 % 02 HB (test code = ABGSAT) 95.0 % 96.0-100.0 L %COHB (test code = BGCO) 1.5 % <1.5 % MET HB (test code = %MET HB) 0.6 % 0.4-1.5 CAO2 (test code = CAO2) 19.4 VOL% 17.6-24.3 PF/RATIO (test code = PF/RATIO) 590.0 RSLTS VERIFIED.GIVEN TO bv to dr. emanuel aleman 10/03/18 1017 by tom amato rrtEKG 2018-09-13 06:51:00HEART RATE: 80 bpmRR Interval: 750 msAtrial Rate: 81 msP-R Interval: 129 msP Duration: 94 msP Horizontal [place]: -32 degP Front [place]: 73 degQ Onset: 499 msQRSD Interval: 93 msQT Interval: 422 msQTcB: 487msQTcF: 464 msQRS Horizontal [place]: -73 degQRS [place]: 93 degI-40 Horizontal [place]: 10 degI-40 Front [place]: 70 degT-40 Horizontal [place]: 267 degT-40 Front [place]: 99 degT Horizontal [place]: 28 degT Wave [place]: 78degS-T Horizontal [place]: 74 degS-T Front [place]: 62 degECG Severity: - BORDERLINE ECG -ECG Impression: Sinus rhythmECG Impression: Probable left atrial enlargementECG Impression: Prolonged QT intervalEKG 2018-09-12 10:26:00HEART RATE: 81 bpmRR Interval: 741 msAtrial Rate: 81 msP-R Interval: 121 msP Duration: 89 msP Horizontal [place]: -1 degP Front [place]: 77 degQ Onset: 499 msQRSD Interval: 88 msQT Interval: 402 msQTcB: 467 msQTcF: 444 msQRS Horizontal [place]: -56 degQRS [place]: 99 degI-40 Horizontal [place]: 10 degI-40 Front [place]: 93 degT-40 Horizontal [place]: -74 degT-40 Front [place]: 102 degT Horizontal [place]: 34 degT Wave [place]: 75degS-T Horizontal [place]: 81 degS-T Front [place]: 56 degECG Severity: - NORMAL ECG -ECG Impression: Sinus rhythmWHOLE BLOOD GLUCOSE 2018-09-10 07:25:00 Test Item Value Reference Range Interpretation Comments WHOLE BLOOD GLUCOSE (test code = POC 85 MG/DL 70-99 GLU) [id number] 07:07:00 Test Item Value Reference Range Interpretation Comments WBC (test code = 7.5 K/UL 3.5-10.9 WBC) RBC (test code = 3.89 M/UL 4.3-5.7 L RBC) HGB (test code = 12.9 G/DL 13.0-17.9 L HGB) HCT (test code = 36.4 % 38-52 L HCT) MCV (test code = 93.6 FL 80-98 MCV) MCH (test code = 33.2 PG 28-32 H MCH) MCHC (test code = 35.4 G/DL 32.5-36.5 MCHC) RDW (test code = 13.0 % 11.5-14.5 RDW) PLT (test code = 189 K/UL 150-450 PLT) MPV (test code = 10.3 FL 7.4-10.4 MPV) MANDIFF (test code = NO MANDIFF) SCAN (test code = NO SCAN) NEUT% (test code = 68.4 % 40-75 NEUT%) LYMPH% (test code = 21.8 % 24-44 L LYMPH%) MONO% (test code = 8.0 % 0-13 MONO%) EOS% (test code = 0.3 % 0-4 EOS%) BASO % (test code = 0.3 % 0-2 BASO%) IG (test code = IG) 0 % 0-1 IG% (test code = 1.2 % 0-1 H IG% = Metam yelocytes, IG%) Myelocytes, and Promyelocytes. (Immature neutr ophils not including " bands".) > 3% IG indic ates risk of sepsis NRBC% (test code = 0 /100 WBC NRBC%) ABS NEUT (test code 5.1 K/UL 1.2-7.2 = NEUT) [id number] 07:05:00 Test Item Value Reference Range Interpretation Comments MG (test code = MG) 1.7 mg/dL 1.6-2.3 [id number] 07:05:00 Test Item Value Reference Range Interpretation Comments SODIUM (test code = 131 MMOL/L 137-145 L NA) K+ (test code = 3.8 MMOL/L 3.5-5.1 PLEASE NOTE NEW KSERUM) REFERENCE RANGE (S) IN EFFECT EFFECTIVE 010 - NEW ANALYZER (V ITROS 5600) CHLORIDE (test code 100 MMOL/L 98-107 = CL) CO2 (test code = 27 MMOL/L 22-30 CO2) BUN (test code = 10 MG/DL 9-20 BUN) CREA (test code = 0.5 MG/DL 0.8-1.5 L CREA) GLUCOSE (test code 28 MG/DL 70-99 LL Fasting glucose = GLUCOSE) normal <100 MG/ DL- [employer] recommendation* * CALCIUM (test code 8.3 MG/DL 8.4-10.2 L = CABLOOD) TOTPROT (test code 5.2 G/DL 6.3-8.2 L = TOTPROT) ALBUMIN (test code 3.0 G/DL 3.5-5.0 L = ALBSERUM) BILITOT (test code 0.6 MG/DL 0.2-1.3 = BILITOT) AST (test code = 32 U/L 15-46 AST) PHOSALK (test code 118 U/L 38-126 = PHOSALK) ALT (test code = 55 U/L 13-69 ALT) GFR (test code = 188 A GFR of >9 0 GFR) mL/min/1.73m2 mL/min/1.73m2 is considered norm al. RESULTS VERIFIED.C'd TO s/carrol turner/0704/luisURINE DRUG [id number] 23:04:00 Test Item Value Reference Range Interpretation Comments AMPHET (test code = NEGATIVE NEGATIVE This is an unconfirmed BAMP) screening. Res ult are to be used for medical purposes (treat ment) only. Not inte nded for non-medical pur poses. Cut-off concent ration for a positive result for each drug: Amphetamine - 1 ,000 ng/ml Barbitura te - 200 ng/ml Benzodiaz epine - 200 ng/ml Canna binoids - 50 ng/ml Coca ine - 300 ng/ml Opiat es - 300 ng/ml PCP - 25 ng/ml BARBITURATES (test NEGATIVE NEGATIVE code = BBAR) BENZO (test code = NEGATIVE NEGATIVE BBENZ) CANNABS (test code = POSITIVE NEGATIVE A BCANN) COCAINE (test code = NEGATIVE NEGATIVE BCOC) OPIATES (test code = POSITIVE NEGATIVE A BOPI) PCP (test code = NEGATIVE NEGATIVE BMTPCP) WHOLE BLOOD [id number] 21:40:00 Test Item Value Reference Range Interpretation Comments WHOLE BLOOD GLUCOSE (test code = 169 MG/DL 70-99 H POC GLU) FREE [id number] 21:31:00 Test Item Value Reference Range Interpretation Comments FREE T3 (test code = T3FREE) 1.70 pg/mL 2.77-5.27 L THYROID STIMULATION [id number] 18:49:00 Test Item Value Reference Range Interpretation Comments TSH (test code = TSH) 0.63 UIU/ML 0.465-4.68 FREE [id number] 18:49:00 Test Item Value Reference Range Interpretation Comments FT4 (test code = FT4) 0.97 ng/dL 0.78-2.19 % HEMOGLOBIN A1C (GLYCATED)2018-09-09 18:47:00 Test Item Value Reference Range Interpretation Comments HEMOGLOBIN A1C (test 11.2 % 0-6 H TH ERAPEUTIC TARGET code = GLYCO-) FOR THE TREAT MENT OF DIABETES M RANDY PATIENTS IS < 7 % HBA1C. [employer]. DIABETES CARE 2002;25:S33-S49 WHOLE BLOOD [id number] 17:30:00 Test Item Value Reference Range Interpretation Comments WHOLE BLOOD GLUCOSE (test code = 216 MG/DL 70-99 H POC GLU) CHEST XR 2 [id number] 17:01:[address] [id number] IMAGING REPORTPatient Name: STEPHANIE CAMPO RDate of Service: 18-05-2538Fii: 48 Sex: M Order #: [id number] Room: [facility] 4SDOB: 1970 X-Ray Number: [id number] Record Number: [id number] Hospital Number: [id number] Physician: MICHAEL FERRER Physician: UNA CABALLERO.09/09/2018 4:43 PMHistory: Short of breath.Technique: PA and lateral chest projections.Findings: PA and lateral views of the chest demonstrate normal heart sizeand clear lungs. No infiltrates or abnormalities are depicted. The osseousstructures appear intact.Impression:No acute-appearing cardiopulmonary abnormalities.Electronically Signed By: Tanner Verdugo M.D., 09/09/2018 4:59 PMLegally authenticated by ABBI Dash 2018-09-09 16:59:11BMP, BASIC METABOLIC [id number] 16:32:00 Test Item Value Reference Range Interpretation Comments SODIUM (test code = 133 MMOL/L 137-145 L NA) K+ (test code = 4.9 MMOL/L 3.5-5.1 PLEASE NOTE NEW KSERUM) REFERENCE RANGE (S) IN EFFECT EFFECTIVE 010 - NEW ANALYZER (V ITROS 5600) CHLORIDE (test code 96 MMOL/L 98-107 L = CL) CO2 (test code = 27 MMOL/L 22-30 CO2) BUN (test code = 13 MG/DL 9-20 BUN) CREA (test code = 0.8 MG/DL 0.8-1.5 CREA) GLUCOSE (test code 315 MG/DL 70-99 H Fasting glucose = GLUCOSE) normal <100 MG/ DL- [employer] recommendation* * CALCIUM (test code 8.7 MG/DL 8.4-10.2 = CABLOOD) GFR (test code = 109 A GFR of >9 0 GFR) mL/min/1.73m2 mL/min/1.73m2 is considered norm al. [id number] 16:32:00 Test Item Value Reference Range Interpretation Comments MG (test code = MG) 2.1 mg/dL 1.6-2.3 [id number] 16:32:00 Test Item Value Reference Range Interpretation Comments PHOSPHOR (test code = PHOSPHOR) 3.3 MG/DL 2.5-4.5 WHOLE BLOOD [id number] 11:40:00 Test Item Value Reference Range Interpretation Comments WHOLE BLOOD GLUCOSE (test code = 344 MG/DL 70-99 H POC GLU) [id number] 11:05:00 Test Item Value Reference Range Interpretation Comments MG (test code = MG) 2.4 mg/dL 1.6-2.3 H [id number] 11:05:00 Test Item Value Reference Range Interpretation Comments PHOSPHOR (test code = PHOSPHOR) 3.2 MG/DL 2.5-4.5 BMP, BASIC METABOLIC [id number] 11:04:00 Test Item Value Reference Range Interpretation Comments SODIUM (test code = 137 MMOL/L 137-145 NA) K+ (test code = 5.3 MMOL/L 3.5-5.1 H PLEASE NOTE NEW KSERUM) REFERENCE RANGE (S) IN EFFECT EFFECTIVE 010 - NEW ANALYZER (V ITROS 5600) CHLORIDE (test code 99 MMOL/L 98-107 = CL) CO2 (test code = 26 MMOL/L 22-30 CO2) BUN (test code = 12 MG/DL 9-20 BUN) CREA (test code = 0.6 MG/DL 0.8-1.5 L CREA) GLUCOSE (test code 261 MG/DL 70-99 H Fasting glucose = GLUCOSE) normal <100 MG/ DL- [employer] recommendation* * CALCIUM (test code 8.7 MG/DL 8.4-10.2 = CABLOOD) GFR (test code = 152 A GFR of >9 0 GFR) mL/min/1.73m2 mL/min/1.73m2 is considered norm al. % HEMOGLOBIN A1C (GLYCATED)2018-09-09 10:04:00 Test Item Value Reference Range Interpretation Comments HEMOGLOBIN A1C (test 11.0 % 0-6 H TH ERAPEUTIC TARGET code = GLYCO-) FOR THE TREAT MENT OF DIABETES M RANDY PATIENTS IS < 7 % HBA1C. [employer]. DIABETES CARE 2002;25:S33-S49 WHOLE BLOOD [id number] 08:40:00 Test Item Value Reference Range Interpretation Comments WHOLE BLOOD GLUCOSE (test code = 143 MG/DL 70-99 H POC GLU) WHOLE BLOOD [id number] 08:15:00 Test Item Value Reference Range Interpretation Comments WHOLE BLOOD GLUCOSE (test code = 147 MG/DL 70-99 POC GLU) WHOLE BLOOD [id number] 07:45:00 Test Item Value Reference Range Interpretation Comments WHOLE BLOOD GLUCOSE (test code = 150 MG/DL 70-99 POC GLU) WHOLE BLOOD [id number] 07:45:00 Test Item Value Reference Range Interpretation Comments WHOLE BLOOD GLUCOSE (test code = 160 MG/DL 70-99 H POC GLU) WHOLE BLOOD [id number] 07:45:00 Test Item Value Reference Range Interpretation Comments WHOLE BLOOD GLUCOSE (test code = 117 MG/DL 70-99 H POC GLU) BMP, BASIC METABOLIC [id number] 06:51:00 Test Item Value Reference Range Interpretation Comments SODIUM (test code = 138 MMOL/L 137-145 NA) K+ (test code = 3.9 MMOL/L 3.5-5.1 PLEASE NOTE NEW KSERUM) REFERENCE RANGE (S) IN EFFECT EFFECTIVE 010 - NEW ANALYZER (V ITROS 5600) CHLORIDE (test code 104 MMOL/L 98-107 = CL) CO2 (test code = 23 MMOL/L 22-30 CO2) BUN (test code = 12 MG/DL 9-20 BUN) CREA (test code = 0.6 MG/DL 0.8-1.5 L CREA) GLUCOSE (test code 116 MG/DL 70-99 H Fasting glucose = GLUCOSE) normal <100 MG/ DL- [employer] recommendation* * CALCIUM (test code 8.6 MG/DL 8.4-10.2 = CABLOOD) GFR (test code = 152 A GFR of >9 0 GFR) mL/min/1.73m2 mL/min/1.73m2 is considered norm al. [id number] 06:51:00 Test Item Value Reference Range Interpretation Comments MG (test code = MG) 1.8 mg/dL 1.6-2.3 [id number] 06:51:00 Test Item Value Reference Range Interpretation Comments PHOSPHOR (test code = PHOSPHOR) 2.1 MG/DL 2.5-4.5 L WHOLE BLOOD [id number] 05:00:00 Test Item Value Reference Range Interpretation Comments WHOLE BLOOD GLUCOSE (test code = 118 MG/DL 70-99 H POC GLU) WHOLE BLOOD [id number] 03:50:00 Test Item Value Reference Range Interpretation Comments WHOLE BLOOD GLUCOSE (test code = 214 MG/DL 70-99 H POC GLU) [id number] 03:46:00 Test Item Value Reference Range Interpretation Comments CALCIUM (test code = CABLOOD) 9.0 MG/DL 8.4-10.2 WHOLE BLOOD [id number] 03:00:00 Test Item Value Reference Range Interpretation Comments WHOLE BLOOD GLUCOSE (test code = 235 MG/DL 70-99 H POC GLU) WHOLE BLOOD [id number] 01:55:00 Test Item Value Reference Range Interpretation Comments WHOLE BLOOD GLUCOSE (test code = 254 MG/DL 70-99 H POC GLU) BLOOD GAS PH [id number] 01:50:00 Test Item Value Reference Range Interpretation Comments BGPHVEN (test code = BGPHVEN) 7.33 BG LAB VENOUS [id number] 01:45:00 Test Item Value Reference Range Interpretation Comments SITE (test code = SITE) IV SITE BGLACVEN (test code = BGLACVEN) 13.0 mg/dL 6.0-18.0 [id number] 01:32:00 Test Item Value Reference Range Interpretation Comments MG (test code = MG) 1.8 mg/dL 1.6-2.3 [id number] 01:32:00 Test Item Value Reference Range Interpretation Comments PHOSPHOR (test code = PHOSPHOR) 4.2 MG/DL 2.5-4.5 WHOLE BLOOD [id number] 00:00:00 Test Item Value Reference Range Interpretation Comments WHOLE BLOOD GLUCOSE (test code = 335 MG/DL 70-99 H POC GLU) [id number] 23:34:00 Test Item Value Reference Range Interpretation Comments BETA-HYDROXYBUTYRATE (test code 13.50 mmol/L 0.02-0.27 H = BETAHYD) [id number] 23:13:00 Test Item Value Reference Range Interpretation Comments GLUCOSE (test code = URGLU) >=1000 MG/DL NEG-100 BILIRUBN (test code = URBILI) NEGATIVE NEGATIVE KETONE (test code = URKET) 80 MG/DL NEGATIVE BLOOD (test code = URBLD) MODERATE UR PH (test code = URPH) 5.0 5.0-7.5 PROTEIN (test code = URPRO) 100 MG/DL NEGATIVE NITRITES (test code = URNIT) NEGATIVE NEGATIVE UROBILINGEN (test code = URURO) 0.2 EU/DL 0.2-1.0 LEUKOCYT (test code = URLEU) NEGATIVE NEGATIVE UA COLOR (test code = UA COLOR) YELLOW YELLOW CLARITY (test code = CLARITY) CLEAR CLEAR SP GRAV (test code = URSPGRAV) 1.031 1.000-1.025 H UAMICRO (test code = UAMICRO) YES WBC (test code = URWBC) 0 /HPF 0-5 RBC (test code = URRBC) 7 /HPF 0-2 H CASTS (test code = CAST) 1 /LPF 0-3 UR EPI (test code = EPI) 4 /LPF BACTERIA (test code = BACTERIA) NEGATIVE NONE [id number] 23:10:00 Test Item Value Reference Range Interpretation Comments LIPASE (test code = LIPA) 147 U/L 23-300 LIVER [id number] 23:10:00 Test Item Value Reference Range Interpretation Comments TOTPROT (test code = TOTPROT) 6.2 G/DL 6.3-8.2 L ALBUMIN (test code = ALBSERUM) 4.1 G/DL 3.5-5.0 BILITOT (test code = BILITOT) 0.9 MG/DL 0.2-1.3 BILIDIR (test code = BILIDIR) 0.8 MG/DL 0.0-0.4 H AST (test code = AST) 44 U/L 15-46 PHOSALK (test code = PHOSALK) 171 U/L 38-126 H ALT (test code = ALT) 67 U/L 13-69 [id number] 22:51:00 Test Item Value Reference Range Interpretation Comments WBC (test code = 5.3 K/UL 3.5-10.9 WBC) RBC (test code = 4.63 M/UL 4.3-5.7 RBC) HGB (test code = 15.3 G/DL 13.0-17.9 HGB) HCT (test code = 44.9 % 38-52 HCT) MCV (test code = 97.0 FL 80-98 MCV) MCH (test code = 33.0 PG 28-32 H MCH) MCHC (test code = 34.1 G/DL 32.5-36.5 MCHC) RDW (test code = 13.1 % 11.5-14.5 RDW) PLT (test code = 242 K/UL 150-450 PLT) MPV (test code = 10.3 FL 7.4-10.4 MPV) MANDIFF (test code = NO MANDIFF) SCAN (test code = NO SCAN) NEUT% (test code = 78.0 % 40-75 H NEUT%) LYMPH% (test code = 15.6 % 24-44 L LYMPH%) MONO% (test code = 4.9 % 0-13 MONO%) EOS% (test code = 0.0 % 0-4 EOS%) BASO % (test code = 0.6 % 0-2 BASO%) IG (test code = IG) 0 % 0-1 IG% (test code = 0.9 % 0-1 IG% = Metam yelocytes, IG%) Myelocytes, and Promyelocytes. (Immature neutr ophils not including " bands".) > 3% IG indic ates risk of sepsis NRBC% (test code = 0 /100 WBC NRBC%) ABS NEUT (test code 4.2 K/UL 1.2-7.2 = NEUT) BG LAB VENOUS [id number] 22:42:00 Test Item Value Reference Range Interpretation Comments SITE (test code = IV SITE SITE) BGLACVEN (test code = 36.0 mg/dL 6.0-18.0 HH RSLTS VERIFIED.GIVEN BGLACVEN) TO DR GARCIA/ER/03-19/BR IDRISA PERRICONE DIRECT[employer] RSLTS VERIFIED.GIVEN TO DR GARCIA/ER/09-08-18/DANNY PERRICONE RRTISTAT CHEM 8 2018-09-08 22:15:00 Test Item Value Reference Range Interpretation Comments ISTATNA (test code = ISTATNA) 132 MMOL/L 137-145 L ISTATK (test code = ISTATK) 4.3 MMOL/L 3.6-5.0 ISTATCL (test code = ISTATCL) 96 MMOL/L 98-107 L ISTIONCA (test code = ISTIONCA) 1.05 MMOL/L 1.12-1.32 L ISTCO2 (test code = ISTCO2) 14 MMOL/L 22-30 L ISTATGLU (test code = ISTATGLU) 429 MG/DL 65-110 H ISTATBUN (test code = ISTATBUN) 13.0 MG/DL 7.0-20.0 ISTCREA (test code = ISTCREA) 0.7 MG/DL 0.7-1.5 ISTATHCT (test code = ISTATHCT) 45 %PCV 37.0-52.0 ISTATHGB (test code = ISTATHGB) 15.3 G/DL 12.0-18.0 ISTANGAP (test code = ISTANGAP) 27 MMOL/L WHOLE BLOOD [id number] 19:05:00 Test Item Value Reference Range Interpretation Comments WHOLE BLOOD GLUCOSE (test code = 176 MG/DL 70-99 H POC GLU) WHOLE BLOOD [id number] 18:15:00 Test Item Value Reference Range Interpretation Comments WHOLE BLOOD GLUCOSE (test code = 184 MG/DL 70-99 H POC GLU) WHOLE BLOOD [id number] 16:30:00 Test Item Value Reference Range Interpretation Comments WHOLE BLOOD GLUCOSE (test code = POC 25 MG/DL 70-99 LL GLU) [id number] 15:18:00 Test Item Value Reference Range Interpretation Comments LIPASE (test code = LIPA) 44 U/L 23-300 US LIMITED ABD [id number] 15:13:[address] [id number] IMAGING REPORTPatient Name: STEPHANIE CAMPO RDate of Service: 21-72-8605Srf: 48 Sex: M Order #: [id number] [facility] 1970 [facility] Number: [id number] Record Number: [id number] Hospital Number: [id number] Physician: JORGITO NARVAEZ Physician: THOMAS FISHER TANULTRASOUND ABDOMEN LIMITED RIGHT UPPER QUADRANT 245 p.m.HISTORY: Abdominal pain, pancreatitisFINDINGS:The liver is unremarkable wit hout mass lesion.The visualized portions of the portal vein, aorta and IVC are patent.There are no gallstones, pericholecystic fluid or gallbladder wallthickening.The common bile duct is not dilated.Evaluation of the pancreas is somewhat limited due to bowel gas. There arecalcifications within the pancreas consistent with chronic pancreatitis.There is no ascites in the right upper quadrant.The right kidney is sonographically unremarkable.IMPRESSION:Pancreatic calcifications consistent with chronic pancreatitis. Otherwiseunremarkable ultrasound right upper quadrant.Electronically Signed By: Stan Laughlin M.D., 08/26/2018 3:11 PMLegally authenticated by JERARDO REBOLLEDO 2018-08-26 15:11:18VENOUS BLOOD [id number] 14:50:00 Test Item Value Reference Range Interpretation Comments SITE (test code = SITE) VENOUS SITE ALLENS (test code = ALLENS) NA O2 EQUIP (test code = O2 EQUIP) NA O2-DEVICE FIO2 (test code = FIO2) 21% % PH (test code = MVPH) 7.42 7.32-7.42 PCO2 (test code = MVPCO2) 42 MMHG 41.0-51.0 PO2 (test code = MVPO2) 53 MMHG MVHCO3 (test code = MVHCO3) 27.2 24.0-28.0 BE (test code = MVBE) 2.4 -2.0-+2.0 H THB (test code = MVTHB) 14.1 G/DL 13.5-18 %O2 HB (test code = MV%O2 HB) 88.5 % 40.0-70.0 H %COHB (test code = MV%COHB) 3.3 % %MET HB (test code = MV%METHB) 0.6 % 0.4-1.5 BG LAB VENOUS [id number] 14:50:00 Test Item Value Reference Range Interpretation Comments SITE (test code = SITE) VENOUS SITE BGLACVEN (test code = BGLACVEN) 8.0 mg/dL 6.0-18.0 [id number] 13:29:00 Test Item Value Reference Range Interpretation Comments SODIUM (test code = 136 MMOL/L 137-145 L NA) K+ (test code = 3.7 MMOL/L 3.5-5.1 PLEASE NOTE NEW KSERUM) REFERENCE RANGE (S) IN EFFECT EFFECTIVE 010 - NEW ANALYZER (V [employer] TechnologiesOS 5600) CHLORIDE (test code 102 MMOL/L 98-107 = CL) CO2 (test code = 28 MMOL/L 22-30 CO2) BUN (test code = 10 MG/DL 9-20 BUN) CREA (test code = 0.4 MG/DL 0.8-1.5 L CREA) GLUCOSE (test code 252 MG/DL 70-99 H Fasting glucose = GLUCOSE) normal <100 MG/ DL- [employer] recommendation* * CALCIUM (test code 8.6 MG/DL 8.4-10.2 = CABLOOD) TOTPROT (test code 5.5 G/DL 6.3-8.2 L = TOTPROT) ALBUMIN (test code 3.3 G/DL 3.5-5.0 L = ALBSERUM) BILITOT (test code 0.4 MG/DL 0.2-1.3 = BILITOT) AST (test code = 311 U/L 15-46 H AST) PHOSALK (test code 134 U/L 38-126 H = PHOSALK) ALT (test code = 113 U/L 13-69 H ALT) GFR (test code = 243 A GFR of >9 0 GFR) mL/min/1.73m2 mL/min/1.73m2 is considered norm al. [id number] 13:29:00 Test Item Value Reference Range Interpretation Comments MG (test code = MG) 1.6 mg/dL 1.6-2.3 [id number] 12:59:00 Test Item Value Reference Range Interpretation Comments WBC (test code = 13.6 K/UL 3.5-10.9 H WBC) RBC (test code = 4.15 M/UL 4.3-5.7 L RBC) HGB (test code = 13.8 G/DL 13.0-17.9 HGB) HCT (test code = 39.4 % 38-52 HCT) MCV (test code = 94.9 FL 80-98 MCV) MCH (test code = 33.3 PG 28-32 H MCH) MCHC (test code = 35.0 G/DL 32.5-36.5 MCHC) RDW (test code = 12.9 % 11.5-14.5 RDW) PLT (test code = 355 K/UL 150-450 PLT) MPV (test code = 9.3 FL 7.4-10.4 MPV) MANDIFF (test code = NO MANDIFF) SCAN (test code = NO SCAN) NEUT% (test code = 80.3 % 40-75 H NEUT%) LYMPH% (test code = 10.5 % 24-44 L LYMPH%) MONO% (test code = 7.4 % 0-13 MONO%) EOS% (test code = 0.3 % 0-4 EOS%) BASO % (test code = 0.2 % 0-2 BASO%) IG (test code = IG) 0 % 0-1 IG% (test code = 1.3 % 0-1 H IG% = Metam yelocytes, IG%) Myelocytes, and Promyelocytes. (Immature neutr ophils not including " bands".) > 3% IG indic ates risk of sepsis NRBC% (test code = 0 /100 WBC NRBC%) ABS NEUT (test code 11.0 K/UL 1.2-7.2 H = NEUT) WHOLE BLOOD [id number] 11:40:00 Test Item Value Reference Range Interpretation Comments WHOLE BLOOD GLUCOSE (test code = 208 MG/DL 70-99 H POC GLU) WHOLE BLOOD [id number] 06:40:00 Test Item Value Reference Range Interpretation Comments WHOLE BLOOD GLUCOSE (test code = 236 MG/DL 70-99 H POC GLU) WHOLE BLOOD [id number] 23:30:00 Test Item Value Reference Range Interpretation Comments WHOLE BLOOD GLUCOSE (test code = 227 MG/DL 70-99 H POC GLU) WHOLE BLOOD [id number] 20:10:00 Test Item Value Reference Range Interpretation Comments WHOLE BLOOD GLUCOSE (test code = 254 MG/DL 70-99 H POC GLU) WHOLE BLOOD [id number] 18:00:00 Test Item Value Reference Range Interpretation Comments WHOLE BLOOD GLUCOSE (test code = 200 MG/DL 70-99 H POC GLU) WHOLE BLOOD [id number] 13:05:00 Test Item Value Reference Range Interpretation Comments WHOLE BLOOD GLUCOSE (test code = 189 MG/DL 70-99 POC GLU) WHOLE BLOOD [id number] 07:50:00 Test Item Value Reference Range Interpretation Comments WHOLE BLOOD GLUCOSE (test code = 349 MG/DL 70-99 H POC GLU) BMP, BASIC METABOLIC [id number] 05:01:00 Test Item Value Reference Range Interpretation Comments SODIUM (test code = 130 MMOL/L 137-145 L NA) K+ (test code = 5.1 MMOL/L 3.5-5.1 PLEASE NOTE NEW KSERUM) REFERENCE RANGE (S) IN EFFECT EFFECTIVE 010 - NEW ANALYZER (V ITROS 5600) CHLORIDE (test code 94 MMOL/L 98-107 L = CL) CO2 (test code = 22 MMOL/L 22-30 CO2) BUN (test code = 18 MG/DL 9-20 BUN) CREA (test code = 0.7 MG/DL 0.8-1.5 L CREA) GLUCOSE (test code 335 MG/DL 70-99 H Fasting glucose = GLUCOSE) normal <100 MG/ DL- [place] [employer] recommendation* * CALCIUM (test code 8.1 MG/DL 8.4-10.2 L = CABLOOD) GFR (test code = 127 A GFR of >9 0 GFR) mL/min/1.73m2 mL/min/1.73m2 is considered norm al. [id number] 04:53:00 Test Item Value Reference Range Interpretation Comments WBC (test code = 16.3 K/UL 3.5-10.9 H WBC) RBC (test code = 4.11 M/UL 4.3-5.7 L RBC) HGB (test code = 13.7 G/DL 13.0-17.9 HGB) HCT (test code = 37.7 % 38-52 L HCT) MCV (test code = 91.7 FL 80-98 MCV) MCH (test code = 33.3 PG 28-32 H MCH) MCHC (test code = 36.3 G/DL 32.5-36.5 MCHC) RDW (test code = 12.3 % 11.5-14.5 RDW) PLT (test code = 338 K/UL 150-450 PLT) MPV (test code = 9.4 FL 7.4-10.4 MPV) MANDIFF (test code = NO MANDIFF) SCAN (test code = NO SCAN) NEUT% (test code = 79.4 % 40-75 H NEUT%) LYMPH% (test code = 10.1 % 24-44 L LYMPH%) MONO% (test code = 9.6 % 0-13 MONO%) EOS% (test code = 0.0 % 0-4 EOS%) BASO % (test code = 0.2 % 0-2 BASO%) IG (test code = IG) 0 % 0-1 IG% (test code = 0.7 % 0-1 IG% = Metam yelocytes, IG%) Myelocytes, and Promyelocytes. (Immature neutr ophils not including " bands".) > 3% IG indic ates risk of sepsis NRBC% (test code = 0 /100 WBC NRBC%) ABS NEUT (test code 13.0 K/UL 1.2-7.2 H = NEUT) WHOLE BLOOD [id number] 04:50:00 Test Item Value Reference Range Interpretation Comments WHOLE BLOOD GLUCOSE (test code = 412 MG/DL 70-99 POC GLU) WHOLE BLOOD [id number] 02:25:00 Test Item Value Reference Range Interpretation Comments WHOLE BLOOD GLUCOSE (test code = 371 MG/DL 70-99 H POC GLU) WHOLE BLOOD [id number] 02:25:00 Test Item Value Reference Range Interpretation Comments WHOLE BLOOD GLUCOSE (test code = 460 MG/DL 70-99 HH POC GLU) [id number] 01:29:00 Test Item Value Reference Range Interpretation Comments BETA-HYDROXYBUTYRATE (test code = 9.72 mmol/L 0.02-0.27 H BETAHYD) BMP, BASIC METABOLIC [id number] 00:49:00 Test Item Value Reference Range Interpretation Comments SODIUM (test code = 130 MMOL/L 137-145 L NA) K+ (test code = 5.0 MMOL/L 3.5-5.1 PLEASE NOTE NEW KSERUM) REFERENCE RANGE (S) IN EFFECT EFFECTIVE 010 - NEW ANALYZER (V ITROS 5600) CHLORIDE (test code 85 MMOL/L 98-107 L = CL) CO2 (test code = 18 MMOL/L 22-30 L CO2) BUN (test code = 21 MG/DL 9-20 H BUN) CREA (test code = 0.9 MG/DL 0.8-1.5 CREA) GLUCOSE (test code 642 MG/DL 70-99 HH Fasting glucose = GLUCOSE) normal <100 MG/ DL- [employer] recommendation* * CALCIUM (test code 9.0 MG/DL 8.4-10.2 = CABLOOD) GFR (test code = 95 A GFR of >9 0 GFR) mL/min/1.73m2 mL/min/1.73m2 is considered norm al. RESULTS VERIFIED.C'd TO [place]8/er/Dennis [id number] 00:49:00 Test Item Value Reference Range Interpretation Comments TOTPROT (test code = TOTPROT) 6.6 G/DL 6.3-8.2 ALBUMIN (test code = ALBSERUM) 4.5 G/DL 3.5-5.0 BILITOT (test code = BILITOT) 0.9 MG/DL 0.2-1.3 BILIDIR (test code = BILIDIR) 0.5 MG/DL 0.0-0.4 H AST (test code = AST) 22 U/L 15-46 PHOSALK (test code = PHOSALK) 132 U/L 38-126 H ALT (test code = ALT) 39 U/L 13-69 [id number] 00:49:00 Test Item Value Reference Range Interpretation Comments LIPASE (test code = LIPA) 103 U/L 23-300 [id number] 00:41:00 Test Item Value Reference Range Interpretation Comments GLUCOSE (test code = URGLU) >=1000 MG/DL NEG-100 BILIRUBN (test code = URBILI) NEGATIVE NEGATIVE KETONE (test code = URKET) 80 MG/DL NEGATIVE BLOOD (test code = URBLD) MODERATE UR PH (test code = URPH) 5.0 5.0-7.5 PROTEIN (test code = URPRO) 100 MG/DL NEGATIVE NITRITES (test code = URNIT) NEGATIVE NEGATIVE UROBILINGEN (test code = URURO) 0.2 EU/DL 0.2-1.0 LEUKOCYT (test code = URLEU) NEGATIVE NEGATIVE UA COLOR (test code = UA COLOR) YELLOW YELLOW CLARITY (test code = CLARITY) CLEAR CLEAR SP GRAV (test code = URSPGRAV) 1.033 1.000-1.025 H UAMICRO (test code = UAMICRO) YES WBC (test code = URWBC) 1 /HPF 0-5 RBC (test code = URRBC) 7 /HPF 0-2 H CASTS (test code = CAST) 3 /LPF 0-3 UR EPI (test code = EPI) 8 /LPF BACTERIA (test code = BACTERIA) NEGATIVE NONE [id number] 00:29:00 Test Item Value Reference Range Interpretation Comments WBC (test code = 19.3 K/UL 3.5-10.9 H WBC) RBC (test code = 4.70 M/UL 4.3-5.7 RBC) HGB (test code = 15.7 G/DL 13.0-17.9 HGB) HCT (test code = 43.3 % 38-52 HCT) MCV (test code = 92.1 FL 80-98 MCV) MCH (test code = 33.4 PG 28-32 H MCH) MCHC (test code = 36.3 G/DL 32.5-36.5 MCHC) RDW (test code = 12.0 % 11.5-14.5 RDW) PLT (test code = 449 K/UL 150-450 PLT) MPV (test code = 9.8 FL 7.4-10.4 MPV) MANDIFF (test code = NO MANDIFF) SCAN (test code = NO SCAN) NEUT% (test code = 87.9 % 40-75 H NEUT%) LYMPH% (test code = 6.0 % 24-44 L LYMPH%) MONO% (test code = 4.9 % 0-13 MONO%) EOS% (test code = 0.1 % 0-4 EOS%) BASO % (test code = 0.3 % 0-2 BASO%) IG (test code = IG) 0 % 0-1 IG% (test code = 0.8 % 0-1 IG% = Metam yelocytes, IG%) Myelocytes, and Promyelocytes. (Immature neutr ophils not including " bands".) > 3% IG indic ates risk of sepsis NRBC% (test code = 0 /100 WBC NRBC%) ABS NEUT (test code 17.0 K/UL 1.2-7.2 H = NEUT) VENOUS BLOOD [id number] 00:11:00 Test Item Value Reference Range Interpretation Comments SITE (test code = SITE) IV SITE ALLENS (test code = ALLENS) NA O2 EQUIP (test code = O2 EQUIP) ROOM AIR O2-DEVICE FIO2 (test code = FIO2) 21 % PH (test code = MVPH) 7.29 7.32-7.42 L PCO2 (test code = MVPCO2) 42 MMHG 41.0-51.0 PO2 (test code = MVPO2) 37 MMHG MVHCO3 (test code = MVHCO3) 20.2 24.0-28.0 L BE (test code = MVBE) -6.2 -2.0-+2.0 L THB (test code = MVTHB) 15.0 G/DL 13.5-18 %O2 HB (test code = MV%O2 HB) 69.8 % 40.0-70.0 %COHB (test code = MV%COHB) 3.6 % %MET HB (test code = MV%METHB) 0.6 % 0.4-1.5 HIP JOINT 2 [id number] 20:46:[address] [id number] IMAGING REPORTPatient Name: STEPHANIE CAMPO RDate of Service: 50-07-0184Bls: 47 Sex: M Order #: [id number] Room: [facility]: 1970 X-Ray Number: [id number] Record Number: [id number] Hospital Number: [id number] Physician: BEV MONTAGUE -Ordering Physician: Nereida YOST hip 2 views:CLINICAL HISTORY: Right hip pain ; no history of injuryTECHNIQUE: AP pelvis and lateral view of the right hip are submittedFINDINGS: There is no fracture or dislocation demonstrated.Mild degenerative changes are noted.The soft tissues are unremarkable.Impression: No acute changes are demonstrated.Electronically Signed By: Mil Hanna M.D., 09/09/2017 8:44 PMLegally authenticated by JOSÉ Nails 2017-09-09 20:44:11
--- OUTSIDE RECORDS SUMMARY | 2020-03-28 21:00 | XMS REPORT | Continuity of Care Document ---
:1970 Author Organization [facility] Care Team Providers Name Role Phone PCP Primary Care Physician Unavailable Allergies, Adverse Reactions, Alerts Allergen Type Severity Reaction Last Updated Verified Status NO KNOWN Allergy Unknown June Yes Active ALLERGY 2018 Medications Medication Status Dose Units Route Sig Qty Days Start End Instruct ions Date Date Acetaminophen/Co Active 1 TAB PO Every March deine Phosphate Hours as , (Tylenol #4) 1 needed 2019 Each TAB for 3:51am Moderate Pain(4-6 ) Acetaminophen/Hy Active 1 TAB PO Every October drocodone Bitart Hours 2019 ([place] 5/325) 1 9:57am Tab TAB Amlodipine Active 10 MG PO Every Bes Morning (Norvasc) 10 Mg TAB Aspirin (Aspirin Active 81 MG PO Daily 28 November Chewable) 81 Mg 2019 CHEW 9:56am Clopidogrel Active 75 MG PO Daily 28 November Bisulfate 2019 (Plavix) 75 Mg 9:56am TAB Dicyclomine Hcl Active 10 MG PO Three 12 March (Bentyl) 10 Mg Times A , CAP Day as 2019 needed 2:21am for Moderate Pain(4-6 ) Fluoxetine Hcl Active 40 MG PO Twice A 30 August (Prozac) 20 Mg Day CAP 2019 8:56am Gabapentin Active 600 MG PO Twice A (Neurontin) 600 Day Mg TAB Hydroxychloroqui Active 200 MG PO Twice A ne Sulfate Day (Plaquenil) 200 Mg TAB Insulin Glargine Active 20 UNIT SUBCUT Every October (Lantus U-100) Morning , 100 Unit/1 Ml 2019 SOLN 7:34am Insulin Human Active 5 UNIT SUBCUT Three July Lispro (Humalog Times 2018 Inj (3ML Vial)) Daily 11:14am 100 Unit/1 Ml With INJ Meals Meloxicam Active 15 MG PO Daily (Mobic) 15 Mg TAB Metoprolol Active 25 MG PO Daily 28 November Succinate 2019 (Toprol Xl) 25 9:56am Mg TABSR Omeprazole Active 20 MG PO Every 15 March (Prilosec) 20 Mg Morning CPDR 2019 2:21am Ondansetron Hcl Active 4 MG PO Every 8 20 March (Zofran) 4 Mg Hours 2012 7:17pm Ondansetron Hcl Active 4 MG PO Every 6 15 March (Zofran) 4 Mg - 8 , TAB Hours as 2019 needed 2:21am for Nausea / Vomiting Pantoprazole Active 40 MG PO Twice A October (Protonix) 40 Mg Day TABEC 2019 7:34am Saccharomyces Active 250 MG PO Twice A 26 November Boulardii Day 2019 (Florastor) 250 9:56am Mg CAPSULE Simvastatin Active 40 MG PO Every (Zocor) 40 Mg Evening TAB Trazodone Hcl Active 50 MG PO Daily (Desyrel) 50 Mg TAB Vancomycin Hcl Active 125 MG PO Every 6 (Vancocin) 125 Hours Mg CAPSULE Problems Active Problems Medical Problem Onset Date Status DKA, type 1 Active Pyelonephritis Active DKA (diabetic ketoacidoses) Resolved Diabetes mellitus Active Hypomagnesemia Active Hypophosphatemia Active Dehydration Active Hepatitis C Active Tobacco abuse Active N&V (nausea and vomiting) Resolved Leukocytosis Active Chronic pancreatitis Active History of ETOH abuse Active Lip lesion Active Diabetes mellitus Active Non-compliance Active Hepatitis C Active Peripheral neuropathy Active MDD (major depressive disorder) Active Tobacco abuse Active Marijuana abuse Active Cellulitis Active Lip ulcer Active Gastroparesis Active Essential hypertension Active Abdominal pain Active Abscess, neck Active Septic shock Active Neck abscess Active Acute renal failure (ARF) Active Bacteremia Active Demand ischemia of myocardium Resolved C. difficile colitis Active Sacral decubitus ulcer Active Severe anemia Active Inactive/Resolved Problems Medical Problem Onset Date Status Hyperglycemia Resolved Oral lesion Resolved MELISSA (acute kidney injury) Resolved Intravenous drug abuse Resolved Hypocarbia Resolved Hyponatremia Resolved Renal insufficiency Resolved Bandemia Resolved Medical non-compliance Resolved Hypocalcemia Resolved Acute blood loss anemia Resolved GI bleed Resolved Thrombocytopenia Resolved NSTEMI (non-ST elevated myocardial Resol guerita infarction) MELISSA (acute kidney injury) Resolved Hypotension Resolved Generalized weakness Resolved Pancreatic pseudocyst Resolved Esophagitis Resolved Uncontrolled hypertension Resolved Elevated ALT measurement Resolved Diabetes mellitus, insulin dependent Res olved (IDDM), uncontrolled Elevated AST (SGOT) Resolved Medical non-compliance Resolved Elevated alkaline phosphatase level Reso lved Pancreatic atrophy Resolved 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, [address] 2019 [place] [address] 9:55pm Hematocrit March 35.0 % 39.0-52.5 [facility], [address] 2019 [place] [address] 9:55pm Mean Corpuscular [place] 89 fL 80-94 [facility], [address] Volume 2019 [place] [address] 9:55pm Mean Corpuscular [place] 30.6 pg 27.0-33.0 [facility], [address] Hemoglobin 2019 [place] [address] 9:55pm Mean Corpuscular March 34.3 g/dL 33.0-37.0 [facility], [address] Hemoglobin 2019 [place] [address] Concent 9:55pm Red Cell March 14.7 % 10.7-14.5 [facility], [address] Distribution 2019 [place] [address] Width 9:55pm Platelet Count March 278 150-450 [facility], [address] 2019 10*3/[place] [address] 9:55pm Mean Platelet [place] 9.7 5.7-10.7 [facility], [address] Volume 2019 [place] [address] 9:55pm Neutrophils (%) [place] 75 % 47-75 [facility], [address] (Auto) , 2019 [place] [address] 9:55pm Immature [place] 0 % 0-0 [facility], [address] Granulocyte % 2019 [place] [address] (Auto) 9:55pm Lymphocytes (%) [place] 19 % 25-44 [facility], [address] (Auto) 2019 [place] [address] 9:55pm Monocytes (%) [place] 6 % 3-10 [facility], [address] (Auto) 2019 [facility] [address] 9:55pm Eosinophils (%) [place] 0 % 0-7 [facility], [address] (Auto) , 2019 [facility] [address] 9:55pm Basophils (%) [place] 0 % 0-1 [facility], [address] (Auto) 2019 [place] [address] 9:55pm Nucleated Red [place] 0.0 % 0-0.2 [facility], [address] Blood Cells % 2019 [place] [address] 9:55pm Neutrophils # [place] 3.7 1.3-6.7 [facility], [address] (Auto) 2019 10*3/[place] [address] 9:55pm Immature [place] 0.0 0.0-0.0 [facility], [address] Granulocyte # 2019 10*3/[place] [facility] [place] [address] (Auto) 9:55pm Lymphocytes # [place] 0.9 1.4-4.1 [facility], [address] (Auto) 2019 10*3/[place] [address] 9:55pm Monocytes # [place] 0.3 0-1.3 [facility], [address] (Auto) 2019 10*3/[place] [address] 9:55pm Eosinophils # [place] 0.0 0-0.8 [facility], [address] (Auto) 2019 10*3/[place] [address] 9:55pm Basophils # March 0.0 0-0.1 [facility], [address] (Auto) 2019 10*3/[place] [address] 9:55pm Nucleated Red March 0.00 0-0.01 [facility], [address] Blood Cells # 2019 10*3/[place] [address] 9:55pm Manual [place] Not Ind [facility], [address] Differential 2019 [place] [address] 9:55pm Urine Source March URINE [facility], [address] [place] [address] 2019 [place] [address] 11:15pm Urine Color March Colorless Yel-Ciera [facility], [address] 2019 * [place] [address] 11:15pm Urine Appearance March Clear Clear * [facility], [address] 2019 [place] [address] 11:15pm Urine pH March 6.5 5.0-8.0 [facility], [address] 2019 [place] [address] 11:15pm Urine Specific March 1.027 1.005-1.03 [facility], [address] [place] 2019 0 [place] [address] 11:15pm Urine Protein March Negative Negative * [facility], [address] 2019 mg/[place] [address] 11:15pm Urine Glucose March >1000 Negative * [facility], [address] (UA) 2019 mg/[place] [address] 11:15pm Urine Ketones March 20 mg/dL Negative * [facility], [address] 2019 [place] [address] 11:15pm Urine Occult March 1+ Negative * [facility], [address] Blood 2019 [place] [address] 11:15pm Urine Nitrite March Negative Negative [facility], [address] 2019 [place] [address] 11:15pm Urine Bilirubin March Negative Negative [facility], [address] 2019 mg/[place] [address] 11:15pm Urine [place] Negative 0.0-1.[address] [facility], [address] Urobilinogen 2019 mg/[place] [address] 11:15pm Urine Leukocyte March Negative Negative [facility], [address] Esterase 2019 {Oliver}/[place] [address] 11:15pm Microscopic March ----- [facility], [address] Urinalysis (T) 2019 [facility] [place] [address] 11:15pm Urine RBC March 3-10 0-2 [facility], [address] , 2019 /[HPF] [place] [address] 11:15pm Urine WBC March 0-5 /[HPF] 0-5 [facility], [address] , 2019 [place] [address] 11:15pm Urine Epithelial March None Seen Few [facility], [address] Cells , 2019 /[HPF] [place] [address] 11:15pm Urine Crystals March None Seen None * [facility], [address] , 2019 /[HPF] [place] [address] 11:15pm Urine Bacteria March None Seen None [facility], [address] , 2019 /[HPF] [place] [address] 11:15pm Urine Casts March None Seen None * [facility], [address] , 2019 /[LPF] [place] [address] 11:15pm Urine Hyaline March None Seen 0-1 [facility], [address] Casts , 2019 /[LPF] [place] [address] 11:15pm Urine Yeast March None Seen None [facility], [address] , 2019 /[HPF] [place] [address] 11:15pm Urinalysis March * * Ref Range = * [facility] [address] Comment 2019 Clinical [facility] [address] 11:15pm evaluation required. Urine Culture March Not Ind [facility], [address] Indicated 2019 [facility] [address] 11:15pm Sodium Level March 133 mmol/L 136-145 [facility] [address] [facility] [address] 9:55pm Potassium Level March 5.0 mmol/L 3.5-5.1 [facility], [address] 2019 [facility] [address] 9:55pm Chloride Level March 96 mmol/L 98-107 [facility], [address] 2019 [facility] [address] 9:55pm Carbon Dioxide March 22 mmol/L [facility], [address] Level 2019 [facility] [address] 9:55pm Anion Gap March 20- [facility], [address] 2019 [facility] [address] 9:55pm Blood Urea March 11 mg/dL - [facility], [address] Nitrogen 2019 [facility] [address] 9:55pm Creatinine March 1.0 mg/dL 0.7-1.3 [facility], [address] 2019 [facility] [address] 9:55pm Estimat March 84 67-119 Stages [facility], [address] Glomerular 2019 of Patients [facility] [address] Filtration Rate 9:55pm with Estimated GFR Known Kidney Disease (ml/min/1.73 sq.meters)Sta ge 1 - Kidney damage w/normal 90 mL/min or greater or increased GFRStage 2 - Kidney disease w/mildly 60-89 mL/min decreased GFRStage 3 - Moderately decreased GFR 30-59 mL/minStage 4 - Severely decreased GFR 15-29 mL/minStage 5 - Kidney failure 14 mL/min or lessTo estimate the GFR for Americans, multiply the result provided by 1.21. Glucose Level March 545 mg/dL 60-100 Critical [facility], [address] 2019 value: [place] [address] 9:55pm to JUAN Story 231[place]ico on 03/20/20 by [id number].Resu lt read-back successful. Y Calcium Level March 8.2 mg/dL 8.4-10.2 [facility], [address] , 2019 [place] [address] 9:55pm Total Bilirubin March 0.5 mg/dL 0.2-1.2 [facility], [address] , 2019 [place] [address] 9:55pm Aspartate Amino March 47 U/L 5-34 [facility], [address] Transf 2019 [place] [address] (AST/SGOT) 9:55pm Alanine March 66 U/L 0-55 [facility], [address] Aminotransferase 2019 [place] [address] (ALT/SGPT) 9:55pm Total Protein March 5.7 g/dL 6.4-8.3 [facility], [address] 2019 [place] [address] 9:55pm Albumin March 3.3 g/dL 3.5-5.0 [facility], [address] 2019 [place] [address] 9:55pm Alkaline March 548 U/L 40-150 [facility], [address] Phosphatase 2019 [place] [address] 9:55pm Bedside Sodium March 133 mmol/L 136-145 [facility], [address] 2019 [place] [address] 9:56pm Bedside [place] 5.0 mmol/L 3.5-5.1 [facility], [address] Potassium 2019 [place] [address] 9:56pm Bedside Chloride March 92 mmol/L 100-112 [facility], [address] 2019 [place] [address] 9:56pm Bedside Total [place] 25.0 24.0-33.0 [facility], [address] CO2 2019 mmol/[place] [address] 9:56pm Bedside Blood March 11 mg/dL 6-20 [facility], [address] Urea Nitrogen 2019 [place] [address] 9:56pm Bedside March 0.7 mg/dL 0.9-1.5 [facility], [address] Creatinine 2019 [facility] [address] 9:56pm Bedside Glucose March 490 mg/dL 60-100 Critical [facility], [address] 2019 value [facility] [address] 9:56pm reported at bedside.POC testing performed at the bedside. Immediate notification of results given to nurse/physici an at time of testing. Bedside Whole 08.19 1.12-1.32 [facility], [address] Blood Ionized 2019 mmol/L [facility] [address] Calcium 9:56pm Bedside Anion March 22-18 [facility], [address] Gap 2019 [facility] [address] 9:56pm Estimat March 127 67-119 Stages [facility], [address] Glomerular 2019 of Patients [facility] [place] [address] Filtration Rate 9:56pm with Estimated GFR Known Kidney Disease (ml/min/1.73 sq.meters)Sta ge 1 - Kidney damage w/normal 90 mL/min or greater or increased GFRStage 2 - Kidney disease w/mildly 60-89 mL/min decreased GFRStage 3 - Moderately decreased GFR 30-59 mL/minStage 4 - Severely decreased GFR 15-29 mL/minStage 5 - Kidney failure 14 mL/min or lessTo estimate the GFR for Americans, multiply the result provided by 1.21. Bedside March 12.2 g/dL 13.0-17.5 [facility], [address] Hemoglobin 2019 [facility] [address] 9:56pm Bedside March 36.0 % 40.0-53.0 [facility], [address] Hematocrit 2019 [place] [address] 9:56pm Bedside Glucose March 289 mg/dL 60-100 [facility], [address] 2019 [facility] [address] 2:58am Diagnostic Imaging Reports Report Dictated Date/Time Dictated By Status Abdomen/Pelvis CT March 21, 2020 CATALINA HICKS MD comple remedios 2:03am Computed tomography (CT) scan examinatio ns are performed using one or more of the following dose reduction techniques: Automated exposure control, adjustment of the mA and/or kV according to patient size, or use of iterative reconstruction technique. CT abdomen/pelvis post-IV contrast enhan cement Comparison CT abdomen/pelvis 11/14/2019 HISTORY: Hyperglycemia chronic pancreati tis upper abdominal pain vomiting elevated liver function tests nausea vom iting diarrhea chronic pancreatitis hyperglycemia diabetes hepatitis C CT abdomen/pelvis: There are coarse calc ifications throughout the pancreas, consistent with chronic pancreatitis. Th ere is pancreatic atrophy. No other significant solid organ pathology identi fied. No biliary pathology identified. There is generalized paucity of body fat . There is nonspecific diffuse fat stranding/edema of the visualized fat. T here is large colonic stool and bowel gas. There is atherosclerosis of the aor ta and iliac arteries. Degenerative changes spine. IMPRESSION: 1. Chronic pancreatitis. 2. Colonic fecal stasis. 3. Anasarca. Dictated By: CATALINA HICKS MD Date Dictated: 03/21/20202 Signed by: CATALINA HICKS MD Date Signed: 03/21/20206 Health Concerns Health Concerns may be documented in an alternate section. Advance Directives Advance Directive Response Recorded Date/Time Does the Patient have an No March 20 9:36pm Advance Directive? Chief Complaint and Reason for Visit Chief Complaint Blood Sugar - High Reason for Visit [id number] Encounters Encounter Location(s) Arrival/Admit Date Discharge/Depart Date [facility]) [facility] 20, 2020 March 21, 2020 ZACHARY PORTILLO Emergency Room [place] 9:39pm 4:55am Assessments No Assessments Information Available Functional Status Observation Response Date Recorded Onset Within the Last 7 Days No Problem Identified March 202019 9:36pm Goals Goals may be documented in an alternate section. Immunizations No Immunization Information Available Mental Status No Mental Status Information Available Medical Equipment No Medical Equipment Information available Insurance Providers Guarantor Yenifer Stephanie Valverde Address [address] [place] [phone] Contact Info. Home Phone: Payer Policy Id Coverage Id Subscriber's Subscriber Effective Expi ration Name Id Date Date [employer] [id number] Stephanie Wilcox [id number] August [facility] 2018 Plan of Treatment Future Tests Future scheduled test information is unavailable Pending Tests Test Name Date ordered Venous Blood Hemoglobin June 26, 2019 4:05pm Future Visits Future appointment information is unavailable Referrals to Other Providers Reason for Referral Start Provider Provider Contact Provider Address Referral Date Information CLINIC, [facility], [facility] [place], [facility] [place], [facility], [facility] PCP, NO Future Procedures Future procedure information is unavailable Future Medications Future medication information is unavailable Patient Instructions Pancreatitis Dehydration, Adult (DC) High Blood Pressure (DC) Severe Abdominal Pain, Adult (DC) Nausea and Vomiting, Adult (DC) Degenerative Disc Disease (DC) Alkaline Phosphatase Test Diabetic Meal Planning Social History Smoking Status Status Date of Observation Smokes tobacco daily (finding) March 21, 2020 12:36 am Observation Status Observation Response Date of Response Hx Tobacco Use Yes March 21, 2020 12 :36am Assigned Sex Male Vital Signs Vital Reading Result Reference Range Collection Date/ Time Body Temperature 98.1 [degF] (97.6 - 99.5) March 21 4:54am Heart Rate 68 /min (60 - 100) March 20 0 9:53pm Heart Rate 76 /min March 21 0 4:54am Respiratory rate 14 /min (12 - 24) March 20 9:36pm Respiratory rate 19 /min March 21 4:54am Weight 107.25 [lb_av] March 20 0 10:12pm BMI (Body Mass Index) 17.8 kg/m2 March 10:12pm
[2020-03-28] MEDS ORDERED: NA CHLORIDE 0.9% 1,000 ML ONE (21:12)
[2020-03-28] MEDS ORDERED: THIAMINE 200 MG/2 ML INJ ONE (21:12)
[2020-03-28] MEDS ORDERED: NA CHLORIDE 0.9% 500 ML ONE ×2 (21:12→22:49)
[2020-03-28] MEDS ORDERED: D5 0.45 NS 1,000 ML IV ONE (21:13)
[2020-03-28] MEDS ORDERED: PIPER/TAZO/NS 3.375gm 3.375 GM/100 ML BAG ONE (21:13)
[2020-03-28 21:57] LABS: Absolute Lymphocytes (CBC) 0.2 K/uL (0.7-4.9); Basophils % 0.6 % (0-1.3); Hematocrit 36.1 % (39.6-49.0); Lymphocytes % 18.5 % (15.3-44.8); MPV 7.3 fL (7.6-11.3); RBC Red Blood Cell Count 4.01 M/uL (4.33-5.43)
[2020-03-28 22:09] LABS: Protime INR 1.19
[2020-03-28 22:30] LABS: ALT/SGPT 105 U/L (12-78); AST/SGOT 71 U/L (15-37); Albumin 2.6 g/dL (3.4-5.0); Alkaline Phosphatase 538 U/L (45-117); BUN Blood Urea Nitrogen 11 mg/dL (7-18); Bicarbonate 23 mmol/L (21-32); Bilirubin Direct 0.2 mg/dL (0-0.2); Bilirubin Total 0.5 mg/dL (0.2-1.0); Glucose Level 86 mg/dL (74-106); Lipase 17 U/L (73-393); Magnesium 1.7 mg/dL (1.8-2.4); NT PRO-BNP 487 pg/mL (<125); Potassium 3.1 mmol/L (3.5-5.1); Sodium Level 137 mmol/L (136-145); Troponin (Emerg Dept Use Only) < 0.02 ng/mL (0.0-0.045)
[2020-03-28] MEDS ORDERED: LORazepam 2 MG/ML VIAL ONE (22:34)
[2020-03-28 22:38] LABS: Blood Morphology Comment NOT SEEN (NOT SEEN); Platelet Estimate ADEQ; Platelets, Giant PRESENT
[2020-03-28] MEDS ORDERED: VANCOMYCIN 1 GM/VIAL ONE (22:47)
[2020-03-28] MEDS ORDERED: NA CHLORIDE 0.9% 100 ML IV ONE (23:11)
--- NOTE | 2020-03-28 23:21 | ER ---
Nurse's Notes [facility] Name: [address] Age: 49 yrs Sex: Male : 1970 Arrival Date: 03/28/2020 Time: 20:46 Bed 3 Private MD: Diagnosis: Hypoglycemia, unspecified;Type 1 diabetes mellitus;Hypomagnesemia;Hypokalemia;Pneumonia due to other specified bacteria-right upper and lower pneumonia;Hypoxemia;Alcohol abuse;Adverse effect of amphetamines;Abuse of non-psychoactive substances-METH;Neutropenia;Bandemia;Respiratory failure, unspecified with hypoxia;Severe sepsis with septic shock Presentation: 03/28 20:47 Chief complaint: EMS states: Reports family found him unresponsive, EMS reported BGL at ea 49, EMS gave D10 IV. Pt reports he has been using meth for the past 5 days. Coronavirus screen: At this time, the client does not indicate any symptoms associated with coronavirus-19. Ebola Screen: No symptoms or risks identified at this time. Initial Sepsis Screen: Does the patient meet any 2 criteria? No. Patient's initial sepsis screen is negative. Does the patient have a suspected source of infection? No. Patient's initial sepsis screen is negative. Risk Assessment: Do you want to hurt yourself or someone else? Patient reports no desire to harm self or others. Onset of symptoms was March 28, 2020. 20:47 Method Of Arrival: EMS: [facility] ea 20:47 Acuity: LAYO 3 ea Triage Assessment: 20:47 General: Appears cachectic, Behavior is cooperative. Pain: Denies pain. ea Historical: - Allergies: 21:08 No Known Allergies; ea - PMHx: 21:08 Diabetes - IDDM; ea - Immunization history:: Adult Immunizations up to date. - Family history:: not pertinent. - Social history:: Smoking status: Patient denies any tobacco usage or history of. Patient uses street drugs, Methamphetamine (Meth). Screenin:52 Abuse screen: Denies threats or abuse. Nutritional screening: No deficits noted. ea Tuberculosis screening: No symptoms or risk factors identified. Fall Risk None identified. Assessment: 22:06 Reassessment: see triage assessment . ll2 22:20 Reassessment: pt stated, "i dont have my crazy medicine here and i'm having weird ll2 thoughts in my head i may just want to go home." ERD notified and verbal order for 1mg of ativan IVP. Neuro: Level of Consciousness is awake, alert, obeys commands, Oriented to person, place, time, situation. 22:59 Reassessment: april from laboratory called for the result band 12 WBC 1.1 ED provider rr5 aware. 23:56 Reassessment: Patient appears in no apparent distress at this time. Patient and/or ll2 family updated on plan of care and expected duration. Pain level reassessed. Patient is alert, oriented x 3, equal unlabored respirations, skin warm/dry/pink. after ct, Adriel hospitalist came to inform pt of admission to ICU. 03/29 00:00 Reassessment: received patient drowsy, respond to verbal stimuli, O2 saturation 84% on rr5 oxygen at 5 liters per nasal cannula. ED provider aware with order of stat ABG. 00:30 Reassessment: reassess by ED provider at bedside.RT shift the oxygen to NRM at 15 liter rr5 oxygen went up to 96%. 00:55 Reassessment: ED provider at bedside decided to intubate the patient. rr5 02:58 Reassessment: BS 57 mg/DL ED provider informed with order made and carried out. rr5 03:15 Reassessment: T 95 .5 F bear hugger applied. propofol started at 5 mcg/min. rr5 06:54 Reassessment: attempted to call Dr Painter with critical lab result of Calcium of 6.4 no bb answer. Vital Signs: 03/28 20:47 BP 95 / 63; Pulse 110; Resp 20; Temp 99.3; Pulse Ox 79% on R/A; Weight 45.36 kg; Height ea 5 ft. 5 in. (165.10 cm); 22:12 BP 119 / 77; Pulse 104; Resp 16; Pulse Ox 95% on 5 lpm NC; ll2 23:48 BP 92 / 76; Pulse 105; Resp 12; Pulse Ox 84% on 5 lpm NC; ll2 03/29 00:00 BP 102 / 85; Pulse 89; Resp 14; Pulse Ox 84% on 5 lpm NC; rr5 00:30 Pulse Ox 94% on 15% Non-rebreather mask; rr5 01:00 BP 113 / 74; Pulse 79; Resp 20; Pulse Ox 99% on ETT vent; rr5 01:35 BP 140 / 108; Pulse 87; Resp 18; Pulse Ox 97% ; ea 02:22 BP 112 / 73; Pulse 89; Resp 20; Pulse Ox 99% on ETT vent; ea 02:54 BP 93 / 65; Pulse 81; Resp 25; Temp 96.2; Pulse Ox 99% on ETT vent; rr5 03:15 BP 110 / 62; Pulse 89; Resp 24; Temp 95.5; Pulse Ox 100% on ETT vent; rr5 03:45 BP 101 / 72; Pulse 82; Resp 27; Temp 95; Pulse Ox 99% on ETT vent; rr5 04:15 BP 122 / 62; Pulse 80; Resp 28; Temp 95.8; Pulse Ox 100% on ETT vent; rr5 04:45 BP 102 / 68; Pulse 87; Resp 23; Temp 96; Pulse Ox 100% on ETT vent; rr5 03/28 20:47 Body Mass Index 16.64 (45.36 kg, 165.10 cm) ea 03/28 20:47 pt placed on 5L per nasal canula ea ED Course: 20:46 Patient arrived in ED. ea 20:47 Yousuf Brady MD is Attending Physician. jorge 20:47 Patient has correct armband on for positive identification. Placed in gown. Bed in low ea position. playground monitor on. Pulse ox on. NIBP on. 20:52 Triage completed. ea 21:05 Arm band placed on right wrist. Patient placed in an exam room, on a stretcher, on ea pulse oximetry. 21:07 No provider procedures requiring assistance completed. ea 21:29 Radiology exam delayed due to IV insertion attempt and/or patient not having vm2 appropriate IV at this time. 21:30 Inserted saline lock: 22 gauge in right antecubital area, using aseptic technique. vc Blood collected. 21:32 XRAY Chest (1 view) In Process Unspecified. EDMS 21:59 Keyanna Tello, IVET is Primary Nurse. ll2 22:10 Warm blanket given. placed socks on. ll2 23:17 Hector Bruce MD is Hospitalizing Provider. jorge 23:30 CT Abd/Pelvis - IV Contrast Only In Process Unspecified. EDMS 23:50 Inserted saline lock: 22 gauge in right hand, using aseptic technique. rr5 03/29 01:05 Inserted saline lock: 18 gauge in right EJ, using aseptic technique. ,using aseptic rr5 technique. inserted by dr. brady. 01:05 Assisted provider with intubation using 7.5 mm ETT via oral route. ET tube secured at rr5 23cm at the lips. Set up intubation tray. Intubated by Yousuf Brady MD Placement verified by CO2 detector w/ + color change, auscultating bilateral breath sounds, End-tidal CO2 montioring CXR, Patient tolerated well. 01:25 IV discontinued, intact, bleeding controlled, No redness/swelling at site. Pressure rr5 dressing applied, G22 at right AC and G20 left Forearm positive infiltration. 01:40 Almeiad cath inserted, using sterile technique, 16 Fr., by ks, balloon inflated, to rr5 gravity drainage, urine specimen collected. 01:45 NGT: inserted 16 Fr. via left nare. verified placement of air over stomach, verified rr5 return of gastric contents, Placement verified by X-ray, to intermittent suction. Returned gastric contents. Patient tolerated well. Restraints: 02:00 Non-Violent Restraint: Order obtained. Initiated on March 29, 2020 at 01:00 Unable to rr5 provide Restraint education. Intubated. Actions/Behavior observed: Confused/disoriented, has difficulty remembering/follow instructions, has impaired decision making, repeated attempts to get up from bed/chair w/o assistance, has decreased level of consciousness, unable to follow instructions, repeated attempts to remove/tamper lines/tubes/IV med devices \\T\\ wound dressing, Less restrictive alternatives attempted: decrease environmental stimuli, reoriented to location, medications evaluated, repositioned, Alternative interventions: Ineffective. Clinical justification for use: airway protection, line protection, patient safety, Mental status: confused, Cognition: Unable to assess. impulsive, poor attention/concentration, unable to follow commands, Circulation: Within defined parameters (based on Cardiovascular assessment) Skin integrity: Within defined parameters (based on Integumentary assessment) Signs of injury related to restraint: No injuries noted. Elimination/Hygiene: perineal care performed, with urinary catheter, Restraint status: Soft wrist restraint (Right) Started. Soft wrist restraint (Left) Started. 04:00 Non-Violent Restraint: Actions/Behavior observed: Confused/disoriented, has difficulty rr5 remembering/follow instructions, has impaired decision making, repeated attempts to get up from bed/chair w/o assistance, has decreased level of consciousness, unable to follow instructions, repeated attempts to remove/tamper lines/tubes/IV med devices \\T\\ wound dressing, repeated attempts to remove artifical airway/mechanical resp support, Cognition: poor judgement, poor safety awareness, impulsive, poor attention/concentration, unable to follow commands, Circulation: Within defined parameters (based on Cardiovascular assessment) Skin integrity: Within defined parameters (based on Integumentary assessment) Signs of injury related to restraint: No injuries noted. Range of Motion (ROM): performed. Elimination/Hygiene: with urinary catheter, Restraint status: Soft wrist restraint (Right) Continued. Soft wrist restraint (Left) Continued. 06:00 Non-Violent Restraint: Unable to provide Restraint education. intubated. rr5 Actions/Behavior observed: Confused/disoriented, has difficulty remembering/follow instructions, has impaired decision making, repeated attempts to get up from bed/chair w/o assistance, has decreased level of consciousness, unable to follow instructions, repeated attempts to remove/tamper lines/tubes/IV med devices \\T\\ wound dressing, repeated attempts to remove artifical airway/mechanical resp support, Clinical justification for use: airway protection, line protection, patient safety, Mental status: confused, Cognition: Unable to assess. poor judgement, poor safety awareness, impulsive, poor attention/concentration, unable to follow commands, Circulation: Within defined parameters (based on Cardiovascular assessment) Skin integrity: Within defined parameters (based on Integumentary assessment) Signs of injury related to restraint: No injuries noted. Range of Motion (ROM): performed. Elimination/Hygiene: perineal care performed, with urinary catheter, Restraint status: Soft wrist restraint (Right) Continued. Soft wrist restraint (Left) Continued. Administered Medications: Discontinued: D5-1/2 NS 1000 ml IV at 125 ml/hr continuous 03/28 20:57 CANCELLED (Duplicate Order): Rocephin 1 grams IV at per protocol once; Given slow IV jorge push per pharmacy instructions 21:24 Drug: NS 0.9% 500 ml Route: IV; Rate: bolus; Site: left hand; ll2 22:33 Follow up: Response: No adverse reaction ll2 23:30 Follow up: Response: No adverse reaction; IV Status: Completed infusion; IV Intake: rr5 500ml 21:25 Drug: Thiamine 100 mg Route: IV; Rate: bolus; Site: left wrist; ll2 22:25 Follow up: Response: No adverse reaction; IV Status: Completed infusion rr5 22:33 Follow up: Response: No adverse reaction ll2 21:25 Drug: NS 0.9% 1000 ml Route: IV; Rate: 1 bolus; Site: left hand; 2 03/29 00:00 Follow up: Response: No adverse reaction; IV Status: Completed infusion; IV Intake: rr5 1000ml 03/28 21:25 Drug: D5-1/2 NS 1000 ml Route: IV; Rate: 125 ml/hr; Site: left hand; ll2 22:33 Follow up: Response: No adverse reaction ll2 22:33 Follow up: Response: No adverse reaction 2 03/29 03:12 Follow up: IV Status: Order to discontinue infusion rr5 03/28 22:00 Drug: Zosyn 3.375 grams Route: IVPB; Infused Over: 60 mins; Site: right upper arm; ll2 22:33 Follow up: Response: No adverse reaction 2 03/29 01:30 Follow up: Response: No adverse reaction; IV Status: Completed infusion; IV Intake: rr5 100ml 03/28 22:31 Drug: Ativan 1 mg Route: IVP; Site: left wrist; ll2 22:34 Follow up: Response: No adverse reaction; RASS: Alert and Calm (0) ll2 22:49 Follow up: Response: Anxiety decreased ll2 23:55 Follow up: Response: No adverse reaction ll2 22:49 Drug: vancoMYCIN 1 grams Route: IVPB; Infused Over: 2 hrs; Site: left wrist; 2 03/29 03:00 Follow up: Response: No adverse reaction; IV Status: Completed infusion; IV Intake: rr5 250ml 00:55 Drug: Versed 4 mg Route: IVP; Site: right hand; rr5 01:00 Follow up: Response: No adverse reaction ea 00:56 Drug: Etomidate 10 mg Route: IVP; Site: right hand; rr5 01:00 Follow up: Response: No adverse reaction ea 01:25 Drug: NS 0.9% 1000 ml {Note: right femoral.} Route: IV; Rate: 1 bolus; Site: Other; rr5 02:43 Follow up: Response: No adverse reaction; IV Status: Completed infusion; IV Intake: ea 1000ml 01:25 Drug: NS 0.9% 500 ml {Note: right femoral.} Route: IV; Rate: bolus; Site: Other; rr5 02:43 Follow up: IV Status: Completed infusion; IV Intake: 500ml ea 01:50 Drug: Magnesium Sulfate 1 grams {Note: right femoral.} Route: IVPB; Infused Over: 1 rr5 hrs; Site: Other; 02:50 Follow up: Response: No adverse reaction; IV Status: Completed infusion; IV Intake: [id number] 02:00 Drug: Potassium Chloride 20 mEq Route: IV; Rate: per protocol; Site: Other; rr5 03:00 Follow up: Response: No adverse reaction; IV Status: Completed infusion; IV Intake: rr5 100ml 02:04 Not Given (intubated): Potassium Effervescent Tablet 25 mEq PO once; dissolve in 4 rr5 ounces of water or juice 02:30 Drug: Pepcid 20 mg {Note: right femoral.} Route: IVP; Site: Other; rr5 03:55 Follow up: Response: No adverse reaction rr5 03:09 Not Given (Other Intervention Used; D5 1/2NS at 100 ml/hr ordered in [employer]): D5-NS rr5 with KCL 20 mEq/L 1000 ml IV at 125 ml/hr continuous 03:15 Drug: D50W 50 ml {Note: right femoral.} Route: IVP; Site: Other; rr5 04:15 Follow up: Response: No adverse reaction; Blood sugar is elevated rr5 03:15 Drug: Propofol 5 mcg/kg/min {Note: right femoral.} Route: IV; Rate: calculated rate; rr5 Site: Other; 03:40 Follow up: Rate change 10 mcg/kg/min rr5 04:15 Follow up: Rate change 15 mcg/kg/min rr5 07:10 Follow up: Response: No adverse reaction; IV Status: Infusion continued upon admission rr5 Intake: 03/28 23:30 IV: 500ml; Total: 500ml. rr5 03/29 00:00 IV: 1000ml; Total: 1500ml. rr5 01:30 IV: 100ml; Total: 1600ml. rr5 02:43 IV: 500ml; Total: 2100ml. ea 02:43 IV: 1000ml; Total: 3100ml. ea 02:50 IV: 25ml; Total: 3125ml. rr5 03:00 IV: 100ml; Total: 3225ml. rr5 03:00 IV: 250ml; Total: 3475ml. rr5 Outcome: 03/28 23:20 Decision to Hospitalize by Provider. [facility] 03/29 02:38 Admitted to ER Hold. Please see [facility] for further documentation. ea Condition: stable Instructed on pt sedated and intubated 07:38 Patient left the ED. sv Signatures: Dispatcher [employer] EDMS Ruth Centeno RN RN Yousuf David MD MD cha Ballard, Brenda RN RN Nelly Waters [facility] Carmen Ba RN RN ea Roque, Raymond RN RN rr5 Roxy Katz RN RN vc Linscombe, Lacie, RN RN ll2 Corrections: (The following items were deleted from the chart) 03:54 03:53 Pepcid 20 mg IVP in Other rr5 rr5 04:44 00:00 BP 102 / 85; Pulse 89bpm; Resp 14bpm; Pulse Ox 80% 5 lpm Nasal Cannula; rr5 rr5
--- NOTE | 2020-03-28 23:21 | EDPHYS ---
Physician Documentation [facility] Name: [address] Age: 49 yrs Sex: Male : 1970 Arrival Date: 03/28/2020 Time: 20:46 Bed 3 Private MD: ED Physician Yousuf Brady HPI: 03/28 20:52 This 49 yrs old Male presents to ER via Unassigned with complaints of Low jorge Blood Sugar. 20:52 The patient or guardian reports hypoglycemia. Onset: The symptoms/episode jorge began/occurred just prior to arrival. Associated signs and symptoms: Pertinent positives: anorexia, using drugs, iv meth , siugar in the 40's ams, ems to er , c/o of abd pain, positive etoh, hx pancreatitis. Current symptoms: In the emergency department the patient's symptoms have improved, moderately, is more alert. It is unknown whether or not the patient has had similar symptoms in the past. Historical: - Allergies: 21:08 No Known Allergies; ea - PMHx: 21:08 Diabetes - IDDM; ea - Immunization history:: Adult Immunizations up to date. - Family history:: not pertinent. - Social history:: Smoking status: Patient denies any tobacco usage or history of. Patient uses street drugs, Methamphetamine (Meth). ROS: 20:54 Constitutional: Negative for fever, chills, and weight loss, Eyes: Negative for injury, jorge pain, redness, and discharge, ENT: Negative for injury, pain, and discharge, Neck: Negative for injury, pain, and swelling, Back: Negative for injury and pain, : Negative for injury, bleeding, discharge, and swelling, MS/Extremity: Negative for injury and deformity, Skin: Negative for injury, rash, and discoloration, Neuro: Negative for headache, weakness, numbness, tingling, and seizure, Psych: Negative for depression, anxiety, suicide ideation, homicidal ideation, and hallucinations, Allergy/Immunology: Negative for hives, rash, and allergies, Endocrine: Negative for neck swelling, polydipsia, polyuria, polyphagia, and marked weight changes, Hematologic/Lymphatic: Negative for swollen nodes, abnormal bleeding, and unusual bruising. 20:54 Cardiovascular: Positive for palpitations. 20:54 Respiratory: Positive for cough. 20:54 Abdomen/GI: Positive for abdominal pain, of the epigastric area, right upper quadrant and left upper quadrant. 20:54 Skin: Positive for pallor. Exam: 20:55 Constitutional: This is a well developed, well nourished patient who is awake, alert, jorge and in no acute distress. Head/Face: Normocephalic, atraumatic. Eyes: Pupils equal round and reactive to light, extra-ocular motions intact. Lids and lashes normal. Conjunctiva and sclera are non-icteric and not injected. Cornea within normal limits. Periorbital areas with no swelling, redness, or edema. ENT: Nares patent. No nasal discharge, no septal abnormalities noted. Tympanic membranes are normal and external auditory canals are clear. Oropharynx with no redness, swelling, or masses, exudates, or evidence of obstruction, uvula midline. Mucous membranes moist. Neck: Trachea midline, no thyromegaly or masses palpated, and no cervical lymphadenopathy. Supple, full range of motion without nuchal rigidity, or vertebral point tenderness. No Meningismus. Chest/axilla: Normal chest wall appearance and motion. Nontender with no deformity. No lesions are appreciated. Back: No spinal tenderness. No costovertebral tenderness. Full range of motion. Male : Normal genitalia with no discharge or lesions. MS/ Extremity: Pulses equal, no cyanosis. Neurovascular intact. Full, normal range of motion. Neuro: Awake and alert, GCS 15, oriented to person, place, time, and situation. Cranial nerves II-XII grossly intact. Motor strength 5/5 in all extremities. Sensory grossly intact. Cerebellar exam normal. Normal gait. Psych: Awake, alert, with orientation to person, place and time. Behavior, mood, and affect are within normal limits. 20:55 Cardiovascular: Rate: tachycardic, Rhythm: regular, Pulses: Pulses are 4+ in bilateral radial, brachial, femoral, popliteal, posterior tibial and and dorsalis pedis arteries.. Heart sounds: normal, Edema: is not appreciated, JVD: is not appreciated. 20:55 Respiratory: the patient does not display signs of respiratory distress, Respirations: normal, Breath sounds: bronchial sounds, decreased breath sounds. 20:55 Abdomen/GI: Inspection: abdomen appears normal, Bowel sounds: normal, Palpation: mild abdominal tenderness, in the epigastric area, right upper quadrant and left upper quadrant, Liver: no appreciated palpable abnormalities, Hernia: not appreciated. 03/29 02:38 ECG was reviewed by the Attending Physician. [facility] Vital Signs: 03/28 20:47 BP 95 / 63; Pulse 110; Resp 20; Temp 99.3; Pulse Ox 79% on R/A; Weight 45.36 kg; Height ea 5 ft. 5 in. (165.10 cm); 22:12 BP 119 / 77; Pulse 104; Resp 16; Pulse Ox 95% on 5 lpm NC; ll2 23:48 BP 92 / 76; Pulse 105; Resp 12; Pulse Ox 84% on 5 lpm NC; ll2 03/29 00:00 BP 102 / 85; Pulse 89; Resp 14; Pulse Ox 84% on 5 lpm NC; rr5 00:30 Pulse Ox 94% on 15% Non-rebreather mask; rr5 01:00 BP 113 / 74; Pulse 79; Resp 20; Pulse Ox 99% on ETT vent; rr5 01:35 BP 140 / 108; Pulse 87; Resp 18; Pulse Ox 97% ; ea 02:22 BP 112 / 73; Pulse 89; Resp 20; Pulse Ox 99% on ETT vent; ea 02:54 BP 93 / 65; Pulse 81; Resp 25; Temp 96.2; Pulse Ox 99% on ETT vent; rr5 03:15 BP 110 / 62; Pulse 89; Resp 24; Temp 95.5; Pulse Ox 100% on ETT vent; rr5 03:45 BP 101 / 72; Pulse 82; Resp 27; Temp 95; Pulse Ox 99% on ETT vent; rr5 04:15 BP 122 / 62; Pulse 80; Resp 28; Temp 95.8; Pulse Ox 100% on ETT vent; rr5 04:45 BP 102 / 68; Pulse 87; Resp 23; Temp 96; Pulse Ox 100% on ETT vent; rr5 03/28 20:47 Body Mass Index 16.64 (45.36 kg, 165.10 cm) ea 03/28 20:47 pt placed on 5L per nasal canula Procedures: 03/29 01:21 Intubation: Ventilated with 100% NRB prior to procedure. Intubated orally using # 3 jorge Deep blade with 7.5 mm ETT. was successful on first attempt. Patient tolerated well. Central Line: the site was prepped with Betadine, in sterile fashion, a triple lumen catheter was inserted, in the right femoral vein, in 1 attempts. placement was verified, by blood return, the site was dressed with using sterile technique, the patient tolerated the procedure, well. MDM: 03/28 20:47 Patient medically screened. [facility] 20:58 Data reviewed: vital signs, nurses notes, lab test result(s), EKG, radiologic studies, [facility] CT scan, plain films. 03/29 01:21 Differential diagnosis: DKA, hyperglycemia. Differential Diagnosis altered mental jorge status, sepsis. Data interpreted: clinical consultant: rate is 100 beats/min, rhythm is regular, Pulse oximetry: on room air is 85 %. Test interpretation: by ED physician or midlevel provider: ECG, plain radiologic studies. Counseling: I had a detailed discussion with the patient and/or guardian regarding: the historical points, exam findings, and any diagnostic results supporting the discharge/admit diagnosis, lab results, radiology results, the need for further work-up and treatment in the hospital. ED course: pt less responsive, sats dropping , blood pressure low, decision to intubate and place central line, dw edel. 03/28 20:51 Order name: Basic Metabolic Panel [facility] 03/28 20:51 Order name: CBC with Diff; Complete Time: 23:[address] [facility] 03/28 20:51 Order name: LFT's [facility] 03/28 20:51 Order name: Magnesium [facility] 03/28 20:51 Order name: NT PRO-BNP [facility] 03/28 20:51 Order name: Troponin (emerg Dept Use Only); Complete Time: 23:[address] [facility] 03/28 20:51 Order name: Lipase; Complete Time: 23:[address] [facility] 03/28 20:51 Order name: Blood Culture Adult (2) [facility] 03/28 20:51 Order name: Lactate; Complete Time: 23:[address] [facility] 03/28 20:51 Order name: Procalcitonin; Complete Time: 00:[address] [facility] 03/28 20:51 Order name: Acetaminophen; Complete Time: 23:[address] [facility] 03/28 20:51 Order name: ETOH Level; Complete Time: 23:[address] [facility] 03/28 20:51 Order name: PT-INR; Complete Time: 23:[address] [facility] 03/28 20:51 Order name: Ptt, Activated; Complete Time: 23:[address] [facility] 03/28 20:51 Order name: Salicylate; Complete Time: 23:[address] [facility] 03/28 20:51 Order name: Urine Drug Screen; Complete Time: 06:[address] [facility] 03/28 20:52 Order name: Basic Metabolic Panel; Complete Time: 23:15 EDMS 03/28 20:52 Order name: Liver (Hepatic) Function; Complete Time: 23:15 EDMS 03/28 20:52 Order name: Magnesium; Complete Time: 23:15 EDMS 03/28 20:52 Order name: NT PRO-BNP; Complete Time: 23:15 EDMS 03/28 22:00 Order name: Manual Differential; Complete Time: 23:15 EDMS 03/28 23:14 Order name: COVID-[address] [facility] 03/29 00:05 Order name: CBC with Automated Diff; Complete Time: 06:51 EDMS 03/29 00:05 Order name: Comprehensive Metabolic Panel; Complete Time: 06:51 EDMS 03/29 00:05 Order name: Lactate; Complete Time: 06:51 EDMS 03/29 00:05 Order name: Magnesium; Complete Time: 06:51 EDMS 03/29 00:08 Order name: ABG; Complete Time: 06:51 rr5 03/29 00:09 Order name: Vancomycin Level Trough; Complete Time: 06:51 EDMS 03/29 01:16 Order name: ABG 03/28 20:51 Order name: XRAY Chest (1 view) [facility] 03/28 20:51 Order name: CT Abd/Pelvis - IV Contrast Only [facility] 03/29 01:16 Order name: XRAY CXR (1 view) 03/29 01:49 Order name: Urine Dipstick--Ancillary (enter results) [facility] 03/29 01:53 Order name: Lactate Sepsis 2 HR Follow-up; Complete Time: 06:51 EDMS 03/29 01:59 Order name: ABG Arterial Blood Gas; Complete Time: 06:51 EDMS 03/29 02:19 Order name: Urine Dipstick-Ancillary; Complete Time: 06:51 EDMS 03/29 02:30 Order name: Urine Drug Screen 03/29 02:30 Order name: Urine Microscopic Only 03/29 02:50 Order name: SARS-COV-2 RT PCR; Complete Time: 06:51 EDMS 03/29 03:10 Order name: Glucose, Ancillary Testing; Complete Time: 06:51 EDMS 03/29 03:45 Order name: Urine Microscopic Only; Complete Time: 06:51 EDMS 03/29 04:30 Order name: Glucose, Ancillary Testing; Complete Time: 06:51 EDMS 03/28 20:51 Order name: EKG; Complete Time: 20:52 jorge 03/28 20:51 Order name: Cardiac monitoring; Complete Time: 02:07 jorge 03/28 20:51 Order name: EKG - Nurse/Tech; Complete Time: 02:07 jorge 03/28 20:51 Order name: IV Saline Lock; Complete Time: 02:07 jorge 03/28 20:51 Order name: Labs collected and sent; Complete Time: 02:07 jorge 03/28 20:51 Order name: O2 Per Protocol; Complete Time: 02:07 jorge 03/28 20:51 Order name: O2 Sat Monitoring; Complete Time: 02:07 jorge 03/28 20:51 Order name: Urine Dipstick-Ancillary (obtain specimen); Complete Time: 02:07 jorge 03/28 23:17 Order name: IV Saline Lock - Large Bore; Complete Time: 23:19 jorge 03/29 00:05 Order name: Consistent Carb (ADA) [address] EDMS 03/29 02:12 Order name: [place]; Complete Time: 02:16 rr5 03/29 02:12 Order name: Nasogastric Tube; Complete Time: 02:12 rr5 03/29 03:44 Order name: Restraint:Non-Violent; Complete Time: 03:44 rr5 EC:38 Rate is 91 beats/min. Rhythm is regular. QRS [place] is Normal. ME interval is normal. QRS jorge interval is normal. QT interval is normal. No Q waves. T waves are Normal. No ST changes noted. Clinical impression: Normal ECG and No evidence of ischemia. Interpreted by me. Reviewed by me. Administered Medications: Discontinued: D5-1/2 NS 1000 ml IV at 125 ml/hr continuous 03/28 20:57 CANCELLED (Duplicate Order): Rocephin 1 grams IV at per protocol once; Given slow IV jorge push per pharmacy instructions 21:24 Drug: NS 0.9% 500 ml Route: IV; Rate: bolus; Site: left hand; ll2 22:33 Follow up: Response: No adverse reaction ll2 23:30 Follow up: Response: No adverse reaction; IV Status: Completed infusion; IV Intake: rr5 500ml 21:25 Drug: Thiamine 100 mg Route: IV; Rate: bolus; Site: left wrist; ll2 22:25 Follow up: Response: No adverse reaction; IV Status: Completed infusion rr5 22:33 Follow up: Response: No adverse reaction 2 21:25 Drug: NS 0.9% 1000 ml Route: IV; Rate: 1 bolus; Site: left hand; 2 03/29 00:00 Follow up: Response: No adverse reaction; IV Status: Completed infusion; IV Intake: rr5 1000ml 03/28 21:25 Drug: D5-1/2 NS 1000 ml Route: IV; Rate: 125 ml/hr; Site: left hand; ll2 22:33 Follow up: Response: No adverse reaction ll2 22:33 Follow up: Response: No adverse reaction 2 03/29 03:12 Follow up: IV Status: Order to discontinue infusion 5 03/28 22:00 Drug: Zosyn 3.375 grams Route: IVPB; Infused Over: 60 mins; Site: right upper arm; ll2 22:33 Follow up: Response: No adverse reaction 2 03/29 01:30 Follow up: Response: No adverse reaction; IV Status: Completed infusion; IV Intake: rr5 100ml 03/28 22:31 Drug: Ativan 1 mg Route: IVP; Site: left wrist; ll2 22:34 Follow up: Response: No adverse reaction; RASS: Alert and Calm (0) ll2 22:49 Follow up: Response: Anxiety decreased ll2 23:55 Follow up: Response: No adverse reaction ll2 22:49 Drug: vancoMYCIN 1 grams Route: IVPB; Infused Over: 2 hrs; Site: left wrist; 2 03/29 03:00 Follow up: Response: No adverse reaction; IV Status: Completed infusion; IV Intake: rr5 250ml 00:55 Drug: Versed 4 mg Route: IVP; Site: right hand; rr5 01:00 Follow up: Response: No adverse reaction ea 00:56 Drug: Etomidate 10 mg Route: IVP; Site: right hand; rr5 01:00 Follow up: Response: No adverse reaction ea 01:25 Drug: NS 0.9% 1000 ml {Note: right femoral.} Route: IV; Rate: 1 bolus; Site: Other; rr5 02:43 Follow up: Response: No adverse reaction; IV Status: Completed infusion; IV Intake: ea 1000ml 01:25 Drug: NS 0.9% 500 ml {Note: right femoral.} Route: IV; Rate: bolus; Site: Other; rr5 02:43 Follow up: IV Status: Completed infusion; IV Intake: 500ml ea 01:50 Drug: Magnesium Sulfate 1 grams {Note: right femoral.} Route: IVPB; Infused Over: 1 rr5 hrs; Site: Other; 02:50 Follow up: Response: No adverse reaction; IV Status: Completed infusion; IV Intake: [id number] 02:00 Drug: Potassium Chloride 20 mEq Route: IV; Rate: per protocol; Site: Other; rr5 03:00 Follow up: Response: No adverse reaction; IV Status: Completed infusion; IV Intake: rr5 100ml 02:04 Not Given (intubated): Potassium Effervescent Tablet 25 mEq PO once; dissolve in 4 rr5 ounces of water or juice 02:30 Drug: Pepcid 20 mg {Note: right femoral.} Route: IVP; Site: Other; rr5 03:55 Follow up: Response: No adverse reaction rr5 03:09 Not Given (Other Intervention Used; D5 1/2NS at 100 ml/hr ordered in [place]): D5-NS rr5 with KCL 20 mEq/L 1000 ml IV at 125 ml/hr continuous 03:15 Drug: D50W 50 ml {Note: right femoral.} Route: IVP; Site: Other; rr5 04:15 Follow up: Response: No adverse reaction; Blood sugar is elevated rr5 03:15 Drug: Propofol 5 mcg/kg/min {Note: right femoral.} Route: IV; Rate: calculated rate; rr5 Site: Other; 03:40 Follow up: Rate change 10 mcg/kg/min rr5 04:15 Follow up: Rate change 15 mcg/kg/min rr5 07:10 Follow up: Response: No adverse reaction; IV Status: Infusion continued upon admission rr5 Disposition: 03/28/20 23:20 Hospitalization ordered by Hector Bruce for Inpatient Admission. Preliminary diagnosis are Hypoglycemia, unspecified, Type 1 diabetes mellitus, Hypomagnesemia, Hypokalemia, Pneumonia due to other specified bacteria - right upper and lower pneumonia, Hypoxemia, Alcohol abuse, Adverse effect of amphetamines, Abuse of non-psychoactive substances - METH, Neutropenia, Bandemia, Respiratory failure, unspecified with hypoxia, Severe sepsis with septic shock. - Bed requested for Intensive Care Unit. - Status is Inpatient Admission. sv - Condition is Serious. - Problem is new. - Symptoms have improved. Signatures: Dispatcher [employer] EDMA Jena Spence, SPARKLE ATWOOD-Ruth Dobbs RN RN sv Webb, Martha, RN RN mw Anderson, Corey, MD MD cha Antunez, Elena RN Gregg Bernard ea RN RN rr5 Keyanna Tello, RN RN ll2 Corrections: (The following items were deleted from the chart) 03/28 20:57 20:51 Rocephin 1 grams IV at per protocol once; Given slow IV push per pharmacy jorge instructions ordered. [facility] 23:36 23:20 Hospitalization Ordered by Hector Bruce MD for Inpatient Admission. Preliminary diagnosis is Hypoglycemia, unspecified; Type 1 diabetes mellitus; Hypomagnesemia; Hypokalemia; Pneumonia due to other specified bacteria - right upper and lower pneumonia; Hypoxemia; Alcohol abuse; Adverse effect of amphetamines; Abuse of non-psychoactive substances - METH; Neutropenia; Bandemia. Bed requested for Telemetry/MedSurg (Inpatient). Status is Inpatient Admission. Condition is Serious. Problem is new. Symptoms have improved. [facility] 03/29 00:19 00:09 Vancomycin Peak ordered. [facility] EDMA 01:25 03/28 23:36 03/28/2020 23:20 Hospitalization Ordered by Hector Bruce MD for Inpatient [facility] Admission. Preliminary diagnosis is Hypoglycemia, unspecified; Type 1 diabetes mellitus; Hypomagnesemia; Hypokalemia; Pneumonia due to other specified bacteria - right upper and lower pneumonia; Hypoxemia; Alcohol abuse; Adverse effect of amphetamines; Abuse of non-psychoactive substances - METH; Neutropenia; Bandemia. Bed requested for [facility] ER HOLD. Status is Inpatient Admission. Condition is Serious. Problem is new. Symptoms have improved. 03/29 06:14 01:25 03/28/2020 23:20 Hospitalization Ordered by Hector Bruce MD for Inpatient Admission. Preliminary diagnosis is Hypoglycemia, unspecified; Type 1 diabetes mellitus; Hypomagnesemia; Hypokalemia; Pneumonia due to other specified bacteria - right upper and lower pneumonia; Hypoxemia; Alcohol abuse; Adverse effect of amphetamines; Abuse of non-psychoactive substances - METH; Neutropenia; Bandemia; Respiratory failure, unspecified with hypoxia; Severe sepsis with septic shock. Bed requested for [facility] ER HOLD. Status is Inpatient Admission. Condition is Serious. Problem is new. Symptoms have improved. [facility] 07:38 06:14 03/28/2020 23:20 Hospitalization Ordered by Hector Bruce MD for Inpatient Admission. Preliminary diagnosis is Hypoglycemia, unspecified; Type 1 diabetes mellitus; Hypomagnesemia; Hypokalemia; Pneumonia due to other specified bacteria - right upper and lower pneumonia; Hypoxemia; Alcohol abuse; Adverse effect of amphetamines; Abuse of non-psychoactive substances - METH; Neutropenia; Bandemia; Respiratory failure, unspecified with hypoxia; Severe sepsis with septic shock. Bed requested for Intensive Care Unit. Status is Inpatient Admission. Condition is Serious. Problem is new. Symptoms have improved. mw
--- NOTE | 2020-03-29 00:16 | P.HP ---
Certification for Inpatient With expected LOS: >2 Midnights Patient will require the following post-hospital care: None Practitioner: I am a practitioner with admitting privileges, knowledge of patient current condition, hospital course, and medical plan of care. Services: Services provided to patient in accordance with Admission requirements found in Title 42 Section 412.3 of the Code of Federal Regulations Patient History Date of Service: 03/29/20 Reason for admission: Altered mental status/hypoglycemia/sepsis/pneumonia/drugs History of Present Illness: 49-year-old male with past medical history of diabetes diagnosed in 2010 is brought by EMS to the emergency room with complaints of altered mental status and hypoglycemia. In the emergency room patient is noted to have a low white cell count, hypokalemia, hypomagnesemia. Has been smoking methamphetamine for 5 days. Has been drinking alcohol of all kinds for 5 days or greater. He is found with a blood glucose in the 40s and given an amp of glucose in the ambulance. Patient also has a history of pancreatitis likely from alcohol abuse. In the emergency room chest x-ray and chest CT shows likely bacterial pneumonia. Blood work shows a white cell count of 1.1 with bands of 12. Elevated liver enzymes with negative salicylates and negative acetamenophen. His lactic acid is 5.9. Patient was bolused IV fluids is started on IV antibiotics. He improved. Was found with blood glucose in the 40s. Last check blood glucose was 86. Patient is not a good source of information. Patient will be admitted to the ICU and further evaluated. Home medications list reviewed: No - Past Medical/Surgical History Diabetic: Yes -: Type 2 diabetes mellitus diagnosed 2010 -: Drug abuse -: Alcohol abuse -: None Psychosocial/ Personal History: Lives at home - Family History Family History: Reviewed- Non-Contributory - Social History Smoking Status: Never smoker Alcohol use: Yes CD- Drugs: Yes Caffeine use: Yes Place of Residence: Home Review of Systems General: As per HPI Eyes: As per HPI ENT: Unremarkable Respiratory: Unremarkable Cardiovascular: Unremarkable Gastrointestinal: Unremarkable Genitourinary: Unremarkable Musculoskeletal: Unremarkable Neurological: Weakness, As per HPI Lymphatics: Unremarkable Physical Examination - Vital Signs Temperature: 99.3 F Blood Pressure: 119/77 Pulse: 104 Respirations: 16 Pulse Ox (%): 95 (5L NC) - Physical Exam General: Alert, Oriented x1, Disheveled, Mild distress HEENT: Atraumatic, Normocephalic, PERRLA, Mucous membr. moist/pink Neck: Supple, No Thyromegaly, Other (Trachea midline) Respiratory: Clear to auscultation bilaterally, Diminished Cardiovascular: No edema, Normal pulses Capillary refill: <2 Seconds Gastrointestinal: Normal bowel sounds, Soft and benign, Non-distended Musculoskeletal: No swelling, No contractures, No erythema Integumentary: No significant lesion, No tenderness/swelling, No erythema Neurological: Normal speech, Normal tone - Studies Laboratory Data (last 24 hrs) 03/28/20 21:34: PT 14.0 H, INR 1.19, APTT 30.0 03/28/20 21:34: WBC 1.1 L*, Hgb 12.3 L, Hct 36.1 L, Plt Count 290 03/28/20 21:34: Sodium 137, Potassium 3.1 L, BUN 11, Creatinine 0.90, Glucose 86, Magnesium 1.7 L, Total Bilirubin 0.5, AST 71 H, ALT 105 H, Alkaline Phosphatase 538 H, Lipase 17 L Assessment and Plan - Plan Impression: Altered mental status likely secondary to methamphetamine use and alcohol use: Bacterial pneumonia: Sepsis with bandemia: Neutropenia: Type 2 diabetes mellitus complicated by hypoglycemia: Methamphetamine abuse: Alcohol abuse: Plan: Altered mental status likely secondary to methamphetamine use and alcohol use: Altered mental status likely a combination of alcohol and drug abuse. Will start patient on CIWA a protocol. Continue D5 1/2 NS IV fluids. Continuous telemetry. Monitor. Bacterial pneumonia: Chest x-ray showing a pneumonia of the right upper and lower lobes. Will start IV vancomycin and IV Zosyn due to significant neutropenia, with bands of 12 noted. Sepsis with bandemia: Likely from pneumonia and complicated by a history of alcohol and drug abuse. Continue as above. Monitor vitals. Neutropenia: Etiology unclear. Likely from drug abuse. Will monitor labs. Type 2 diabetes mellitus complicated by hypoglycemia: Methamphetamine abuse: Will monitor patient for withdrawals. Continue IV fluids as above. Alcohol abuse: Emergency room blood work noted elevated liver enzymes. Will start CIWA protocol. Monitor. Discharge Plan: Home Plan to discharge in: Greater than 2 days - Advance Directives Does patient have a Living Will: No Does patient have a Durable POA for Healthcare: No - Code Status/Comfort Care Code Status Assessed: Yes Time Spent Managing Pts Care (In Minutes): 55
[2020-03-29] MEDS ORDERED: RSI MEDICATION KIT IV ONE (01:02)
[2020-03-29] MEDS ORDERED: MIDAZOLAM HCL 2 MG/2 ML INJ ONE (01:06)
[2020-03-29] MEDS ORDERED: NA CHLORIDE 0.9% 1,000 ML ONE ×3 (01:18→06:27)
[2020-03-29 01:55] LABS: Arterial Blood Carboxyhemoglob 1.5 % (0-1.5); Blood O2 Saturation 80.9 % (92-98.5)
[2020-03-29 01:58] LABS: Arterial Blood Carboxyhemoglob 1.1 % (0-1.5); Blood Gas Oxyhemoglobin 96.5 % (94-97); Blood O2 Saturation 98.4 % (92-98.5)
[2020-03-29] MEDS ORDERED: D5.45NS W/KCL 20MEQ 1,000 ML IV ONE ×2 (01:59→13:18)
[2020-03-29] MEDS ORDERED: KCL 20 MEQ/100 mL IVPB 20 MEQ/100 ML BAG IV ONE (02:00)
[2020-03-29] MEDS ORDERED: Magnesium Sulfate 2gm IVPB 2 G/50 ML BAG IV ONE (02:00)
[2020-03-29] MEDS: D5.45NS W/KCL 20MEQ 1,000 ML IV SCH ×3 (02:00→13:11)
[2020-03-29 02:18] LABS: Urine Blood 2+ (NEG); Urine Glucose 1+ (NEG); Urine Protein 2+ (NEG); Urine Specific Gravity 1.015 (1.005-1.030)
[2020-03-29] MEDS ORDERED: propofoL 1,000 MG/100 ML VIAL IV ONE ×2 (02:32→19:53)
[2020-03-29] MEDS ORDERED: D50W 25 GM/50 ML SYRINGE/VIAL IV ONE ×2 (03:27→18:35)
[2020-03-29 03:44] LABS: Calcium Oxalate Crystals- Ur MODERATE (NONE SEEN); Urine Bacteria 20-50 /HPF (NONE SEEN); Urine Culture Reflex Order REFLEXED; Urine Mucus 2+ /HPF (NONE SEEN)
[2020-03-29] MEDS ORDERED: FAMOTIDINE 20 MG/2 ML VIAL IV ONE (04:06)
--- NOTE | 2020-03-29 05:45 | EKG ---
Test Date: 2020-03-29 Test Time: 02:21:36 Maintenance Service Technician: NEELA MEASUREMENT RESULTS: Intervals: Rate: 91 RI: 142 QRSD: 86 QT: 388 QTc: 477 [place]: P: 71 RI: 142 QRS: 91 T: 55 INTERPRETIVE STATEMENTS: Normal sinus rhythm Rightward axis Borderline ECG No previous ECG available for comparison Electronically Signed On 03-29-20 05:45:03 CDT by Alex Sommer
[2020-03-29] MEDS: PIPER/TAZO/NS 3.375gm 3.375 GM/100 ML BAG IVPB SCH ×3 (06:00→22:39)
--- NOTE | 2020-03-29 06:18 | P.INFCA ---
Sepsis Focused Assessment - Focused Assessment Complete? Sepsis Focused Assessment Completed?: Yes - Sepsis Screen Result Severe Sepsis: Positive Septic Shock: Negative - Evaluation Current stage of sepsis: Severe sepsis - Vital Signs Reviewed: Yes Temperature: 95.8 F Heart rate: 80 Blood Pressure: 122/62 Respiratory Rate: 28 O2 Sat by Pulse Oximetry: 100 - Examination Date exam was performed: 03/29/20 Time exam was performed: 06:17 Heart: Regular rate/rhythm Lungs: Crackles Peripheral pulses: 3+ Normal Peripheral pulse location: Pedal Capillary refill: <2 Seconds Skin examination: Normal turgor (Patient stable. Continue with IV Fluids. Patient is intubated)
[2020-03-29] MEDS ORDERED: HALOPERIDOL LACT 5 MG/ML INJ IM PRN (06:24)
[2020-03-29] MEDS: LORazepam 2 MG/ML VIAL IV SCH ×3 (06:24→14:24)
[2020-03-29] MEDS ORDERED: LORazepam 2 MG/ML VIAL IV PRN ×2 (06:24)
[2020-03-29] MEDS ORDERED: NA CHLORIDE 0.9% 1,000 ML IV ONE (06:24)
[2020-03-29] MEDS ORDERED: FLUMAZENIL 0.1 MG/ML (5 mL VIAL) IV PRN (06:24)
[2020-03-29 06:34] LABS: Barbiturates NEGATIVE (NEGATIVE); Benzodiazepines POSITIVE (NEGATIVE); Cocaine NEGATIVE (NEGATIVE); METHAMPHETAM POSITIVE (NEGATIVE); Methadone NEGATIVE (NEGATIVE); Opiates NEGATIVE (NEGATIVE); Phencyclidine NEGATIVE (NEGATIVE); THC Cannibis POSITIVE (NEGATIVE)
[2020-03-29 06:37] LABS: Absolute Lymphocytes (CBC) 0.3 K/uL (0.7-4.9); Basophils % 0.2 % (0-1.3); Hematocrit 29.7 % (39.6-49.0); Lymphocytes % 20.5 % (15.3-44.8); MPV 7.6 fL (7.6-11.3); RBC Red Blood Cell Count 3.29 M/uL (4.33-5.43)
[2020-03-29] MEDS ORDERED: PIPER/TAZO/NS 3.375gm 3.375 GM/100 ML BAG ONE ×2 (06:37→22:32)
[2020-03-29 06:45] LABS: ALT/SGPT 64 U/L (12-78); AST/SGOT 44 U/L (15-37); Albumin 1.8 g/dL (3.4-5.0); Alkaline Phosphatase 298 U/L (45-117); BUN Blood Urea Nitrogen 12 mg/dL (7-18); Bicarbonate 24 mmol/L (21-32); Bilirubin Total 0.4 mg/dL (0.2-1.0); Glucose Level 67 mg/dL (74-106); Magnesium 1.8 mg/dL (1.8-2.4); Potassium 3.5 mmol/L (3.5-5.1); Protein, Total 4.2 g/dL (6.4-8.2); Sodium Level 140 mmol/L (136-145)
[2020-03-29] MEDS: INSULIN -REGULAR HUMAN 50 UNIT/0.5 ML ML SQ SCH ×4 (07:30→21:00)
--- NOTE | 2020-03-29 07:30 | RAD REPORT ---
EXAM DESCRIPTION: RAD - Chest Single View - 03/28/2020 9:32 pm CLINICAL HISTORY: PAIN, found unresponsive, history of drug use COMPARISON: None TECHNIQUE: AP portable chest image was obtained 03/28/2020 9:32 pm . FINDINGS: Consolidated parenchyma is present in the right midlung field and medial right lung base. More mild airspace opacification is present in the left lung base. Small nodular focus 10 mm in size superimposed on the posterior left eighth rib is probably infiltrate rather than nodule. Findings could represent bacterial pneumonia or aspiration pneumonia given the provided history. Heart and vasculature are normal. No measurable pleural effusion and no pneumothorax. No acute bony abnormality seen. No acute aortic findings suspected. IMPRESSION: Dense airspace opacification in the mid right lung field and medial right base with more moderate airspace opacification left base. Given the history, findings could be infectious pneumonia or aspiration pneumonia. Pattern is not a t ypical COVID-19 pneumonia presentation.
[2020-03-29] MEDS ORDERED: VANCOMYCIN 1 GM in NA CHLORIDE 0.9% 500 ML IVPB SCH (09:00)
[2020-03-29] MEDS: ENOXAPARIN 40 MG/0.4 ML SQ SCH (09:28)
[2020-03-29] MEDS ORDERED: ENOXAPARIN 40 MG/0.4 ML SQ ONE (09:33)
--- NOTE | 2020-03-29 09:33 | RAD REPORT ---
EXAM DESCRIPTION: RAD - Chest Single View - 03/29/2020 1:56 am CLINICAL HISTORY: POST ETT COMPARISON: March 28 TECHNIQUE: AP portable chest image was obtained 03/29/2020 1:56 am . FINDINGS: Endotracheal tube is in place with the tip at the T4 level top of the aortic arch. This is approximately 3-4 cm above the matthew. NG tube has been placed. Tip is not well visualized. This appears to be curled in the distal esophagu s at the GE junction. Dense airspace opacification in the right lung field is noted with more moderate consolidation in the left base. Heart and vasculature are normal. No measurable pleural effusion and no pneumothorax. No acute bony abnormality seen. No acute aortic findings suspected. IMPRESSION: Endotracheal tube in good position 3-4 cm above the matthew. NG tube appears curled in the distal esophagus near the GE junction.
[2020-03-29] MEDS ORDERED: Ringers Lactate 1,000 ML IV ONE (10:15)
--- NOTE | 2020-03-29 11:08 | P.CNS ---
Date of Consult: 03/29/20 Reason for Consult: Respiratory failure and pneumonia hypoglycemia Chief Complaint: Altered mental status/hypoglycemia/sepsis/pneumonia/drugs History of Present Illness: Patient is 49 years of age history of diabetes as and with altered mental status hypoglycemia electrolyte abnormality and is an active smoker alcohol abuse drug abuse eased admitted with a right lung pneumonia eyes on a ventilator hypoglycemic he has an insulin pump currently on a ventilator Allergies No Known Allergies Allergy (Unverified 03/29/20 03:00) - Past Medical/Surgical History Diabetic: Yes -: Type 2 diabetes mellitus diagnosed 2010 -: Drug abuse -: Alcohol abuse -: None Psychosocial/ Personal History: Lives at home - Social History Alcohol use: Yes CD- Drugs: Yes Caffeine use: Yes Place of Residence: Home Review of Systems is unable to be obtained Physical Examination Temp Pulse Resp BP Pulse Ox 97.7 F 92 H 27 H 104/68 97 03/29/20 06:44 03/29/20 06:44 03/29/20 06:44 03/29/20 06:44 03/29/20 06:44 General: Cachectic, Unresponsive, Other Neck: Supple Respiratory: Crackles/rales (Crackles on the right side) Cardiovascular: No edema, Normal S1 S2 Laboratory Data (last 24 hrs) 03/28/20 21:34: PT 14.0 H, INR 1.19, APTT 30.0 03/28/20 21:34: WBC 1.1 L*, Hgb 12.3 L, Hct 36.1 L, Plt Count 290 03/28/20 21:34: Sodium 137, Potassium 3.1 L, BUN 11, Creatinine 0.90, Glucose 86, Magnesium 1.7 L, Total Bilirubin 0.5, AST 71 H, ALT 105 H, Alkaline Phosphatase 538 H, Lipase 17 L - Problems (1) Respiratory failure Current Visit: Yes Status: Acute Plan: Patient is 49 years of age admitted with severe hypoglycemia he has an insulin pump that niece to be stopped in addition he has a right lung pneumonia alcohol drug abuse is also in shock anemic and neutropenic multiple electrolyte abnormalities patient has bilateral pneumonia right worse than the left most likely he has aspirated agree with Zosyn add vancomycin fluid bolus Dc insulin pump. Sputum cultures titrate to sat 90 95% I have added serum cortisol level stat dose of hydrocortisone tsh T4 level Qualifiers: Chronicity: acute
[2020-03-29] MEDS ORDERED: Pharmacy Consult 1 EA XX PRN (11:09)
--- NOTE | 2020-03-29 11:31 | P.PN ---
Subjective Date of Service: 03/29/20 Primary Care Provider: unknown Chief Complaint: Altered mental status/hypoglycemia/sepsis/pneumonia/drugs Subjective: Other (Patient remains intubated.) Physical Examination - Vital Signs Temperature: 97.7 F Blood Pressure: 104/68 Pulse: 92 Respirations: 27 Pulse Ox (%): 97 - Physical Exam General: Other (Patient intubated and slightly sedated.) Neck: Supple Respiratory: Crackles/rales (Bilateral) Cardiovascular: Normal pulses, Regular rate/rhythm Gastrointestinal: Normal bowel sounds Neurological: Normal strength at 5/5 x4 extr, Other (Patient intubated and sedated) - Studies Laboratory Data (last 24 hrs) 03/28/20 21:34: PT 14.0 H, INR 1.19, APTT 30.0 03/28/20 21:34: WBC 1.1 L*, Hgb 12.3 L, Hct 36.1 L, Plt Count 290 03/28/20 21:34: Sodium 137, Potassium 3.1 L, BUN 11, Creatinine 0.90, Glucose 86, Magnesium 1.7 L, Total Bilirubin 0.5, AST 71 H, ALT 105 H, Alkaline Phosphatase 538 H, Lipase 17 L Medications List Reviewed: Yes Assessment & Plan Discharge Plan: Home Plan to discharge in: Greater than 2 days Physician Review Additional Text: Impression: Altered mental status secondary to acute toxic encephalopathy with severe sepsis likely related to acute respiratory failure/right upper lobe aspiration pneumonia with possible UTI Neutropenia and anemia chronic disease likely related to above Hypoglycemia with history of type 1 diabetes with insulin pump Drug abuse history with noted positive drug screen for amphetamines, benzodiazepine and THC Elevated liver function likely related to above Plan: Altered mental status secondary to acute toxic encephalopathy with severe sepsis likely related to acute respiratory failure/right upper lobe aspiration pneumonia with possible UTI: Patient remains intubated. Continue IV Zosyn and vancomycin. Patient with hypoglycemia. Patient noted to have insulin pump. This will be turned off. Continue to monitor this closely. Blood, urine cultures obtained. Will discuss further with pulmonology. Wean off ventilator. DVT prophylaxis in place. Will recheck chest x-ray tomorrow. Maintain oxygen saturations above 93%. Fluid bolus given to maintain map of 65. Will order echocardiogram. Will continue to reassess and monitor. Neutropenia and anemia chronic disease likely related to above: Will monitor this closely. Maintain hemoglobin above 8.0. Hypoglycemia with history of type 1 diabetes with insulin pump: Insulin pump will be turned off. Will monitor for hypoglycemia. Will adjust IV fluids accordingly. Drug abuse history with noted positive drug screen for amphetamines, benzodiaze pine and THC: Will need to obtain more history from family. Will need to monitor for withdrawal.. Elevated liver function likely related to above: Monitor liver function test closely. Will obtain hepatitis and HIV panel. Will consider liver ultrasound. Time Spent Managing Pts Care (In Minutes): 55
[2020-03-29] MEDS ORDERED: HYDROCORTISONE SUC 100 MG INJ IV SCH (12:00)
[2020-03-29] MEDS: THIAMINE 200 MG/2 ML INJ IVP SCH (12:26)
[2020-03-29] MEDS ORDERED: HYDROCORTISONE SUC 100 MG INJ ONE ×2 (12:35→22:32)
[2020-03-29] MEDS ORDERED: THIAMINE 200 MG/2 ML INJ ONE (12:35)
[2020-03-29] MEDS ORDERED: VANCOMYCIN 1.25 GM in NA CHLORIDE 0.9% 250 ML IVPB ONE (13:00)
[2020-03-29] MEDS: FOLIC ACID 1 MG in NA CHLORIDE 0.9% 50 ML IV SCH (13:11)
--- NOTE | 2020-03-29 14:28 | RAD REPORT ---
EXAM DESCRIPTION: CT - Abdomen Pelvis W Contrast - 03/29/2020 5:00 am CLINICAL HISTORY: The patient is 49 years old and is Male; ABD PAIN TECHNIQUE: Axial computed tomography images of the abdomen and pelvis with intravenous contrast. S agittal and coronal reformatted images were created and reviewed. This CT exam was performed using one or more of the following dose reduction techniques: automated exposure control, adjustment of t he mA and/or kV according to patient size, and/or use of iterative reconstruction technique. COMPARISON: No relevant prior studies available. FINDINGS: LUNG BASES: Extensive consolidation and groundglass opacities within the visualized lung bases is noted, right greater than left. ABDOMEN: LIVER: Unremarkable. No mass. GALLBLADDER AND BILE DUCTS: No calcified stones. No ductal dilation. PANCREAS: Coarse calcifications are present throughout the pancreatic parenchyma. The pancreas i s atrophic. SPLEEN: Unremarkable. ADRENALS: Unremarkable. No mass. KIDNEYS AND URETERS: Punctate bilateral intrarenal calcifications are present. A few peripheral areas of wedge-shaped low-attenuation are noted within both kidneys. However, there is no significant surrounding inflammation. The kidneys otherwise enhance symmetrically. STOMACH AND BOWEL: The stomach is distended with fluid and air. The small bowel is decompressed proximally. Several fluid-filled slightly prominent distal small bowel loops are noted. A moderate am ount stool is present throughout colon. There is no evidence of obstruction. PELVIS: APPENDIX: No findings to suggest acute appendicitis. BLADDER: The bladder is significantly distended. REPRODUCTIVE: Unremarkable as visualized. ABDOMEN and PELVIS: INTRAPERITONEAL SPACE: Unremarkable. No free air. No significant fluid collection. BONES/JOINTS: No acute fracture. SOFT TISSUES: Wasting of the musculature of the abdomen and pelvis is noted. VASCULATURE: Atherosclerosis of the vasculature is present. No abdominal aortic aneurysm. LYMPH NODES: Unremarkable. No enlarged lymph nodes. IMPRESSION: 1. Extensive consolidation and groundglass opacity throughout the visualized lung base s, right greater left. Findings are most suggestive of infectious process. 2. Few prominent fluid-filled small bowel loops scattered throughout the abdomen. Findings are nons pecific and could be secondary to mild enteritis. There is no bowel obstruction. 3. Few subtle peripheral wedge-shaped areas of low attenuation are noted within both kidneys. Findi ngs may be secondary to subtle areas of scarring. There is no significant surrounding inflammation. Electronically signed by: Fely Meléndez MD 03/28/2020 11:43 PM CDT Due to temporary technical issues with the PACS/Fluency reporting system, reports are being signed by the in house radiologist without review as a courtesy to ensure prompt reporting. The interpreting r adiologist is fully responsible for the content of the report.
[2020-03-29 15:45] LABS: Thyroid Stimulating Hormone 1.13 uIU/mL (0.360-3.740)
[2020-03-29] MEDS: DEXTROSE 10%-WATER 500 ML IV SCH ×2 (17:01→23:31)
[2020-03-29] MEDS ORDERED: DEXTROSE 10%-WATER 500 ML IV ONE ×2 (17:07→23:26)
[2020-03-29] MEDS ORDERED: VANCOMYCIN 750 MG in NA CHLORIDE 0.9% 150 ML IVPB SCH (20:00)
[2020-03-29] MEDS ORDERED: WATER FOR INJ,STERILE 10 ML ONE (22:32)
[2020-03-29] MEDS: HYDROCORTISONE SUC 100 MG INJ IV SCH (22:39)
[2020-03-29] MEDS: D50W 25 GM/50 ML SYRINGE/VIAL IV PRN (22:54)
[2020-03-29] MEDS ORDERED: JEVITY 1.5 CAL LIQUID 1,000 ML BOT FT SCH (23:45)
[2020-03-30] MEDS ORDERED: VANCOMYCIN 750 MG in NA CHLORIDE 0.9% 150 ML IVPB SCH (01:00)
[2020-03-30] MEDS: VANCOMYCIN 750 MG in NA CHLORIDE 0.9% 150 ML IVPB SCH ×2 (01:30→13:19)
[2020-03-30] MEDS: D50W 25 GM/50 ML SYRINGE/VIAL IV PRN (03:00)
[2020-03-30] MEDS ORDERED: D50W 25 GM/50 ML SYRINGE/VIAL IV ONE (03:16)
[2020-03-30] MEDS ORDERED: DEXTROSE 10%-WATER 500 ML IV ONE ×3 (04:06→14:23)
[2020-03-30] MEDS: DEXTROSE 10%-WATER 500 ML IV SCH ×3 (04:49→14:13)
[2020-03-30 05:23] LABS: Absolute Lymphocytes (CBC) 0.3 K/uL (0.7-4.9); Basophils % 0.3 % (0-1.3); Hematocrit 25.8 % (39.6-49.0); Lymphocytes % 3.6 % (15.3-44.8); MPV 7.8 fL (7.6-11.3); RBC Red Blood Cell Count 2.86 M/uL (4.33-5.43)
[2020-03-30 05:28] LABS: ALT/SGPT 46 U/L (12-78); AST/SGOT 30 U/L (15-37); Albumin 1.5 g/dL (3.4-5.0); Alkaline Phosphatase 205 U/L (45-117); BUN Blood Urea Nitrogen 13 mg/dL (7-18); Bicarbonate 19 mmol/L (21-32); Bilirubin Total 0.3 mg/dL (0.2-1.0); Glucose Level 108 mg/dL (74-106); Magnesium 1.6 mg/dL (1.8-2.4); Potassium 3.4 mmol/L (3.5-5.1); Sodium Level 142 mmol/L (136-145)
[2020-03-30] MEDS: PIPER/TAZO/NS 3.375gm 3.375 GM/100 ML BAG IVPB SCH ×3 (05:37→21:12)
[2020-03-30] MEDS ORDERED: PIPER/TAZO/NS 3.375gm 3.375 GM/100 ML BAG ONE ×3 (05:44→21:10)
[2020-03-30] MEDS: D5.45NS W/KCL 20MEQ 1,000 ML IV SCH (05:45)
[2020-03-30 07:23] LABS: Blood Morphology Comment NOT SEEN (NOT SEEN); Platelet Estimate ADEQ
[2020-03-30] MEDS: INSULIN -REGULAR HUMAN 50 UNIT/0.5 ML ML SQ SCH ×4 (07:30→21:00)
[2020-03-30] MEDS ORDERED: LORazepam 2 MG/ML VIAL ONE (08:15)
[2020-03-30] MEDS: LORazepam 2 MG/ML VIAL IV PRN (08:30)
--- NOTE | 2020-03-30 08:58 | RAD REPORT ---
EXAM DESCRIPTION: RAD - Chest Single View - 03/30/2020 6:06 am CLINICAL HISTORY: Pneumonia, intubation COMPARISON: March 29 TECHNIQUE: AP portable chest image was obtained 03/30/2020 6:06 am . FINDINGS: ET tube remains in good position. NG tube extends below the diaphragm, off the field of vi ew. Dense consolidation of the right lung field remains. Right lung field does appear slightly better aer ated than on the prior day study. The interval changes minimal. Left lung base is fractionally improv ed. No progressive process identifiable. Heart and vasculature are normal. No measurable pleural effusion and no pneumothorax. No acute bony abnormality seen. No acute aortic findings suspected. IMPRESSION: Partial clearing of bilateral lung field consolidation. Interval change is minimal.
[2020-03-30] MEDS: ENOXAPARIN 40 MG/0.4 ML SQ SCH (09:09)
[2020-03-30] MEDS: THIAMINE 200 MG/2 ML INJ IVP SCH (09:09)
[2020-03-30] MEDS: FOLIC ACID 1 MG in NA CHLORIDE 0.9% 50 ML IV SCH (09:09)
[2020-03-30] MEDS: HYDROCORTISONE SUC 100 MG INJ IV SCH ×2 (09:10→21:11)
[2020-03-30] MEDS ORDERED: THIAMINE 200 MG/2 ML INJ ONE (09:19)
[2020-03-30] MEDS ORDERED: HYDROCORTISONE SUC 100 MG INJ ONE ×2 (09:19→20:59)
[2020-03-30] MEDS ORDERED: ENOXAPARIN 40 MG/0.4 ML SQ ONE (09:19)
--- NOTE | 2020-03-30 10:28 | P.PN ---
Subjective Date of Service: 03/30/20 Primary Care Provider: unknown Chief Complaint: Altered mental status/hypoglycemia/sepsis/pneumonia/drugs Subjective: Doing well Physical Examination - Vital Signs Temperature: 99.4 F Blood Pressure: 100/59 Pulse: 74 Respirations: 21 Pulse Ox (%): 94 - Physical Exam General: Alert, Cooperative, Other (Patient is alert but still intubated) Neck: Supple Respiratory: Crackles/rales (Less crackles to the bases) Cardiovascular: Normal pulses, Regular rate/rhythm Gastrointestinal: Normal bowel sounds, No masses, No rebound, No guarding Integumentary: No erythema, No warmth, No cyanosis Neurological: Normal strength at 5/5 x4 extr, Normal affect - Studies Medications List Reviewed: Yes Assessment & Plan Discharge Plan: Home Plan to discharge in: Greater than 2 days Physician Review Additional Text: Impression: Altered mental status secondary to acute toxic encephalopathy with severe sepsis likely related to acute respiratory failure/right upper lobe aspiration pneumonia with possible UTI Neutropenia and anemia chronic disease likely related to above Hypoglycemia with history of type 1 diabetes with insulin pump Drug abuse history with noted positive drug screen for amphetamines, benzodiazepine and THC Elevated liver function likely related to above Suspect possible adrenal insufficiency Severe protein malnutrition with hypocalcemia, hypomagnesia Plan: Altered mental status secondary to acute toxic encephalopathy with severe sepsis likely related to acute respiratory failure/right upper lobe aspiration pneumonia with possible UTI: Patient remains intubated but alert. Continue IV antibiotic therapy. Await culture results. Patient had hypoglycemia yesterday. Insulin pump discontinued. This may be related to severe sepsis versus adrenal insufficiency per versus other etiology. Patient on hydrocortisone. This was increased yesterday. Patient also on D10 fluids. Patient also on tube feeds. Blood sugar better controlled. Will discuss further with pulmonology. Anticipate possible extubation today. Echo pending. Continue with pulmonology recommendations. Neutropenia and anemia chronic disease likely related to above: This has improved with antibiotic treatment. Will continue monitor closely. Maintain hemoglobin above 8.0.. Hypoglycemia with history of type 1 diabetes with insulin pump: Insulin pump discontinued. Patient getting hydrocortisone for possible underlying adrenal insufficiency. Hypoglycemia may be related to severe sepsis as well. Continue monitor this closely. Insulin level obtained. Drug abuse history with noted positive drug screen for amphetamines, be nzodiazepine and THC: Mother reports patient still abuses medication. Will monitor for withdrawal. Elevated liver function likely related to above: Monitor liver function test closely. Will obtain hepatitis and HIV panel. Will consider liver ultrasound. Suspect possible adrenal insufficiency: Order ACTH test tomorrow. Will discuss further with pulmonology. Severe protein malnutrition with hypocalcemia and hypomagnesia: Continue with above plan of care. Time Spent Managing Pts Care (In Minutes): 55
[2020-03-30] MEDS ORDERED: CALCIUM GLUC 10% INJ 4.65 MEQ in NA CHLORIDE 0.9% 100 ML IV ONE (11:00)
--- NOTE | 2020-03-30 17:24 | P.PN ---
Subjective Date of Service: 04/07/20 Primary Care Provider: unknown Chief Complaint: Respiratory failure pneumonia Subjective: Improving (Patient is improving he did well on spontaneous breathing trial imminent extubated this after known he was alert oriented responsive c ooperative patient is not on an insulin pump he admits to drinking and drug abuse) Review of Systems General: Weakness Respiratory: Cough, Shortness of Breath Physical Examination - Vital Signs Temperature: 98.1 F Blood Pressure: 112/72 Pulse: 77 Respirations: 18 Pulse Ox (%): 97 - Physical Exam General: Alert, In no apparent distress, Oriented x3 Respiratory: Crackles/rales (Crackles on the right side) Cardiovascular: No edema, Regular rate/rhythm - Studies Medications List Reviewed: Yes Assessment & Plan - Problems (Diagnosis) (1) Pneumonia Current Visit: Yes Status: Acute Plan: Patient is 49 years of age admitted with severe sepsis respiratory failure he is doing much better extubated cultures are negative hypoglycemia appears to have resolved would wean him off the D 10 he is not on an insulin pump his white count is now up to normal continue with hydrocortisone of reduce the dose sputum cultures are pending Qualifiers: Pneumonia type: due to unspecified organism Laterality: bilateral Physician Review Additional Text: I
[2020-03-30] MEDS ORDERED: WATER FOR INJ,STERILE 10 ML ONE (20:59)
[2020-03-31] MEDS ORDERED: LORazepam 2 MG/ML VIAL IV SCH (01:00)
[2020-03-31] MEDS: VANCOMYCIN 750 MG in NA CHLORIDE 0.9% 150 ML IVPB SCH (01:33)
[2020-03-31] MEDS ORDERED: PIPER/TAZO/NS 3.375gm 3.375 GM/100 ML BAG ONE ×3 (04:18→23:47)
[2020-03-31 04:59] LABS: Absolute Lymphocytes (CBC) 0.3 K/uL (0.7-4.9); Hematocrit 28.7 % (39.6-49.0); Lymphocytes % 2.5 % (15.3-44.8); MPV 8.2 fL (7.6-11.3); RBC Red Blood Cell Count 3.21 M/uL (4.33-5.43)
[2020-03-31] MEDS: PIPER/TAZO/NS 3.375gm 3.375 GM/100 ML BAG IVPB SCH ×3 (05:12→23:43)
[2020-03-31 05:13] LABS: ALT/SGPT 43 U/L (12-78); AST/SGOT 22 U/L (15-37); Albumin 1.7 g/dL (3.4-5.0); Alkaline Phosphatase 176 U/L (45-117); BUN Blood Urea Nitrogen 18 mg/dL (7-18); Bicarbonate 20 mmol/L (21-32); Bilirubin Total 0.4 mg/dL (0.2-1.0); Glucose Level 50 mg/dL (74-106); Potassium 3.1 mmol/L (3.5-5.1); Protein, Total 4.7 g/dL (6.4-8.2); Sodium Level 144 mmol/L (136-145)
[2020-03-31] MEDS: KCL 20 MEQ/100 mL IVPB 20 MEQ/100 ML BAG IV SCH ×2 (06:25→07:52)
[2020-03-31] MEDS ORDERED: KCL 20 MEQ/100 mL IVPB 20 MEQ/100 ML BAG IV ONE ×2 (06:26→07:54)
[2020-03-31] MEDS ORDERED: SODIUM CHLORIDE 0.9% 10ML INJ IV ONE (07:30)
[2020-03-31] MEDS ORDERED: COSYNTROPIN 0.25 MG VIAL IV ONE (07:30)
[2020-03-31] MEDS: INSULIN -REGULAR HUMAN 50 UNIT/0.5 ML ML SQ SCH ×4 (07:30→21:00)
[2020-03-31] MEDS: THIAMINE 200 MG/2 ML INJ IVP SCH (09:00)
[2020-03-31] MEDS: HYDROCORTISONE SUC 100 MG INJ IV SCH (09:00)
[2020-03-31] MEDS: FOLIC ACID 1 MG in NA CHLORIDE 0.9% 50 ML IV SCH (09:16)
[2020-03-31] MEDS ORDERED: ETOMIDATE 20 MG/10 ML VIAL IV ONE (10:21)
[2020-03-31] MEDS ORDERED: ROCURONIUM 50 MG/5 ML VIAL IV ONE (10:21)
[2020-03-31] MEDS ORDERED: SUCCINYLCHOLINE 20 MG/ML (10 ML) IV ONE (10:21)
--- NOTE | 2020-03-31 10:52 | RAD REPORT ---
EXAM DESCRIPTION: RAD - Barium Swallow Modified - 03/31/2020 10:40 am CLINICAL HISTORY: Dysphagia/respiratory complications/pneumonia FINDINGS: Sixteen fluoroscopic spot images obtained. Fluoroscopy time 3.5 minutes Supraglottic penetration cleared with nectar and honey thick No aspiration pharyngeal residue: pyriform mild with thin,, posterior wall min with puree flu
--- NOTE | 2020-03-31 12:31 | P.PN ---
Subjective Date of Service: 03/31/20 Primary Care Provider: unknown Chief Complaint: Aspiration pneumonia Subjective: Improving (Patient is doing well over yesterday while trying to eat he apparently choked on aspirated seen by speech therapy hypoglycemia is corrected) Review of Systems General: Weakness Respiratory: Shortness of Breath Physical Examination - Vital Signs Temperature: 97.7 F Blood Pressure: 110/74 Pulse: 72 Respirations: 21 Pulse Ox (%): 100 - Physical Exam General: Alert, Oriented x3 Respiratory: Clear to auscultation bilaterally, Crackles/rales (Actos on the right side) Cardiovascular: No edema, Regular rate/rhythm - Studies Medications List Reviewed: Yes Assessment & Plan - Problems (Diagnosis) (1) Pneumonia Current Visit: Yes Status: Acute Plan: Patient admitted with aspiration pneumonia is clinically doing much better Dc steroids insulin level in C-peptide is still pendingACTH level done his level did not increase that marked we the ACTH patient is on hydrocortisone will stop steroids Dc vancomycin cultures all negative sputum shows Gram-negative rods id id pending chemistries reviewed titrate sat to 90-95% seen by speech therapy taken diet recommended no aspiration noted Qualifiers: Pneumonia type: due to unspecified organism Laterality: bilateral
[2020-03-31] MEDS: ENOXAPARIN 40 MG/0.4 ML SQ SCH (14:54)
[2020-03-31] MEDS ORDERED: ENOXAPARIN 40 MG/0.4 ML SQ ONE (14:57)
--- NOTE | 2020-03-31 15:22 | P.PN ---
Subjective Date of Service: 03/31/20 Primary Care Provider: unknown Chief Complaint: Aspiration pneumonia Subjective: Improving Physical Examination - Vital Signs Temperature: 97.7 F Blood Pressure: 110/74 Pulse: 72 Respirations: 21 Pulse Ox (%): 100 - Physical Exam General: Alert HEENT: Atraumatic Neck: Supple Respiratory: Clear to auscultation bilaterally, Normal air movement Cardiovascular: Normal pulses, Regular rate/rhythm Neurological: Normal speech, Normal strength at 5/5 x4 extr, Normal tone, Normal affect - Studies Medications List Reviewed: Yes Assessment & Plan Discharge Plan: Other (SNF) Plan to discharge in: 72 Hours Physician Review Additional Text: Impression: Altered mental status secondary to acute toxic encephalopathy with severe sepsis likely related to acute respiratory failure/right upper lobe aspiration pneumonia with possible UTI Neutropenia and anemia chronic disease likely related to above Hypoglycemia with history of type 1 diabetes Drug abuse history with noted positive drug screen for amphetamines, benzodiazepine and THC Elevated liver function likely related to above Suspect possible adrenal insufficiency Severe protein malnutrition with hypocalcemia, hypomagnesia Plan: Altered mental status secondary to acute toxic encephalopathy with severe sepsis likely related to acute respiratory failure/right upper lobe aspiration pneumonia with possible UTI: Patient was extubated yesterday. Speech therapy evaluated patient for swallowing. No aspiration noted Patient may have mechanical soft. Will adjust oral intake. Patient off D 10. Medications and IV fluids adjusted by pulmonology. Continue to wean off oxygen. What physical therapy ambulate. Anticipate need for skilled placement. Will discuss with social work and family. Neutropenia and anemia chronic disease likely related to above: This has improved with antibiotic treatment. Will continue monitor closely. Maintain hemoglobin above 8.0.. Hypoglycemia with history of type 1 diabetes: It was originally thought insulin pump was stop. This was not at insulin pump this was to monitor blood sugar. Blood sugar improved. Continue with above plan of care. Advance diet. Drug abuse history with noted positive drug screen for amphetamines, benzodiazepine and THC: Mother reports patient still abuses medication. Will monitor for withdrawal. Elevated liver function likely related to above: Monitor liver function test closely. Will obtain hepatitis and HIV panel. Will consider liver ultrasound. Suspect possible adrenal insufficiency: No indication of adrenal insufficiency. Steroids to be stopped.. Severe protein malnutrition with hypocalcemia and hypomagnesia: Continue with above plan of care. Time Spent Managing Pts Care (In Minutes): 55
[2020-03-31] MEDS ORDERED: dexAMETHasone 4 MG/ML VIAL IV SCH (17:00)
[2020-04-01] MEDS: LORazepam 2 MG/ML VIAL IV PRN ×3 (03:45→23:07)
[2020-04-01] MEDS ORDERED: LORazepam 2 MG/ML VIAL ONE ×3 (03:53→23:04)
[2020-04-01 04:45] LABS: Absolute Lymphocytes (CBC) 0.7 K/uL (0.7-4.9); Basophils % 0.3 % (0-1.3); Hematocrit 25.7 % (39.6-49.0); Lymphocytes % 6.5 % (15.3-44.8); MPV 7.9 fL (7.6-11.3); RBC Red Blood Cell Count 2.85 M/uL (4.33-5.43)
[2020-04-01 05:10] LABS: Albumin 1.5 g/dL (3.4-5.0); Bilirubin Total 0.3 mg/dL (0.2-1.0); Protein, Total 4.4 g/dL (6.4-8.2)
[2020-04-01 05:19] LABS: Potassium 2.9 mmol/L (3.5-5.1)
[2020-04-01] MEDS: PIPER/TAZO/NS 3.375gm 3.375 GM/100 ML BAG IVPB SCH ×3 (06:00→22:15)
[2020-04-01] MEDS ORDERED: PIPER/TAZO/NS 3.375gm 3.375 GM/100 ML BAG ONE ×3 (06:56→22:22)
[2020-04-01] MEDS: INSULIN -REGULAR HUMAN 50 UNIT/0.5 ML ML SQ SCH ×4 (07:30→23:33)
[2020-04-01] MEDS ORDERED: KCL 20 MEQ/100 mL IVPB 40 MEQ/200 ML BAG IV ONE (07:36)
[2020-04-01] MEDS: ENOXAPARIN 40 MG/0.4 ML SQ SCH (09:00)
[2020-04-01] MEDS ORDERED: D5 0.45 NS 1,000 ML IV SCH (09:00)
[2020-04-01] MEDS: THIAMINE 200 MG/2 ML INJ IVP SCH (09:00)
[2020-04-01] MEDS: FOLIC ACID 1 MG in NA CHLORIDE 0.9% 50 ML IV SCH (09:00)
[2020-04-01] MEDS: dexAMETHasone 4 MG/ML VIAL IV SCH ×2 (09:00→17:00)
[2020-04-01] MEDS ORDERED: D5 0.45 NS 500 ML IV ONE (09:01)
[2020-04-01] MEDS ORDERED: DOBUTAMINE 250 MG/250 ML BAG IV ONE (09:02)
--- NOTE | 2020-04-01 09:04 | P.PN ---
Subjective Date of Service: 04/01/20 Primary Care Provider: unknown Chief Complaint: Aspiration pneumonia Subjective: Other (Patient was doing well this morning but after breakfast the patient appeared to have aspirated. Mild respiratory distress noted. Respiratory called.) Physical Examination - Vital Signs Temperature: 97.7 F Blood Pressure: 114/84 Pulse: 82 Respirations: 18 Pulse Ox (%): 97 - Physical Exam General: Alert HEENT: Atraumatic Neck: Supple Respiratory: Crackles/rales (Crackles to the bases) Cardiovascular: Normal pulses, Regular rate/rhythm Gastrointestinal: Normal bowel sounds, No tenderness, No masses, No rebound, No guarding Integumentary: No warmth, No cyanosis, Tenderness/swelling (Mild swelling to the face and lower extremities.) Neurological: Normal speech, Normal strength at 5/5 x4 extr, Normal tone, Normal affect - Studies Medications List Reviewed: Yes Assessment & Plan Discharge Plan: Other (Long-term acute care facility verses skilled placement) Plan to discharge in: Greater than 2 days Physician Review Additional Text: Impression: Altered mental status secondary to acute toxic encephalopathy with severe sepsis likely related to acute respiratory failure/right upper lobe aspiration pneumonia, sputum culture positive for E coli Neutropenia and anemia chronic disease likely related to above Hypoglycemia with history of type 1 diabetes Drug abuse history with noted positive drug screen for amphetamines, benzodiazepine and THC Elevated liver function likely related to above Suspect possible adrenal insufficiency Severe protein malnutrition with hypocalcemia, hypomagnesia Plan: Altered mental status secondary to acute toxic encephalopathy with severe sepsis likely related to acute respiratory failure/right upper lobe aspiration pneumonia, sputum culture positive for E coli: Patient had speech evaluation and barium swallow yesterday. No evidence of aspiration noted. Blood sugars were elevated last night. This morning blood sugars were low. Patient ate this am but had some clear aspiration. Patient now NPO. Respiratory to adjust high- flow oxygen. Patient may require BiPAP. Will check chest x-ray. Spoke at length with pulmonology. Will consult GI to further evaluate. Patient may have esophagitis versus esophageal stricture versus other. Patient will require a EGD for further evaluation. Blood sugar also low. Patient to be restarted on D5 half-normal saline. D50 to be given. Anxiety medication provided. Dietary to evaluate to start PPN. Await further recommendations from GI and pulmonology. Will need to discuss with family about prior history of GI related issues. Will need to consider long-term acute care facility placement verses skilled placement at discharge. Will continue to reassess. ICU level of care-40 min. Neutropenia and anemia chronic disease likely related to above: This has improved with antibiotic treatment. Will continue monitor closely. Maintain hemoglobin above 8.0.. Hypoglycemia with history of type 1 diabetes: Blood sugar initially elevated. But low this morning. Will restart D5 half-normal saline. The 50 to be given. Patient did not have insulin pump. This was a blood sugar monitoring device that he had. Continue as above. Patient to be NPO. Will start PPN. Continue monitor hypoglycemia Drug abuse history with noted positive drug screen for amphetamines, benzodiazepine and THC: Mother reports patient still abuses medication. Will monitor for withdrawal. Elevated liver function likely related to above: Monitor liver function test closely. Will obtain hepatitis and HIV panel. Will discuss with GI Suspect possible adrenal insufficiency: Patient now on Decadron. Patient to have cortisol level recheck.. Severe protein malnutrition with hypocalcemia and hypomagnesia: Continue as above. Time Spent Managing Pts Care (In Minutes): 65
--- NOTE | 2020-04-01 09:29 | RAD REPORT ---
EXAM DESCRIPTION: RAD - Chest Single View - 04/01/2020 9:09 am CLINICAL HISTORY: sob COMPARISON: Portable March 30 TECHNIQUE: AP portable chest image was obtained 04/01/2020 9:09 am . FINDINGS: Endotracheal tube and NG tube have been removed. Dense airspace opacification in the right lung field and in the lower left lung field are still present not clearly different when adjusting f or technique differences. Heart size is upper normal. Vasculature within normal limits. No measurable pleural effusion and no pneumothorax. No acute bony abnormality seen. No acute aortic findings suspe cted. IMPRESSION: Extensive bilateral pneumonia, right greater than left with no improvement from March 03 imaging. ET tube and NG tube have been removed.
[2020-04-01] MEDS ORDERED: dexAMETHasone 4 MG/ML VIAL ONE ×2 (10:12→19:43)
[2020-04-01] MEDS ORDERED: THIAMINE 200 MG/2 ML INJ ONE (10:12)
[2020-04-01] MEDS ORDERED: ENOXAPARIN 40 MG/0.4 ML SQ ONE (10:13)
[2020-04-01] MEDS: D50W 25 GM/50 ML SYRINGE/VIAL IV PRN ×2 (10:41→15:41)
[2020-04-01] MEDS ORDERED: D50W 25 GM/50 ML SYRINGE/VIAL IV ONE ×2 (10:51→15:52)
[2020-04-01] MEDS ORDERED: DEXTROSE 10%-WATER 1,000 ML IV ONE (11:36)
[2020-04-01] MEDS ORDERED: DEXTROSE 10%-WATER 500 ML IV SCH ×2 (11:45→14:00)
--- NOTE | 2020-04-01 11:58 | P.PN ---
Subjective Date of Service: 04/07/20 Primary Care Provider: unknown Chief Complaint: Aspiration pneumonia Patient's condition deteriorated today but after he started eating may have aspirated again chest x-ray does look worse patient's steroids were stopped yesterday has cough congestion shortness of breath in distress Review of Systems General: Weakness Respiratory: Cough, Shortness of Breath Physical Examination - Vital Signs Temperature: 97.7 F Blood Pressure: 114/84 Pulse: 82 Respirations: 18 Pulse Ox (%): 97 - Physical Exam General: Alert, Moderate distress Respiratory: Crackles/rales (Crackles bilaterally) Cardiovascular: No edema, Normal S1 S2 Gastrointestinal: Normal bowel sounds, Soft and benign - Studies Medications List Reviewed: Yes Assessment & Plan - Problems (Diagnosis) (1) Pneumonia Current Visit: Yes Status: Acute Plan: Patient is got fairly extensive bilateral pneumonia continue with steroids check serum cortisol level possible ACTH stimulation test later he is also hypoglycemic again recommend NPO GI evaluation PPN PICC line continue with Zosyn Qualifiers: Pneumonia type: due to unspecified organism Laterality: bilateral Physician Review Additional Text: I
--- NOTE | 2020-04-01 13:07 | ECHO ---
HEIGHT: 5 ft 5 in WEIGHT: 100 lb 0.027 oz DATE OF STUDY: 04/01/[address]: Jose Leary DO 2-DIMENSIONAL: YES M.MODE: YES DOPPLER: YES COLOR FLOW: YES TDS: PORTABLE: YES DEFINITY: BUBBLE STUDY: DIAGNOSIS: SEPSIS CARDIAC HISTORY: CATHERIZATION: SURGERY: PROSTHETIC VALVE: PACEMAKER: MEASUREMENTS (cm) DIASTOLIC (NORMALS) SYSTOLIC (NORMALS) IVSd 1.0 (0.6-1.2) LA Diam 3.1 (1.9-4.0) LVEF 49% LVIDd 3.9 (3.5-5.7) LVIDs 2.9 (2.0-3.5) %FS 24% LVPWd 0.9 (0.6-1.2) Ao Diam 2.8 (2.0-3.7) 2 DIMENSIONAL ASSESSMENT: RIGHT ATRIUM: NORMAL LEFT ATRIUM: NORMAL RIGHT VENTRICLE: NORMAL LEFT VENTRICLE: NORMAL TRICUSPID VALVE: NORMAL MITRAL VALVE: MITRAL ANNULAR CALCIFICATION PULMONIC VALVE: NORMAL AORTIC VALVE: SCLEROSIS PERICARDIAL EFFUSION: NONE AORTIC ROOT: NORMAL LEFT VENTRICULAR WALL MOTION: NORMAL DOPPLER/COLOR FLOW: TRACE TRICUSPID REGURGITATION COMMENTS: NORMAL LEFT VENTRICULAR SIZE AND FUNCTION. MITRAL ANNULAR CALCIFICATION. AORTIC SCLEROSIS. MILD TRICUSPID REGURGITATION. NORMAL RIGHT VENTRICULAR SYSTOLIC PRESSURE. TECHNOLOGIST: RAJEEV MERCHANT
[2020-04-01] MEDS: HYDRALAZINE HCL 20 MG/ML VIAL IV PRN (15:36)
[2020-04-01] MEDS ORDERED: HYDRALAZINE HCL 20 MG/ML VIAL ONE (15:46)
[2020-04-01 16:21] LABS: HIV AG/AB 4TH GEN Non-reactive (Non-reactive)
[2020-04-01] MEDS: AA 4.25%/D10W/ELECTROLYTES 2,000 ML, Lipids 20% 250 ML with MULTIVITAMINS INJ 10 ML IV SCH ×3 (17:28)
[2020-04-01 19:03] LABS: HBsAG Nonreactive (Nonreactive)
[2020-04-01 20:03] LABS: Prealbumin 4.1 mg/dL (20-40)
[2020-04-02] MEDS: dexAMETHasone 4 MG/ML VIAL IV SCH ×3 (01:24→16:39)
[2020-04-02] MEDS ORDERED: dexAMETHasone 4 MG/ML VIAL ONE ×4 (01:34→23:46)
[2020-04-02] MEDS ORDERED: PIPER/TAZO/NS 3.375gm 3.375 GM/100 ML BAG ONE ×3 (02:39→20:55)
[2020-04-02 04:38] LABS: Absolute Lymphocytes (CBC) 0.2 K/uL (0.7-4.9); Basophils % 0.2 % (0-1.3); Hematocrit 25.4 % (39.6-49.0); Lymphocytes % 2.8 % (15.3-44.8); MPV 8.3 fL (7.6-11.3); RBC Red Blood Cell Count 2.82 M/uL (4.33-5.43)
[2020-04-02 04:48] LABS: Protime INR 1.44
[2020-04-02 04:55] LABS: Magnesium 2.1 mg/dL (1.8-2.4); Potassium 3.5 mmol/L (3.5-5.1)
[2020-04-02] MEDS: PIPER/TAZO/NS 3.375gm 3.375 GM/100 ML BAG IVPB SCH ×3 (05:37→21:54)
[2020-04-02] MEDS: INSULIN -REGULAR HUMAN 50 UNIT/0.5 ML ML SQ SCH ×4 (05:46→18:03)
[2020-04-02] MEDS ORDERED: KCL 20 MEQ/100 mL IVPB 20 MEQ/100 ML BAG IV SCH (06:00)
[2020-04-02] MEDS ORDERED: D50W 25 GM/50 ML SYRINGE/VIAL IV PRN (06:26)
[2020-04-02] MEDS ORDERED: ENOXAPARIN 40 MG/0.4 ML SQ ONE (08:06)
[2020-04-02] MEDS ORDERED: THIAMINE 200 MG/2 ML INJ ONE (08:13)
[2020-04-02] MEDS: THIAMINE 200 MG/2 ML INJ IVP SCH (08:26)
[2020-04-02] MEDS: ENOXAPARIN 40 MG/0.4 ML SQ SCH (08:28)
[2020-04-02] MEDS ORDERED: DEXTROSE 10%-WATER 500 ML IV SCH (09:00)
[2020-04-02] MEDS: FOLIC ACID 1 MG in NA CHLORIDE 0.9% 50 ML IV SCH (09:11)
[2020-04-02] MEDS: LORazepam 2 MG/ML VIAL IV PRN ×3 (09:32→20:47)
[2020-04-02] MEDS ORDERED: LORazepam 2 MG/ML VIAL ONE ×3 (09:36→20:58)
--- NOTE | 2020-04-02 12:13 | RAD REPORT ---
EXAM DESCRIPTION: RAD - Barium Swallow Modified - 04/02/2020 11:54 am CLINICAL HISTORY: swallow eval followup COMPARISON: None. TECHNIQUE: The patient was given liquid, semi-solid and solid forms of barium. Lateral view fluorosc opic imaging was performed in conjunction with speech pathology service. FINDINGS: Cineloop acquisitions: 17 Fluoro time: 2 minutes 50 seconds MBS Findings: Laryngeal peetration, not cleared with thin liquid. Aspiration: cough with thin liquid Pharyngeal residue: in the pyriform was mild with thin liquid and pudding. Aspiration due to decreased oral control and manipulation resulting in premature spillage down to pyr iforms which then spills over into airway. IMPRESSION: Modified barium swallow as summarized above and fully detailed on speech pathology repor herbie
[2020-04-02] MEDS ORDERED: INSULIN -REGULAR HUMAN 50 UNIT/0.5 ML ML ONE (12:16)
[2020-04-02] MEDS: HYDRALAZINE HCL 20 MG/ML VIAL IV PRN ×2 (13:06→21:58)
[2020-04-02] MEDS ORDERED: HYDRALAZINE HCL 20 MG/ML VIAL ONE ×2 (13:17→22:09)
[2020-04-02 13:59] LABS: Hep C Virus RNA (PCR)log <1.18 log IU/mL
[2020-04-02] MEDS: AA 4.25%/D10W/ELECTROLYTES 2,000 ML, Lipids 20% 250 ML with MULTIVITAMINS INJ 10 ML IV SCH ×3 (16:46)
--- NOTE | 2020-04-02 18:39 | P.PN ---
Subjective Date of Service: 04/02/20 Primary Care Provider: unknown Chief Complaint: Aspiration pneumonia Subjective: Doing well Physical Examination - Vital Signs Temperature: 98.2 F Blood Pressure: 144/85 Pulse: 85 Respirations: 21 Pulse Ox (%): 95 - Physical Exam General: Alert, Cooperative HEENT: Atraumatic Neck: Supple Respiratory: Crackles/rales Cardiovascular: Normal pulses, Regular rate/rhythm Gastrointestinal: Normal bowel sounds, Soft and benign, Non-distended Neurological: Normal speech, Normal strength at 5/5 x4 extr, Normal tone - Studies Medications List Reviewed: Yes Assessment & Plan Discharge Plan: Other ([facility] facility) Plan to discharge in: Greater than 2 days Physician Review Additional Text: Impression: Altered mental status secondary to acute toxic encephalopathy with severe sepsis likely related to acute respiratory failure/right upper lobe aspiration pneumonia, sputum culture positive for E coli Neutropenia and anemia chronic disease likely related to above Hypoglycemia with history of type 1 diabetes Drug abuse history with noted positive drug screen for amphetamines, benzodiazepine and THC Elevated liver function likely related to above Suspect possible adrenal insufficiency Severe protein malnutrition with hypocalcemia, hypomagnesia Plan: Altered mental status secondary to acute toxic encephalopathy with severe sepsis likely related to acute respiratory failure/right upper lobe aspiration pneumonia, sputum culture positive for E coli: Repeat evaluation shows no aspiration. But patient clearly aspirated the other day. Continue NPO. GI will plan for EGD with possible PEG tube. Continue current management. Will discuss further with pulmonology. Neutropenia and anemia chronic disease likely related to above: This has improved with antibiotic treatment. Will continue monitor closely. Maintain hemoglobin above 8.0.. Hypoglycemia with history of type 1 diabetes: Continue to adjust medications. Drug abuse history with noted positive drug screen for amphetamines, benzodiazepine and THC: Mother reports patient still abuses medication. Will monitor for withdrawal. Elevated liver function likely related to above: Monitor liver function test closely. Will obtain hepatitis and HIV panel. Will discuss with GI Suspect possible adrenal insufficiency: Patient now on Decadron. Patient to have cortisol level recheck.. Severe protein malnutrition with hypocalcemia and hypomagnesia: Continue as above. Time Spent Managing Pts Care (In Minutes): 55
[2020-04-03] MEDS: INSULIN -REGULAR HUMAN 50 UNIT/0.5 ML ML SQ SCH ×4 (00:01→18:04)
[2020-04-03] MEDS: dexAMETHasone 4 MG/ML VIAL IV SCH ×3 (00:02→22:16)
[2020-04-03] MEDS ORDERED: PIPER/TAZO/NS 3.375gm 3.375 GM/100 ML BAG ONE ×2 (01:52→13:14)
[2020-04-03] MEDS: LORazepam 2 MG/ML VIAL IV PRN ×3 (03:50→17:09)
[2020-04-03] MEDS ORDERED: LORazepam 2 MG/ML VIAL ONE ×2 (04:00→10:26)
[2020-04-03] MEDS ORDERED: HYDRALAZINE HCL 20 MG/ML VIAL ONE ×2 (04:01→14:41)
[2020-04-03] MEDS: HYDRALAZINE HCL 20 MG/ML VIAL IV PRN ×2 (04:13→14:30)
[2020-04-03 04:40] LABS: Absolute Lymphocytes (CBC) 0.3 K/uL (0.7-4.9); Basophils % 0.1 % (0-1.3); Hematocrit 25.1 % (39.6-49.0); Lymphocytes % 2.9 % (15.3-44.8); MPV 8.2 fL (7.6-11.3); RBC Red Blood Cell Count 2.81 M/uL (4.33-5.43)
[2020-04-03 05:09] LABS: BUN Blood Urea Nitrogen 33 mg/dL (7-18); Bicarbonate 19 mmol/L (21-32); Glucose Level 163 mg/dL (74-106); Magnesium 2.1 mg/dL (1.8-2.4); Potassium 3.4 mmol/L (3.5-5.1); Sodium Level 144 mmol/L (136-145)
[2020-04-03] MEDS: PIPER/TAZO/NS 3.375gm 3.375 GM/100 ML BAG IVPB SCH ×2 (05:38→13:11)
[2020-04-03] MEDS: KCL 20 MEQ/100 mL IVPB 20 MEQ/100 ML BAG IV SCH ×2 (05:46→07:29)
[2020-04-03] MEDS ORDERED: KCL 20 MEQ/100 mL IVPB 40 MEQ/200 ML BAG IV ONE (05:54)
[2020-04-03 07:07] LABS: Anisocytosis 1+; Blood Morphology Comment NOTED (NOT SEEN); Hypochromasia 1+; Platelet Estimate DECR
[2020-04-03] MEDS ORDERED: THIAMINE 200 MG/2 ML INJ ONE (07:50)
[2020-04-03] MEDS ORDERED: dexAMETHasone 4 MG/ML VIAL ONE (07:51)
[2020-04-03] MEDS: FOLIC ACID 1 MG in NA CHLORIDE 0.9% 50 ML IV SCH (08:00)
[2020-04-03] MEDS: THIAMINE 200 MG/2 ML INJ IVP SCH (08:00)
[2020-04-03] MEDS: DEXTROSE 10%-WATER 500 ML IV SCH ×2 (09:00→14:34)
--- NOTE | 2020-04-03 11:30 | P.PN ---
Subjective Date of Service: 04/03/20 Primary Care Provider: unknown Chief Complaint: Aspiration pneumonia Subjective: Other (Patient feels better. Patient currently NPO. To obtain EGD with possible PEG tube.) Physical Examination - Vital Signs Temperature: 98.6 F Blood Pressure: 149/89 Pulse: 85 Respirations: 20 Pulse Ox (%): 90 - Physical Exam General: Alert, In no apparent distress, Cooperative HEENT: Atraumatic Neck: Supple Respiratory: Crackles/rales Cardiovascular: Normal pulses, Regular rate/rhythm Gastrointestinal: Normal bowel sounds, Soft and benign, Non-distended, No masses, No rebound, No guarding Integumentary: Tenderness/swelling (Some swelling to the lower extremities and face. Poor nutritional status noted) Neurological: Normal speech, Normal strength at 5/5 x4 extr, Normal tone, Normal affect - Studies Microbiology Data (last 24 hrs): 03/28/20 21:50 Blood - Blood Aerobic Blood Culture - Final No growth in 5 days. 03/28/20 21:50 Blood - Blood Anaerobic Blood Culture - Final No growth in 5 days. 03/28/20 21:34 Blood - Blood Aerobic Blood Culture - Final No growth in 5 days. 03/28/20 21:34 Blood - Blood Anaerobic Blood Culture - Final No growth in 5 days. Medications List Reviewed: Yes Assessment & Plan Discharge Plan: Other (Possible long-term care) Plan to discharge in: 72 Hours Physician Review Additional Text: Impression: Altered mental status secondary to acute toxic encephalopathy with severe sepsis likely related to acute respiratory failure/right upper lobe aspiration pneumonia, sputum culture positive for E coli Neutropenia and anemia chronic disease likely related to above Hypoglycemia with history of type 1 diabetes Drug abuse history with noted positive drug screen for amphetamines, benzodiazepine and THC Elevated liver function likely related to above Suspect possible adrenal insufficiency Severe protein malnutrition with hypocalcemia, hypomagnesia Thrombocytopenia likely related to sepsis Plan: Altered mental status secondary to acute toxic encephalopathy with severe sepsis likely related to acute respiratory failure/right upper lobe aspiration pneumonia, sputum culture positive for E coli: Repeat swallow evaluation shows no aspiration. Case discussed at length with GI. GI will perform EGD and possible PEG tube placement today. Await findings. Currently NPO. Patient received the knees oral feeds. Will discuss further with specialty care. Social work to evaluate for possible long-term care. Physical therapy to ambulate. Will transfer the patient to the floor after EGD. Neutropenia and anemia chronic disease likely related to above: This has improved with antibiotic treatment. Will continue monitor closely. Maintain h emoglobin above 8.0.. Hypoglycemia with history of type 1 diabetes: Continue to adjust medications. Accu-Cheks monitored. Drug abuse history with noted positive drug screen for amphetamines, benzodiazepine and THC: Mother reports patient still abuses medication. Will monitor for withdrawal. Elevated liver function likely related to above: Monitor liver function test closely. Will obtain hepatitis and HIV panel. Will discuss with GI Suspect possible adrenal insufficiency: Patient now on Decadron. Patient to have cortisol level recheck.. Severe protein malnutrition with hypocalcemia and hypomagnesia: Continue as above. Thrombocytopenia likely related to sepsis: We will review lab. Further lab obtained. Will discuss further with pulmonology. Obtain peripheral smear Will consider discussing with hematology. Hold Lovenox. Time Spent Managing Pts Care (In Minutes): 55
[2020-04-03 12:44] LABS: Protime INR 1.4
--- NOTE | 2020-04-03 13:31 | P.PN ---
Subjective Date of Service: 04/07/20 Primary Care Provider: unknown Chief Complaint: Aspiration pneumonia Patient is improving is currently on 2 L on nasal cannula oxygen scheduled to have endoscopy with possible PEG tube tomorrow no new complaints participating with physical therapy sugars are satisfactory Review of Systems General: Weakness Respiratory: Shortness of Breath Physical Examination - Vital Signs Temperature: 97.1 F Blood Pressure: 162/114 Pulse: 90 Respirations: 24 Pulse Ox (%): 88 - Physical Exam General: Alert, Oriented x3 Respiratory: Crackles/rales Cardiovascular: No edema, Regular rate/rhythm - Studies Microbiology Data (last 24 hrs): 03/28/20 21:50 Blood - Blood Aerobic Blood Culture - Final No growth in 5 days. 03/28/20 21:50 Blood - Blood Anaerobic Blood Culture - Final No growth in 5 days. 03/28/20 21:34 Blood - Blood Aerobic Blood Culture - Final No growth in 5 days. 03/28/20 21:34 Blood - Blood Anaerobic Blood Culture - Final No growth in 5 days. Medications List Reviewed: Yes Assessment & Plan - Problems (Diagnosis) (1) Pneumonia Current Visit: Yes Status: Acute Plan: Patient admitted with aspiration pneumonia is clinically improving continue with Zosyn EGD scheduled tomorrow reduce the dose of steroids as sitter weaning of D 10 chemistries reviewed mildly anemic medication list reviewed Qualifiers: Pneumonia type: due to unspecified organism Laterality: bilateral Physician Review Additional Text: I
--- NOTE | 2020-04-03 14:08 | RAD REPORT ---
EXAM DESCRIPTION: RAD - Chest Single View - 04/03/2020 1:55 pm CLINICAL HISTORY: Pneumonia COMPARISON: Portable April 01 TECHNIQUE: AP portable chest image was obtained 04/03/2020 1:55 pm . FINDINGS: Lung volumes similar to prior study. Patient has bilateral alveolar opacification substant ially improved from the prior examination. Gross estimate is greater than 50% reduction in the lung p arenchymal involvement. Trachea is midline. Heart and vasculature are normal. No measurable pleural e ffusion and no pneumothorax. No acute bony abnormality seen. No acute aortic findings suspected. IMPRESSION: Bilateral pneumonia findings are present showing substantial improvement from the Septem study.
[2020-04-03] MEDS: carvediloL 3.125 MG TAB PO SCH (17:12)
[2020-04-03] MEDS: AA 4.25%/D10W/ELECTROLYTES 2,000 ML, Lipids 20% 250 ML with MULTIVITAMINS INJ 10 ML IV SCH ×3 (18:04)
[2020-04-03] MEDS ORDERED: KCL 20 MEQ/100 mL IVPB 20 MEQ/100 ML BAG IV SCH (20:00)
[2020-04-03] MEDS ORDERED: MORPHINE 2 MG/ML SYR IV ONE (21:48)
[2020-04-04] MEDS: INSULIN -REGULAR HUMAN 50 UNIT/0.5 ML ML SQ SCH ×4 (01:06→18:48)
[2020-04-04] MEDS: PIPER/TAZO/NS 3.375gm 3.375 GM/100 ML BAG IVPB SCH ×3 (01:06→16:53)
[2020-04-04] MEDS: LORazepam 2 MG/ML VIAL IV PRN ×3 (01:15→16:52)
[2020-04-04] MEDS: HYDRALAZINE HCL 20 MG/ML VIAL IV PRN (02:18)
[2020-04-04] MEDS ORDERED: ACETAMINOPHEN 650MG/RECT SUPP PR ONE (04:42)
[2020-04-04] MEDS: DEXTROSE 10%-WATER 500 ML IV SCH ×2 (05:12→11:46)
[2020-04-04 05:25] LABS: Absolute Lymphocytes (CBC) 0.4 K/uL (0.7-4.9); Basophils % 0.1 % (0-1.3); Hematocrit 23.9 % (39.6-49.0); Lymphocytes % 3.6 % (15.3-44.8); MPV 8.5 fL (7.6-11.3); RBC Red Blood Cell Count 2.71 M/uL (4.33-5.43)
[2020-04-04 05:42] LABS: BUN Blood Urea Nitrogen 28 mg/dL (7-18); Bicarbonate 21 mmol/L (21-32); Glucose Level 124 mg/dL (74-106); Magnesium 1.9 mg/dL (1.8-2.4); Potassium 3.7 mmol/L (3.5-5.1); Sodium Level 144 mmol/L (136-145)
[2020-04-04] MEDS: carvediloL 3.125 MG TAB PO SCH ×2 (05:52→16:46)
[2020-04-04] MEDS ORDERED: KCL 20 MEQ/100 mL IVPB 20 MEQ/100 ML BAG IV SCH (08:00)
[2020-04-04] MEDS: THIAMINE 200 MG/2 ML INJ IVP SCH (10:08)
[2020-04-04] MEDS: dexAMETHasone 4 MG/ML VIAL IV SCH ×2 (10:08→21:09)
[2020-04-04] MEDS: FOLIC ACID 1 MG in NA CHLORIDE 0.9% 50 ML IV SCH (10:08)
--- NOTE | 2020-04-04 15:32 | P.PN ---
Subjective Date of Service: 04/04/20 Primary Care Provider: unknown Chief Complaint: Aspiration pneumonia Subjective: Improving Physical Examination - Vital Signs Temperature: 97.9 F Blood Pressure: 140/93 Pulse: 74 Respirations: 18 Pulse Ox (%): 95 - Physical Exam General: Alert, In no apparent distress, Oriented x3, Cooperative HEENT: Atraumatic Neck: Supple Respiratory: Crackles/rales Cardiovascular: Normal pulses, Regular rate/rhythm Gastrointestinal: Normal bowel sounds, Soft and benign, Non-distended, No tenderness, No masses, No rebound, No guarding Integumentary: No erythema, No warmth, No cyanosis Neurological: Normal speech, Normal strength at 5/5 x4 extr, Normal tone, Normal affect - Studies Medications List Reviewed: Yes Assessment & Plan Discharge Plan: Home Plan to discharge in: 72 Hours Physician Review Additional Text: Impression: Altered mental status secondary to acute toxic encephalopathy with severe sepsis likely related to acute respiratory failure/right upper lobe aspiration pneumonia, sputum culture positive for E coli Neutropenia and anemia chronic disease likely related to above Hypoglycemia with history of type 1 diabetes Drug abuse history with noted positive drug screen for amphetamines, benzodiazepine and THC Elevated liver function likely related to above Suspect possible adrenal insufficiency Severe protein malnutrition with hypocalcemia, hypomagnesia Thrombocytopenia likely related to sepsis Plan: Altered mental status secondary to acute toxic encephalopathy with severe sepsis likely related to acute respiratory failure/right upper lobe aspiration pneumonia, sputum culture positive for E coli: Repeat swallow evaluation shows no aspiration. Case discussed at length with GI. EGD was to be done today but this has been rescheduled for possible tomorrow due to low platelet. Will place Dobhoff and start feeds. Discontinue PPN. Discontinue D 10. Continue to wean off Decadron. Will monitor for hypoglycemia. Await further recommendations by pulmonology and GI. Will continue to monitor closely. Anticipate improvement over the next several days. Likely home at final discharge. Continue physical therapy. Neutropenia and anemia chronic disease likely related to above: Neutropenia resolved. Anemia remains stable. Maintain hemoglobin above 7.5. Platelet count low. Anticipate improvement with course. Platelet count likely low due to sepsis. Hypoglycemia with history of type 1 diabetes: Continue to adjust medications. Accu-Cheks monitored. Discontinue D 10. Drug abuse history with noted positive drug screen for amphetamines, benzodiazepine and THC: Mother reports patient still abuses medication. Will monitor for withdrawal. Elevated liver function likely related to above: Monitor liver function test closely. Will obtain hepatitis and HIV panel. Will discuss with GI Suspect possible adrenal insufficiency: Patient now on Decadron. Continue to wean off Decadron Severe protein malnutrition with hypocalcemia and hypomagnesia: Continue as above. Thrombocytopenia likely related to sepsis: Lab reviewed likely related to inf lammation/sepsis. Lovenox discontinued. EGD to be done once platelet count improved. Time Spent Managing Pts Care (In Minutes): 55
[2020-04-04] MEDS ORDERED: GLUCERNA 1.5 CAL 1,000 ML BOT RTH SCH (17:00)
--- NOTE | 2020-04-04 17:30 | RAD REPORT ---
EXAM DESCRIPTION: RAD - Chest Single View - 04/04/2020 5:23 pm CLINICAL HISTORY: Device placement Dobhoff tube placement IMPRESSION: A Dobhoff tube lies is coiled within the distal stomach. The tip is pointing proximally within the stomach. The tube should be retracted approximately 8 centimeters then advanced
--- NOTE | 2020-04-04 20:01 | RAD REPORT ---
EXAM DESCRIPTION: Yulia Single View04/04/2020 7:19 pm CLINICAL HISTORY: Device placement Dobbhoff tube placement IMPRESSION: A Dobbhoff tube is coiled within the distal stomach. The tip is pointed proximally
[2020-04-04] MEDS ORDERED: MORPHINE 2 MG/ML SYR IV ONE (20:52)
[2020-04-05] MEDS: PIPER/TAZO/NS 3.375gm 3.375 GM/100 ML BAG IVPB SCH ×3 (01:04→17:34)
[2020-04-05] MEDS ORDERED: MORPHINE 2 MG/ML SYR IV ONE (04:41)
[2020-04-05 05:01] LABS: BUN Blood Urea Nitrogen 25 mg/dL (7-18); Bicarbonate 23 mmol/L (21-32); Glucose Level 87 mg/dL (74-106); Magnesium 1.7 mg/dL (1.8-2.4); Sodium Level 143 mmol/L (136-145)
[2020-04-05 05:02] LABS: Protime INR 1.82
[2020-04-05 05:12] LABS: Absolute Lymphocytes (CBC) 0.6 K/uL (0.7-4.9); Basophils % 0.4 % (0-1.3); Lymphocytes % 7.2 % (15.3-44.8); MPV 9.1 fL (7.6-11.3); RBC Red Blood Cell Count 2.52 M/uL (4.33-5.43)
[2020-04-05] MEDS: D5 0.45 NS 1,000 ML IV SCH ×2 (05:25→22:23)
[2020-04-05] MEDS: INSULIN -REGULAR HUMAN 50 UNIT/0.5 ML ML SQ SCH ×4 (06:00→19:49)
[2020-04-05] MEDS: carvediloL 3.125 MG TAB PO SCH ×2 (06:00→18:00)
[2020-04-05] MEDS ORDERED: MAGNESIUM SULFATE 1 gm IVPB 1 GM/100 ML BAG IV ONE (08:00)
[2020-04-05] MEDS: dexAMETHasone 4 MG/ML VIAL IV SCH (08:49)
[2020-04-05] MEDS: FOLIC ACID 1 MG in NA CHLORIDE 0.9% 50 ML IV SCH (08:50)
[2020-04-05] MEDS: THIAMINE 200 MG/2 ML INJ IVP SCH (08:50)
--- NOTE | 2020-04-05 11:49 | P.PN ---
Subjective Date of Service: 04/05/20 Primary Care Provider: unknown Chief Complaint: Aspiration pneumonia Subjective: No new changes, No C/O voiced (-indwelling NGT) Physical Examination - Vital Signs Temperature: 98.5 F Blood Pressure: 125/76 Pulse: 70 Respirations: 16 Pulse Ox (%): 96 - Physical Exam General: Alert, In no apparent distress, Oriented x3 HEENT: Atraumatic, Normocephalic, PERRLA Neck: 2+ carotid pulse no bruit, JVD not distended Respiratory: Diminished, Dull Cardiovascular: No edema, Normal pulses, Regular rate/rhythm, Normal S1 S2 Gastrointestinal: Normal bowel sounds, Soft and benign, Non-distended Musculoskeletal: No clubbing, No swelling Neurological: Normal speech, Normal strength at 5/5 x4 extr, Normal tone - Studies Medications List Reviewed: Yes Assessment & Plan - Problems (Diagnosis) (1) Aspiration pneumonia Current Visit: Yes Status: Acute (2) Dysphagia Current Visit: Yes Status: Acute Physician Review: Patient Assessed, Agree with Above Assessment and Plan Physician Review Additional Text: Impression: Altered mental status secondary to acute toxic encephalopathy with severe sepsis likely related to acute respiratory failure/right upper lobe aspiration pneumonia, sputum culture positive for E coli Neutropenia and anemia chronic disease likely related to above Hypoglycemia with history of type 1 diabetes Drug abuse history with noted positive drug screen for amphetamines, benzodiazepine and THC Elevated liver function likely related to above Suspect possible adrenal insufficiency Severe protein malnutrition with hypocalcemia, hypomagnesia Thrombocytopenia likely related to sepsis Plan: Altered mental status secondary to acute toxic encephalopathy with severe sepsis likely related to acute respiratory failure/right upper lobe aspiration pneumonia, sputum culture positive for E coli: -follow plan for EGD today Follow GI Repeat swallow evaluation shows no aspiration Continue all NG tube feeding Platelet remained stable at 68 Continue antibiotics per Pulmonary Follow PT and OT evaluation Pancytopenia-possibly due to bone marrow suppression -platelets remained stable at 68 now Hemoglobin stable bed but low as 7.5 Neutropenia resolved Hypoglycemia with history of type 1 diabetes: Continue to adjust medications. Accu-Cheks monitored. Drug abuse history with noted positive drug screen for amphetamines, benzodiazepine and THC: Mother reports patient still abuses medication. Continue to monitor for withdrawal. Elevated liver function likely related to above: Monitor liver function test closely. Will obtain hepatitis and HIV panel. Will discuss with GI Suspect possible adrenal insufficiency: Patient now on Decadron. Continue to wean off Decadron Severe protein malnutrition with hypocalcemia and hypomagnesia: Continue as above. Possible sepsis-in setting of presumed aspiration pneumonia and neutropenia-WBC improved, continue antibiotics Continue to wean O2 Thrombocytopenia: Lovenox discontinued. stable now at 68 Disposition-follow EGD findings , will determine based on outcome of EGD.
[2020-04-05] MEDS ORDERED: Ringers Lactate 1,000 ML IV ONE (13:54)
[2020-04-05] MEDS ORDERED: propofoL 200 MG/20 ML VIAL IV ONE (14:21)
--- NOTE | 2020-04-05 15:18 | ENDO RPT ---
[address], [address] EGD WITH PEG PROCEDURE REPORT EXAM DATE: 04/05/2020 PATIENT NAME: Curtis Street MR #: [id number] BIRTHDATE: 1970 ATTENDING: Christophe Jensen Dr STATUS: inpatient FAMILY PRESERVATION WORKER: Fatemeh Patino RN and Gin Dickey CST INDICATIONS: The patient is a 49 yr old Male here for an EGD with PEG due to dysphagia, aspiration pneumonia, and protein-calorie malnutrition (albumin 1.5) PROCEDURE PERFORMED: EGD-PEG MEDICATIONS: Per Anesthesia. TOPICAL ANESTHETIC: none CONSENT: The patient understands the risks and benefits of the procedure and understands that these risks include, but are not limited to: sedation, allergic reaction, infection, perforation and/or bleeding. Alternative means of evaluation and treatment include, among others: physical exam, x-rays, and/or surgical intervention. The patient elects to proceed with this endoscopic procedure. DESCRIPTION OF PROCEDURE: During intra-op preparation period all mechanical medical equipment was checked for proper function. Hand hygiene and appropriate measures for infection prevention was taken. After the risks, benefits and alternatives of the procedure were thoroughly explained, Informed consent was verified, confirmed and timeout was successfully executed by the treatment team. The patient was anesthetized with topical anesthesia and the EG-[id number] ([id number]) endoscope was introduced through the mouth and advanced to the second portion of the duodenum. The instrument was slowly withdrawn as the mucosa was fully examined. A stricture was found in the lower esophagus, only able to pass after Dobhoff tube removed. A small hiatal hernia was found Multiple (3) small 2-3 mm ulcers with minute amounts of heme were found in the antrum. Duodenitis was found in the bulb of the duodenum. Multiple ( 8) shallow clean-based 2-6 mm ulcers were found in the bulb of the duodenum. The stomach was then inflated with air, and by a combination of transillumination and manual palpation, the site for the gastrostomy tube placement was selected and marked on the anterior abdominal wall. The skin of the anterior abdomen was surgically prepped and draped with sterile towels. Utilizing strict sterile technique, the selected site was then anesthetized with 1% xylocaine by injection into the skin and subcutaneous tissue. A 1 cm incision was made through the skin and subcutaneous tissue, and the needle/cannula assembly was then passed through the abdominal wall and through the anterior wall of the stomach, maintaining visualization with the endoscope. A snare device previously placed through the instrument channel was then opened and placed around the cannula, the needle was removed, and the insertion wire was passed through the cannula and into the stomach lumen. The snare was then loosened from the cannula, and repositioned to snare the insertion wire. The snare was then pulled up to the endoscope distal tip, and the scope was then withdrawn bringing with it the snare and insertion wire. The insertion wire was then released from the snare, and the PEG PUSH gastrostomy tube placed over the guidewire. Using the push technique, the tube was then pushed into place over the insertion wire at the abdominal wall end. The tube insertion site was then cleansed once again, and the external bolster was placed over the tube to secure it to the abdominal wall. A sterile dressing was then applied, and the procedure terminated. Retroflexed views revealed a small hiatal hernia. The gastroscope was then slowly withdrawn and removed. ADVERSE EVENT: There were no complications. IMPRESSIONS: 1. Status post 20 Fr percutaneous endoscopic gastrostomy 2. 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 Small hiatal hernia 4. Multiple (3) small 2-3 mm ulcers with minute amounts of heme in the antrum 5. Duodenitis in the bulb of the duodenum 6. Multiple ( 8) shallow clean-based 2-6 mm ulcers in the bulb of the duodenum RECOMMENDATIONS: 1. await biopsy results 2. acid suppression therapy 3. follow-up of helicobacter pylori status, treat if indicated REPEAT EXAM: Return in 2 month(s) for EGD. Christophe Jensen Dr eSigned: Christophe Jensen Dr 04/05/2020 3:18 PM cc: Jose Leary D.O. CPT CODES: ICD9 CODES: PATIENT NAME: Curtis Street MR#: [id number]
[2020-04-05] MEDS: MORPHINE 2 MG/ML SYR IV PRN ×2 (15:42→21:27)
[2020-04-05] MEDS: LORazepam 2 MG/ML VIAL IV PRN (17:35)
[2020-04-06] MEDS: PIPER/TAZO/NS 3.375gm 3.375 GM/100 ML BAG IVPB SCH ×2 (00:04→08:39)
[2020-04-06] MEDS: LORazepam 2 MG/ML VIAL IV PRN ×3 (01:00→17:45)
[2020-04-06] MEDS: MORPHINE 2 MG/ML SYR IV PRN ×5 (01:58→19:49)
[2020-04-06] MEDS: carvediloL 3.125 MG TAB PO SCH ×2 (05:50→17:38)
[2020-04-06] MEDS: INSULIN -REGULAR HUMAN 50 UNIT/0.5 ML ML SQ SCH ×4 (06:00→17:46)
[2020-04-06 06:25] LABS: Basophils % 0.2 % (0-1.3); Hematocrit 21.6 % (39.6-49.0); Lymphocytes % 10.5 % (15.3-44.8); MPV 9.2 fL (7.6-11.3); RBC Red Blood Cell Count 2.47 M/uL (4.33-5.43)
[2020-04-06 06:28] LABS: Protime INR 1.68
[2020-04-06 06:32] LABS: BUN Blood Urea Nitrogen 30 mg/dL (7-18); Bicarbonate 24 mmol/L (21-32); Glucose Level 127 mg/dL (74-106); Magnesium 1.9 mg/dL (1.8-2.4); Potassium 4.3 mmol/L (3.5-5.1); Sodium Level 141 mmol/L (136-145)
[2020-04-06] MEDS: D5 0.45 NS 1,000 ML IV SCH (07:40)
[2020-04-06] MEDS: THIAMINE 200 MG/2 ML INJ IVP SCH (08:39)
[2020-04-06] MEDS ORDERED: dexAMETHasone 4 MG/ML VIAL IV SCH (09:00)
--- NOTE | 2020-04-06 09:59 | P.PN ---
Subjective Date of Service: 04/07/20 Primary Care Provider: unknown Chief Complaint: Aspiration pneumonia patient is doing much better he now has a PEG tube saturation satisfactory Review of Systems General: Weakness Respiratory: Shortness of Breath Physical Examination - Vital Signs Temperature: 96.5 F Blood Pressure: 111/76 Pulse: 62 Respirations: 18 Pulse Ox (%): 94 - Physical Exam General: Alert, In no apparent distress, Oriented x3 Cardiovascular: No edema Gastrointestinal: Normal bowel sounds - Studies Medications List Reviewed: Yes Assessment & Plan - Problems (Diagnosis) (1) Pneumonia Current Visit: Yes Status: Acute Plan: P patient is clinically improving white count is normal change to PEG tube Augmentin change to prednisone and mg twice a day why the PEG tube blood sugars satisfactory is been is significant clearing of his pneumonia on the x-ray Qualifiers: Pneumonia type: due to unspecified organism Laterality: bilateral Physician Review: Patient Assessed, Agree with Above Assessment and Plan Physician Review Additional Text: I
[2020-04-06] MEDS: FOLIC ACID 1 MG in NA CHLORIDE 0.9% 50 ML IV SCH (10:08)
--- NOTE | 2020-04-06 10:44 | P.PN ---
Subjective Date of Service: 04/06/20 Primary Care Provider: unknown Chief Complaint: Aspiration pneumonia Subjective: No new changes, New changes (- s/p placed peg tube yesterday - feels fine this am -anxious to go home , worried about his mother at a motel room) Physical Examination - Vital Signs Temperature: 96.5 F Blood Pressure: 111/76 Pulse: 62 Respirations: 18 Pulse Ox (%): 94 - Physical Exam General: Alert, In no apparent distress, Oriented x3 HEENT: Atraumatic, Normocephalic, PERRLA Neck: 2+ carotid pulse no bruit, JVD not distended Respiratory: Clear to auscultation bilaterally, Normal air movement Cardiovascular: Regular rate/rhythm, Normal S1 S2, Abnormal S3, Edema (upper extremity edema ) Gastrointestinal: Normal bowel sounds, Soft and benign, Non-distended, Other (peg tube insitu ) Musculoskeletal: No clubbing, No swelling Integumentary: No rashes, No breakdown Neurological: Normal speech, Normal strength at 5/5 x4 extr - Studies Medications List Reviewed: Yes Assessment & Plan - Problems (Diagnosis) (1) Aspiration pneumonia Current Visit: Yes Status: Acute (2) Dysphagia Current Visit: Yes Status: Acute Physician Review Additional Text: Impression: Altered mental status secondary to acute toxic encephalopathy with severe sepsis likely related to acute respiratory failure/right upper lobe aspiration pneumonia, sputum culture positive for E coli Duodenitis with ulcers Distal eosphageal stricture with dysphagia Neutropenia and anemia chronic disease likely related to above Hypoglycemia with history of type 1 diabetes Drug abuse history with noted positive drug screen for amphetamines, benzodiazepine and THC Elevated liver function likely related to above Suspect possible adrenal insufficiency Severe protein malnutrition with hypocalcemia, hypomagnesia Thrombocytopenia likely related to sepsis Plan: Altered mental status secondary to acute toxic encephalopathy with severe sepsis likely related to acute respiratory failure/right upper lobe aspiration pneumonia, sputum culture positive for E coli: -c/w abx -will switch abx to Augmentin per pulmonary -wean steroids after switch to prednisone Follow PT and OT evaluation Pancytopenia-possibly due to bone marrow suppression from chronic alcohol use and GI blood loss -Platelets improved to 95 , c/w to hold lovenox -Hemoglobin stable at 7.5 -Neutropenia resolved -c/w magnesium , vit b12, folate and thiamine- swithc to po meds now Hypoglycemia with history of type 1 diabetes: Continue to adjust medications. Accu-Cheks monitored. Drug abuse history with noted positive drug screen for amphetamines, benzodiazepine and THC: Mother reports patient still abuses medication. Continue to monitor for withdrawal. Elevated liver function likely related to alcohol use -c/w to monitor liver function test closely. negative hepatitis and HIV panel Suspect possible adrenal insufficiency: Continue to wean off steroids -switch Decadron to prednisone Severe protein malnutrition with hypocalcemia and hypomagnesia: Continue as above. Possible sepsis-in setting of presumed aspiration pneumonia and neutropenia-WBC improved, continue antibiotics as above -weaned off O2 now Dysphagia - with esophageal stricture, s/p peg tube placed now -follow GI -start tube feeding today with jevity - if tolerating well , will have staff start teaching of self tube feeding and plan for dc in am - patient discussed with today, he states inability to afford tube feeding sources, will consult case mgt and social work to help arrnage for vouchers Dispo - can dc home if tolerating feeding and social work eval for home feeds affordability
[2020-04-06] MEDS ORDERED: Pantoprazole (granules) 40 MG/BLIST PACKET PO SCH (16:30)
[2020-04-06] MEDS: predniSONE 10 MG TAB PO SCH (17:45)
[2020-04-06] MEDS: AMOX/K CLAV 500 MG TAB PO SCH (17:45)
[2020-04-06] MEDS: Pantoprazole (granules) 40 MG/BLIST PACKET FT SCH (17:45)
[2020-04-06] MEDS: FOLIC ACID 1 MG TABLET FT SCH (21:39)
[2020-04-06] MEDS ORDERED: GLUCERNA 1.2 CAL 1,000 ML BOT FT SCH ×2 (22:00→23:00)
[2020-04-07] MEDS: MORPHINE 2 MG/ML SYR IV PRN ×5 (00:14→21:04)
[2020-04-07] MEDS: LORazepam 2 MG/ML VIAL IV PRN ×3 (01:48→22:58)
[2020-04-07 05:38] LABS: Absolute Lymphocytes (CBC) 1.1 K/uL (0.7-4.9); Basophils % 0.2 % (0-1.3); Hematocrit 21.1 % (39.6-49.0); Lymphocytes % 13.6 % (15.3-44.8); MPV 9.4 fL (7.6-11.3)
[2020-04-07 05:42] VITALS: BMI 16.7
[2020-04-07] MEDS: carvediloL 3.125 MG TAB PO SCH ×2 (05:53→17:17)
[2020-04-07 06:01] LABS: Protime INR 1.5
[2020-04-07] MEDS: INSULIN -REGULAR HUMAN 50 UNIT/0.5 ML ML SQ SCH ×4 (06:31→19:25)
--- NOTE | 2020-04-07 08:46 | CON ---
Date of Consultation: 04/05/2020 Reason For Consultation: Dysphagia with aspiration pneumonia and protein calorie malnutrition. History Of Present Illness: The patient is a 49-year-old white male with history of type 2 diabetes, drug abuse or alcohol abuse. Decreased p.o. intake due to his alcohol and prior alcoholic pancreati tis. He presented to [facility] due to altered mental status, hypoglycemia, found to have p neumonia. He was brought to the hospital with mental status changes. Disoriented with some hypoglyc emia. His white count was low at 1.1. He was with low potassium, low magnesium. He has reported sm oking amphetamines for least the past 5 days. Also, drinking and also tobacco for 5+ days as well. Blood glucoses in the 40s and glucose was given. The patient is admitted to the hospital. He also b y chart review has a history of alcoholic pancreatitis. The patient had a swallow study evaluation where he passed. However, he had aspiration pneumonia. A s per chart review, this was a pretty obvious aspiration pneumonia. The patient states he has swallo wed sometimes but not always. Also, his albumin to be low at 1.5. Past Medical History: Significant for: 1.Diabetes type 2, diagnosed 2010. 2.Alcohol abuse. 3.Drug abuse including methamphetamine recently. Social History: He is and has 2 sons, ages 28 and 13. He smokes tobacco. There is amphetamine he smokes as well as alcohol. Multiple types, heavy use. Family History: Father of gunshot wound at approximately the age of 50. Mother is alive and we ll. . Medications: At home there are none except for his recreational drugs including alcohol and methamph etamine. Review of Systems: The patient has disorientation, but he denies weakness. However, he denies any fevers, chills, night sweats, heat or cold intolerance, melena, hematochezia, coffee-ground hematuria, dysuria, polydipsia , chest pain, short of breath, seizure, syncope, lower extremity edema, muscle aches, joint aches, ba ckaches. He does have some swelling in his extremities and his face as well which he cannot explain though probably due to hypoalbuminemia. No depression, anxiety, though he has multiple drug uses ind icative of probable mood disorder. Physical Examination: Vital Signs: The patient is 5 feet 5 inches, 100 pounds, BMI of 16 kg/m2. General: He is a thin male, lying in bed, in no acute distress with edema of his face noted and hand s apparently his feet as well. HEENT: Normocephalic, atraumatic. Anicteric. Pupils are equal, round, and reactive to light. Extr aocular movements intact. Oropharynx is clear. The patient did have edema of the face es pecially. Oropharynx is clear except poor dentition. Neck: Supple. No masses. Lungs: Respirations with good airway movement. Cardiac: Regular rate and rhythm. Gastrointestinal: Positive bowel sounds. Soft, nondistended. N o hepatosplenomegaly. No peritoneal or Garcia sign. No rebound. Extremities: Maybe some mild clubbing. No cyanosis. Edema in the hands, feet and face are noted, m ild 1+. Neuro: Alert and oriented x3. Able to move all extremities well. Sensation intact to light touch. Laboratory Data: The patient has a low white count of 8.3 on admission and it was but now white count is at 8.3, hemoglobin has decreased from admission about 12.3 down to 7.6 today, hematoc rit of 22, MCV of 87.5, platelet count of 68. On admission, his platelet count was 290, decreased wi th heparin use, which has been stopped. 91% polys. On admission polys, lymphocytes 7%, m onocytes 1%, eosinophils 0. PT of 21.2, INR of 1.82, PTT of 33.0. Sodium 143, potassium 4.0, chlori de 112, BUN 25, creatinine of 0.64, glucose 87, calcium 7.6, magnesium 1.7. LDH of 402. Pre-albumin of 7.5, which is low normal . The patient had a calcium 7.3, total bilirubin 2.3, direct bilirubin 0.3, AST of 14, ALT of 34, alkaline phosphatase 148, total protein 4.4, albumin 1.5, globul in 2.9. CT abdomen and pelvis reveals extensive consolidative ground-glass opacities throughout the visualize d lung bases, right greater than left, suggestive of infectious process, chronic pneumonia, and promi nent fluid-filled small bowel loops scattered throughout the abdomen, could be mild enteritis, periph eral wedge-shaped areas of low attenuation in both kidneys, may be secondary to scarring or possible inflammation. UA on 29 revealed 1+ glucose, trace ketones, 3+ blood, negative nitrite, leukocyte est erase, 10-20 RBCs, no white blood cells, no squamous epithelial cells, moderate calcium oxalate cryst als, 20-50 bacteria, few hyaline casts, 2+ mucus, 2+ protein. Toxicology positive for amphetamine, b enzodiazepines and cannabis. Salicylates was less than 1.7. Hepatitis C antibody is reac tive, but the PCR was negative for hepatitis C negative. HIV negative. Hepatitis B core IgM antibod y, hepatitis B surface antigen negative. Hepatitis C IgM antibody negative as well and COVID-19 test ing was negative. Impression: 1.Dysphagia with aspiration. Will need alternative enteral feedings such as PEG tube. 2.Protein calorie malnutrition with albumin of 1.5, unable to evaluate due to his alcohol abuse. 3.Alcohol abuse. 4.Malnutrition. 5.Recent methamphetamine use. 6.Hypomagnesemia and hypokalemia noted on admission, corrected with therapy since admission. 7.White count of 1.1 on admission with absolute neutrophils of 0.8 so with some 1% neutrophils, whic h is indicative of neutropenia, resolved with therapy since admission. 8.History of diabetes type 2, alcohol abuse and drug abuse including methamphetamine and alcoholic p ancreatitis in the past. Recommendation: 1.Proceed with EGD with PEG tube placed. 2.Continue IV fluids and IV antibiotics. 3.Check IV pre-albumin level, which went down, prealbumin is 7.5, normal is 20 to 40. 4.Keep patient n.p.o. until EGD and PEG tube. 5.Placed off tube and start tube feeds until patient can be off Lovenox for appropriate time. 6.Hold Lovenox. 7.Thiamine and folate. 8.DT precautions. 9.Alcoholic anonymous on rehab for multiple substance abuse and discharge from hospital. NILO/JANIE Voice ID: [id number] Report ID: [id number]
[2020-04-07] MEDS: Pantoprazole (granules) 40 MG/BLIST PACKET FT SCH ×2 (08:54→17:17)
[2020-04-07] MEDS: AMOX/K CLAV 500 MG TAB PO SCH ×2 (08:54→17:18)
[2020-04-07] MEDS: THIAMINE HCL 100 MG TABLET FT SCH (08:55)
[2020-04-07] MEDS: FOLIC ACID 1 MG TABLET FT SCH ×2 (08:55→21:07)
[2020-04-07] MEDS: VITAMIN B COMPLEX 1 CAP FT SCH (08:55)
[2020-04-07] MEDS: predniSONE 10 MG TAB PO SCH ×2 (08:55→17:18)
[2020-04-07] MEDS ORDERED: GLUCERNA 1.2 CAL 1,000 ML BOT RTH SCH (12:00)
--- NOTE | 2020-04-07 14:01 | P.PN ---
Subjective Date of Service: 04/07/20 Patient doing well with physical therapy. He has started his tube feedings. His mother is really not able the help him with this. He lives out of town and he has evactuated to our area. He is currently living in a motel. Will teach him how to do bolus feeding since that is easier at this time. He really is not able to get his caloric intake because of the esophageal stricture that he has. He is able to drink a little bit at a time and the liquid is able to work its way down into his stomach. Will teach bolus feedings and then we will anticipate discharge home tomorrow. He will follow with his primary care provider once he gets back into town. He states that in his [place] they have water and electricity now. He is anticipating going back there whenever he is discharged from the hospital. Review of Systems 10-point ROS is otherwise unremarkable Physical Examination - Vital Signs Temperature: 98.4 F Blood Pressure: 122/76 Pulse: 68 Respirations: 17 Pulse Ox (%): 98 - Physical Exam General: Alert, In no apparent distress, Oriented x3 Respiratory: Clear to auscultation bilaterally, Normal air movement Cardiovascular: Regular rate/rhythm, Normal S1 S2, No murmurs Gastrointestinal: Normal bowel sounds, Soft and benign, Non-distended, No tenderness Musculoskeletal: No clubbing, No swelling, No tenderness Neurological: Sensation intact, Cranial nerves 3-12 intact - Studies Medications List Reviewed: Yes Assessment & Plan - Problems (Diagnosis) (1) Esophageal stricture Current Visit: Yes Status: Acute (2) Weight loss Current Visit: Yes Status: Acute (3) Protein-calorie malnutrition, severe Current Visit: Yes Status: Acute (4) H/O caloric malnutrition Current Visit: Yes Status: Acute (5) Aspiration pneumonia Current Visit: Yes Status: Acute (6) Dysphagia Current Visit: Yes Status: Acute (7) Anemia Current Visit: Yes Status: Acute Qualifiers: Anemia type: other cause (8) Substance abuse Current Visit: Yes Status: Acute - Plan Plan: 1. Monitor H&H; will transfuse as necessary. Will also check iron, B12, folate, and reticulocyte count. Type and screen for 1 unit of packed red blood cells. 2. Change continuing tube feedings to bolus feedings and make sure patient gets 4 cans daily to equal 1028 cc. Will teach patient how to do this. He is living at a motel with his mother who is elderly. Will also give 200 cc of free water flushes after each can is completed 3. Continue with antibiotic therapy 4. Continue monitor respiratory status closely 5. Continue monitoring electrolytes 6. GI and DVT prophylaxis Discharge Plan: Home Plan to discharge in: 48 Hours - Advance Directives Does patient have a Living Will: No Does patient have a Durable POA for Healthcare: No - Code Status/Comfort Care Code Status Assessed: Yes Code Status: Full Code Physician Review: Patient Assessed, Agree with Above Assessment and Plan Critical Care: No Time Spent Managing PTS Care (In Minutes): 35
[2020-04-07 14:44] LABS: Absolute Lymphocytes (CBC) 0.6 K/uL (0.7-4.9); Lymphocytes % 5.8 % (15.3-44.8); MPV 9.2 fL (7.6-11.3)
[2020-04-07 14:48] LABS: Hematocrit 23.1 % (39.6-49.0); RBC Red Blood Cell Count 2.62 M/uL (4.33-5.43)
[2020-04-07 15:16] LABS: RBC Red Blood Cell Count 2.62 M/uL (4.33-5.43)
[2020-04-07 15:47] LABS: Folic Acid, (Folate) > 20.0 ng/mL (3.1-17.5)
[2020-04-07] MEDS: GLUCERNA 1.5 CAL 1,000 ML BOT FT SCH ×2 (17:00→21:00)
--- NOTE | 2020-04-07 17:38 | P.PN ---
Subjective Date of Service: 04/07/20 Primary Care Provider: unknown Chief Complaint: Dysphagia, aspiration pneumonia, prot-ratna malnutrition Subjective: New changes (Tolerating TFs.) Physical Examination - Vital Signs Temperature: 97.4 F Blood Pressure: 131/82 Pulse: 60 Respirations: 18 Pulse Ox (%): 99 - Studies Medications List Reviewed: Yes Assessment And Plan - Current Problems (Diagnosis) (1) Anemia Current Visit: Yes Status: Acute Qualifiers: Anemia type: other cause (2) Aspiration pneumonia Current Visit: Yes Status: Acute (3) Dysphagia Current Visit: Yes Status: Acute (4) Esophageal stricture Current Visit: Yes Status: Acute (5) Protein-calorie malnutrition, severe Current Visit: Yes Status: Acute (6) Respiratory failure Current Visit: Yes Status: Acute Qualifiers: Chronicity: acute (7) Substance abuse Current Visit: Yes Status: Acute (8) Weight loss Current Visit: Yes Status: Acute - Plan REC: 1) continue TFs 2) monitor labs Physician Review: Patient Assessed, Agree with Above Assessment and Plan Physician Review Additional Text: I
[2020-04-07] MEDS: JUVEN PACKET FT SCH (21:00)
[2020-04-08] MEDS: MORPHINE 2 MG/ML SYR IV PRN ×2 (01:02→05:30)
[2020-04-08] MEDS: INSULIN -REGULAR HUMAN 50 UNIT/0.5 ML ML SQ SCH ×4 (01:02→18:00)
[2020-04-08] MEDS: carvediloL 3.125 MG TAB PO SCH ×2 (05:40→17:55)
[2020-04-08 05:46] LABS: Absolute Lymphocytes (CBC) 0.8 K/uL (0.7-4.9); Basophils % 0.3 % (0-1.3); Hematocrit 20.6 % (39.6-49.0); Lymphocytes % 13.9 % (15.3-44.8); RBC Red Blood Cell Count 2.34 M/uL (4.33-5.43)
[2020-04-08 05:53] LABS: Protime INR 1.46
[2020-04-08 06:00] LABS: ALT/SGPT 53 U/L (12-78); AST/SGOT 70 U/L (15-37); Albumin 1.8 g/dL (3.4-5.0); Alkaline Phosphatase 361 U/L (45-117); BUN Blood Urea Nitrogen 30 mg/dL (7-18); Bicarbonate 25 mmol/L (21-32); Bilirubin Total 0.4 mg/dL (0.2-1.0); Glucose Level 183 mg/dL (74-106); Magnesium 2.1 mg/dL (1.8-2.4); NT PRO-BNP 879 pg/mL (<125); Phosphorus 3.6 mg/dL (2.5-4.9); Potassium 4.8 mmol/L (3.5-5.1); Protein, Total 5.2 g/dL (6.4-8.2); Sodium Level 140 mmol/L (136-145)
[2020-04-08 06:55] LABS: Hematocrit 21.5 % (39.6-49.0)
[2020-04-08 08:25] VITALS: O2SAT 98
[2020-04-08] MEDS ORDERED: HYDROCODONE/APAP 10/325 TAB PO PRN (08:50)
[2020-04-08] MEDS: FOLIC ACID 1 MG TABLET FT SCH (09:05)
[2020-04-08] MEDS: Pantoprazole (granules) 40 MG/BLIST PACKET FT SCH ×2 (09:05→17:14)
[2020-04-08] MEDS: predniSONE 10 MG TAB PO SCH ×2 (09:05→17:15)
[2020-04-08] MEDS: VITAMIN B COMPLEX 1 CAP FT SCH (09:05)
[2020-04-08] MEDS: THIAMINE HCL 100 MG TABLET FT SCH (09:05)
[2020-04-08] MEDS: AMOX/K CLAV 500 MG TAB PO SCH ×2 (09:05→17:14)
[2020-04-08] MEDS: JUVEN PACKET FT SCH (09:06)
[2020-04-08] MEDS: GLUCERNA 1.5 CAL 1,000 ML BOT FT SCH ×3 (09:07→17:27)
[2020-04-08] MEDS ORDERED: NA CHLORIDE 0.9% 250 ML ONE (11:17)
[2020-04-08] MEDS: chlordiazePOXIDE HCl 5 MG CAP PO SCH ×2 (12:43→17:15)
[2020-04-08] MEDS ORDERED: FUROSEMIDE 20 MG/ 2ML VIAL IV ONE (14:51)
[2020-04-08] MEDS: HYDRALAZINE HCL 20 MG/ML VIAL IV PRN (15:21)
[2020-04-08 17:29] VITALS: TEMP 97.6
[2020-04-08 17:36] LABS: Hematocrit 25.1 % (39.6-49.0)
[2020-04-08 17:56] VITALS: BP 110/60
--- NOTE | 2020-04-09 08:24 | P.DS ---
Discharge Date: 04/08/20 Primary Care Provider: (in [place], [place]) Disposition: ROUTINE DISCHARGE Discharge Condition: GOOD Reason for Admission: Dysphagia, aspiration pneumonia, prot-curtis malnutrition Consultations: Gastroenterology; pulmonary - Problems (1) Esophageal stricture Status: Acute (2) Weight loss Status: Acute (3) Protein-calorie malnutrition, severe Status: Acute (4) H/O caloric malnutrition Status: Acute (5) Aspiration pneumonia Status: Acute (6) Dysphagia Status: Acute (7) Anemia Status: Acute Qualifiers: Anemia type: other cause (8) Substance abuse Status: Acute Brief History of Present Illness: Patient is a 49-year-old male with past medical history of diabetes diagnosed in 2010 is brought by EMS to the emergency room with complaints of altered mental status and hypoglycemia. In the emergency room patient is noted to have a low white cell count, hypokalemia, hypomagnesemia. Has been smoking methamphetamine for 5 days. Has been drinking alcohol of all kinds for 5 days or greater. He is found with a blood glucose in the 40s and given an amp of glucose in the ambulance. Patient also has a history of pancreatitis likely from alcohol abuse. In the emergency room chest x-ray and chest CT shows likely bacterial pneumonia. Blood work shows a white cell count of 1.1 with bands of 12. Elevated liver enzymes with negative salicylates and negative acetamenophen. His lactic acid is 5.9. Patient was bolused IV fluids is started on IV antibiotics. He improved. Was found with blood glucose in the 40s. Last check blood glucose was 86. Patient is not a good source of information. Patient will be admitted to the ICU and further evaluated. Hospital Course: Patient is doing well during his hospitalization. Patient is clinically doing much better. He had a PEG tube placed and is tolerating his tube feedings. Because he was from out of town, we went ahead and taught him how to do his bolus feedings. IV antibiotics have helped his pneumonia heal. We have switched to oral antibiotics. He is doing well with physical therapy. At this time, he is stable for discharge to follow up with outpatient PCP and outpatient Gastroenterology. Vital Signs/Physical Exam: Temp Pulse Resp BP Pulse Ox 97.6 F 87 18 110/60 98 04/08/20 16:00 04/08/20 17:55 04/08/20 16:00 04/08/20 17:55 04/08/20 16:00 General: Alert, In no apparent distress, Oriented x3 Laboratory Data at Discharge: WBC 6.0 K/uL (4.3-10.9) D 04/08/20 05:30 Hgb 8.7 g/dL (13.6-17.9) L 04/08/20 17:23 Hct 25.1 % (39.6-49.0) L D 04/08/20 17:23 Plt Count 137 K/uL (152-406) L 04/08/20 05:30 PT 17.1 SECONDS (9.5-12.5) H 04/08/20 05:30 INR 1.46 04/08/20 05:30 APTT 37.5 SECONDS (24.3-36.9) H 04/08/20 05:30 Sodium 140 mmol/L (136-145) 04/08/20 05:30 Potassium 4.8 mmol/L (3.5-5.1) 04/08/20 05:30 BUN 30 mg/dL (7-18) H 04/08/20 05:30 Creatinine 0.71 mg/dL (0.55-1.3) 04/08/20 05:30 Glucose 183 mg/dL (74-106) H 04/08/20 05:30 Phosphorus 3.6 mg/dL (2.5-4.9) 04/08/20 05:30 Magnesium 2.1 mg/dL (1.8-2.4) 04/08/20 05:30 Total Bilirubin 0.4 mg/dL (0.2-1.0) 04/08/20 05:30 AST 70 U/L (15-37) H 04/08/20 05:30 ALT 53 U/L (12-78) 04/08/20 05:30 Alkaline Phosphatase 361 U/L (45-117) H 04/08/20 05:30 Lipase 17 U/L (73-393) L 03/28/20 21:34 Home Medications: Amlodipine [Norvasc*] 1 tab PO DAILY 04/03/20 Lisinopril/Hydrochlorothiazide [Lisinopril-Hctz 20-25 mg Tab] 1 tab PO DAILY 04/03/20 Simvastatin 1 tab PO BEDTIME 04/03/20 Amox/K Clav [Augmentin 600 MG/5 ML Susp] 5 ml PO BID #60 ml 04/08/20 Folic Acid 1 mg PO DAILY #30 tablet 04/08/20 Glucerna 1.5 Curtis 237 ml FT QID #120 bot 04/08/20 Methylprednisolone [Medrol dosepack] 4 mg PO DIRECTED #1 genesis 04/08/20 Pantoprazole Granules [Protonix Granules*] 40 mg FT BIDAC #60 packet 04/08/20 Thiamine HCl [Vitamin B-1*] 100 mg FT DAILY #30 tablet 04/08/20 carvediloL [Coreg*] 3.125 mg PO BID 6AM 6PM #60 tab 04/08/20 chlordiazePOXIDE HCl [Librium] 5 mg PO Q8H PRN #35 cap 04/08/20 New Medications: Amox/K Clav [Augmentin 600 MG/5 ML Susp] 5 ml PO BID #60 ml carvediloL [Coreg*] 3.125 mg PO BID 6AM 6PM #60 tab Folic Acid 1 mg PO DAILY #30 tablet Glucerna 1.5 Curtis 237 ml FT QID #120 bot chlordiazePOXIDE HCl [Librium] 5 mg PO Q8H PRN #35 cap PRN Reason: Agitation Methylprednisolone [Medrol dosepack] 4 mg PO DIRECTED #1 genesis Pantoprazole Granules [Protonix Granules*] 40 mg FT BIDAC #60 packet Thiamine HCl [Vitamin B-1*] 100 mg FT DAILY #30 tablet Patient Discharge Instructions: OK TO DC IV AND DC HOME. FOLLOW-UP WITH PRIMARY CARE PROVIDER IN 1-2 WEEKS. FOLLOW-UP WITH GASTROENTEROLOGY IN 1-2 WEEKS. RETURN TO THE ER IF SYMPTOMS WORSEN. REFRAIN FROM SUBSTANCE ABUSE. CAN ONLY DO LIQUIDS BY MOUTH WITH SIPS UNTIL CLEARED BY GI. TUBE FEEDINGS INSTRUCTED IN THE HOSPITAL. CALL or TEXT DR. POWELL AT [phone] IF ANY QUESTIONS REGARDING HOSPITAL STAY. PLEASE CALL THE FLOOR AT [phone] IF ANY MEDICATION OR NURSING QUESTIONS. Diet: Regular Activity: Fall precautions Followup: Christophe Jensen MD [ASSOCIATE-ACTIVE - CAN ADMIT] - 1-2 Weeks (gatroenterologist- Call to schedule an appointment ) Time spent managing pt's care (in minutes): 35
== END 2020-04-08 18:44 | disposition home or self-care (01) | DRG 871 ==
LOC: ER 20:44 → ERHOLD 23:56 → 4TH 04-03 16:59 → 2ND 04-05 18:27
PROVIDERS: ADMIT Hospitalist; ATTEND Hospitalist
PROC: 5A1945Z Respiratory Ventilation, 24-96 Consecutive Hours (ICD-10-PCS; principal; 2020-03-29)
PROC: 0BH17EZ Insertion of Endotracheal Airway into Trachea, Via Natural or Artificial Opening (ICD-10-PCS; 2020-03-29)
PROC: 0DJ08ZZ Inspection of Upper Intestinal Tract, Via Natural or Artificial Opening Endoscopic (ICD-10-PCS; 2020-04-05)
PROC: 0DH63UZ Insertion of Feeding Device into Stomach, Percutaneous Approach (ICD-10-PCS; 2020-04-05)
DX: A41.9 Sepsis, unspecified organism (principal); G92 Toxic encephalopathy; J96.00 Acute respiratory failure, unspecified whether with hypoxia or hypercapnia; J69.0 Pneumonitis due to inhalation of food and vomit; E43 Unspecified severe protein-calorie malnutrition; N39.0 Urinary tract infection, site not specified; Z68.1 Body mass index [BMI] 19.9 or less, adult; E27.40 Unspecified adrenocortical insufficiency; D61.82 Myelophthisis; E87.6 Hypokalemia; R65.20 Severe sepsis without septic shock; E11.649 Type 2 diabetes mellitus with hypoglycemia without coma; T43.621A Poisoning by amphetamines, accidental (unintentional), initial encounter; E83.42 Hypomagnesemia; F10.10 Alcohol abuse, uncomplicated; F15.10 Other stimulant abuse, uncomplicated; D63.8 Anemia in other chronic diseases classified elsewhere; R79.89 Other specified abnormal findings of blood chemistry; E83.51 Hypocalcemia; B96.20 Unspecified Escherichia coli [E. coli] as the cause of diseases classified elsewhere; K22.2 Esophageal obstruction; K44.9 Diaphragmatic hernia without obstruction or gangrene; K29.80 Duodenitis without bleeding; K25.9 Gastric ulcer, unspecified as acute or chronic, without hemorrhage or perforation; R13.10 Dysphagia, unspecified; K26.9 Duodenal ulcer, unspecified as acute or chronic, without hemorrhage or perforation; Z96.41 Presence of insulin pump (external) (internal); Z20.828 Contact with and (suspected) exposure to other viral communicable diseases
CPT/HCPCS: 31500; 36415; 51702; 71045; 74177; 74230; 80048; 80053; 80074; 80076; 80202; 80307; 80320; 80329; 81003; 81015; 82024; 82533; 82607; 82746; 82805; 82947; 83010; 83525; 83540; 83605; 83615; 83690; 83735; 83880; 84075; 84100; 84132; 84134; 84145; 84439; 84443; 84484; 84681; 85014; 85018; 85025; 85044; 85610; 85730; 86850; 86900; 86901; 87040; 87070; 87077; 87086; 87088; 87186; 87205; 87389; 87522; 92611; 93005; 93306; 94002; 94003; 94660; 97116; 97161; 97530; 99285; J0330; J0360; J0610; J0834; J1250; J1650; J1720; J2250; J2270; J2543; J2704; J3370; J3411; J3475; J3480; J7030; J7040; J7050; J7120; J7512; J7799; P9016; Q0161; Q9967; U0003